=== PATIENT | female | born 1945 | race Caucasian/White ===

== ENCOUNTER 2018-03-04 04:03 | Inpatient (IN) | payer OTHER ==
[~2018-03-04] VITALS: Ht 162.6 cm; Wt 100.2 kg
[2018-03-04] VITALS (7 sets, daily range): BP systolic 113–151; BP diastolic 50–78
--- NOTE | ~2018-03-04 | PROC ---
[facility] [address] [place] [address] PROCEDURE REPORT Name: CACHORRO CROSS Room: [address]R.#: [id number] Admission: 03/04/18 Attend Phys: Ricky Coronel Discharge: 03/11/18 Date of : 49 Report #: [id number] THIS REPORT FOR: //name// For GI report, please see Provation report in Perceptive 7 content. By: 0911Medical Records Staff VERONA /OG
--- NOTE | ~2018-03-04 | PROC ---
[facility] [address] [place] [address] PROCEDURE REPORT Name: CACHORRO CROSS Room: [address]R.#: [id number] Admission: 03/04/18 Attend Phys: Ricky Coronel Discharge: 03/11/18 Date of : 49 Report #: [id number] THIS REPORT FOR: //name// For GI report, please see Provation report in Perceptive 7 content. By: 0910Medical Records Staff VERONA /OG
[~2018-03-04 04:03] MED LIST: ADVAIR 250-501 EACH INH; ALAVERT10 MG PO; ASPIRIN81 M2 PO; CLOPIDOGREL75 MG PO; DUONEB 2.5-0.5 M3 ML INH; FISH OIL 1,0001 EAC8 PO; IMDUR 30 MG TAB30 M1 PO; LANTUSSOLASTAR SQ; LEVOTHYROXIN0.137 M1 PO; LISINOPRIL40 MG PO; METOPROLOL SUCC25 M1 PO; NOVOLOG100 UNIT/1 SQ; SIMVASTATIN40 MG PO; SPIRIVA INH; VENTOLIN HFA INH8 GM INH
[2018-03-04 04:13] LABS: BE -2.8 mmol/L (-2 to +3); HCO3 22.1 mmol/L (22.0-26.0); PCO2 38.8 mmHg (35.0-45.0); PO2 88.2 mmHg (75.0-100.0); pH 7.374 (7.340-7.450)
--- NOTE | 2018-03-04 04:24 | NUR ---
PT REFUSED RUIZ
[2018-03-04 04:48] LABS: ABSOLUTE BASOPHILS 0.1 thou/uL (0.0-0.2); ABSOLUTE EOSINOPHILS 0.3 thou/uL (0.0-0.7); ABSOLUTE LYMPHOCYTES 2.1 thou/uL (0.8-5.3); ABSOLUTE MONOCYTES 0.9 thou/uL (0.0-1.2); ABSOLUTE NEUTROPHILS 12.6 thou/uL (1.6-8.1); BASOPHILS 0.5 %; EOSINOPHILS 1.9 %; HEMATOCRIT 28.6 % (37.0-47.0); HEMOGLOBIN 8.5 gm/dL (12.0-15.0); LYMPHOCYTES 13.4 %; MCH 21.4 pg (26.0-34.0); MCHC 29.8 g/dL (28.0-37.0); MONOCYTES 5.3 %; MPV 7.7 fl. (7.2-11.1); NUCLEATED RBCS 0 /100WBC; PLATELET COUNT* 443 thou/uL (150-400); POLYS 78.9 %; RBC 3.98 mil/uL (4.20-5.00); RDW-CV 23.1 % (10.5-14.5)
[2018-03-04] MEDS ORDERED: NORVASC5 MG PO (04:48)
[2018-03-04] MEDS ORDERED: [UNRECOGNIZED DRUG - OTHER] (04:49)
[2018-03-04] MEDS ORDERED: PROTONIX40 M1 PO (04:50)
[2018-03-04] MEDS ORDERED: BINOSTO70 MG PO (04:50)
[2018-03-04] MEDS ORDERED: FISH OIL 1,001000 M2 PO (04:50)
[2018-03-04] MEDS ORDERED: ASPIR 8181 MG PO (04:50)
[2018-03-04] MEDS ORDERED: PRINIVIL40 MG PO (04:51)
[2018-03-04] MEDS ORDERED: FUROSEMIDE 20 M20 MG PO (04:51)
[2018-03-04] MEDS ORDERED: ZOCOR40 MG PO (04:51)
[2018-03-04] MEDS ORDERED: PLAVIX 75 MG TA75 M1 PO (04:51)
[2018-03-04] MEDS ORDERED: ZANTAC 150MG T150 MG PO (04:52)
[2018-03-04] MEDS ORDERED: IMDUR 30 MG TAB30 M1 PO (04:52)
[2018-03-04] MEDS ORDERED: AMARYL4 MG PO (04:52)
[2018-03-04] MEDS ORDERED: SYNTHROID175 MCG PO (04:52)
[2018-03-04] MEDS ORDERED: AZITHROMYCIN 2250 MG PO (04:53)
[2018-03-04] MEDS ORDERED: TRELEGY ELLIPT1 EACH INH (04:53)
[2018-03-04 05:01] LABS: ANION GAP 11 mmol/L (7-16); BUN 22 mg/dL (7-18); CALCIUM 7.5 mg/dL (8.5-10.1); CHLORIDE 103 mmol/L (98-107); CO2 26 mmol/L (21-32); CREATININE 1.7 mg/dL (0.6-1.3); GLUCOSE 219 mg/dL (70-99); POTASSIUM 3.7 mmol/L (3.5-5.1); SODIUM 140 mmol/L (136-145)
[2018-03-04 05:04] LABS: APTT 27.7 Seconds (25.0-31.3); INR 0.9; PROTIME 9.4 Seconds (9.20-11.50)
[2018-03-04 05:13] LABS: ALBUMIN 2.7 g/dL (3.4-5.0); ALKALINE PHOSPHATASE 52 U/L (46-116); NT-PRO BRAIN NAT PEPTIDE 1530 pg/mL (<300); SGOT 12 U/L (15-37); SGPT 15 U/L (30-65); TOTAL BILIRUBIN 0.2 mg/dL (<0.1-1.0); TOTAL PROTEIN 8.3 g/dL (6.4-8.2); TROPONIN-I LEVEL <0.06 ng/mL (<0.06)
[2018-03-04 08:26] LABS: ANISOCYTOSIS 2+; HYPOCHROMASIA 2+; MICROCYTES 1+; PLATELET ESTIMATE INCREASED; POLYCHROMASIA 1+; TARGET CELLS Occasional
--- NOTE | 2018-03-04 08:30 | NUR ---
RADIOLOGY CALLED IN [facility] FOR VQ SCAN.
[2018-03-04 10:00] LABS: BE -1.7 mmol/L (-2 to +3); HCO3 22.5 mmol/L (22.0-26.0); PCO2 35.6 mmHg (35.0-45.0); PO2 93.9 mmHg (75.0-100.0); pH 7.419 (7.340-7.450)
--- NOTE | 2018-03-04 10:39 | NUR ---
PT COMPLETE VQ SCAN.
--- NOTE | 2018-03-04 11:50 | NUR ---
PT OFF BIPAP AND ON 3L NC. PT CAN EAT PER DR. LUNA.
[2018-03-05] VITALS (7 sets, daily range): BP systolic 117–153; BP diastolic 44–73
[2018-03-05 05:04] LABS: HEMATOCRIT 22.4 % (37.0-47.0); MCH 22.2 pg (26.0-34.0); MCHC 30.8 g/dL (28.0-37.0); MCV 72.2 fL (80.0-100.0); MPV 7.9 fl. (7.2-11.1); NUCLEATED RBCS 0 /100WBC; RBC 3.11 mil/uL (4.20-5.00); RDW-CV 23.2 % (10.5-14.5); WBC 19.2 thou/uL (4.0-11.0)
[2018-03-05 05:23] LABS: ALBUMIN 2.2 g/dL (3.4-5.0); CALCIUM 6.7 mg/dL (8.5-10.1); CREATININE 2.1 mg/dL (0.6-1.3); POTASSIUM 3.6 mmol/L (3.5-5.1); TOTAL BILIRUBIN 0.1 mg/dL (<0.1-1.0)
[2018-03-05 05:32] LABS: PLATELET COUNT* 364 thou/uL (150-400)
[2018-03-05 05:34] LABS: HEMOGLOBIN 6.9 gm/dL (12.0-15.0)
--- NOTE | 2018-03-05 05:55 | NUR ---
RECEIVED REPORT AND ASSUMED CARE AT 1900. VSS. CARDIAC MONITORING IN PLACE. PT DENIES ANY COMPLIANTS OF PAIN. ASSESSMENT COMPLETED CHARTED. PT UP WITH ASSIST OF ONE TO BSC, ON 3L HF NC. BED LOCKED IN LOWEST POSITION, CALL LIGHT WITHIN REACH, BED ALARM ON. HOURLY ROUNDING COMPLETED AND ALL NEEDS MET. WILL CONTINUE TO MONITOR
[2018-03-05 05:59] LABS: HEMATOCRIT 22.2 % (37.0-47.0)
[2018-03-05 06:03] LABS: HEMOGLOBIN 6.8 gm/dL (12.0-15.0)
--- NOTE | 2018-03-05 07:39 | CON ---
[address] [address] CONSULTATION Name: AMERICACACHORRO Aileen Room: [address] ADM IN M.R.#: [id number] Admission: 03/04/18 Attend Phys: Ricky Coronel Discharge: Date of : 49 Report #: [id number] THIS REPORT FOR: //name// CC: Omer Storm REQUESTING PHYSICIAN: Tanner Storm DO REASON FOR CONSULTATION: Acute respiratory failure, COPD exacerbation. DISCUSSION: The patient is a 72-year-old woman who is very remote smoker. She does carry diagnosis of COPD. She is O2, though has not been, steroid dependent. She was hospitalized recently at [facility]. She was discharged about a week and a half ago. However, when she was home, began having more trouble with her breathing. Was seen in the emergency department there about 2 days ago. They wanted to keep her and admit her, but she declined. She was sent out with a Z-KY that she had pneumonia based on their testing. No steroids. However, when she got up during the night going to the restroom and she has hoped to shower in anticipation of other activities for today. [place] extremely short of breath. Took additional nebulizer treatments, as well as her rescue inhaler. However, did not help. Asked her to call for help. The ambulance brought her here. She has not been at [facility] before. We had none of her other records. Was recently at [facility] is noted. She is a very remote smoker. She has not had any PFTs or pulmonary evaluation done in the past. She has been told, however, that she does have COPD and is on medications for that. Her current medication list; however, is not accurate. She is actually doing Advair twice a day and has her nebulizer, which she can do up to 4 times a day. She knows it is albuterol, but it is unknown if it is mixed with ipratropium bromide. She also has a rescue inhaler. She is on O2 continuously. She has been coughing. Her secretions are white. She denies hemoptysis. Is not having actual chest pain or has been very short of breath. She has never had a sleep study. She sleeps with oxygen. Has never been on a BiPAP or noninvasive ventilator. She does have a history of coronary artery disease. Has a stent placed in the past, which was done at [facility]. Has not been back in the last couple of years to follow up with cardiology there. PAST MEDICAL HISTORY: Besides the coronary artery disease and COPD, is remarkable for prior thyroidectomy, prior hysterectomy, dyslipidemia, TIAs. SOCIAL HISTORY: She is . Very remote smoker. [place] [address] CONSULTATION Name: CACHORRO CROSS Room: [address] IN [facility].#: [id number] Admission: 03/04/18 Attend Phys: Ricky Coronel Discharge: Date of : 49 Report #: [id number] worked in a long time and held a variety of jobs over the years. We discussed some, did not appear she had any significant occupational exposures. FAMILY HISTORY: Unremarkable. REVIEW OF SYSTEMS: A 12-point ROS was done. No positives as above. She does deny any recent chest pain or palpitations. Is very short of breath. No fevers at home. She does not like steroids, as when she does take them, she will have significant edema, particularly in her lower extremities. Lot of issues with fluid retention. Denies any recent GI symptoms. However, when she does not eat, she does get a burning in her stomach. Quite concerned that she has not had any of her medications. PHYSICAL EXAMINATION: GENERAL APPEARANCE: An obese woman. She is in bed with O2 via nasal cannula at this time. She is alert, conversant, and able to speak in full sentences. Her is at the bedside. She is a large woman. HEENT: Head is normocephalic. Sclerae are nonicteric. NECK: Large. No definite JVD is appreciated. HEART: Regular rate. Tones are distant. LUNGS: Show breath sounds to be diminished. She has prolonged expiratory phase with scattered expiratory wheezes. Excursion is equal. ABDOMEN: Obese, but soft, appreciable hepatosplenomegaly. No guarding or rebound tenderness. EXTREMITIES: She has no clubbing. Radial pulses are present. Lower extremities: She has some trace pretibial edema. SKIN: Warm and dry. Pulses are present, but diminished. LABORATORY AND X-RAY FINDINGS: X-ray done today shows some mild cardiomegaly. She does have some atelectatic changes with some infiltrates in left lower lung field. May have some right mid lung field as well. Ventilation perfusion lung scan was low probability for PE. Arterial blood gases done initially in the ED after she was placed on BiPAP. She had a pH 7.37, pCO2 of 39, pO2 of 88, bicarbonate of 22, saturation 96%. That was on 75% oxygen on BiPAP. Follow up gases this morning: pH 7.42, pCO2 of 36, pO2 94, saturation 96% with FiO2 down to 40%. She is currently on 3 L at the time that I saw [place] [address], hemoglobin 8.5, hematocrit of 28.2, MCV 72. Platelets are normal at 443 (actually high). Her proBNP was 1530. Albumin 2.7. Total protein was 8.3. IMPRESSION: 1. Chronic obstructive pulmonary disease exacerbation. She is actively bronchospastic. Some changes on her x-ray, probably pneumonia, cannot rule out a component of heart failure as well. Actual left ventricular status is unknown at this time. 2. Diabetes mellitus type 2. [place] [address] CONSULTATION Name: AMERICACACHORRO Room: [address] IN ..#: [id number] Admission: 03/04/18 Attend Phys: Ricky Coronel Discharge: Date of : 49 Report #: [id number] 3. Known coronary artery disease status post stent placement. 4. History of cerebrovascular disease, prior history of transient ischemic attacks. 5. Morbid obesity. 6. Anemia. Appears microcytic. RECOMMENDATIONS: 1. We will change the neb treatments from q.i.d. up to q. 4 hours. 2. We will also start budesonide and arformoterol to replace the Advair. 3. IV antibiotics. 4. I will also complete her course of azithromycin. Rocephin has also been started. <ELECTRONICALLY SIGNED> By: Sapna Nash MD 03/05/18 0739 [id number] nora Galdamez
[2018-03-05 08:17] LABS: ABSOLUTE LYMPHOCYTES 1.7 thou/uL (0.8-5.3); ABSOLUTE MONOCYTES 0.4 thou/uL (0.0-1.2); ABSOLUTE NEUTROPHILS 17.1 thou/uL (1.6-8.1); ANISOCYTOSIS 2+; ATYPICAL LYMPHS 5 %; HYPOCHROMASIA 2+; PLATELET ESTIMATE ADEQUATE; POLYCHROMASIA 1+
[2018-03-05 12:58] LABS: HEMATOCRIT 27.4 % (37.0-47.0); HEMOGLOBIN 8.3 gm/dL (12.0-15.0)
--- NOTE | 2018-03-05 13:00 | NUR ---
ASSUMED PT CARE AT 0700 PT IS ALERT AND ORIENTED X 4 PT HGB BELOW 7 AT START OF SHIFT ORDERS FOR BLOOD OBTAINED BY PREVIOUS NURSE BLOOD BANK CALLED BLOOD READY VERIFIED WITH ANOTHER NURSE AND HUNG BLOOD WAITED WITH PT FOR 15 MINUTES NO REACTION NOTED INCREASED RATE AND ASSED PT HOURLY UNTIL BLOOD COMPLETE ALL VITAL SIGNS STABLE PT TOLERATED BLOOD TRANSFUSION WELL, PT BLOOD SUGAR IS ELEVATED GAVE SCHEDULED INSULIN AND NOTIFIED PHYSICIAN AWAITING CALL BACK, PT IS SR ON THE MONITOR, PT IS UP WITH SBA PT DENIES PAIN OR SOA ON 3L/NC, BIPAP DISCONTINUED, WILL CONTINUE TO MONITOR
--- NOTE | 2018-03-05 14:56 | EKG ---
[place] [address] ELECTROCARDIOGRAM REPORT Name: CACHORRO CROSS Room: [address] ADM IN .R.#: [id number] Admission: 03/04/18 Attend Phys: Ricky Coronel Discharge: Date of : 49 Report #: [id number] THIS REPORT FOR: //name// [facility] ED Test Date: 2018-03-04 Test Time: 04:11:12 Pat Name: CACHORRO CROSS Department: Room: [facility] Gender: F Pewter Finisher: [birth year] : 1945 Requested By: Sandeep Hawley Order Number: [id number] MD: Alexsander Burger Measurements Intervals [place] Rate: 98 P: 41 DE: 176 QRS: 58 QRSD: 92 T: 97 QT: 351 QTc: 449 Interpretive Statements Sinus rhythm Borderline repolarization abnormality No previous ECG available for comparison Electronically Signed On 03-05-2018 14:56:18 CDT by Alexsander Burger [email or web address] <ELECTRONICALLY SIGNED> By: Alexsander Burger MD, [facility] 03/05/18 1456 0411 0411 Alexsander Burger MD, FACC /EPI
--- NOTE | 2018-03-05 22:26 | NUR ---
RECEIVED REPORT AND ASSUMED CARE OF PATIENT AT 1930. AIRPLANE RENTAL CLERK IN PLACE TRACING SR. ASSESSMENT AND VITALS COMPLETED CHARTED VSS. PATIENT DENIES PAIN AND DISCOMFORT. PATIENT IS ON 1.5L O2 NC O2 SAT WNL. LUNGS COARSE W/ WHEEZES. PATIENT REPORTS THE MUCINEX IS WORKING AND SHE COUGHED UP SPUTUM EARLIER TODAY. GOAL IS TO MAINTAIN O2 SATS >90% AND EXCRETE MUCUS. CALL LIGHT WITHIN REACH
[2018-03-06 03:47] VITALS: BP 141/59
--- NOTE | 2018-03-06 06:52 | NUR ---
PATIENT PROGRESSING TOWARDS GOALS: O2 SATS MAINTAINED >90%. PATIENT CONTINUES TO HAVE PRODUCTIVE COUGH. PATIENT CONTINUES TO DENY PAIN AND DISCOMFORT. HOURLY ROUNDING OBSERVED. CALL LIGHT WITHIN REACH
[2018-03-06 08:10] VITALS: BP 143/58
[2018-03-06 10:48] LABS: HEMATOCRIT 25.4 % (37.0-47.0); HEMOGLOBIN 7.7 gm/dL (12.0-15.0)
[2018-03-06 10:59] LABS: ALBUMIN 2.2 g/dL (3.4-5.0); CALCIUM 6.8 mg/dL (8.5-10.1); CREATININE 2.3 mg/dL (0.6-1.3); TOTAL BILIRUBIN 0.1 mg/dL (<0.1-1.0); TOTAL PROTEIN 7.1 g/dL (6.4-8.2)
--- NOTE | 2018-03-06 11:00 | NUR ---
REC'D REPORT FROM NOC RN, ASSUMED CARE OF PT APPROX 0730. PT A&O X4, ABLE TO COMMUNICATE NEEDS TO STAFF. MALT SPECIFICATIONS CONTROL ASSISTANT IN PLACE, SR. O2 SAT >92% ON 3L/MIN NC. ASSESSMENT COMPLETE, DOCUMENTED. MEDS PER JUL. BARRIER CREAM TO R BUTTOCK FOR 2 CM ROUND STAGE 2 PRESSURE ULCER. CALL LIGHT IN REACH. APPROPRIATE USE OF CALL LIGHT TO ASK FOR ASSISTANCE WITH TRANSFERS TO BSC AND CHAIR. HOURLY ROUNDING.
--- NOTE | 2018-03-06 12:15 | NUR ---
Pt is A&O. Resides at home with her . Pt has been independent with ADLs, continues to cook and clean. Pt stated that she hasn't been able to drive recently, stated that she has been receiving injections in her eyes re: macular degeneration. Pt has a walker, 2 canes, a wc and a scooter at home. Pt stated that she only uses the wc for longer distances. Pt is current [facility]. Hx of [facility], but stated "they are horrible, I won't ever use them again." Pt has home o2 through [facility]. No hx of skilled. Goal is to return home at dc, with family support. CM to update [facility] palliative care when Pt discharges, Pt declines HH. Following.
[2018-03-06 13:28] VITALS: BP 131/65
[2018-03-06 13:33] LABS: HCO3 18.3 mmol/L (22.0-26.0); PCO2 35.5 mmHg (35.0-45.0); PO2 85.3 mmHg (75.0-100.0); pH 7.329 (7.340-7.450)
[2018-03-06 13:51] VITALS: BP 131/65
--- NOTE | 2018-03-06 14:48 | NUR ---
Nutrition: Pt admitted with COPD exac. Steroid RX elevating BG levels. H/o COPD, DM. on insulin, lasix, solumedrol. Labs: BG 300s, alb 2.2, prealb 19.4, Hgb 7.7, BUN 54, cr 2.3. Wt is stable, 208#. Diet order is now CHO controlled. Low to Mild nutrition risk.
[2018-03-06 16:00] VITALS: BP 137/70
--- NOTE | 2018-03-06 16:37 | 2DMMODE ---
[place] [address] 2 D/M-MODE ECHOCARDIOGRAM Name: AMERICACACHORRO L Room: [address] IN [facility]#: [id number] Admission: 03/04/18 Attend Phys: Tanner Storm Discharge: Date of : 49 Date of Service: 03/06/18 1444 Report #: [id number] THIS REPORT FOR: //name// APPROVED REPORT Study performed: 03/06/2018 10:45:52 EXAM: Comprehensive 2D, Doppler, and color-flow Echocardiogram Patient Location: In-Patient Room #: [facility] Status: routine BSA: 1.99 HR: 77 bpm BP: 143/58 mmHg Rhythm: NSR Other Information Study Quality: Good Indications COPD Dyspnea 2D Dimensions IVSd: 16.63 (7-11mm) LVOT Diam: 21.89 (18-24mm) LVDd: 53.22 mm PWd: 12.55 (7-11mm) Ascending Ao: 31.45 (22-36mm) LVDs: 31.21 (25-40mm) Aortic Root: 36.48 mm Volumes Left Atrial Volume (Systole) LA ESV Index: 56.10 mL/m2 Aortic Valve AoV Peak Alexandre.: 1.73 m/s AO Peak Gr.: 11.96 mmHg LVOT Max P.72 mmHg AO Mean Gr.: 6.53 mmHg LVOT Mean P.25 mmHg LVOT Max V: 1.20 m/s AO V2 VTI: 37.56 cm LVOT Mean V: 0.85 m/s MARIE (VTI): 2.72 cm2 LVOT V1 VTI: 27.16 cm Mitral Valve E/A Ratio: 0.87 MV Decel. Time: 277.64 [place] [address] 2 D/M-MODE ECHOCARDIOGRAM Name: CACHORRO CROSS Room: [address]#: [id number] Admission: 03/04/18 Attend Phys: Tanner Storm Discharge: Date of : 49 Date of Service: 03/06/18 1444 Report #: [id number] MV E Max Alexandre.: 2.65 m/s MV PHT: 80.52 ms MVA (PHT): 2.73 cm2 TDI E/Lateral E': 17.67 E/Medial E': 33.13 Medial E' Alexandre.: 0.08 m/s Lateral E' Alexandre.: 0.15 m/s Pulmonary Valve PV Peak Alexandre.: 1.11 m/s PV Peak Gr.: 4.92 mmHg Tricuspid Valve RAP Estimate: 15.00 mmHg TR Peak Gr.: 31.06 mmHg RVSP: 46.00 mmHg PA Pressure: 46.00 mmHg Left Ventricle The left ventricle is normal size. There is normal LV segmental wall motion. Mild concentric left ventricular hypertrophy. Left ventricular systolic function is normal. The left ventricular ejection fraction is within the normal range. LVEF is 55-60%. Grade I - abnormal relaxation pattern. Right Ventricle The right ventricle is normal size. The right ventricular systolic function is normal. Atria Left atrium is mildly dilated. The right atrium size is normal. Aortic Valve Mild aortic valve sclerosis. No aortic regurgitation is present. There is no aortic valvular stenosis. Mitral Valve There is mitral annular calcification. There is no mitral valve regurgitation noted. No evidence of mitral valve stenosis. Tricuspid Valve The tricuspid valve is normal in structure. Trace tricuspid regurgitation. Moderate pulmonary hypertension. Pulmonic Valve The pulmonary valve is normal in structure. [place] [address] 2 D/M-MODE ECHOCARDIOGRAM Name: CACHORRO CROSS Room: [address]#: [id number] Admission: 03/04/18 Attend Phys: Tanner Storm Discharge: Date of : 49 Date of Service: 03/06/18 1444 Report #: [id number] valvular regurgitation. Great Vessels The aortic root is normal in size. IVC is dilated and collapses <50% with inspiration. Pericardium There is no pericardial effusion. <Conclusion> The left ventricle is normal size. Mild concentric left ventricular hypertrophy. Left ventricular systolic function is normal. The left ventricular ejection fraction is within the normal range. LVEF is 55-60%. Grade I - abnormal relaxation pattern. The right ventricle is normal size. Left atrium is mildly dilated. Mild aortic valve sclerosis. No aortic regurgitation is present. There is no aortic valvular stenosis. There is mitral annular calcification. There is no mitral valve regurgitation noted. No evidence of mitral valve stenosis. The tricuspid valve is normal in structure. IVC is dilated and collapses <50% with inspiration. There is no pericardial effusion. There is normal LV segmental wall motion. <ELECTRONICALLY SIGNED> By: Leonel Cavazos MD, FACC 03/06/18 1444 1444 1444 Leonel Cavazos MD, FACC /INF
[2018-03-06 20:00] VITALS: BP 143/67
[2018-03-07 01:02] VITALS: BP 120/47
--- NOTE | 2018-03-07 04:38 | NUR ---
PATIENT PROGRESSING TOWARDS GOALS: PATIENT'S O2 SATS MAINTAINED >90% ON 2-3L O2 NC WITHOUT RESPIRATORY DISTRESS OR DISCOMFORT. PATIENT STATES SHE HAS BEEN ABLE TO "COUGH UP SOME JUNK AND FEELS BETTER." LUNG SOUNDS IMPROVED. PATIENT DENIES PAIN. BARRIER CREAM APPLIED TO RIGHT BUTTOCK WOUND AND PATIENT REMINDED TO REPOSITION FREQUENTLY. HOURLY ROUNDING OBSERVED. CALL LIGHT WITHIN REACH.
[2018-03-07 05:16] VITALS: BP 119/51
[2018-03-07 08:00] VITALS: BP 146/68
[2018-03-07 09:16] LABS: ABSOLUTE MONOCYTES 0.6 thou/uL (0.0-1.2); ABSOLUTE NEUTROPHILS 17.4 thou/uL (1.6-8.1); BASOPHILS 0.2 %; HEMATOCRIT 27.1 % (37.0-47.0); HEMOGLOBIN 8.2 gm/dL (12.0-15.0); LYMPHOCYTES 5.3 %; MCH 22.5 pg (26.0-34.0); MCHC 30.3 g/dL (28.0-37.0); MCV 74.4 fL (80.0-100.0); MONOCYTES 2.9 %; MPV 7.8 fl. (7.2-11.1); NUCLEATED RBCS 0 /100WBC; PLATELET COUNT* 404 thou/uL (150-400); POLYS 91.6 %; RBC 3.64 mil/uL (4.20-5.00); RDW-CV 23.9 % (10.5-14.5)
[2018-03-07 09:21] LABS: CALCIUM 6.9 mg/dL (8.5-10.1); CREATININE 1.9 mg/dL (0.6-1.3); POTASSIUM 4.7 mmol/L (3.5-5.1)
--- NOTE | 2018-03-07 09:52 | NUR ---
ASSUMED CARE PF PT THIS AM AROUND 07- SALT WASHER HARVESTING STATION IN PLACE ORDERED, TRACING SR- UPON ASSESSMENT PT NOTED TO BE RESTING IN BED, WATCHING TV- PT A&O X4, TALKATIVE AND TEARFUL AT TIMES- CONTINENT OF BOWEL AND BLADDER- SBA WITH TRANSFERS FOR SAFETY- EXPIRATORY WHEEZING NOTED- RESP EVEN AND UN-LABORED AT REST- DYSPNEA NOTED ON EXERTION- VSS, O2 SAT 98% ON 2L VIA NC-PRODUSTIVE WET COUGH NOTED- ABDOMEN SOFT/ROUND/NON-TENDER, BS X4 QUADS-LAST BM X2 DAYS AGO, PT DENIES NEED FOR STOOL SOFTNER AT THIS TIME- SKIN DRY AND FLAKEY- IV NOTED TO LEFT FA INTACT AND SL; IV ABT GIVEN THIS AM PRESCRIBED-GOOD PO INTAKE NOTED WITH MEALS- BS MONITORED WITH PRESCRIBED INSULIN GIVEN PRESCRIBED- PT DENIES ANY C/O PAIN/DISCOMFORT AT THIS TIME- CALL LIGHT AND PERSONAL BELONGINGS WITH IN REACH- HOURLY ROUNDS IN PLACE R.T SAFETY/NEEDS- ALL NEEDS MET AT THIS TIME-WCTM
[2018-03-07 12:41] VITALS: BP 125/74
[2018-03-07 16:25] VITALS: BP 129/59
--- NOTE | 2018-03-07 17:05 | NUR ---
PT SAI RESTING IN BED, AT SIDE VISITING- REAL ESTATE LOAN OFFICER IN PLACE ORDERED, TRACING SR- IV TO LEFT FA INTACT AND SL- IV SOLU-MED GIVEN PRESCIBED- BREATHING TX PER RT THIS SHIFT- SPUTUM COLLECTED AND SENT TO LAB FOR TESTING THIS SHIFT ORDERED- IS AT BEDSIDE AND ENCOURAGED INDICATED- PT DENIES ANY C/O PAIN/DISCOMFORT AT THIS TIME- CALL LIGHT AND PERSONAL BELONGINGS WITH IN REACH- PT MAKES NEEDS KNOWN- ALL NEEDS MET AT THIS TIME-WCTM
[2018-03-07 20:00] VITALS: BP 132/49
[2018-03-08] VITALS: BP 124/59
[2018-03-08 04:00] VITALS: BP 153/72
--- NOTE | 2018-03-08 04:42 | NUR ---
ASSUMED CARE OF PT AFTER REPORT AT 1930. PT A&OX4. VSS. PHYSICAL ASSESSMENT COMPLETED AND CHARTED. PT ON O2 AT 2L WITH 96% O2 SAT. PT TRACING SR ON TELE. PT UP STANDBY TO BEDSIDE COMMODE. DENIES ANY PAIN OR DISCOMFORT. PT RESTED WELL ON BED. HOURLY ROUNDING OBSERVED. HS REST & SAFETY GOALS ACHIEVED. CALL LIGHT WITHIN REACH. BED IN LOW POSITION. BED ALARM ON.
[2018-03-08 05:09] LABS: HEMATOCRIT 31.4 % (37.0-47.0); HEMOGLOBIN 9.4 gm/dL (12.0-15.0); MCH 22.4 pg (26.0-34.0); MCHC 30.1 g/dL (28.0-37.0); MCV 74.5 fL (80.0-100.0); MPV 7.5 fl. (7.2-11.1); NUCLEATED RBCS 0 /100WBC; PLATELET COUNT* 456 thou/uL (150-400); RBC 4.21 mil/uL (4.20-5.00); RDW-CV 23.9 % (10.5-14.5)
[2018-03-08 05:32] LABS: CALCIUM 6.8 mg/dL (8.5-10.1); CREATININE 1.6 mg/dL (0.6-1.3); POTASSIUM 3.9 mmol/L (3.5-5.1)
[2018-03-08 06:16] LABS: ABSOLUTE LYMPHOCYTES 2.4 thou/uL (0.8-5.3); ABSOLUTE MONOCYTES 0.3 thou/uL (0.0-1.2); ABSOLUTE NEUTROPHILS 14.3 thou/uL (1.6-8.1); HYPOCHROMASIA 2+; PLATELET ESTIMATE INCREASED; TARGET CELLS 1+
[2018-03-08 06:18] LABS: ANISOCYTOSIS 1+; MICROCYTES 1+; POIKILOCYTOSIS 1+
[2018-03-08 07:53] VITALS: BP 150/56
--- NOTE | 2018-03-08 09:32 | NUR ---
ASSUMED CARE OF PT THIS AM AROUND 0715- RIBBON WINDER IN PLACE ORDERED, TRACING SR- UPON ASSESSMENT PT NOTED TO BE RESTING IN BED, WATCHING TV- PT A&O X4- CONTINENT OF BOWEL AND BLADDER- SBA WITH TRANSFERS FOR SAFETY- EXPIRATORY WHEEZING NOTED WITH COUGH- RESP EVEN AND UN-LABORED AT REST- DYSPNEA NOTED ON EXERTION- VSS,O2 SAT 99% ON 2L-ABDOMEN SOFT/OBESE/NON-TENDER, BS X4 QUADS- PT REPORTS TO HAVE HAD BM THIS AM- SKIN DRY AND FLAKEY- IV NOTED TO LEFT FA INTACT AND SL- IV ABT GIVEN THIS AM PRESCIBED, NO ADVERSE REACTIONS TO NOTE- GOOD PO INTAKE NOTED WITH BREAKFAST THIS AM, BS MONITORED ORDERED, SCHEDULED AND SSI GIVEN PRESCIBED- PT DENIES ANY C/O PAIN/DISCOMFORT AT THIS TIME- CALL LIGHT AND PERSONAL BELONGINGS WITH IN REACH- HOURLY ROUNDS IN PLACE R/T SAFETY/NEEDS- ALL NEEDS MET AT THIS TIME-WCTM
[2018-03-08 12:00] VITALS: BP 136/68
--- NOTE | 2018-03-08 14:16 | NUR ---
Therapies ordered. Rehab consult placed.
[2018-03-08 16:00] VITALS: BP 142/72
--- NOTE | 2018-03-08 16:40 | NUR ---
PT RODRICKENLTY RESTING IN BED, EYES CLOSED- GENERAL CARGO CLERK IN PLACE ORDERED, TRACING SR- IV TO LEFT FA INTACT AND SL- GOOD PO INTAKE NOTED WITH MEALS, BS MONITORED ORDERED, SCHEDULED INSULIN PRESCIBED- HERE TO ASSESS THIS SHIFT AND STATES PT DOING BETTER- ENCOURAGEMENT GIVEN TO INCREASE ACTIVITY WITH LONGER O2 TUBING PROVIDED TO ENCOURAGE AMBULATION- PT UP AND SHOWERED THIS SHIFT, AND REPORTS TO BE FEELING BETTER- GI CONSULTED PER THIS SHIFT R/T ANEMIA- GI HERE TO ASSESS WITH PLANS COMMUNICATED FOR UPPER AND LOWER WORK UP PER GI PLANNED FOR TUESDAY PER PT REQUEST FOR DAUGHTER TO BE ABLE TO BE HERE- PT NOTED TO REFUSE PO GI PREP, BUT CONCENTED TO BOWEL PREP PER GASTRIC TUBE- NG TUBE TO BE PLACED ON 03/09/18 FOR BOWEL PREP ADMINISTRATION- PT/OT CONSULTED FOR EVAL AND TX THIS SHIFT- REHAD CONSULT INITIATED- PT DENIES ANY C/O PAIN/DISCOMFORT AT THIS TIME-CALL LIGHT AND PERSONAL BELONGINGS WITH IN REACH- PT MAKES NEEDS KNOWN- ALL NEEDS MET AT THIS TIME-WCTM
[2018-03-08 20:00] VITALS: BP 155/70
[2018-03-09] VITALS: BP 140/58
[2018-03-09 04:00] VITALS: BP 129/55
[2018-03-09 04:43] LABS: HEMOGLOBIN 8.2 gm/dL (12.0-15.0); MCH 22.5 pg (26.0-34.0); MCHC 30.5 g/dL (28.0-37.0); MCV 73.6 fL (80.0-100.0); MPV 7.3 fl. (7.2-11.1); RBC 3.66 mil/uL (4.20-5.00); RDW-CV 24.1 % (10.5-14.5); WBC 15.4 thou/uL (4.0-11.0)
--- NOTE | 2018-03-09 04:56 | NUR ---
ASSUMED CARE OF PT AFTER REPORT AT 1930. PT A&OX4. VSS. PHYSICAL ASSESSMENT COMPLETED AND CHARTED. PT ON O2 AT 2L NC WITH O2 SAT OF 95%. PT TRACING SR ON TELE. PT UP STANDBY ASSIST TO RESTROOM. DENIES ANY PAIN OR DISCOMFORT. PT RESTED WELL ON BED. HOURLY ROUNDING OBSERVED. HS REST & SAFETY GOALS ACHIEVED. CALL LIGHT WITHIN REACH. BED IN LOW POSITION. BED ALARM ON.
[2018-03-09 05:23] LABS: CALCIUM 6.7 mg/dL (8.5-10.1); CREATININE 1.5 mg/dL (0.6-1.3); MAGNESIUM 2.1 mg/dL (1.8-2.4); POTASSIUM 4.5 mmol/L (3.5-5.1)
[2018-03-09 08:00] VITALS: BP 138/82
--- NOTE | 2018-03-09 15:07 | NUR ---
REPORT CALLED TO DONATO ON JSSI. PT TAKEN TO ROOM 112 VIA BED
[2018-03-09 15:15] VITALS: BP 148/74
--- NOTE | 2018-03-09 15:47 | NUR ---
PATIENT ARRIVED TO UNIT FROM TELE AT 1515. ALERT AND ORIENTED X 4. VITAL SIGNS STABLE ON 2L O2 NASAL CANULA. AFEBRILE. UP WITH STAND BY ASSIST. AGREE WITH PREVIOUS ASSESSMENT AND CHARTING. ORIENTED TO ROOM. CALL LIGHT WITHIN REACH. NURSNIG WILL CONTINUE TO MONITOR.
--- NOTE | 2018-03-09 15:50 | NUR ---
Pt does not qualify for acute rehab
--- NOTE | 2018-03-09 18:20 | NUR ---
PATIENT ALERT AND ORIENTED X 4. VITAL SIGNS STABLE ON 2L O2 NASAL CANULA. AFEBRILE. UP WITH ASSISTANCE IN ROOM. DENIES PAIN AND NAUSEA. RESTING COMFORTABLY. IV PATENT AND SALINE LOCKED. HOURLY ROUNDS MAINTAINED THROUGHOUT THE SHIFT. CALL LIGHT WITHIN REACH. NURSING WILL CONTINUE TO MONITOR.
[2018-03-09 19:55] VITALS: BP 120/58
--- NOTE | 2018-03-09 21:36 | NUR ---
ASSUMED PATIENT CARE AT 1899. ASSESSMENT ROUNDS DISCUSSED WITH PATIENT GI PROCEDURES TOMORROW. PATIENT STATES SHE WAS TOLD THE TUBE IN HER NOSE FOR HER PREP WOULD BE WHILE SHE WAS ASLEEP. PATIENT STATES SHE REFUSES TO DRINK THE PREP SHE WILL VOMIT IT BACK UP AND ALSO REFUSES TO HAVE AN NGT. SHE HAS A HISTORY WITH ENT THAT SHE HAS VERY NARROW NASAL PASSAGES WELL. OF NOTE, THERE IS MENTION OF NGT PLACEMENT IN GI NOTE FROM 03/08/18 BUT NO ORDERS. CALL WAS MADE TO [facility] IN THE DAY TO UPDATE GI BUT NO RETURN CALL OF 1899. SECOND PAGE TO GI AT 2044. RETURN CALL AT [address] HYDE. ALL OF ABOVE INFORMATION RELAYED TO HIM. DR. HYDE STATES THEY CAN MAKE FURTHER PLANS FOR EGD (WHICH PATIENT IS AGREEABLE TO) IN THE MORNING AND FOLLOW NPO AT MIDNIGHT ORDER.
--- NOTE | 2018-03-09 21:48 | NUR ---
HS BLOOD SUGAR 498. DR. BERGMAN NOTIFIED WITH NEW ORDER FOR AN ADDITIONAL 10 UNITS OF LISPRO BE GIVEN NOW. DR. BERGMAN ALSO UPDATED AT THIS TIME OF ISSUES WITH GI PREP/PROCEDURES.
[2018-03-10 03:19] VITALS: BP 130/56
--- NOTE | 2018-03-10 04:46 | NUR ---
PATIENT HAS REMAINED ALERT AND ORIENTED X 4 THROUGHOUT THE SHIFT AND RESTING AT INTERVALS ON HOURLY ROUNDS. UP SBA TO BR. ADEQUATE VOIDS. SOME SHORTNESS OF AIR WITH ACTIVITY. PATIENT STATES OVERALL CONTINUES TO HAVE IMPROVEMENT. NO LE EDEMA. NO CRACKLES OR WHEEZING. O2 SATS >95% SPOT CHECKS ON 2L/MIN. NOTED LOOSE COUGH AT TIMES. RT TREATMENTS. MED PER ORDERS. VITAL SIGNS STABLE. NPO AT MIDNIGHT FOR POSSIBLE GI PROCEDURE TODAY. CONTINUE TO MONITOR.
[2018-03-10 04:53] LABS: HEMATOCRIT 28.2 % (37.0-47.0); HEMOGLOBIN 8.8 gm/dL (12.0-15.0); MCH 22.8 pg (26.0-34.0); MCHC 31.2 g/dL (28.0-37.0); MCV 73.2 fL (80.0-100.0); MPV 7.5 fl. (7.2-11.1); RBC 3.85 mil/uL (4.20-5.00); RDW-CV 24.2 % (10.5-14.5); WBC 15.7 thou/uL (4.0-11.0)
[2018-03-10 05:28] LABS: ALBUMIN 2.5 g/dL (3.4-5.0); CREATININE 1.7 mg/dL (0.6-1.3); MAGNESIUM 2.1 mg/dL (1.8-2.4); POTASSIUM 4.4 mmol/L (3.5-5.1); TOTAL BILIRUBIN 0.2 mg/dL (<0.1-1.0); TOTAL PROTEIN 6.2 g/dL (6.4-8.2)
[2018-03-10 06:28] VITALS: BP 130/56
[2018-03-10 07:40] VITALS: BP 127/69
[2018-03-10 08:20] VITALS: BP 130/56
[2018-03-10 09:14] VITALS: BP 130/56
--- NOTE | 2018-03-10 11:39 | CON ---
[address] [address] CONSULTATION Name: CACHORRO CROSS Room: [address] IN .R.#: [id number] Admission: 03/04/18 Attend Phys: Ricky Coronel Discharge: Date of : 49 Report #: [id number] THIS REPORT FOR: //name// CC: Omer Storm TYPE OF REPORT: Cardiology consultation. INDICATION: Acute respiratory failure likely secondary to COPD exacerbation and acute diastolic heart failure. HISTORY OF PRESENT ILLNESS: The patient is a very pleasant 72-year-old white female who was admitted to the hospital with acute respiratory failure. She has a long history of oxygen requiring COPD. She has been having a cough that is now productive of clear to yellow sputum. She had a fever on arrival. Chest x-ray suggests left lower lobe pneumonia. The patient also had an elevated BNP and mildly elevated troponins. She was hospitalized at [facility] last week at which time she apparently had an echocardiogram. She was told that her heart was stiff. I suspect she has diastolic heart failure. She denies chest pain. She is having orthopnea. She has profound dyspnea on exertion. PAST MEDICAL HISTORY: 1. Oxygen requiring COPD. 2. Coronary artery disease with percutaneous coronary intervention 10 years ago. 3. Hypertension. 4. Thyromegaly status post surgery. 5. She reports 2 TIAs. 6. Hysterectomy. 7. Type 2 diabetes mellitus. 8. Hyperlipidemia. PAST SURGICAL HISTORY: Cholecystectomy. FAMILY HISTORY: Noncontributory. SOCIAL HISTORY: The patient is . She does not smoke. She quit smoking years ago. She does not drink alcohol. ALLERGIES: CONTRAST, SULFA, CODEINE, PROPOXYPHENE, CEFRADINE, PROPRANOLOL and DULOXETINE. HOME MEDICATIONS: Lantus 30 units at bedtime, Norvasc 5 mg daily, fish oil 1000 mg b.i.d., Protonix 40 mg daily, aspirin 81 mg daily, alendronate 70 mg weekly, furosemide 20 mg daily, lisinopril 40 mg daily, Plavix 75 mg daily, simvastatin 40 mg every evening, levothyroxine 175 mcg daily, Imdur 30 mg daily, [place] [address] CONSULTATION Name: CACHORRO CROSS Room: [address]#: [id number] Admission: 03/04/18 Attend Phys: Ricky Coronel Discharge: Date of : 49 Report #: [id number] 4 mg daily, Zantac 150 mg b.i.d., Ellipta 100/62.5/25 one inhaler each day and Zithromax 250 mg daily. REVIEW OF SYSTEMS: A 14-point review of systems is positive for cough productive of sputum, pneumonia, COPD, dyspnea, orthopnea, PND, lower extremity edema, type 2 diabetes mellitus and contrast allergy as well as medical allergies as outlined above. PHYSICAL EXAMINATION: VITAL SIGNS: Blood pressure 143/61 and pulse 80 and regular. GENERAL: This is a morbidly obese white female, in no distress. Mood and affect appropriate. HEENT: Extraocular muscles intact. O2 nasal cannula in place. Mucous membranes are moist. NECK: Reveals a thick neck without obvious jugular venous distention. I do not appreciate bruit. CHEST: Reveals diffusely decreased breath sounds throughout with expiratory wheezes. CARDIOVASCULAR: Reveals a distant S1 and S2 without gallop or murmur. ABDOMEN: Reveals a protuberant abdomen, soft and nontender. EXTREMITIES: Shows woody edema 1-2+ to the knees bilaterally. SKIN: Dry. RADIOLOGICAL DATA: A 12-lead EKG shows sinus rhythm without acute ST or T-wave abnormality. LABORATORY DATA: Labs are reviewed. BUN 22 and creatinine 1.7. Electrolytes within normal limits. Troponin less than 0.06. NT-pro-BNP 1530. Hemoglobin 8.5. MCV 72. IMPRESSION AND RECOMMENDATIONS: 1. Cnops-go-ekgclfn diastolic heart failure. Continue IV diuresis and blood pressure control. 2. Chronic obstructive pulmonary disease exacerbation per Pulmonology. 3. Iron-deficiency anemia. 4. Hypertension. 5. Hyperlipidemia. The patient was recently evaluated at [facility]. I have requested those outside records as I believe they include an echocardiogram. If this has not been done recently, we will repeat study. <ELECTRONICALLY SIGNED> By: Alexsander Burger MD, FACC 03/10/18 1139 1502 [id number] Burger MD, FACC /nt
--- NOTE | 2018-03-10 11:42 | NUR ---
PT RETURNED FROM PACU AT THIS TIME. PT IS ALERT AND ORIENTED. PT LUNGS ARE CLEAR. PULSES 2+ ALL EXTREMITIES. NO NEW SKIN CHANGES NOTED. NEW IV IN LEFT HAND. PT IS ON 2 LITERS O2 BY NASAL CANNULA. PT UP TO BATHROOM WITH STANDY BY ASSIST. PT DENIED FEELING DIZZY OR NUMB. CALL LIGHT IN REACH. PT INSTRUCTED TO HIT CALL LIGHT BEFORE GOING TO BATHROOM. PT GIVEN MORNING MEDS ORDERED. WILL CONTINUE TO MONITOR.
--- NOTE | 2018-03-10 12:00 | NUR ---
SPOKE WITH PT. SHE WAS TIRED BUT ALERT AND ORIENTED. TALKATIVE. SHE WOULD LIKE HOME HEALTH WHEN SHE GOES HOME FROM THE HOSPITAL. SHE CHOSE [facility] AFTER DISCUSSION. SHE WILL NEED NURSING,PT,OT. FAXED REFERRAL TO [facility]. TOLD PT. HOME HEALTH WILL CALL HER THE DAY AFTER SHE GOES HOME TO SET UP APPT. AT DISCHARGE CALL [phone] AND FAX FINAL ORDERS TO [phone].
--- NOTE | 2018-03-10 17:11 | NUR ---
PT REMAINED ALERT AND ORIENTED. PT HAD EGD COMPLETED, FOUND 3 CM HIETAL HERNIA, WILL DO COLONOSCOPY TOMORROW. PT HAS DULCOLAX FOR THE BOWEL PREP AND PT IS ON CLR LIQUIDS. NPO AFTER MIDNIGHT. PT IS ON 2 LITERS O2. DENIES ANY PAIN AT THIS TIME. PT IS UP AD [place], WITH BEDSIDE COMMODE NEXT TO BED DUE TO BOWEL PREP. CALL LIGHT IN REACH. PT NOTIFIED TO CALL US IF NEEDING ASSISTANCE. WILL CONTINUE TO MONITOR.
--- NOTE | 2018-03-10 18:47 | NUR ---
CHARTING COMPLETED BY MARIAMA Brooks RN. REVIEWED AND AGREE WITH ALL CHARTING AND ASSESSMENTS.
[2018-03-10 19:52] VITALS: BP 139/81
[2018-03-11 02:14] VITALS: BP 130/56
--- NOTE | 2018-03-11 04:56 | NUR ---
PATIENT ALERT AND ORIENTED. UP TO BEDSIDE COMMODE WITHOUT DIFFICULTY. DOING PREP FOR COLONOSCOPY. STOOL CURRENTLY LIQUID BROWN. NO C/O PAIN OR NAUSEA. UNABLE TO SEE ANY BLOOD IN STOOLS. NPO AT THIS TIME. REMAINS ON O2 AT 2L/NC WITH O2 SATS IN MID 90'S. CALL LIGHT WITHIN REACH.
[2018-03-11 07:39] VITALS: BP 143/67
[2018-03-11 08:44] VITALS: BP 130/56
--- NOTE | 2018-03-11 09:18 | NUR ---
PT LEFT UNIT WITH PACU FOR COLONSCOPY. IV ANTIBIOTIC GIVEN WELL CHART. CONSENT SIGNED. WILL CONTINUE TO MONITOR.
[2018-03-11 11:29] LABS: ABSOLUTE BASOPHILS 0.1 thou/uL (0.0-0.2); ABSOLUTE LYMPHOCYTES 2.5 thou/uL (0.8-5.3); ABSOLUTE MONOCYTES 0.8 thou/uL (0.0-1.2); ABSOLUTE NEUTROPHILS 14.9 thou/uL (1.6-8.1); BASOPHILS 0.3 %; EOSINOPHILS 0.1 %; HEMOGLOBIN 9.1 gm/dL (12.0-15.0); LYMPHOCYTES 13.5 %; MCH 22.2 pg (26.0-34.0); MCHC 30.4 g/dL (28.0-37.0); MCV 73.1 fL (80.0-100.0); MONOCYTES 4.4 %; MPV 7.3 fl. (7.2-11.1); NUCLEATED RBCS 0 /100WBC; PLATELET COUNT* 468 thou/uL (150-400); POLYS 81.7 %; RBC 4.11 mil/uL (4.20-5.00); WBC 18.3 thou/uL (4.0-11.0)
[2018-03-11 11:42] LABS: ALBUMIN 2.5 g/dL (3.4-5.0); CALCIUM 6.6 mg/dL (8.5-10.1); CREATININE 1.4 mg/dL (0.6-1.3); POTASSIUM 3.4 mmol/L (3.5-5.1); TOTAL BILIRUBIN 0.2 mg/dL (<0.1-1.0); TOTAL PROTEIN 6.8 g/dL (6.4-8.2)
[2018-03-11] MEDS ORDERED: PREDNISONE 20 M20 MG PO (11:58)
[2018-03-11] MEDS ORDERED: CEFDINIR300 MG PO (11:59)
[2018-03-11 12:16] LABS: PREALBUMIN 49.3 mg/dL (18.0-35.7)
[2018-03-11] MEDS ORDERED: IRON325 PO (12:55)
[2018-03-11 13:14] LABS: ESR (SEDRATE) 57 mm/hr (0-30)
--- NOTE | 2018-03-11 13:31 | NUR ---
Pt to dc home today with services to follow. AARON faxed final dc orders and med list to [facility]. AARON called [facility] Pall[facility] care and informed agency of pt dc from hospital to home today. [facility] and [place] to follow up and provide services to pt.
--- NOTE | 2018-03-11 14:03 | NUR ---
PT GIVEN DISHCRAGE INFORMATION. PRESCRIPTIONS CALLED INTO PT HOME PHARMACY. IV REMOVED AT THIS TIME. HOURLY ROUNDING COMPLETED. PT LEFT WITH SPOUSE TO HOME WITH HOME HEALTH.
--- NOTE | 2018-03-18 10:06 | PATH ---
[address] [address] PATHOLOGY RPT PROCEDURE Name: VIRGINIE CROSS Room: [address] IN ..#: [id number] Admission: 03/04/18 Date of : 49 Discharge: 03/11/18 Report #: [id number] Path Case #: [id number] [facility] Accession Number: [id number] . 01 Material submitted: . BIOPSY CECAL POLYP . 01 Clinical history: . Cecal polyp, colon polyp, diverticulosis . 02 Diagnosis: Biopsy cecal polyp: - Tubular adenoma, negative for high grade dysplasia. . (VIVI:vjm;03/15/2018) AGA/03/15/2018 . 02 Electronically signed: . Chip Jason MD, Pathologist NPI- [id number] . 01 Gross description: . Received in formalin labeled "Allan, Virginie, cecal polyp biopsy," is a segment of flores soft tissue measuring 0.4 x 0.3 x 0.2 cm in greatest dimensions. The specimen is submitted entirely in cassette A1. ([facility]; 03/14/2018) XDC/XDC . 02 Pathologist provided ICD-10: D12.0 . 02 CPT . 538772 Specimen Comment: A courtesy copy of this report has been sent to Specimen Comment: [phone], , . Specimen Comment: Report sent to ,DR LUNA / DR COLLADO Performed at: [address], [place], [place] [id number] MD Nico Berger MD Phone: [phone] Performed at: [facility] [address], [place], [place] [id number] MD Chip Jason MD Phone: [phone]
--- NOTE | 2018-03-29 12:52 | CON ---
[address] [address] CONSULTATION Name: CACHORRO CROSS Aileen Room: [address] IN .R.#: [id number] Admission: 03/04/18 Attend Phys: Ricky Coronel Discharge: 03/11/18 Date of : 47 Report #: [id number] THIS REPORT FOR: //name// CC: Omer Storm HISTORY OF PRESENT ILLNESS: This is a pleasant 72-year-old female with past medical history significant for COPD, iron-deficiency anemia, hyperlipidemia and hypertension, who is presenting for evaluation of shortness of breath. The patient presented to the hospital 4 days back with acute-onset shortness of breath and was diagnosed with COPD exacerbation and treated appropriately. GI service has been consulted for evaluation of iron-deficiency anemia. The patient reports that she has had reflux symptoms for several years and underwent an EGD 10 years back. This was unremarkable. The patient reports dark-colored stools on a daily basis, but denies having any hematemesis or hematochezia. The patient, however, does take Pepto-Bismol, so this may be a contributing factor. She denies any abdominal pain, nausea, vomiting, diarrhea, fevers, chills or weight loss. The patient rather never had a colonoscopy in the past and is currently reluctant to do so. PAST MEDICAL HISTORY: As mentioned above, the patient has history of hypertension, hyperlipidemia and COPD and is on home oxygen at 2 liters. PAST SURGICAL HISTORY: The patient had a cholecystectomy in the remote past, had a hysterectomy in 1972. SOCIAL HISTORY: The patient quit smoking. Denies alcohol or recreational drug use. REVIEW OF SYSTEMS: Positive for shortness of breath. Otherwise, comprehensive 10-point review of systems is negative. PHYSICAL EXAMINATION: VITAL SIGNS: Pulse rate 91, temperature 36.4, respirations 20 and blood pressure 132/68. GENERAL: The patient is alert, awake and oriented x 3. HEENT: Pupils are equal, round and reactive to light and accommodation. Mucous membranes are moist. There is no congestion. CHEST: Bilateral wheezing detected on pulmonary exam. CARDIOVASCULAR: Rate and rhythm regular. S1, S2 present. ABDOMEN: Soft. There is no distention, no guarding, no tenderness. EXTREMITIES: Warm and well perfused. There is no edema. SKIN: Warm and dry. LABORATORY DATA: Hemoglobin 9.4, hematocrit 31.4, platelet count 456,000, MCV 74.5 and WBC count 17. Sodium 142, potassium 3.9, chloride 104, bicarbonate 25, [place] [address] CONSULTATION Name: CACHORRO CROSS Room: [address]#: [id number] Admission: 03/04/18 Attend Phys: Ricky Coronel Discharge: 03/11/18 Date of : 49 Report #: [id number] BUN 57 and creatinine 1.6. ASSESSMENT AND PLAN: This is a very pleasant 72-year-old female with past medical history significant for hypertension, hyperlipidemia and chronic obstructive pulmonary disease, on home oxygen, presenting with acute chronic obstructive pulmonary disease exacerbation. The GI service has been consulted for evaluation of iron-deficiency anemia. We would like to proceed with EGD and colonoscopy for iron-deficiency anemia, especially as the patient never had a colonoscopy performed before. However, the patient is reluctant to undertake this procedure because she is afraid she may not be able to tolerate the prep for that. She wants her daughter to be present for the procedure and she will be only available on Tuesday. I, therefore, recommend placing an NG tube tomorrow to assist with consumption of the colonoscopy preparation and the patient can be given Zofran on an as-needed basis for treatment of her nausea. EGD and colonoscopy will be scheduled on Tuesday. <ELECTRONICALLY SIGNED> By: Christian Dunlap MD 03/29/18 1252 1528 [id number] Dunlap MD /nt
[2018-03-30] MEDS ORDERED: LOPRESSOR50 PO (11:23)
[2018-03-30] MEDS ORDERED: ADVAIR HFA 230M12 GM INH (11:23)
[2018-03-30] MEDS ORDERED: PRAVACHOL40 MG PO (11:24)
== END 2018-03-11 14:05 | disposition home health service (06) | DRG 871 ==
LOC: M.ERS 04:03 → M.TBA-ER 05:07 → M.2W 05:07 → M.ORTHSURG 03-09 14:58
PROVIDERS: Family Medicine; Internal Medicine; Internal Medicine Pulmonary Disease; ADMIT Internal Medicine
PROC: 30233N1 Transfusion of Nonautologous Red Blood Cells into Peripheral Vein, Percutaneous Approach (ICD-10-PCS; principal; 2018-03-05)
PROC: 0DJ08ZZ Inspection of Upper Intestinal Tract, Via Natural or Artificial Opening Endoscopic (ICD-10-PCS; 2018-03-10)
PROC: 0DBH8ZX Excision of Cecum, Via Natural or Artificial Opening Endoscopic, Diagnostic (ICD-10-PCS; 2018-03-11)
DX: A41.9 Sepsis, unspecified organism (principal); I50.33 Acute on chronic diastolic (congestive) heart failure; J69.0 Pneumonitis due to inhalation of food and vomit; J96.21 Acute and chronic respiratory failure with hypoxia; J44.1 Chronic obstructive pulmonary disease with (acute) exacerbation; J44.0 Chronic obstructive pulmonary disease with (acute) lower respiratory infection; E78.5 Hyperlipidemia, unspecified; M19.90 Unspecified osteoarthritis, unspecified site; E11.9 Type 2 diabetes mellitus without complications; D50.9 Iron deficiency anemia, unspecified; E89.0 Postprocedural hypothyroidism; E66.01 Morbid (severe) obesity due to excess calories; D72.829 Elevated white blood cell count, unspecified; K21.9 Gastro-esophageal reflux disease without esophagitis; K44.9 Diaphragmatic hernia without obstruction or gangrene; K64.9 Unspecified hemorrhoids; I11.0 Hypertensive heart disease with heart failure; K57.30 Diverticulosis of large intestine without perforation or abscess without bleeding; J20.9 Acute bronchitis, unspecified; I25.10 Atherosclerotic heart disease of native coronary artery without angina pectoris; I25.2 Old myocardial infarction; Z86.73 Personal history of transient ischemic attack (TIA), and cerebral infarction without residual deficits; Z90.710 Acquired absence of both cervix and uterus; Z88.2 Allergy status to sulfonamides; Z88.8 Allergy status to other drugs, medicaments and biological substances; Z88.6 Allergy status to analgesic agent; Z91.041 Radiographic dye allergy status; Z95.5 Presence of coronary angioplasty implant and graft; Z87.891 Personal history of nicotine dependence; Z68.37 Body mass index [BMI] 37.0-37.9, adult; Z90.49 Acquired absence of other specified parts of digestive tract; Z79.82 Long term (current) use of aspirin; Z79.899 Other long term (current) drug therapy; Z80.0 Family history of malignant neoplasm of digestive organs

== ENCOUNTER → 2018-04-04 | Day surgery (SDC) | payer OTHER ==
[~2018-04-04] MED LIST changes: +ADVAIR HFA 230M12 GM INH; +AMARYL4 MG PO; +ASPIR 8181 MG PO; +AZITHROMYCIN 2250 MG PO; +BINOSTO70 MG PO; +CEFDINIR300 MG PO; +FISH OIL 1,001000 M2 PO; +FUROSEMIDE 20 M20 MG PO; +IRON325 PO; +LOPRESSOR50 PO; +NORVASC5 MG PO; +PLAVIX 75 MG TA75 M1 PO; +PRAVACHOL40 MG PO; +PREDNISONE 20 M20 MG PO; +PRINIVIL40 MG PO; +PROTONIX40 M1 PO; +SYNTHROID175 MCG PO; +TRELEGY ELLIPT1 EACH INH; +ZANTAC 150MG T150 MG PO; +ZOCOR40 MG PO; +[UNRECOGNIZED DRUG - OTHER]
[2018-04-04 06:30] LABS: HEMATOCRIT 35.3 % (37.0-47.0); HEMOGLOBIN 11.1 gm/dL (12.0-15.0); MCH 23.8 pg (26.0-34.0); MCHC 31.3 g/dL (28.0-37.0); MCV 75.9 fL (80.0-100.0); MPV 7.5 fl. (7.2-11.1); RBC 4.65 mil/uL (4.20-5.00); RDW-CV 26.8 % (10.5-14.5); WBC 7.3 thou/uL (4.0-11.0)
[2018-04-04 06:35] LABS: CALCIUM 8.2 mg/dL (8.5-10.1); CREATININE 1.5 mg/dL (0.6-1.3); POTASSIUM 3.7 mmol/L (3.5-5.1)
[2018-04-04 06:39] LABS: ALBUMIN 2.8 g/dL (3.4-5.0); TOTAL BILIRUBIN 0.3 mg/dL (<0.1-1.0); TOTAL PROTEIN 7.4 g/dL (6.4-8.2)
== END | disposition home or self-care (01) ==
LOC: M.SUR 05:52
PROVIDERS: Internal Medicine Gastroenterology
DX: K44.9 Diaphragmatic hernia without obstruction or gangrene (principal); I10 Essential (primary) hypertension; E11.9 Type 2 diabetes mellitus without complications; I25.10 Atherosclerotic heart disease of native coronary artery without angina pectoris; E78.5 Hyperlipidemia, unspecified; E66.09 Other obesity due to excess calories; J44.1 Chronic obstructive pulmonary disease with (acute) exacerbation; F32.9 Major depressive disorder, single episode, unspecified; Z90.49 Acquired absence of other specified parts of digestive tract; Z90.710 Acquired absence of both cervix and uterus; Z79.02 Long term (current) use of antithrombotics/antiplatelets; Z79.82 Long term (current) use of aspirin; Z79.899 Other long term (current) drug therapy; Z98.890 Other specified postprocedural states; Z88.2 Allergy status to sulfonamides; Z91.041 Radiographic dye allergy status; Z88.8 Allergy status to other drugs, medicaments and biological substances; Z87.891 Personal history of nicotine dependence; Z79.4 Long term (current) use of insulin

== ENCOUNTER 2018-05-01 04:39 | Inpatient (IN) | payer OTHER ==
[~2018-05-01] VITALS: Ht 152.4 cm; Wt 96.2 kg
--- NOTE | ~2018-05-01 | CON ---
[address] [address] CONSULTATION Name: AMERICACACHORRO Aileen Room: [address] IN M.R.#: [id number] Admission: 05/01/18 Attend Phys: Lorna Darby MD Discharge: Date of : 49 Report #: [id number] THIS REPORT FOR: //name// CC: Omer Darby DATE OF SERVICE: 05/01/2018 HISTORY OF PRESENT ILLNESS: This is a 72-year-old female patient who was evaluated by me for numbness on the left side. She gives a poorly defined history. She said to some extent she has this problem for several months. She talked to the nurse practitioner who said if it does not become better, come to the Emergency Room. She has numbness in the left arm, left side of the face and left leg. She indicates she was admitted with stroke-like symptom in a different hospital some time ago. She does not know exactly when she was admitted. They thought she may have had a mini stroke, but her MRI was unremarkable. REVIEW OF SYSTEMS: Positive for multiple problems. She has a history of diabetes. She has a history of hypertension, hyperlipidemia, coronary artery disease, enlarged thyroid, mini strokes for history is not very clear and complete hysterectomy. She is a diabetic. She does have a history of congestive heart failure. She does have a prior history of anemia and hypokalemia. Her 14-point review of system was carried out. She denies any new eye symptom. She does get injection for macular degeneration. She denies any ENT, cardiac, GI, , musculoskeletal, constitutional, dermatological, hematological, psychiatric, throat, allergic symptom associated with the present symptomatology. PAST MEDICAL HISTORY: Positive for stroke, but I am not sure about her history. FAMILY HISTORY: Negative for early age stroke. SOCIAL HISTORY: She has a prior history of smoking, but she does not smoke now. She does not drink any alcohol. PHYSICAL EXAMINATION: The patient's examination indicate she is alert, responsive, oriented, able to follow simple and complex command. Cranial nerve examination 2-12 looks unremarkable. Her speech, concentration, fund of knowledge and memory is at her baseline. Cranial nerve examination 2-12 is unremarkable. She is somewhat weak in all 4 extremities, but I do not think there is any pronounced asymmetrical weakness. Reflexes are diminished in the lower extremities and the position sense may also be diminished. Tone looks symmetrical. There is no cerebellar sign. I could not have a very good look at the patient's fundus. There is no meningeal sign. Pulses are difficult to feel. Presently, she has no edema, cyanosis or jaundice. [place] [address] CONSULTATION Name: CACHORRO CROSS Aileen Room: [address] IN .R.#: [id number] Admission: 05/01/18 Attend Phys: Lorna Darby MD Discharge: Date of : 49 Report #: [id number] have some edema. She is a morbidly obese individual who does not have any dysmorphic features of eyes, ears and face. Her vision and hearing looks adequate. She has no thyroid mass. Her blood pressure is 146/71, respirations 16, pulse is 73 and temperature is 97.7. She does not appear to have any atrial fibrillation. Cardiac examination is unremarkable. She does have scattered rhonchi and moderate amount of respiratory difficulty, which is her baseline. LABORATORY DATA: Her white count is 8.2. Her sed rate is 45, which is somewhat high, but she is a diabetic. Her vitamin B12 is unremarkable in February. She underwent multiple imaging studies. Her cervical spine MRI films were reviewed and it does show significant stenosis. MRI of the brain does not show any acute changes. She also had a CTA, which did not show any definite abnormality. IMPRESSION: It is possible this patient had a transient ischemic attack involving the left side of the body. It is also possible the spine problem is contributing to her symptoms. Spinal stenosis typically does not cause any symptoms on the face and that would be unusual. Similarly diabetic neuropathy is possible, but this patient symptoms are asymmetrical, which is unlikely. RECOMMENDATIONS: 1. As far as the CVA is concerned, she is already on Plavix. Statin can be considered in this patient if not contraindicated. 2. She already has a lipid profile ordered. 3. I will order immunofixation electrophoresis to complete the workup. 4. Since the question of TIA has been raised, I will do an echocardiogram. All of it was discussed with the patient in detail and I do not think neurological perspective, we can do anything else in this patient especially as the symptoms appear to be chronic. Thank you very much for this referral. By: [id number] [id number] Conti MD /troy
[2018-05-01 04:47] VITALS: BP 149/74
[2018-05-01] MEDS ORDERED: FISH OIL 1,001000 M2 PO (05:00)
[2018-05-01] MEDS ORDERED: LANTUS100 UNIT/M SUBQ (05:01)
[2018-05-01] MEDS ORDERED: TYLENOL EXTRA500 MG PO (05:02)
[2018-05-01] MEDS ORDERED: IRON325 PO (05:03)
[2018-05-01] MEDS ORDERED: NORVASC2.5 MG PO (05:05)
[2018-05-01] MEDS ORDERED: MUCINEX600 MG PO (05:05)
[2018-05-01 05:06] LABS: ABSOLUTE BASOPHILS 0.1 thou/uL (0.0-0.2); ABSOLUTE EOSINOPHILS 0.3 thou/uL (0.0-0.7); ABSOLUTE LYMPHOCYTES 2.2 thou/uL (0.8-5.3); ABSOLUTE MONOCYTES 0.5 thou/uL (0.0-1.2); ABSOLUTE NEUTROPHILS 5.1 thou/uL (1.6-8.1); BASOPHILS 1.2 %; EOSINOPHILS 3.5 %; HEMATOCRIT 35.6 % (37.0-47.0); HEMOGLOBIN 11.6 gm/dL (12.0-15.0); LYMPHOCYTES 26.9 %; MCH 25.4 pg (26.0-34.0); MCHC 32.5 g/dL (28.0-37.0); MCV 78.2 fL (80.0-100.0); MONOCYTES 5.5 %; MPV 7.8 fl. (7.2-11.1); NUCLEATED RBCS 0 /100WBC; PLATELET COUNT* 307 thou/uL (150-400); POLYS 62.9 %; RBC 4.55 mil/uL (4.20-5.00); RDW-CV 24.1 % (10.5-14.5); WBC 8.2 thou/uL (4.0-11.0)
[2018-05-01] MEDS ORDERED: ADVAIR HFA 230M12 GM INH (05:06)
[2018-05-01 05:18] LABS: ANION GAP 11 mmol/L (7-16); BUN 15 mg/dL (7-18); CALCIUM 8.1 mg/dL (8.5-10.1); CHLORIDE 105 mmol/L (98-107); CO2 26 mmol/L (21-32); CREATININE 1.4 mg/dL (0.6-1.3); GLUCOSE 135 mg/dL (70-99); POTASSIUM 3.1 mmol/L (3.5-5.1); SODIUM 142 mmol/L (136-145)
[2018-05-01 05:18] LABS: POC CA IONIZED 4.1 mg/dL (4.5-5.3); POC CREATININE 1.2 mg/dL (0.6-1.3); POC HEMOGLOBIN 12.9 g/dL (12.0-17.0); POC POTASSIUM 3.2 mmol/L (3.5-4.9)
[2018-05-01 05:26] LABS: PROTIME 9.9 Seconds (9.20-11.50)
[2018-05-01 05:29] LABS: ALBUMIN 2.6 g/dL (3.4-5.0); ALKALINE PHOSPHATASE 38 U/L (46-116); NT-PRO BRAIN NAT PEPTIDE 1426 pg/mL (<300); SGOT 9 U/L (15-37); SGPT 16 U/L (30-65); TOTAL BILIRUBIN 0.2 mg/dL (<0.1-1.0); TOTAL PROTEIN 7.1 g/dL (6.4-8.2); TROPONIN-I LEVEL <0.06 ng/mL (<0.06)
[2018-05-01 05:56] LABS: PLATELET ESTIMATE ADEQUATE
[2018-05-01 05:57] LABS: HYPOCHROMASIA 1+
[2018-05-01 05:58] LABS: ANISOCYTOSIS 1+; POIKILOCYTOSIS 1+
[2018-05-01 09:01] VITALS: BP 139/92
[2018-05-01 10:20] VITALS: BP 167/81
[2018-05-01 10:41] LABS: CALCIUM 8.3 mg/dL (8.5-10.1); CREATININE 1.5 mg/dL (0.6-1.3); POTASSIUM 3.6 mmol/L (3.5-5.1)
[2018-05-01 11:33] LABS: ALBUMIN 2.9 g/dL (3.4-5.0); CALCIUM 8.4 mg/dL (8.5-10.1); CREATININE 1.5 mg/dL (0.6-1.3); POTASSIUM 3.9 mmol/L (3.5-5.1); TOTAL BILIRUBIN 0.1 mg/dL (<0.1-1.0); TOTAL PROTEIN 7.1 g/dL (6.4-8.2)
[2018-05-01 11:49] VITALS: BP 162/76
--- NOTE | 2018-05-01 13:23 | EKG ---
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: : 1945 Requested By: Kelley Nix Order Number: [id number] MD: Yan Galarza Measurements Intervals [place] Rate: 65 P: 34 SD: 159 QRS: 40 QRSD: 90 T: 86 QT: 419 QTc: 436 Interpretive Statements Sinus rhythm Borderline repolarization abnormality Baseline wander in lead(s) V6 Compared to ECG 03/04/2018 04:11:12 No significant changes Electronically Signed On 05-01-2018 13:22:55 LEGAL SUMMER INTERN by Yan Galarza [email or web address] <ELECTRONICALLY SIGNED> By: Yan Galarza MD, FACCherelle 05/01/18 1322 0451 0451 Yan Galarza MD, [facility] /EPI
[2018-05-01 15:38] VITALS: BP 146/71
[2018-05-01 19:40] VITALS: BP 178/80
[2018-05-02] VITALS: BP 152/68
[2018-05-02 02:06] LABS: GLYCOHEMOGLOBIN (HGB A1C) 9.7 % (4.8-5.6)
[2018-05-02 04:00] VITALS: BP 160/70
[2018-05-02 05:19] LABS: CHOLESTEROL 278 mg/dL (<200); HDL CHOLESTEROL 56 mg/dL (>40); TRIGLYCERIDE 417 mg/dL (<150); VLDL 83 mg/dL (<40)
[2018-05-02 05:36] LABS: LDL CHOLESTEROL ND mg/dL (<100); SERUM ASSESSMENT Moderate Lipemia
[2018-05-02 10:11] LABS: IgA 255 mg/dL (87-352); IgG 776 mg/dL (700-1600); IgM 89 mg/dL (26-217)
[2018-05-02] MEDS ORDERED: ATORVASTATIN CA40 MG PO (11:01)
[2018-05-02 12:00] VITALS: BP 119/26
[2018-05-02 13:16] VITALS: BP 119/26
--- NOTE | 2018-05-02 13:49 | 2DMMODE ---
[place] [address] 2 D/M-MODE ECHOCARDIOGRAM Name: AMERICACACHORRO L Room: [address] IN [facility]#: [id number] Admission: 05/01/18 Attend Phys: Lorna Darby, Discharge: 05/02/18 Date of : 49 Date of Service: 05/02/18 1349 Report #: [id number] THIS REPORT FOR: //name// APPROVED REPORT Study performed: 05/02/2018 10:54:51 EXAM: Comprehensive 2D, Doppler, and color-flow Echocardiogram Patient Location: In-Patient Room #: [facility] Status: routine BSA: 1.86 HR: 72 bpm BP: 160/70 mmHg Rhythm: NSR Other Information Study Quality: Good Indications CVA/TIA Echo Enhancing Agent Comments: No bubble study was done. Patient had no IV and refused to have another one placed. 2D Dimensions IVSd: 16.36 (7-11mm) LVOT Diam: 21.75 (18-24mm) LVDd: 49.06 mm PWd: 13.57 (7-11mm) Ascending Ao: 32.89 (22-36mm) LVDs: 28.54 (25-40mm) Aortic Root: 33.85 mm Volumes Left Atrial Volume (Systole) LA ESV Index: 43.10 mL/m2 Aortic Valve AoV Peak Alexandre.: 1.65 m/s AO Peak Gr.: 10.89 mmHg LVOT Max P.38 mmHg AO Mean Gr.: 6.22 mmHg LVOT Mean P.29 mmHg LVOT Max V: 1.05 m/s AO V2 VTI: 36.28 cm LVOT Mean V: 0.70 m/s MARIE (VTI): 2.41 cm2 LVOT V1 VTI: 23.55 [place] [address] 2 D/M-MODE ECHOCARDIOGRAM Name: CACHORRO CROSS Room: [address] IN [facility].#: [id number] Admission: 05/01/18 Attend Phys: Lorna Darby, Discharge: 05/02/18 Date of : 49 Date of Service: 05/02/18 1349 Report #: [id number] Mitral Valve E/A Ratio: 0.73 MV Decel. Time: 319.08 ms MV E Max Alexandre.: 1.00 m/s MV PHT: 92.53 ms MVA (PHT): 2.38 cm2 TDI E/Lateral E': 16.67 E/Medial E': 10.00 Medial E' Alexandre.: 0.10 m/s Lateral E' Alexandre.: 0.06 m/s Pulmonary Valve PV Peak Alexandre.: 1.12 m/s PV Peak Gr.: 5.00 mmHg Left Ventricle The left ventricle is normal size. There is normal LV segmental wall motion. Moderate concentric left ventricular hypertrophy. Left ventricular systolic function is normal. The left ventricular ejection fraction is within the normal range. LVEF is 55-60%. Grade I - abnormal relaxation pattern. Right Ventricle The right ventricle is normal size. The right ventricular systolic function is normal. Atria Left atrium is moderately dilated. The right atrium size is normal. Aortic Valve The aortic valve is normal in structure. Aortic valve leaflets are mildly thickened. No aortic regurgitation is present. There is no aortic valvular stenosis. Mitral Valve There is mitral annular calcification. There is no mitral valve regurgitation noted. No evidence of mitral valve stenosis. Tricuspid Valve The tricuspid valve is normal in structure. Unable to assess PA pressure. Trace tricuspid regurgitation. Pulmonic Valve The pulmonary valve is normal in structure. There is no [place]mon[place] [address] 2 D/M-MODE ECHOCARDIOGRAM Name: CACHORRO CROSS Room: [address]#: [id number] Admission: 05/01/18 Attend Phys: Lorna Darby, Discharge: 05/02/18 Date of : 49 Date of Service: 05/02/18 1349 Report #: [id number] Great Vessels The aortic root is normal in size. IVC is normal in size and collapses >50% with inspiration. Pericardium There is no pericardial effusion. <Conclusion> The left ventricle is normal size. LVEF is 55-60%. There is normal LV segmental wall motion. Grade I - abnormal relaxation pattern. Moderate concentric left ventricular hypertrophy. There is no aortic valvular stenosis. No aortic regurgitation is present. There is no mitral valve regurgitation noted. No evidence of mitral valve stenosis. <ELECTRONICALLY SIGNED> By: Sanjay Nelson MD, FACC 05/02/18 1349 1349 1349 Sanjay Nelson MD, FACC /INF
== END 2018-05-02 13:45 | disposition home or self-care (01) | DRG 682 ==
LOC: M.ERS 04:39 → M.2W 06:38 → M.TBA-ER 06:38 → M.2W 10:12
PROVIDERS: Emergency Medicine; Internal Medicine; Psychiatry & Neurology Neuromuscular Medicine; ADMIT Internal Medicine
DX: N17.9 Acute kidney failure, unspecified (principal); E43 Unspecified severe protein-calorie malnutrition; G45.9 Transient cerebral ischemic attack, unspecified; J98.11 Atelectasis; Z68.41 Body mass index [BMI] 40.0-44.9, adult; R20.2 Paresthesia of skin; I25.2 Old myocardial infarction; E87.6 Hypokalemia; E78.5 Hyperlipidemia, unspecified; E11.22 Type 2 diabetes mellitus with diabetic chronic kidney disease; I12.9 Hypertensive chronic kidney disease with stage 1 through stage 4 chronic kidney disease, or unspecified chronic kidney disease; N18.3 Chronic kidney disease, stage 3 (moderate); J44.9 Chronic obstructive pulmonary disease, unspecified; I25.10 Atherosclerotic heart disease of native coronary artery without angina pectoris; M19.90 Unspecified osteoarthritis, unspecified site; E89.0 Postprocedural hypothyroidism; Z79.2 Long term (current) use of antibiotics; Z79.82 Long term (current) use of aspirin; Z79.899 Other long term (current) drug therapy; Z90.710 Acquired absence of both cervix and uterus; Z88.2 Allergy status to sulfonamides; Z88.8 Allergy status to other drugs, medicaments and biological substances; Z88.6 Allergy status to analgesic agent; Z91.041 Radiographic dye allergy status; Z87.891 Personal history of nicotine dependence; Z79.4 Long term (current) use of insulin; Z80.9 Family history of malignant neoplasm, unspecified

== ENCOUNTER 2018-06-27 16:07 | Emergency (ER) | payer OTHER ==
[~2018-06-27] VITALS: Ht 154.9 cm; Wt 88.0 kg
[~2018-06-27 16:07] MED LIST changes: +ATORVASTATIN CA40 MG PO; +LANTUS100 UNIT/M SUBQ; +MUCINEX600 MG PO; +NORVASC2.5 MG PO; +TYLENOL EXTRA500 MG PO
[2018-06-27] MEDS ORDERED: PRAVACHOL40 MG PO (16:31)
[2018-06-27 16:39] LABS: ABSOLUTE BASOPHILS 0.2 thou/uL (0.0-0.2); ABSOLUTE EOSINOPHILS 0.2 thou/uL (0.0-0.7); ABSOLUTE LYMPHOCYTES 1.9 thou/uL (0.8-5.3); ABSOLUTE MONOCYTES 0.4 thou/uL (0.0-1.2); ABSOLUTE NEUTROPHILS 5.2 thou/uL (1.6-8.1); EOSINOPHILS 2.6 %; HEMATOCRIT 36.2 % (37.0-47.0); HEMOGLOBIN 11.8 gm/dL (12.0-15.0); LYMPHOCYTES 24.5 %; MCHC 32.7 g/dL (28.0-37.0); MCV 82.7 fL (80.0-100.0); MONOCYTES 4.7 %; MPV 7.9 fl. (7.2-11.1); NUCLEATED RBCS 0 /100WBC; PLATELET COUNT* 265 thou/uL (150-400); POLYS 66.2 %; RBC 4.38 mil/uL (4.20-5.00); WBC 7.8 thou/uL (4.0-11.0)
[2018-06-27 16:49] LABS: ANION GAP 7 mmol/L (7-16); BUN 20 mg/dL (7-18); CALCIUM 7.5 mg/dL (8.5-10.1); CHLORIDE 102 mmol/L (98-107); CO2 27 mmol/L (21-32); CREATININE 1.8 mg/dL (0.6-1.3); GLUCOSE 374 mg/dL (70-99); POTASSIUM 3.6 mmol/L (3.5-5.1); SODIUM 136 mmol/L (136-145)
[2018-06-27 16:52] LABS: APTT 24.4 Seconds (25.0-31.3); INR 0.9; PROTIME 9.4 Seconds (9.20-11.50)
[2018-06-27 16:59] LABS: TROPONIN-I LEVEL <0.06 ng/mL (<0.06)
[2018-06-27 17:09] LABS: ALBUMIN 2.6 g/dL (3.4-5.0); ALKALINE PHOSPHATASE 43 U/L (46-116); CK-MB MASS 3.1 ng/mL (<0.5-3.6); LIPASE 144 U/L (73-393); MAGNESIUM 1.7 mg/dL (1.8-2.4); NT-PRO BRAIN NAT PEPTIDE 796 pg/mL (<300); SGOT 15 U/L (15-37); SGPT 19 U/L (30-65); TOTAL BILIRUBIN 0.1 mg/dL (<0.1-1.0); TOTAL PROTEIN 6.6 g/dL (6.4-8.2)
[2018-06-27 18:19] VITALS: BP 165/76
--- NOTE | 2018-06-28 15:53 | EKG ---
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 : 1945 Requested By: Sandeep Hawley Order Number: [id number] MD: Leonel Cavazos Measurements Intervals [place] Rate: 74 P: 53 IN: 185 QRS: 38 QRSD: 88 T: 127 QT: 400 QTc: 444 Interpretive Statements Sinus rhythm Borderline repolarization abnormality Compared to ECG 05/01/2018 04:51:00 No significant changes Electronically Signed On 06-28-2018 15:53:05 DIRECTOR OF ENROLLMENT by Leonel Cavazos [email or web address] <ELECTRONICALLY SIGNED> By: Leonel Cavazos MD, [facility] 06/28/18 1553 1613 12 Leonel Cavazos MD, FACC /EPI
== END 2018-06-27 18:21 | disposition home or self-care (01) ==
LOC: M.ERS 16:07
PROVIDERS: Family Medicine
DX: R07.89 Other chest pain (principal); I10 Essential (primary) hypertension; E78.5 Hyperlipidemia, unspecified; J44.9 Chronic obstructive pulmonary disease, unspecified; M19.90 Unspecified osteoarthritis, unspecified site; I25.10 Atherosclerotic heart disease of native coronary artery without angina pectoris; I25.2 Old myocardial infarction; E11.9 Type 2 diabetes mellitus without complications; Z90.710 Acquired absence of both cervix and uterus; Z88.2 Allergy status to sulfonamides; Z88.5 Allergy status to narcotic agent; Z91.041 Radiographic dye allergy status; Z88.8 Allergy status to other drugs, medicaments and biological substances

== ENCOUNTER 2018-07-14 05:08 | Inpatient (IN) | payer OTHER ==
[~2018-07-14] VITALS: Ht 154.9 cm; Wt 88.9 kg
[2018-07-14 05:15] VITALS: BP 171/75
[2018-07-14] MEDS ORDERED: XANAX 0.25 MG0.25 MG PO (05:27)
[2018-07-14 05:51] LABS: ABSOLUTE BASOPHILS 0.1 thou/uL (0.0-0.2); ABSOLUTE EOSINOPHILS 0.2 thou/uL (0.0-0.7); ABSOLUTE LYMPHOCYTES 1.8 thou/uL (0.8-5.3); ABSOLUTE MONOCYTES 0.4 thou/uL (0.0-1.2); ABSOLUTE NEUTROPHILS 5.1 thou/uL (1.6-8.1); BASOPHILS 0.7 %; EOSINOPHILS 2.8 %; HEMATOCRIT 36.3 % (37.0-47.0); HEMOGLOBIN 11.8 gm/dL (12.0-15.0); LYMPHOCYTES 23.3 %; MCH 26.5 pg (26.0-34.0); MCHC 32.4 g/dL (28.0-37.0); MCV 81.8 fL (80.0-100.0); MONOCYTES 5.3 %; NUCLEATED RBCS 0 /100WBC; PLATELET COUNT* 276 thou/uL (150-400); POLYS 67.9 %; RBC 4.44 mil/uL (4.20-5.00); RDW-CV 15.9 % (10.5-14.5); WBC 7.6 thou/uL (4.0-11.0)
[2018-07-14 06:07] LABS: ANION GAP 8 mmol/L (7-16); BUN 23 mg/dL (7-18); CALCIUM 7.9 mg/dL (8.5-10.1); CHLORIDE 105 mmol/L (98-107); CO2 28 mmol/L (21-32); CREATININE 1.5 mg/dL (0.6-1.3); GLUCOSE 139 mg/dL (70-99); POTASSIUM 3.7 mmol/L (3.5-5.1); SODIUM 141 mmol/L (136-145)
[2018-07-14 06:18] LABS: ALBUMIN 2.4 g/dL (3.4-5.0); ALKALINE PHOSPHATASE 37 U/L (46-116); LIPASE 99 U/L (73-393); NT-PRO BRAIN NAT PEPTIDE 762 pg/mL (<300); SGOT 12 U/L (15-37); SGPT 17 U/L (30-65); TOTAL BILIRUBIN 0.1 mg/dL (<0.1-1.0); TOTAL PROTEIN 6.6 g/dL (6.4-8.2); TROPONIN-I LEVEL <0.06 ng/mL (<0.06)
[2018-07-14 06:42] LABS: URINE BILIRUBIN NEGATIVE (Negative); URINE BLOOD 1+ (Negative); URINE CLARITY CLEAR; URINE COLOR YELLOW; URINE GLUCOSE-RANDOM NEGATIVE (Negative); URINE KETONES NEGATIVE (Negative); URINE LEUKOCYTES-REFLEX NEGATIVE (Negative); URINE NITRITE-REFLEX NEGATIVE (Negative); URINE PROTEIN 2+ (Negative); URINE UROBILINOGEN 0.2 E.U./dl (0.2-1.0)
[2018-07-14 06:59] LABS: BE -0.1 mmol/L (-2 to +3); PCO2 VENOUS 48.6 mmHg (41.0-51.0); PO2 VENOUS 50.3 mmHg (35.0-45.0)
[2018-07-14 07:07] LABS: BACTERIA-REFLEX 1-9 Few /HPF (None Seen); CASTS None Seen /LPF (None Seen); CRYSTALS None Seen /LPF (None Seen); MUCUS None Seen strn/LPF (None Seen); SQUAMOUS >10 Many /LPF (0-3); URINE RBC 3-10 Few /HPF (0-2); URINE WBC-REFLEX 0-5 Rare /HPF (0-5)
[2018-07-14 12:40] VITALS: BP 161/68
[2018-07-14 12:47] VITALS: BP 167/97
--- NOTE | 2018-07-14 15:18 | 2DMMODE ---
[place] [address] 2 D/M-MODE ECHOCARDIOGRAM Name: CACHORRO CROSS Room: [address] IN [facility]#: [id number] Admission: 07/14/18 Attend Phys: Marcos Villa, Discharge: Date of : 49 Date of Service: 07/14/18 1517 Report #: [id number] THIS REPORT FOR: //name// APPROVED REPORT Study performed: 07/14/2018 10:50:27 EXAM: Comprehensive 2D, Doppler, and color-flow Echocardiogram Patient Location: In-Patient Room #: er Status: routine BSA: 1.87 HR: 53 bpm BP: 148/75 mmHg Rhythm: NSR Other Information Study Quality: Good Indications CVA/TIA Echo Enhancing Agent Indication: Rule out Shunt Agent(s) / Amount(s) Used: Agitated Saline 10 cc 2D Dimensions IVSd: 12.01 (7-11mm) LVOT Diam: 21.67 (18-24mm) LVDd: 54.11 mm PWd: 12.66 (7-11mm) Ascending Ao: 34.24 (22-36mm) LVDs: 29.68 (25-40mm) Aortic Root: 36.98 mm Volumes Left Atrial Volume (Systole) LA ESV Index: 33.50 mL/m2 Aortic Valve AoV Peak Alexandre.: 1.31 m/s AO Peak Gr.: 6.84 mmHg LVOT Max P.90 mmHg AO Mean Gr.: 4.00 mmHg LVOT Mean P.94 mmHg LVOT Max V: 0.69 m/s AO V2 VTI: 30.07 cm LVOT Mean V: 0.45 m/s MARIE (VTI): 2.03 cm2 LVOT V1 VTI: 16.52 [place] [address] 2 D/M-MODE ECHOCARDIOGRAM Name: CACHORRO CROSS Room: [address] IN ..#: [id number] Admission: 07/14/18 Attend Phys: Marcos Villa, Discharge: Date of : 49 Date of Service: 07/14/18 1517 Report #: [id number] Mitral Valve E/A Ratio: 0.69 MV Decel. Time: 399.88 ms MV E Max Alexandre.: 0.82 m/s MV PHT: 115.97 ms MVA (PHT): 1.90 cm2 TDI E/Lateral E': 20.50 E/Medial E': 16.40 Medial E' Alexandre.: 0.05 m/s Lateral E' Alexandre.: 0.04 m/s Pulmonary Valve PV Peak Alexandre.: 0.91 m/s PV Peak Gr.: 3.34 mmHg Left Ventricle The left ventricle is normal size. There is normal LV segmental wall motion. There is normal left ventricular wall thickness. Left ventricular systolic function is normal. The left ventricular ejection fraction is within the normal range. LVEF is 55-60%. Grade I - abnormal relaxation pattern. Right Ventricle The right ventricle is normal size. The right ventricular systolic function is normal. Atria Left atrium is mildly dilated. Interatrial septum is intact without evidence of ASD or PFO. The right atrium size is normal. Aortic Valve Mild aortic valve sclerosis. No aortic regurgitation is present. There is no aortic valvular stenosis. Mitral Valve Moderate mitral annular calcification. There is no mitral valve regurgitation noted. No evidence of mitral valve stenosis. Tricuspid Valve The tricuspid valve is normal in structure. There is no tricuspid valve regurgitation noted. Pulmonic Valve The pulmonary valve is normal in structure. There is no pulmonic [place] [address] 2 D/M-MODE ECHOCARDIOGRAM Name: CACHORRO CROSS Room: [address]#: [id number] Admission: 07/14/18 Attend Phys: Marcos Villa, Discharge: Date of : 49 Date of Service: 07/14/18 1517 Report #: [id number] Great Vessels The aortic root is normal in size. IVC is not well visualized. Pericardium There is no pericardial effusion. <Conclusion> The left ventricle is normal size. There is normal left ventricular wall thickness. Left ventricular systolic function is normal. The left ventricular ejection fraction is within the normal range. LVEF is 55-60%. Grade I - abnormal relaxation pattern. The right ventricle is normal size. Left atrium is mildly dilated. The right atrium size is normal. Mild aortic valve sclerosis. No aortic regurgitation is present. There is no aortic valvular stenosis. Moderate mitral annular calcification. There is no mitral valve regurgitation noted. No evidence of mitral valve stenosis. The tricuspid valve is normal in structure. There is no pericardial effusion. There is normal LV segmental wall motion. Interatrial septum is intact without evidence of ASD or PFO. <ELECTRONICALLY SIGNED> By: Leonel Cavazos MD, FACC 07/14/18 1517 16 16 Leonel Cavazos MD, FACC /INF
--- NOTE | 2018-07-14 15:33 | EKG ---
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 Supervisor: APOORVA : 1945 Requested By: Silvano Gomez Order Number: [id number] MD: Leonel Cavazos Measurements Intervals [place] Rate: 56 P: 47 NC: 197 QRS: 25 QRSD: 90 T: 150 QT: 463 QTc: 447 Interpretive Statements Sinus rhythm Abnormal T, consider ischemia, lateral leads Compared to ECG 06/27/2018 16:13:52 T-wave abnormality now present Possible ischemia now present Electronically Signed On 07-14-2018 15:33:11 SR COMMUNITY MANAGER by Leonel Cavazos [email or web address] <ELECTRONICALLY SIGNED> By: Leonel Cavazos MD, FACC 07/14/18 1533 0544 0544 Leonel Cavazos MD, [facility] /EPI
[2018-07-14 16:04] VITALS: BP 156/74
[2018-07-14 20:05] VITALS: BP 111/78
[2018-07-14 23:07] LABS: GLYCOHEMOGLOBIN (HGB A1C) 11.2 % (4.8-5.6)
[2018-07-15] VITALS (7 sets, daily range): BP systolic 136–169; BP diastolic 57–83
[2018-07-15 06:20] LABS: HEMATOCRIT 37.4 % (37.0-47.0); HEMOGLOBIN 12.1 gm/dL (12.0-15.0); MCH 26.7 pg (26.0-34.0); MCHC 32.4 g/dL (28.0-37.0); MCV 82.4 fL (80.0-100.0); MPV 8.3 fl. (7.2-11.1); NUCLEATED RBCS 0 /100WBC; PLATELET COUNT* 263 thou/uL (150-400); RBC 4.54 mil/uL (4.20-5.00); RDW-CV 16.1 % (10.5-14.5); WBC 7.1 thou/uL (4.0-11.0)
[2018-07-15 06:52] LABS: ABSOLUTE BASOPHILS 0.1 thou/uL (0.0-0.2); ABSOLUTE LYMPHOCYTES 0.9 thou/uL (0.8-5.3); ABSOLUTE NEUTROPHILS 6.1 thou/uL (1.6-8.1); ANISOCYTOSIS 1+; PLATELET ESTIMATE ADEQUATE; POIKILOCYTOSIS 1+
[2018-07-15 06:54] LABS: ANION GAP 11 mmol/L (7-16); BUN 25 mg/dL (7-18); CALCIUM 8.1 mg/dL (8.5-10.1); CHLORIDE 105 mmol/L (98-107); CHOLESTEROL 308 mg/dL (<200); CO2 24 mmol/L (21-32); CREATININE 1.5 mg/dL (0.6-1.3); GLUCOSE 287 mg/dL (70-99); HDL CHOLESTEROL 44 mg/dL (>40); POTASSIUM 3.9 mmol/L (3.5-5.1); SODIUM 140 mmol/L (136-145); TRIGLYCERIDE 608 mg/dL (<150); VLDL 122 mg/dL (<40)
[2018-07-15 07:08] LABS: SERUM ASSESSMENT Clear
[2018-07-16] VITALS: BP 137/46
[2018-07-16 05:21] VITALS: BP 160/70
[2018-07-16 08:27] VITALS: BP 159/65
[2018-07-16 11:56] VITALS: BP 156/67
[2018-07-16] MEDS ORDERED: PULMICORT0.5 MG/2 M INH (12:53)
[2018-07-16] MEDS ORDERED: IPRAT-ALBUT 0.5-3 ML INH (12:53)
[2018-07-16] MEDS ORDERED: DOXYCYCLINE 10100 MG PO (12:53)
[2018-07-16] MEDS ORDERED: HYDRALAZINE 2525 MG PO (12:53)
[2018-07-16] MEDS ORDERED: NEBULIZER MISCELL (12:53)
[2018-07-16 14:39] VITALS: BP 156/67
--- NOTE | 2018-07-17 13:52 | CON ---
[address] [address] CONSULTATION Name: AMERICACACHORRO Aileen Room: [address] IN M.R.#: [id number] Admission: 07/14/18 Attend Phys: Marcos Villa MD Discharge: 07/16/18 Date of : 49 Report #: [id number] THIS REPORT FOR: //name// CC: Marcos Tello Lillian DATE OF SERVICE: 07/14/2018 HISTORY OF PRESENT ILLNESS: This is a 72-year-old female patient who was evaluated by me for dizziness. I had seen this patient last time and I reviewed that workup. Today, she gives a history that she was bloating up. She said it felt like somebody pushed a lot of air in her body and it was bloating up. She also had some pain between her shoulders. She did have some hypertension when she came in and she continued to have those symptoms of dizziness. Symptoms were moderately severe. There is nothing which makes them better or worse. REVIEW OF SYSTEMS: Positive for hypertension in her pretty extensive workup recently. Cardiology has seen this patient and they have found that the patient was bradycardic. She does have a history of hypertension. She does have a history of diastolic heart failure. I carried out 14-point review of systems. She had thyroid problem in the past. Last MRI did not show any acute stroke. She had complete hysterectomy. She is already on Plavix. She does take Xanax for anxiety. She was not having any eye, ENT symptoms. She was having cardiac symptom and respiratory symptom. She was not having any GI, , musculoskeletal, constitutional, dermatological, hematological, psychiatric, throat or allergic symptom associated with present symptomatology. PAST MEDICAL HISTORY: As described above. The patient has a history of TIA, I had seen her last time, it had not shown any stroke. FAMILY HISTORY: Negative for early age stroke. SOCIAL HISTORY: Unremarkable. She does not abuse alcohol. PHYSICAL EXAMINATION: This patient is alert, responsive, able to follow simple and complex command. Her speech, concentration, fund of knowledge and memory is at her baseline. Cranial nerve examination 2-12 looks unremarkable. Strength, sensation, reflexes and tone is unchanged. There is no cerebellar sign. She did have some bradycardia. Pulses are difficult to feel. She has no edema, cyanosis or jaundice. Respiratory examination indicate that she feels that she is having some breathing difficulty. Blood pressure is 167/97, respiration 20, pulse is 48, temperature is 97.7. LABORATORY DATA: White count is 7.6, GFR is only 34. She did have a carotid Doppler and CT of the [place] [address] CONSULTATION Name: CACHORRO CROSS Room: [address] IN ..#: [id number] Admission: 07/14/18 Attend Phys: Marcos Villa MD Discharge: 07/16/18 Date of : 49 Report #: [id number] IMPRESSION: This patient's symptoms are most likely because of her bradycardia and hypertension. We will see how she does with correction of those symptoms to see if any further workup is indicated. I discussed that aspect with her, this is because the patient just had a recent workup done and she is agreeable with this plan. RECOMMENDATIONS: We will see what the cardiac management does in this patient. We will follow this patient with you and we will decide about further workup after that. Thank you very much for this referral. <ELECTRONICALLY SIGNED> By: Jean Paul Conti MD 07/17/18 1352 1440 [id number] Paul Conti MD /nt
== END 2018-07-16 15:35 | disposition home health service (06) | DRG 309 ==
LOC: M.ERS 05:08 → M.TBA-ER 08:49 → M.2W 12:38
PROVIDERS: Emergency Medicine; ADMIT Internal Medicine
DX: R00.1 Bradycardia, unspecified (principal); J44.1 Chronic obstructive pulmonary disease with (acute) exacerbation; J44.0 Chronic obstructive pulmonary disease with (acute) lower respiratory infection; I50.32 Chronic diastolic (congestive) heart failure; N39.0 Urinary tract infection, site not specified; M19.90 Unspecified osteoarthritis, unspecified site; E11.9 Type 2 diabetes mellitus without complications; J20.9 Acute bronchitis, unspecified; I25.10 Atherosclerotic heart disease of native coronary artery without angina pectoris; I11.0 Hypertensive heart disease with heart failure; E78.5 Hyperlipidemia, unspecified; I25.2 Old myocardial infarction; Z86.73 Personal history of transient ischemic attack (TIA), and cerebral infarction without residual deficits; Z90.710 Acquired absence of both cervix and uterus; Z88.2 Allergy status to sulfonamides; Z88.8 Allergy status to other drugs, medicaments and biological substances; Z88.6 Allergy status to analgesic agent; Z91.041 Radiographic dye allergy status; Z87.891 Personal history of nicotine dependence; Z80.9 Family history of malignant neoplasm, unspecified; Z79.82 Long term (current) use of aspirin; Z79.899 Other long term (current) drug therapy; Z90.49 Acquired absence of other specified parts of digestive tract

== ENCOUNTER 2018-07-28 07:46 | Emergency (ER) | payer OTHER ==
[~2018-07-28] VITALS: Ht 152.4 cm; Wt 88.9 kg
[~2018-07-28 07:46] MED LIST changes: +DOXYCYCLINE 10100 MG PO; +HYDRALAZINE 2525 MG PO; +IPRAT-ALBUT 0.5-3 ML INH; +NEBULIZER MISCELL; +PULMICORT0.5 MG/2 M INH; +XANAX 0.25 MG0.25 MG PO
[2018-07-28 08:40] LABS: ANION GAP 10 mmol/L (7-16); BUN 20 mg/dL (7-18); CALCIUM 8.3 mg/dL (8.5-10.1); CHLORIDE 104 mmol/L (98-107); CO2 27 mmol/L (21-32); CREATININE 1.6 mg/dL (0.6-1.3); GLUCOSE 187 mg/dL (70-99); POTASSIUM 3.2 mmol/L (3.5-5.1); SODIUM 141 mmol/L (136-145); TROPONIN-I LEVEL <0.06 ng/mL (<0.06)
[2018-07-28 08:43] LABS: ALBUMIN 2.7 g/dL (3.4-5.0); ALKALINE PHOSPHATASE 43 U/L (46-116); SGOT 18 U/L (15-37); SGPT 21 U/L (30-65); TOTAL BILIRUBIN 0.2 mg/dL (<0.1-1.0); TOTAL PROTEIN 7.1 g/dL (6.4-8.2)
[2018-07-28 08:49] LABS: HEMATOCRIT 37.3 % (37.0-47.0); HEMOGLOBIN 12.1 gm/dL (12.0-15.0); MCH 26.8 pg (26.0-34.0); MCHC 32.3 g/dL (28.0-37.0); MCV 82.8 fL (80.0-100.0); MPV 8.4 fl. (7.2-11.1); RBC 4.51 mil/uL (4.20-5.00); RDW-CV 16.7 % (10.5-14.5); WBC 10.2 thou/uL (4.0-11.0)
[2018-07-28 10:37] VITALS: BP 133/73
--- NOTE | 2018-07-30 14:56 | EKG ---
[place] [address] ELECTROCARDIOGRAM REPORT Name: CACHORRO CROSS Room: [facility]#: [id number] Admission: 07/28/18 Attend Phys: Discharge: 07/28/18 Date of : 49 Report #: [id number] THIS REPORT FOR: //name// [facility] ED Test Date: 2018-07-28 Test Time: 08:00:39 Pat Name: CACHORRO CROSS Department: Room: Gender: F Ux Interaction Designer: Jayro HART : 1945 Requested By: oJhn Paniagua Order Number: [id number] MD: Alexsander Burger Measurements Intervals [place] Rate: 75 P: 53 CT: 177 QRS: 25 QRSD: 90 T: 150 QT: 431 QTc: 482 Interpretive Statements Sinus rhythm Abnormal T, consider ischemia, lateral leads Baseline wander in lead(s) V1,V2 Compared to ECG 07/14/2018 05:44:58 No significant changes Electronically Signed On 07-30-2018 14:55:57 CDT by Alexsander Burger [email or web address] <ELECTRONICALLY SIGNED> By: Alexsander Burger MD, [facility] 07/30/18 1455 08 08 Alexsander Burger MD, [facility] /EPI
== END 2018-07-28 10:40 | disposition home or self-care (01) ==
LOC: M.ERS 07:46
PROVIDERS: Emergency Medicine Emergency Medical Services
DX: I10 Essential (primary) hypertension (principal); R51 Headache; E78.5 Hyperlipidemia, unspecified; J44.9 Chronic obstructive pulmonary disease, unspecified; I25.10 Atherosclerotic heart disease of native coronary artery without angina pectoris; M19.90 Unspecified osteoarthritis, unspecified site; E11.9 Type 2 diabetes mellitus without complications; Z90.710 Acquired absence of both cervix and uterus; E89.0 Postprocedural hypothyroidism; Z88.2 Allergy status to sulfonamides; Z88.5 Allergy status to narcotic agent; Z88.8 Allergy status to other drugs, medicaments and biological substances; Z91.041 Radiographic dye allergy status

== ENCOUNTER 2018-12-13 17:57 | Inpatient (IN) | payer OTHER ==
[~2018-12-13] VITALS: Ht 152.4 cm; Wt 86.1 kg
[2018-12-13 18:06] VITALS: BP 152/60
[2018-12-13 18:25] LABS: ABSOLUTE EOSINOPHILS 0.2 thou/uL (0.0-0.7); ABSOLUTE LYMPHOCYTES 2.1 thou/uL (0.8-5.3); ABSOLUTE MONOCYTES 0.4 thou/uL (0.0-1.2); ABSOLUTE NEUTROPHILS 5.6 thou/uL (1.6-8.1); BASOPHILS 0.5 %; HEMATOCRIT 31.4 % (37.0-47.0); HEMOGLOBIN 10.2 gm/dL (12.0-15.0); MCHC 32.6 g/dL (28.0-37.0); MCV 85.8 fL (80.0-100.0); MONOCYTES 5.4 %; MPV 8.2 fl. (7.2-11.1); NUCLEATED RBCS 0 /100WBC; PLATELET COUNT* 371 thou/uL (150-400); POLYS 67.1 %; RBC 3.66 mil/uL (4.20-5.00); RDW-CV 15.4 % (10.5-14.5); WBC 8.4 thou/uL (4.0-11.0)
[2018-12-13 18:30] LABS: CALCIUM 8.4 mg/dL (8.5-10.1); CREATININE 1.8 mg/dL (0.6-1.3)
[2018-12-13 18:42] LABS: TOTAL BILIRUBIN 0.1 mg/dL (<0.1-1.0); TOTAL PROTEIN 7.5 g/dL (6.4-8.2)
[2018-12-13 18:44] LABS: TROPONIN-I LEVEL 1.25 ng/mL (<0.06)
[2018-12-13 18:50] LABS: INR 0.9; PROTIME 9.6 Seconds (9.20-11.50)
--- NOTE | 2018-12-13 19:00 | NUR ---
REPORT GIVEN TO LEYLA TRAVIS WHO IS TO ASSUME PT CARE AT THIS TIME.
[2018-12-13 20:21] VITALS: BP 145/70
[2018-12-13 21:00] VITALS: BP 133/61
[2018-12-14] VITALS (17 sets, daily range): BP systolic 35–171; BP diastolic 44–72
--- NOTE | 2018-12-14 06:27 | NUR ---
RECEIVED REPORT FROM EDRN. PT TRANSFERRED TO 209. PT A&OX4. VSS. ADMISSION HISTORY & PHYISCAL ASSESSMENT COMPLETED. PT ON O2 AT 2L NC. PT TRACING SR 1ST DEG ON TELE. PT UPADLIB TO RESTROOM. DENIES ANY PAIN OR SOA. ORIENTED TO ROOM & CALL LIGHT. INSTRUCTED ON NPO POST MIDNIGHT FOR CARDIO CONDULT. COMMUNICATES UNDERSTANDING. CALL LIGHT WITHIN REACH.
[2018-12-14 10:07] LABS: CHOLESTEROL 162 mg/dL (<200); HDL CHOLESTEROL 45 mg/dL (>40); LDL CHOLESTEROL 61 mg/dL (<100); TC:HDL 3.6 Ratio (Not establshd); TRIGLYCERIDE 280 mg/dL (<150); VLDL 56 mg/dL (<40)
[2018-12-14 10:08] LABS: SERUM ASSESSMENT Clear
--- NOTE | 2018-12-14 13:18 | NUR ---
Pt is A&O. Resides at home with her . Independent. Pt has a walker, cane and wc at home. Pt has home o2 through [facility]. Hx of [facility]. No hx of SNF. Pt current with [facility] palliative care. Pt scheduled to have a cath today. Spoke with , anticipate dc to home tomorrow. Following.
--- NOTE | 2018-12-14 13:57 | CON ---
[address] [address] CONSULTATION Name: CACHORRO CROSS Room: [address] IN .R.#: [id number] Admission: 12/13/18 Attend Phys: Lorna Darby MD Discharge: Date of : 49 Report #: [id number] THIS REPORT FOR: //name// CC: Omer Darby CARDIOLOGY CONSULTATION INDICATION: Non-ST elevation myocardial infarction. HISTORY OF PRESENT ILLNESS: The patient is a very pleasant 73-year-old white female who is well known to myself. She has a history of coronary artery disease with percutaneous coronary intervention approximately 10-15 years ago. She presented to the hospital yesterday with midsternal chest discomfort radiating to the left neck and jaw. The pain was intermittent. She had associated diaphoresis and shortness of breath. Her troponin did elevate to approximately 1.2 thus far consistent with a non-ST elevation myocardial infarction. EKG showed subtle ST-segment depression diffusely. There was no ST elevation. At the time of my interview, she is stable. PAST MEDICAL HISTORY: 1. Coronary artery disease as outlined above. 2. Chronic diastolic heart failure. 3. COPD. 4. Hypertension. 5. Hyperlipidemia. 6. Stroke remotely. 7. Type 2 diabetes mellitus. 8. History of bradycardia, medication induced. PAST SURGICAL HISTORY: 1. Adenoidectomy. 2. Percutaneous coronary intervention. 3. Cholecystectomy. 4. Hysterectomy. 5. Thyroidectomy. ALLERGIES: CONTRAST DYE, SULFA, CODEINE, CYMBALTA, DARVON, INDERAL-LA, AND VELOSEF. HOME MEDICATIONS: Tylenol p.r.n., Combivent inhaler q.i.d., alendronate 70 mg weekly, Xanax 0.25 mg p.r.n., aspirin 81 mg daily, Pulmicort inhaler b.i.d., Plavix 75 mg daily, fish oil 1000 mg daily, iron sulfate 325 mg daily, furosemide 40 mg daily, glimepiride 4 mg b.i.d., guaifenesin 600 mg b.i.d., hydralazine 25 mg t.i.d., Lantus 50 units at bedtime, Imdur 30 mg daily, Synthroid 175 mcg daily, lisinopril 40 mg daily, Protonix 40 mg daily, [place] [address] CONSULTATION Name: CACHORRO CROSS Room: [address]#: [id number] Admission: 12/13/18 Attend Phys: Lorna Darby MD Discharge: Date of : 49 Report #: [id number] pravastatin 80 mg daily, Zantac 150 mg b.i.d. FAMILY HISTORY: Noncontributory. SOCIAL HISTORY: The patient does not smoke. She does not drink alcohol. REVIEW OF SYSTEMS: Positive for shortness of breath and dyspnea without orthopnea, diaphoresis, chest discomfort as outlined above, intermittent numbness and tingling of her left arm. Positive for cough, that is nonproductive. Positive for joint pain. Positive for dizziness and lightheadedness on occasion, mild anxiety. Otherwise, 14-point review of systems unremarkable. PHYSICAL EXAMINATION: VITAL SIGNS: Blood pressure 171/54, pulse 71 and regular. GENERAL: This is a moderately obese, pleasant white female in no distress. Mood and affect appropriate. HEENT: Extraocular muscles intact. Mucous membranes are moist. NECK: Shows no obvious jugular venous distention. There are no carotid bruits. CHEST: Reveals diffuse inspiratory and expiratory wheezes. NECK: Reveals regular rhythm with normal S1 and S2. I do not appreciate gallop or murmur. ABDOMEN: Reveals normal bowel sounds. The abdomen is soft and nontender. EXTREMITIES: Shows no significant edema. SKIN: Warm and dry. LABORATORY DATA: A 12-lead EKG shows sinus rhythm with diffuse ST-segment depression. IMPRESSION AND RECOMMENDATIONS: 1. Non-ST elevation myocardial infarction. We will proceed with coronary angiography. Further intervention pending the results of that study. 2. Chronic diastolic heart failure, presently appears relatively well compensated. 3. Hypertension. We will adjust medications during hospitalization for improved blood pressure control. 4. Hyperlipidemia. The patient has been on pravastatin. Fasting lipid profile pending. 5. Diabetes per hospitalist. 6. Chronic obstructive pulmonary disease. Continue breathing treatments scheduled. <ELECTRONICALLY SIGNED> By: Alexsander Burger MD, FACC 12/14/18 1357 [id number] Burger MD, FACC /nt
--- NOTE | 2018-12-14 16:12 | EKG ---
[place] [address] ELECTROCARDIOGRAM REPORT Name: CACHORRO CROSS Room: [address] ADM IN .R.#: [id number] Admission: 12/13/18 Attend Phys: Lorna Darby MD Discharge: Date of : 49 Report #: [id number] THIS REPORT FOR: //name// [facility] ED Test Date: 2018-12-13 Test Time: 18:03:20 Pat Name: CACHORRO CROSS Department: Room: [facility] Gender: F Lodging Manager: [facility] : 1945 Requested By: Silvano Gomez Order Number: [id number] MD: Yan Galarza Measurements Intervals [place] Rate: 87 P: 32 [place]: 216 QRS: 58 QRSD: 105 T: 129 QT: 326 QTc: 392 Interpretive Statements Sinus rhythm Borderline prolonged [place] interval Repol abnrm suggests ischemia, lateral leads Minimal ST elevation, inferior leads Compared to ECG 07/28/2018 08:00:39 Early repolarization now present ST (T wave) deviation now present Possible ischemia still present Electronically Signed On 12-14-2018 16:12:10 CDT by Yan Galarza [email or web address] <ELECTRONICALLY SIGNED> By: Yan Galarza MD, [facility] 12/14/18 1612 1803 1803 Yan Galarza MD, [facility] /EPI
--- NOTE | 2018-12-14 16:39 | EKG ---
[place] [address] ELECTROCARDIOGRAM REPORT Name: CACHORRO CROSS Room: [address] ADM IN .R.#: [id number] Admission: 12/13/18 Attend Phys: Lorna Darby MD Discharge: Date of : 49 Report #: [id number] THIS REPORT FOR: //name// [facility] Test Date: 2018-12-14 Test Time: 16:22:44 Pat Name: CACHORRO CROSS Department: Room: [address] Gender: F Automatic I Threading Machine Feeder: : 1945 Requested By: Yan Galarza Order Number: [id number] Reading MD: Alexsander Burger Measurements Intervals [place] Rate: 62 P: 62 [place]: 203 QRS: 45 QRSD: 97 T: 120 QT: 386 QTc: 392 Interpretive Statements Sinus rhythm Nonspecific T-wave abnormality Compared to ECG 12/13/2018 18:03:20 Early repolarization no longer present ST (T wave) deviation no longer present Possible ischemia still present Electronically Signed On 12-14-2018 16:39:22 CDT by Alexsander Burger [email or web address] <ELECTRONICALLY SIGNED> By: Alexsander Burger MD, FACC 12/14/18 1639 1622 1622 Alexsander Burger MD, [facility] /EPI
--- NOTE | 2018-12-14 18:02 | CARD ---
[address] [address] CARDIAC CATH REPORT Name: CACHORRO CROSS Aileen Room: [address] IN [facility]#: [id number] Admission: 12/13/18 Attend Phys: Lorna Darby MD Discharge: Date of : 49 Report #: [id number] THIS REPORT FOR: //name// APPROVED REPORT Study performed: 12/14/2018 14:05:31 Patient Details Patient Status: In-Patient Room #: The patient is a 73 year-old female Event Personnel Alexsander Burger Assessor, Sheron Odonnell RN Business Objects Consultant, Cheikh Enrique CHILD WELFARE CONSULTANT Scrub, Gabrielle Garcia RTR Scrub, Omer Dan (R) Monitor, Becki Ledesma RTR Monitor, Yan Galarza Deputy Manager Procedures Performed Left Heart Catheterization with coronary stenting Indication Non-STEMI , Chest pain Risk Factors Hypercholesterolemia, Coronary Artery DiseaseHypertension Previous Procedures/Diagnoses Previous PCI Admission/Lab Medications/Medications given during procedure Glycoprotein IllbIlla Inhibitors, Heparin Low Molecular Weight Procedure Narrative The patient was brought electively to the Cardiac Catheterization Laboratory and was prepped and draped in a sterile manner. The right wrist was infiltrated with 1% Lidocaine subcutaneous anesthesia. A Slender Glidesheath sheath was inserted into the Right Radial Artery. Coronary angiography was performed using coronary diagnostic catheters. The right coronary system was accessed and visualized with a DCR: Calamus 4.0 5fr catheter. The left coronary system was accessed and visualized with a DCR: Calamus 4.0 5fr catheter. The left ventricle was accessed and visualized with [place] [address] CARDIAC CATH REPORT Name: CACHORRO CROSS Aileen Room: [address] IN [facility]#: [id number] Admission: 12/13/18 Attend Phys: Lorna Darby MD Discharge: Date of : 49 Report #: [id number] ventricular/Aortic Valve gradient assessed via catheter pullback. Closure device was deployed with a 6 Fr vascband. The patient tolerated the procedure well and there were no complications associated with the procedure. There was no hematoma. Intraoperative Conscious Sedation Sedation start time: 1458 Case end Time: 1545 Fentanyl 50 mcg Versed 2 mg Fluoro Time: 7.1 minutes Dose: DAP [id number] cGycm2 1875 mGy Contrast Type and Amount: Visipaque 160 ml Coronary Angiography The patient's coronary anatomy is left dominant. Diagnostic Cath Left Main There is a common os off of which branches the left anterior descending, intermediate ramus and circumflex coronary arteries. LAD The left anterior descending coronary artery is 20% plaque proximally and 30% plaque in the midportion. Diagonal 1 The diagonal branch is large and branching and free of significant disease. Circumflex The circumflex coronary artery is a dominant vessel. The proximal circumflex is minimally plaqued. There is a proximal 95% narrowing in the midportion of the vessel. OM1 The first obtuse marginal branch is mildly plaqued without hemodynamically significant stenoses. L PDA The circumflex PDA is diffusely plaqued up to 50%. L DADA The circumflex posterior lateral branch is mildly plaqued. Right Coronary A small nondominant right coronary artery is totally occluded proximally and the acute marginal branch fills by right to right collaterals. Ramus An intermediate ramus branch with marginal distribution is minimally cracked proximally. Left Ventriculography Left Ventriculography was not performed. Hemodynamics The aortic pressure is 117/62 mmHg with a mean of 83 mmHg. The left ventricular pressure is 128/11 mmHg with a mean of mmHg. The left ventricular end diastolic pressure is 22 mmHg. [place] [address] CARDIAC CATH REPORT Name: AMERICACACHORRO Room: [address]#: [id number] Admission: 12/13/18 Attend Phys: Lorna Darby MD Discharge: Date of : 49 Report #: [id number] across the aortic valve upon pullback. Pullback from the left ventricle to the aorta revealed no gradient across the aortic valve. PCI Technique Lesion Anticoagulation was achieved with Heparin. bolus of iv aggrastat given Patient was preloaded with Plavix. Percutaneous coronary intervention was performed on the mid circumflex artery segment. The lesion stenosis prior to intervention was 95% with YINKA 2 flow. A 6FR XB 3.5 100CM Guide Catheter was used to engage the left ostium. A IG: BMW 190cm Interventional Guidewire was used to cross the lesion. BALLOON DILATION A Balloon catheter Trek RX 3.0 X 12 was inserted and inflated up to 8.00atm for 3seconds. Repeat angiography revealed the following post-dilatation results: 50% stenosis. Additional Inflation: 16.00atm for 12seconds. STENT DEPLOYMENT A drug-eluting stent Jordan RX Stent 4.5X15mm was inserted and inflated up to 10.00atm for 11seconds. Repeat angiography revealed the following post-stent deployment results: 0% stenosis. Additional Inflation: 12.00atm for 17seconds. Additional Inflation: 12.00atm for 7seconds. Final angiography reveals 0 % stenosis with YINKA 3 flow. Conclusion 1. Significant 95% narrowing in the midportion of a large dominant circumflex. 2. Occluded nondominant right coronary artery that filled by right to right collaterals. 3. Moderately elevated left ventricular end-diastolic pressure consistent with acute on chronic diastolic heart failure. 4. Left ventricular gram not performed. 5. successful placement of a drug eluting stent in the mid circumflex artery. Recommendations 1. Continue aggressive [place] [address] CARDIAC CATH REPORT Name: CACHORRO CROSS Room: [address]#: [id number] Admission: 12/13/18 Attend Phys: Lorna Darby MD Discharge: Date of : 49 Report #: [id number] 2. Continue aggressive treatment of underlying diastolic heart failure. <ELECTRONICALLY SIGNED> By: Yan Galarza MD, [facility] 12/14/18 1802 180 1802Dgavin Galarza MD, FACCherelle /INF
--- NOTE | 2018-12-14 19:46 | NUR ---
PT RECEIVED FROM CATH AT 1615, POST CARDIAC STENT X1 VIA RT WRIST. PRESSURE RELEASED COMPLETELY AT 1830, NO SIGNS OF BLEEDING OR HEMATOMA. VSS. 02 SUPPPORT NC 2L/MIN. SHE IS IN CARB CONTROL DIET. UP AD [place]. DENIES ANY PAIN.
[2018-12-15] VITALS: BP 98/65
[2018-12-15 04:00] VITALS: BP 114/56
[2018-12-15 04:43] LABS: HEMOGLOBIN 8.8 gm/dL (12.0-15.0); MCH 27.1 pg (26.0-34.0); MCHC 31.4 g/dL (28.0-37.0); MCV 86.4 fL (80.0-100.0); MPV 8.4 fl. (7.2-11.1); RBC 3.24 mil/uL (4.20-5.00); RDW-CV 15.5 % (10.5-14.5); WBC 10.3 thou/uL (4.0-11.0)
[2018-12-15 05:23] LABS: ALBUMIN 2.5 g/dL (3.4-5.0); CALCIUM 8.1 mg/dL (8.5-10.1); MAGNESIUM 2.2 mg/dL (1.8-2.4); POTASSIUM 5.9 mmol/L (3.5-5.1); TOTAL BILIRUBIN 0.2 mg/dL (<0.1-1.0); TOTAL PROTEIN 6.6 g/dL (6.4-8.2)
[2018-12-15 05:27] LABS: TROPONIN-I LEVEL 2.76 ng/mL (<0.06)
--- NOTE | 2018-12-15 06:16 | NUR ---
ASSUMED CARE OF PT AFTER REPORT AT 1930. PT A&OX4. VSS. PHYSICAL ASSESSMENT COMPLETED AND CHARTED. PT ON O2 AT 2L NC. PT TRACING SR 1ST DEG ON TELE. PT UP ADLIB TO RESTROOM. REMOVED RADSTAT TO RIGHT RADIAL AND PLACED 4X4 GAUZE FOLLOWED BY TRANSPARENT DRESSING. DRESSING CLEAN, DRY & INTACT. NO HEMATOMA OR BLEEDING NOTED. DENIES ANY CHEST PAIN OR SOA. IV LINE WAS INFILTRATED AND PT IS REQUESTING TO LEAVE IV OUT. NO DUE IV MEDS AND PT IS POSSIBLE FOR DISCHARGE. CALL LIGHT WITHIN REACH.
--- NOTE | 2018-12-15 08:00 | NUR ---
ASSUMED PT CARE AT 0700, PT A&O X4, UP WITH STANDBY, VSS, REMAINS ON O2 AT 2LPM, VALUE ADVISOR TRACING SINUS RHYTHM WITH 1ST DEGREE AV BLOCK, FULL ASSESSMENT CHARTED. PTS IV INFILTRATED LAST NIGHT, PT REQUESTED NO NEW IV BE PLACED SHE FELT SHE WOULD BE DISCHARGED TODAY. WILL CONT POC.
[2018-12-15 08:46] VITALS: BP 106/44
--- NOTE | 2018-12-15 10:44 | EKG ---
[place] [address] ELECTROCARDIOGRAM REPORT Name: CACHORRO CROSS Room: [address] ADM IN .R.#: [id number] Admission: 12/13/18 Attend Phys: Lorna Darby MD Discharge: Date of : 49 Report #: [id number] THIS REPORT FOR: //name// [facility] Test Date: 2018-12-15 Test Time: 08:16:49 Pat Name: CACHORRO CROSS Department: Room: [address] Gender: F Quarter Trimmer: : 1945 Requested By: Yan Galarza Order Number: [id number] Armin MD: Yan Galarza Measurements Intervals [place] Rate: 73 P: 52 ND: 220 QRS: 38 QRSD: 103 T: 127 QT: 405 QTc: 447 Interpretive Statements Sinus rhythm Prolonged ND interval Abnormal T, consider ischemia, lateral leads Compared to ECG 12/14/2018 16:22:44 First degree AV block now present T-wave abnormality still present Electronically Signed On 12-15-2018 10:44:26 CDT by Yan Galarza [email or web address] <ELECTRONICALLY SIGNED> By: Yan Galarza MD, [facility] 12/15/18 1044 0816 5 Yan Galarza MD, [facility] /EPI
[2018-12-15 10:46] VITALS: BP 106/44
[2018-12-15 12:05] VITALS: BP 130/57
[2018-12-15] MEDS ORDERED: PREDNISONE 20 M20 MG PO (12:22)
[2018-12-15] MEDS ORDERED: LEVAQUIN 500 M500 M1 PO (12:22)
--- NOTE | 2018-12-15 14:51 | 2DMMODE ---
[place] [address] 2 D/M-MODE ECHOCARDIOGRAM Name: AMERICACACHORRO Room: [address] IN [facility]#: [id number] Admission: 12/13/18 Attend Phys: Lorna Darby, Discharge: Date of : 49 Date of Service: 12/15/18 1450 Report #: [id number] THIS REPORT FOR: //name// APPROVED REPORT Study performed: 12/15/2018 13:39:38 EXAM: Comprehensive 2D, Doppler, and color-flow Echocardiogram Patient Location: In-Patient Room #: [facility] Status: routine BSA: 1.82 HR: 80 bpm BP: 106/44 mmHg Rhythm: NSR Other Information Study Quality: Fair Indications Acute MN 2D Dimensions IVSd: 10.72 (7-11mm) LVOT Diam: 21.94 (18-24mm) LVDd: 57.37 mm PWd: 11.92 (7-11mm) Ascending Ao: 31.57 (22-36mm) LVDs: 32.17 (25-40mm) Aortic Root: 34.00 mm Volumes Left Atrial Volume (Systole) LA ESV Index: 42.60 mL/m2 Aortic Valve AoV Peak Alexandre.: 1.78 m/s AO Peak Gr.: 12.74 mmHg LVOT Max P.64 mmHg AO Mean Gr.: 6.77 mmHg LVOT Mean P.91 mmHg LVOT Max V: 1.08 m/s AO V2 VTI: 36.70 cm LVOT Mean V: 0.61 m/s MARIE (VTI): 2.19 cm2 LVOT V1 VTI: 21.23 cm Mitral Valve E/A Ratio: 0.92 MV Decel. Time: 211.88 ms MV E Max Alexandre.: 1.37 m/[place] [address] 2 D/M-MODE ECHOCARDIOGRAM Name: CACHORRO CROSS Room: [address] IN [facility].#: [id number] Admission: 12/13/18 Attend Phys: Lorna Darby, Discharge: Date of : 49 Date of Service: 12/15/18 1450 Report #: [id number] MV PHT: 61.44 ms MVA (PHT): 3.58 cm2 TDI E/Lateral E': 15.22 E/Medial E': 22.83 Medial E' Alexandre.: 0.06 m/s Lateral E' Alexandre.: 0.09 m/s Pulmonary Valve PV Peak Alexandre.: 1.04 m/s PV Peak Gr.: 4.34 mmHg Left Ventricle The left ventricle is normal size. akinesis base of inferior wall There is normal left ventricular wall thickness. Left ventricular systolic function is borderline. LVEF is 45-50%. Grade I - abnormal relaxation pattern. Right Ventricle The right ventricle is normal size. The right ventricular systolic function is normal. Atria Left atrium is moderate dilated. The right atrium size is normal. Aortic Valve Mild aortic valve sclerosis. No aortic regurgitation is present. There is no aortic valvular stenosis. Mitral Valve There is mitral annular calcification. Mild mitral regurgitation. No evidence of mitral valve stenosis. Tricuspid Valve The tricuspid valve is normal in structure. Unable to assess PA pressure. Trace tricuspid regurgitation. Pulmonic Valve Pulmonic valve is not well visualized. There is no pulmonic valvular regurgitation. Great Vessels The aortic root is normal in size. Pericardium There is no peric[place] [address] 2 D/M-MODE ECHOCARDIOGRAM Name: CACHORRO CROSS Aileen Room: [address] IN [facility]#: [id number] Admission: 12/13/18 Attend Phys: Lorna Darby, Discharge: Date of : 49 Date of Service: 12/15/18 149 Report #: [id number] <Conclusion> LVEF is 45-50%. akinesis base of inferior wall Mild aortic valve sclerosis. Left atrium is moderate dilated. Mild mitral regurgitation. <ELECTRONICALLY SIGNED> By: Yan Galarza MD, [facility] 12/15/181449 49 49 Yan Galarza MD, FACC /INF
[2018-12-15 14:54] LABS: CALCIUM 8.6 mg/dL (8.5-10.1); CREATININE 1.9 mg/dL (0.6-1.3)
[2018-12-15 15:38] VITALS: BP 133/60
--- NOTE | 2018-12-15 17:00 | NUR ---
PT DISCHARGED HOME WITH SPOUSE AT APPROX 1645, EDUCATED ON ALL DISCHARGE INSTRUCTIONS INCLUDING MEDICATIONS AND FOLLOW UP APPTS. IV AND CCNA REMOVED, HOURLY ROUNDING COMPLETED.
== END 2018-12-15 16:45 | disposition home or self-care (01) | DRG 246 ==
LOC: M.ERS 17:57 → M.TBA-ER 19:13 → M.2W 19:13
PROVIDERS: Emergency Medicine; Internal Medicine Cardiovascular Disease; ADMIT Internal Medicine
PROC: 027034Z Dilation of Coronary Artery, One Artery with Drug-eluting Intraluminal Device, Percutaneous Approach (ICD-10-PCS; principal; 2018-12-14)
PROC: B211YZZ Fluoroscopy of Multiple Coronary Arteries using Other Contrast (ICD-10-PCS; principal; 2018-12-14)
PROC: 4A023N7 Measurement of Cardiac Sampling and Pressure, Left Heart, Percutaneous Approach (ICD-10-PCS; principal; 2018-12-14)
DX: I21.4 Non-ST elevation (NSTEMI) myocardial infarction (principal); J96.21 Acute and chronic respiratory failure with hypoxia; I50.33 Acute on chronic diastolic (congestive) heart failure; J44.1 Chronic obstructive pulmonary disease with (acute) exacerbation; N17.9 Acute kidney failure, unspecified; E78.5 Hyperlipidemia, unspecified; I25.10 Atherosclerotic heart disease of native coronary artery without angina pectoris; M19.90 Unspecified osteoarthritis, unspecified site; E11.9 Type 2 diabetes mellitus without complications; I11.0 Hypertensive heart disease with heart failure; E89.0 Postprocedural hypothyroidism; E66.01 Morbid (severe) obesity due to excess calories; Z68.37 Body mass index [BMI] 37.0-37.9, adult; I25.2 Old myocardial infarction; Z90.710 Acquired absence of both cervix and uterus; Z88.6 Allergy status to analgesic agent; Z88.2 Allergy status to sulfonamides; Z88.8 Allergy status to other drugs, medicaments and biological substances; Z86.73 Personal history of transient ischemic attack (TIA), and cerebral infarction without residual deficits; Z87.891 Personal history of nicotine dependence; Z79.82 Long term (current) use of aspirin; Z79.899 Other long term (current) drug therapy; Z95.5 Presence of coronary angioplasty implant and graft; Z91.041 Radiographic dye allergy status

== ENCOUNTER → 2019-01-29 | Outpatient (CLI) | payer OTHER ==
[~2019-01-29] MED LIST changes: +LEVAQUIN 500 M500 M1 PO
[2019-01-29 11:11] LABS: CREATININE 2.1 mg/dL (0.6-1.3)
== END ==
LOC: M.LAB 10:30 → M.CT 11:30
PROVIDERS: Surgery Vascular Surgery
DX: K55.1 Chronic vascular disorders of intestine (principal); E11.9 Type 2 diabetes mellitus without complications

== ENCOUNTER 2019-03-29 19:43 | Inpatient (IN) | payer OTHER ==
[~2019-03-29] VITALS: Ht 152.4 cm; Wt 88.5 kg
--- NOTE | ~2019-03-29 | CON ---
[address] [address] CONSULTATION Name: AMERICACACHORRO Aileen Room: [address] IN .R.#: [id number] Admission: 03/29/19 Attend Phys: Ricky Coronel Discharge: Date of : 49 Report #: [id number] THIS REPORT FOR: //name// CC: Omer Storm DATE OF SERVICE: 03/31/2019 REASON FOR CONSULT: Diarrhea and postprandial abdominal pain and bloating. HISTORY OF PRESENT ILLNESS: This is a 73-year-old female with history of chronic diarrhea and abdominal pain, gas, and bloating, who also reports decreased appetite due to the same. She presented to hospital with high levels of potassium above 7. She also has had renal failure, which she did not know if she ever had renal disease. Subsequently, the patient was started on a bicarb drip since she was acidotic and her hyperkalemia was addressed with Kayexalate. She is currently doing better and will be going up to the regular floor. PAST MEDICAL HISTORY: Significant for history of colon polyps back in 2018, chronic abdominal pain, diarrhea, gas and bloating, COPD requiring O2 at home, hypertension, hypothyroidism, diabetes, dyslipidemia, anticoagulation therapy, anxiety, diabetic neuropathy, CHF, and kidney disease. ALLERGIES: Significant to CODEINE, CONTRAST DYE, DULOXETINE, DARVON, PROPRANOLOL, SULFA, and VELOSEF. MEDICATIONS: Please refer to MAR. SOCIAL HISTORY: The patient is and lives at home. She has a history of tobaccoism, but has quit. She does not drink alcohol. She wears 2 liters of O2 at home. FAMILY HISTORY: Negative for GI malignancy. PHYSICAL EXAMINATION: VITAL SIGNS: Reveals blood pressure of 113/41, respiration 18, pulse 64, and temperature 98.1. LUNGS: Clear. CARDIOVASCULAR: Regular. ABDOMEN: Soft, large, nontender, nondistended. Bowel sounds are positive. NEUROLOGIC: The patient is alert and oriented x 3. LABORATORY DATA: Reveal sodium of 145, potassium 4.7 down from 7.6, BUN is 31, creatinine is 1.7, down from 2.1, glucose 54, lipase is 146, total bilirubin 0.2, alkaline phosphatase is 31, ALT 24. WBC is 12.3 with hemoglobin of 9.5 and platelet [place] 328[place] [address] CONSULTATION Name: CACHORRO CROSS Room: [address] IN [facility]#: [id number] Admission: 03/29/19 Attend Phys: Ricky Coronel Discharge: Date of : 49 Report #: [id number] IMAGING DATA: CT of abdomen and pelvis has been ordered, but pending. ASSESSMENT AND PLAN: The patient with a history of endoscopic evaluation in 02/2018, which was significant for tubular adenoma in the cecum. She complains of postprandial bloating, abdominal pain, and diarrhea. In reference to her anemia, she also has had a capsule endoscopy, which she believes was negative. If she has persistent gas, bloating, and diarrhea, which worsens after meals, she may have small intestinal bacterial overgrowth. I will recommend a hydrogen breath test. In this setting, people may have B12 deficiency. Therefore, we will check her B12 as she appears to be anemic. We will continue to monitor her and make further recommendation based on her progress in the hospital. By: [id number] Valles MD /nt
[2019-03-29 19:48] VITALS: BP 149/62
[2019-03-29 20:34] LABS: BE -9.5 mmol/L (-2 to +3); PCO2 33.7 mmHg (35.0-45.0); PO2 107.1 mmHg (75.0-100.0)
[2019-03-29 20:36] LABS: pH 7.295 (7.340-7.450)
[2019-03-29 21:08] LABS: ABSOLUTE BASOPHILS 0.1 thou/uL (0.0-0.2); ABSOLUTE EOSINOPHILS 0.2 thou/uL (0.0-0.7); ABSOLUTE LYMPHOCYTES 2.2 thou/uL (0.8-5.3); ABSOLUTE MONOCYTES 0.6 thou/uL (0.0-1.2); ABSOLUTE NEUTROPHILS 7.6 thou/uL (1.6-8.1); BASOPHILS 0.7 %; EOSINOPHILS 1.7 %; HEMATOCRIT 31.7 % (37.0-47.0); LYMPHOCYTES 20.6 %; MCH 27.7 pg (26.0-34.0); MCHC 31.7 g/dL (28.0-37.0); MCV 87.3 fL (80.0-100.0); MPV 7.7 fl. (7.2-11.1); NUCLEATED RBCS 0 /100WBC; PLATELET COUNT* 335 thou/uL (150-400); RBC 3.63 mil/uL (4.20-5.00); WBC 10.7 thou/uL (4.0-11.0)
[2019-03-29 21:22] LABS: APTT 21.9 Seconds (25.0-31.3); PROTIME 9.9 Seconds (9.20-11.50)
[2019-03-29 21:36] LABS: ALBUMIN 3.2 g/dL (3.4-5.0); CALCIUM 7.8 mg/dL (8.5-10.1); CREATININE 2.1 mg/dL (0.6-1.3); MAGNESIUM 2.2 mg/dL (1.8-2.4); TOTAL BILIRUBIN 0.2 mg/dL (<0.1-1.0); TOTAL PROTEIN 7.4 g/dL (6.4-8.2)
[2019-03-29 21:42] LABS: POTASSIUM 7.6 mmol/L (3.5-5.1)
[2019-03-29 22:35] LABS: URINE BILIRUBIN NEGATIVE (Negative); URINE BLOOD TRACE (Negative); URINE CLARITY CLEAR; URINE COLOR YELLOW; URINE GLUCOSE-RANDOM NEGATIVE (Negative); URINE KETONES NEGATIVE (Negative); URINE LEUKOCYTES-REFLEX NEGATIVE (Negative); URINE NITRITE-REFLEX NEGATIVE (Negative); URINE PROTEIN 2+ (Negative); URINE SPECIFIC GRAVITY 1.025 (1.005-1.030); URINE UROBILINOGEN 0.2 E.U./dl (0.2-1.0)
[2019-03-29 22:43] LABS: FINE GRANULAR CASTS 0-3 Few /LPF (None Seen); HYALINE CASTS 0-3 Few /LPF (None Seen); MUCUS >6 Heavy strn/LPF (None Seen); SQUAMOUS 0-3 Few /LPF (0-3); URINE RBC 3-10 Few /HPF (0-2); URINE WBC-REFLEX 0-5 Rare /HPF (0-5)
[2019-03-29 22:44] LABS: AMORPHOUS URATES Many /LPF (None Seen)
[2019-03-30] VITALS (16 sets, daily range): BP systolic 96–154; BP diastolic 39–92
[2019-03-30 02:03] LABS: HEMATOCRIT 32.4 % (37.0-47.0); HEMOGLOBIN 10.5 gm/dL (12.0-15.0); MCH 28.1 pg (26.0-34.0); MCHC 32.5 g/dL (28.0-37.0); MCV 86.5 fL (80.0-100.0); MPV 7.8 fl. (7.2-11.1); RBC 3.74 mil/uL (4.20-5.00); WBC 10.2 thou/uL (4.0-11.0)
[2019-03-30 02:12] LABS: ALBUMIN 3.1 g/dL (3.4-5.0); CALCIUM 8.4 mg/dL (8.5-10.1); CREATININE 2.1 mg/dL (0.6-1.3); MAGNESIUM 2.2 mg/dL (1.8-2.4); TOTAL BILIRUBIN 0.2 mg/dL (<0.1-1.0); TOTAL PROTEIN 7.1 g/dL (6.4-8.2)
[2019-03-30 02:13] LABS: POTASSIUM 6.9 mmol/L (3.5-5.1)
--- NOTE | 2019-03-30 07:40 | NUR ---
Pt admitted from ED for hyperkalemia. K+ was 6.9 at 0230; then up to 7.2, but IV carrying D10 w/ NaHCO3 had infiltrated. New IV started and repeat K drawn, which resulted at 6.8. Pt c/o generalized discomfort and lack of sleep along with intermittent cold/chills. BG in low 100s, unable to start insulin gtt which was communicated to Dr. Lacey. VSS. SB-SR per monitor. Will continue to monitor.
[2019-03-30 09:25] LABS: BE -8.9 mmol/L (-2 to +3); PCO2 VENOUS 44.8 mmHg (41.0-51.0); PO2 VENOUS 51.5 mmHg (35.0-45.0)
[2019-03-30 09:32] LABS: URINE POTASSIUM-RANDOM 28.8 mmol/L
--- NOTE | 2019-03-30 11:13 | NUR ---
ICU rounds: Pt received call from PCP informing that her K was high. K trending down, currently at 6.4. Pt eating well. Recheck K later today. Pt resides at home with her . Independent and active. Pt has a walker, wc, scooter and 2 canes. Pt is current with [facility]. Hx of [facility]. No hx of SNF. Pt has home o2 through [facility]. Goal is home at [place]. Following.
[2019-03-30 12:23] LABS: CALCIUM 8.2 mg/dL (8.5-10.1); CREATININE 1.8 mg/dL (0.6-1.3)
--- NOTE | 2019-03-30 15:48 | EKG ---
[place] [address] ELECTROCARDIOGRAM REPORT Name: CACHORRO CROSS Room: [address] ADM IN .R.#: [id number] Admission: 03/29/19 Attend Phys: Ricky Coronel Discharge: Date of : 49 Report #: [id number] THIS REPORT FOR: //name// [facility] ED Test Date: 2019-03-29 Test Time: 19:54:30 Pat Name: CACHORRO CROSS Department: Room: [facility] Gender: F Masking Machine Operator: : 1945 Requested By: Lelia Fair Order Number: [id number] MD: Leonel Cavazos Measurements Intervals [place] Rate: 75 P: 47 ND: 187 QRS: 44 QRSD: 82 T: 104 QT: 360 QTc: 402 Interpretive Statements Sinus rhythm Borderline repolarization abnormality Compared to ECG 12/15/2018 08:16:49 First degree AV block no longer present T-wave abnormality no longer present Possible ischemia no longer present Electronically Signed On 03-30-2019 15:48:48 COMMUNITY SERVICE PATROL OFFICER by Leonel Cavazos [email or web address] <ELECTRONICALLY SIGNED> By: Leonel Cavazos MD, FAC 03/30/19 1548 53 53 Leonel Cavazos MD, [facility] /EPI
--- NOTE | 2019-03-30 18:28 | NUR ---
PATIENT K+ TO 5.2 MORE STEADY GAIT. DENIES SOA BUT HAS OCCASIONAL COUGH. DENIES PAIN. HAD VISIT FROM HER TIPPLE MECHANIC. REMAINS ALERT. RUIZ DCD AT PT REQUEST MAKING URINE UP TO COMMODE TIMES 4. PROGRESSING.
[2019-03-31] VITALS (9 sets, daily range): BP systolic 107–148; BP diastolic 32–59
[2019-03-31 02:09] LABS: GLYCOHEMOGLOBIN (HGB A1C) 8.7 % (4.8-5.6)
[2019-03-31 04:37] LABS: HEMATOCRIT 29.6 % (37.0-47.0); HEMOGLOBIN 9.5 gm/dL (12.0-15.0); MCH 27.2 pg (26.0-34.0); MCHC 32.3 g/dL (28.0-37.0); MCV 84.4 fL (80.0-100.0); MPV 7.5 fl. (7.2-11.1); RBC 3.5 mil/uL (4.20-5.00); RDW-CV 16.9 % (10.5-14.5); WBC 12.3 thou/uL (4.0-11.0)
[2019-03-31 05:01] LABS: CALCIUM 7.6 mg/dL (8.5-10.1); CREATININE 1.7 mg/dL (0.6-1.3); MAGNESIUM 1.7 mg/dL (1.8-2.4); POTASSIUM 4.7 mmol/L (3.5-5.1)
--- NOTE | 2019-03-31 10:52 | NUR ---
PATIENT UP AD LIBDENIES PAIN OR SOA. CO NOT FEELING RIGHT. BS 84 TOLERATED PO THIS AM AWAITING CTSCAN.
--- NOTE | 2019-03-31 12:40 | NUR ---
PATIENT TO TRANSFER TO [facility] ALERT AND ORIENTED UP IN ROOM. REPORTR GIVEN TO CAMRYN.
--- NOTE | 2019-03-31 19:39 | NUR ---
ASSUSSMED CARE OF PT APPROX 1230. CHARTING REVIEWED FROM ICU NURSE I AGREE WITH CHARTING. SAFTEY PRECAUTIONS IN PLACE, CALL LIGHT WITHIN REACH. PT STATES HAS ETOH ABUSE HX, PTS CAME TO HOSPITAL THIS EVENING. PT AND HAD VERBAL DISAGREEMENT IN HALLWAY NEAR NURSES STATION, PT STATED "WHERE ARE YOUR KEYS YOU CANT DRIVE DRUNK!", PTS LEFT THE UNIT AND DID NOT COME BACK THIS EVENING.
[2019-04-01 00:04] VITALS: BP 144/51
[2019-04-01 04:01] VITALS: BP 100/40
[2019-04-01 04:17] LABS: HEMATOCRIT 27.2 % (37.0-47.0); HEMOGLOBIN 8.7 gm/dL (12.0-15.0); MCH 27.2 pg (26.0-34.0); MCHC 31.8 g/dL (28.0-37.0); MCV 85.5 fL (80.0-100.0); MPV 7.8 fl. (7.2-11.1); RBC 3.19 mil/uL (4.20-5.00); RDW-CV 16.4 % (10.5-14.5); WBC 7.5 thou/uL (4.0-11.0)
[2019-04-01 04:37] LABS: CALCIUM 7.6 mg/dL (8.5-10.1); CREATININE 1.7 mg/dL (0.6-1.3); MAGNESIUM 1.8 mg/dL (1.8-2.4)
--- NOTE | 2019-04-01 06:58 | NUR ---
VSS. SEE MAR. SEE CHART. FALL PRECAUITONS IN PLACE. PROGRESSING TOWARDS GOALS. HOURLY ROUNDING FOR SAFEY.
[2019-04-01 08:15] VITALS: BP 116/45
[2019-04-01 12:00] VITALS: BP 155/45
[2019-04-01 16:00] VITALS: BP 131/41
[2019-04-01 20:00] VITALS: BP 150/51
--- NOTE | 2019-04-01 20:16 | NUR ---
ASSUSSMED CARE OF PT APPROX 0730. REASSESSMENT COMPLETED CHARTED. MEDICATIONS GIVEN CHARTED. PT A&O X4. SAFTEY PRECAUTIONS UTILIZED, HOURLY ROUNDED. PT NEEDS MET. FAMILY AT BEDSIDE THIS EVENING
[2019-04-02] VITALS (7 sets, daily range): BP systolic 139–177; BP diastolic 43–69
[2019-04-02 04:40] LABS: HEMATOCRIT 28.7 % (37.0-47.0); HEMOGLOBIN 9.3 gm/dL (12.0-15.0); MCH 27.6 pg (26.0-34.0); MCHC 32.6 g/dL (28.0-37.0); MCV 84.8 fL (80.0-100.0); MPV 7.8 fl. (7.2-11.1); RBC 3.38 mil/uL (4.20-5.00); RDW-CV 16.7 % (10.5-14.5); WBC 7.5 thou/uL (4.0-11.0)
[2019-04-02 04:51] LABS: ALBUMIN 2.6 g/dL (3.4-5.0); CALCIUM 7.9 mg/dL (8.5-10.1); CREATININE 1.7 mg/dL (0.6-1.3); POTASSIUM 4.6 mmol/L (3.5-5.1); TOTAL BILIRUBIN 0.2 mg/dL (<0.1-1.0); TOTAL PROTEIN 6.6 g/dL (6.4-8.2)
--- NOTE | 2019-04-02 05:05 | NUR ---
A&O X4, MAINTAINING O2 SATS ON 2L NC. NO C/O PAIN OR DISCOMFORT NOTED. ORDER PLACED FOR CM TO SPEAK WITH PT ABOUT HOMELIFE. PT ABLE TO SLEEP MAJORITY OF NIGHT. NO OTHER CONCERNS NOTED, CURRENTLY ASLEEP WITH CALL LIGHT WITHIN REACH.
--- NOTE | 2019-04-02 08:35 | CON ---
[address] [address] CONSULTATION Name: AMERICACACHORRO Aileen Room: [address] IN .R.#: [id number] Admission: 03/29/19 Attend Phys: Ricky Coronel Discharge: Date of : 49 Report #: [id number] THIS REPORT FOR: //name// CC: Omer Storm DATE OF SERVICE: 03/30/2019 NEPHROLOGY CONSULTATION CONSULTING PHYSICIAN: Dr. Styles REASON FOR NEPHROLOGY CONSULTATION: Hyperkalemia, acute kidney injury on chronic kidney disease. CHIEF COMPLAINT: Weakness in legs and very shaky and abdominal pain and her potassium was high at the doctor's office. HISTORY OF PRESENT ILLNESS: This is a 73-year-old female who has past medical history of diabetes type 2, also has a history of diabetic retinopathy, hypertension, looks like has chronic kidney disease stage 3, baseline creatinine of 1.5-1.8, has been having decreased appetite, diarrhea for quite a long time and abdominal pain which has been going on for months. She was also recently treated for an ear infection with amoxicillin and for bronchitis and she is not sure which antibiotic she got for that. She had some labs done at her doctor's office where she was found to have high potassium, she was asked to come to the hospital. Her potassium was found to be 7.6 when she came in yesterday to the ER and a creatinine was 2.1. She was also marginally hypotensive. She was started on IV fluids and Parks catheter was placed. She has had about 400 mL of urine output overnight and she is still urinating. She is feeling a little bit better, but still has abdominal pain. Her blood glucose also has been running low lately at home, also she has been hardly eating and still taking all her medications. She does not take any NSAIDs. No history of kidney stones. She takes lisinopril as well as Lasix at home and has been taking that consistently. Nephrology has been consulted for acute kidney injury on chronic kidney disease and hyperkalemia. REVIEW OF SYSTEMS: As mentioned in history of present illness, otherwise 10-point review of systems done, negative. ALLERGIES: TO CODEINE, CONTRAST DYE, DULOXETINE, PROPOXYPHENE, PROPRANOLOL, SULFA AND CEFRADINE. HOME MEDICATIONS: Which include alprazolam, lisinopril 40 mg a day, levothyroxine, furosemide 40 mg a day, Plavix, Imdur, fish oil, ferrous sulfate, Mucinex, aspirin 81 mg, alendronate, glimepiride, ranitidine, insulin glargine, [place] [address] CONSULTATION Name: AMERICACACHORRO Room: [address] IN M.R.#: [id number] Admission: 03/29/19 Attend Phys: Ricky Coronel Discharge: Date of : 49 Report #: [id number] acetaminophen and pravastatin. PAST MEDICAL AND SURGICAL HISTORY: Which includes chronic kidney disease stage 3, likely because of diabetic nephropathy. She also has a history of hypertension, diabetes type 2, enlarged thyroid, hyperlipidemia, COPD, coronary artery disease, arthritis, two mini strokes, hysterectomy and chronic diastolic congestive heart failure. FAMILY HISTORY: No history of any kidney disease in the family. SOCIAL HISTORY: She does not smoke or drink alcohol or use illicit drugs. She lives at home. PHYSICAL EXAMINATION: VITAL SIGNS: Her blood pressure is 105/43, pulse rate is 61, respiratory rate monitored as 16, pulse ox 99% on 2 liters of oxygen by nasal cannula and temperature was 36.6. GENERAL: She is awake, alert and oriented x 3. She looks very weak. HEAD AND EYES: Atraumatic, normocephalic. Normal conjunctivae. EARS, NOSE AND THROAT: Mucous membranes are dry. NECK: No JVD. CHEST: Bilaterally clear to auscultation anteriorly except for mild wheezing at the bases. CARDIOVASCULAR: S1, S2 normal. No murmurs. ABDOMEN: Soft, currently nontender, nondistended. Bowel sounds are decreased. EXTREMITIES: Lower extremities, there is no lower extremity edema. NEUROLOGICAL FUNCTION: Gross neurological function is intact. PSYCHIATRIC: Mood seems to be normal. LABORATORY DATA: Hemoglobin is 10.5. Potassium 6.8 this morning, was 7.6 yesterday when she came in, CO2 of 19, creatinine 2.1 and other labs are reviewed. IMAGING: Chest x-ray was reviewed. ASSESSMENT: 1. Acute kidney injury on chronic kidney disease stage 3 due to intravascular volume depletion, hypotension, use of Lasix and lisinopril, diarrhea. Baseline creatinine is 1.5-1.8 and creatinine 2.1 on admission. Urinalysis shows evidence of 2+ protein, 3-10 rbc's per high power field, 10-30 bacteria per high power field. She did not report having any symptoms of UTI and renal imaging is pending. 2. Hyperkalemia, which is in the setting of decreased distal sodium delivery, dehydration, use of lisinopril and Lasix with acute kidney injury [place] [address] CONSULTATION Name: CACHORRO CROSS Room: [address] IN [facility]#: [id number] Admission: 03/29/19 Attend Phys: Ricky Coronel Discharge: Date of : 49 Report #: [id number] 3. Anion gap metabolic acidosis, hyperchloremic metabolic acidosis in the setting of dehydration, acute renal insufficiency. 4. Abdominal pain, reason is not clear. 5. History of diabetes type 2 with diabetic retinopathy and blood glucose has been running low. 6. Chronic obstructive pulmonary disease. 7. Hypothyroidism. 8. Coronary artery disease. PLAN: 1. Currently, she is looking dehydrated and she is nonoliguric, potassium is slowly getting better, there is no acute need for dialysis. 2. Agree with D5 half normal with 75 mEq of sodium bicarbonate at 150 mL an hour and other medical management for hyperkalemia. 3. Potassium seems to be repeated as a stat lab. 4. We will check renal ultrasound. 5. Keep her MAP around 65-70. 6. Keep Lasix, lisinopril on hold. 7. Strict I's and O's. Thank you for this consultation. Critical care time of 35 minutes spent in placing orders, chart review and care coordination, discussion with the patient's nurse as well as the patient, we will continue to follow along with you. <ELECTRONICALLY SIGNED> By: Ernestina Chiu MD 04/02/19 0835 0852 [id number] nora Molina
[2019-04-02] MEDS ORDERED: LANTUS SUBQ (11:57)
[2019-04-02] MEDS ORDERED: ANTACID650 MG PO (11:57)
--- NOTE | 2019-04-02 13:37 | NUR ---
Pt discharging to home today. Faxed HH orders and referral to [facility]. Family to transport. CM updated Den with [facility] palliative care.
--- NOTE | 2019-04-02 16:09 | NUR ---
PER CASE MANAGEMENT NOTE, PT DISCHARGING TODAY WITH PALLIATIVE CARE.
--- NOTE | 2019-04-02 17:45 | NUR ---
ASSUMED PT CARE AT 0730. ASSESSMENT COMPLETED CHARTED. DISCHARGE APPROVED, DISCHARGE PAPERWORK WENT OVER, NO QUESTIONS, COMMENTS, OR CONCERNS. UP WITH SBA, VERY TALKATIVE. IV AND HEART MONITOR REMOVED. NO C/O PAIN OR DISCOMFORT. PT LEFT HOSPITAL AROUND 1730 IN WHEELCHAIR TO HUSBANDS CAR. ALL BELONGINGS TAKEN WITH HER.
== END 2019-04-02 17:43 | disposition home health service (06) | DRG 683 ==
LOC: M.ERS 19:43 → M.TBA-ER 21:59 → M.ICU 22:14 → M.TBA-ER 22:14 → M.2W 22:14 → M.ICU 03-30 00:02 → M.2W 03-31 12:50
PROVIDERS: Internal Medicine; Personal Emergency Response Attendant; ADMIT Internal Medicine
DX: N17.0 Acute kidney failure with tubular necrosis (principal); I13.0 Hypertensive heart and chronic kidney disease with heart failure and stage 1 through stage 4 chronic kidney disease, or unspecified chronic kidney disease; I50.32 Chronic diastolic (congestive) heart failure; A04.9 Bacterial intestinal infection, unspecified; E87.2 Acidosis; E87.5 Hyperkalemia; E11.22 Type 2 diabetes mellitus with diabetic chronic kidney disease; N18.3 Chronic kidney disease, stage 3 (moderate); G89.29 Other chronic pain; E11.319 Type 2 diabetes mellitus with unspecified diabetic retinopathy without macular edema; E78.5 Hyperlipidemia, unspecified; J44.9 Chronic obstructive pulmonary disease, unspecified; I25.10 Atherosclerotic heart disease of native coronary artery without angina pectoris; M19.90 Unspecified osteoarthritis, unspecified site; E86.9 Volume depletion, unspecified; I95.9 Hypotension, unspecified; K21.9 Gastro-esophageal reflux disease without esophagitis; E66.9 Obesity, unspecified; K52.9 Noninfective gastroenteritis and colitis, unspecified; E87.8 Other disorders of electrolyte and fluid balance, not elsewhere classified; E86.0 Dehydration; E03.9 Hypothyroidism, unspecified; E11.40 Type 2 diabetes mellitus with diabetic neuropathy, unspecified; F41.9 Anxiety disorder, unspecified; F32.9 Major depressive disorder, single episode, unspecified; E11.649 Type 2 diabetes mellitus with hypoglycemia without coma; I95.2 Hypotension due to drugs; T50.905A Adverse effect of unspecified drugs, medicaments and biological substances, initial encounter; Y92.89 Other specified places as the place of occurrence of the external cause; Z86.73 Personal history of transient ischemic attack (TIA), and cerebral infarction without residual deficits; Z90.710 Acquired absence of both cervix and uterus; Z79.899 Other long term (current) drug therapy; Z88.6 Allergy status to analgesic agent; Z88.2 Allergy status to sulfonamides; Z87.891 Personal history of nicotine dependence; Z79.4 Long term (current) use of insulin; I25.2 Old myocardial infarction; Z88.8 Allergy status to other drugs, medicaments and biological substances; Z91.041 Radiographic dye allergy status; Z79.02 Long term (current) use of antithrombotics/antiplatelets; Z99.81 Dependence on supplemental oxygen; Z68.38 Body mass index [BMI] 38.0-38.9, adult; Z23 Encounter for immunization

== ENCOUNTER 2019-04-14 11:08 | Observation (INO) | payer OTHER ==
[~2019-04-14] VITALS: Ht 152.4 cm; Wt 83.1 kg
[~2019-04-14 11:08] MED LIST changes: +ANTACID650 MG PO; +LANTUS SUBQ
[2019-04-14 11:14] VITALS: BP 147/66
[2019-04-14 12:10] LABS: ABSOLUTE BASOPHILS 0.1 thou/uL (0.0-0.2); ABSOLUTE EOSINOPHILS 0.1 thou/uL (0.0-0.7); ABSOLUTE LYMPHOCYTES 1.6 thou/uL (0.8-5.3); ABSOLUTE MONOCYTES 0.5 thou/uL (0.0-1.2); ABSOLUTE NEUTROPHILS 9.3 thou/uL (1.6-8.1); BASOPHILS 0.7 %; EOSINOPHILS 1.3 %; HEMATOCRIT 32.4 % (37.0-47.0); HEMOGLOBIN 10.4 gm/dL (12.0-15.0); LYMPHOCYTES 13.5 %; MCH 27.2 pg (26.0-34.0); MCHC 32.1 g/dL (28.0-37.0); MCV 84.9 fL (80.0-100.0); MONOCYTES 4.5 %; MPV 7.8 fl. (7.2-11.1); NUCLEATED RBCS 0 /100WBC; PLATELET COUNT* 563 thou/uL (150-400); RBC 3.81 mil/uL (4.20-5.00); RDW-CV 16.5 % (10.5-14.5); WBC 11.7 thou/uL (4.0-11.0)
[2019-04-14 12:18] LABS: CALCIUM 9.4 mg/dL (8.5-10.1); CREATININE 2.2 mg/dL (0.6-1.3); POTASSIUM 4.5 mmol/L (3.5-5.1)
[2019-04-14 12:21] LABS: APTT 22.9 Seconds (25.0-31.3); PROTIME 10.2 Seconds (9.20-11.50)
[2019-04-14 12:29] LABS: ALBUMIN 3.2 g/dL (3.4-5.0); TOTAL BILIRUBIN 0.2 mg/dL (<0.1-1.0); TOTAL PROTEIN 7.5 g/dL (6.4-8.2)
[2019-04-14 14:15] VITALS: BP 134/80
[2019-04-14 14:25] VITALS: BP 152/73
[2019-04-14 14:27] VITALS: BP 153/66
--- NOTE | 2019-04-14 15:00 | NUR ---
REC'D REPORT FROM ED RN APPROX 1409. PATIENT ARRIVED TO UNIT VIA GURNEY AND ED STAFF APPROX 1420. ASSESSMENT COMPLETE, VS OBTAINED, WNL, O2 SATS 95% RA. ORIENTED TO ROOM, BED OPERATIONS, AND UNIT ROUTINE. BED ALARM ON FOR PATIENT WITH ADMITTED WEAKNESS AND RECENT DIZZYINESS AT HOME. CALL LIGHT IN REACH. HOURLY ROUNDING FOR SAFETY AND PATIENT NEEDS.
[2019-04-14 20:00] VITALS: BP 148/61
[2019-04-15] VITALS: BP 124/48
[2019-04-15 04:00] VITALS: BP 140/69
[2019-04-15 05:08] LABS: ABSOLUTE BASOPHILS 0.1 thou/uL (0.0-0.2); ABSOLUTE EOSINOPHILS 0.2 thou/uL (0.0-0.7); ABSOLUTE LYMPHOCYTES 2.5 thou/uL (0.8-5.3); ABSOLUTE MONOCYTES 0.5 thou/uL (0.0-1.2); ABSOLUTE NEUTROPHILS 7.6 thou/uL (1.6-8.1); BASOPHILS 0.5 %; EOSINOPHILS 2.1 %; HEMATOCRIT 31.6 % (37.0-47.0); HEMOGLOBIN 10.3 gm/dL (12.0-15.0); LYMPHOCYTES 22.9 %; MCH 27.4 pg (26.0-34.0); MCHC 32.7 g/dL (28.0-37.0); MCV 83.9 fL (80.0-100.0); MPV 7.4 fl. (7.2-11.1); NUCLEATED RBCS 0 /100WBC; PLATELET COUNT* 572 thou/uL (150-400); POLYS 69.5 %; RBC 3.77 mil/uL (4.20-5.00); RDW-CV 17.1 % (10.5-14.5)
[2019-04-15 05:19] LABS: ALKALINE PHOSPHATASE 27 U/L (46-116); ANION GAP 11 mmol/L (7-16); BUN 37 mg/dL (7-18); CALCIUM 8.9 mg/dL (8.5-10.1); CHLORIDE 107 mmol/L (98-107); CHOLESTEROL 142 mg/dL (<200); CO2 25 mmol/L (21-32); CREATININE 1.9 mg/dL (0.6-1.3); GLUCOSE 72 mg/dL (70-99); HDL CHOLESTEROL 35 mg/dL (>40); LDL CHOLESTEROL 45 mg/dL (<100); POTASSIUM 4.3 mmol/L (3.5-5.1); SGOT 11 U/L (15-37); SGPT 19 U/L (30-65); SODIUM 143 mmol/L (136-145); TC:HDL 4.1 Ratio (Not establshd); TOTAL BILIRUBIN 0.1 mg/dL (<0.1-1.0); TRIGLYCERIDE 310 mg/dL (<150); VLDL 62 mg/dL (<40)
[2019-04-15 05:24] LABS: SERUM ASSESSMENT Slight Lipemia
[2019-04-15 10:43] VITALS: BP 140/69
[2019-04-15 11:59] VITALS: BP 114/47
[2019-04-16 02:10] LABS: GLYCOHEMOGLOBIN (HGB A1C) 8.4 % (4.8-5.6)
--- NOTE | 2019-04-16 11:25 | EKG ---
[place] [address] ELECTROCARDIOGRAM REPORT Name: AMERICACACHORRO Room: [address]#: [id number] Admission: 04/14/19 Attend Phys: Marcos Villa MD Discharge: 04/15/19 Date of : 49 Report #: [id number] THIS REPORT FOR: //name// [facility] ED Test Date: 2019-04-14 Test Time: 11:28:50 Pat Name: CACHORRO CROSS Department: Room: [facility] Gender: F Logistics Planner: CCD : 1945 Requested By: John Paniagua Order Number: [id number] : Yan Galarza Measurements Intervals [place] Rate: 78 P: 54 [place]: 182 QRS: 32 QRSD: 82 T: 94 QT: 389 QTc: 444 Interpretive Statements Sinus rhythm Borderline T abnormalities, lateral leads Compared to ECG 03/29/2019 19:54:30 no change Electronically Signed On 04-16-2019 11:25:20 FIELD ORGANIZER by Yan Galarza [email or web address] <ELECTRONICALLY SIGNED> By: Yan Galarza MD, FAC 04/16/19 1125 1128 1128 Yan Galarza MD, [facility] /EPI
== END 2019-04-15 12:30 | disposition home or self-care (01) ==
LOC: M.ERS 11:08 → M.TBA-ER 13:16 → M.2W 13:16
PROVIDERS: Emergency Medicine Emergency Medical Services; ADMIT Internal Medicine
DX: R42 Dizziness and giddiness (principal); E86.0 Dehydration; N17.9 Acute kidney failure, unspecified; I13.0 Hypertensive heart and chronic kidney disease with heart failure and stage 1 through stage 4 chronic kidney disease, or unspecified chronic kidney disease; E11.22 Type 2 diabetes mellitus with diabetic chronic kidney disease; N18.9 Chronic kidney disease, unspecified; E11.319 Type 2 diabetes mellitus with unspecified diabetic retinopathy without macular edema; I50.9 Heart failure, unspecified; Z79.82 Long term (current) use of aspirin; Z79.899 Other long term (current) drug therapy; Z87.891 Personal history of nicotine dependence; Z77.22 Contact with and (suspected) exposure to environmental tobacco smoke (acute) (chronic)

== ENCOUNTER 2019-05-07 04:01 | Emergency (ER) | payer OTHER ==
[~2019-05-07] VITALS: Ht 152.4 cm; Wt 31.3 kg
[2019-05-07] MEDS ORDERED: LISINOPRIL2.5 MG PO (04:12)
[2019-05-07 05:05] LABS: BE -5.4 mmol/L (-2 to +3); PCO2 37.2 mmHg (35.0-45.0); PO2 96.1 mmHg (75.0-100.0); pH 7.343 (7.340-7.450)
[2019-05-07 05:26] LABS: ABSOLUTE BASOPHILS 0.1 thou/uL (0.0-0.2); ABSOLUTE EOSINOPHILS 0.2 thou/uL (0.0-0.7); ABSOLUTE LYMPHOCYTES 2.3 thou/uL (0.8-5.3); ABSOLUTE MONOCYTES 0.7 thou/uL (0.0-1.2); ABSOLUTE NEUTROPHILS 8.2 thou/uL (1.6-8.1); BASOPHILS 0.9 %; EOSINOPHILS 1.8 %; HEMOGLOBIN 11.2 gm/dL (12.0-15.0); LYMPHOCYTES 20.2 %; MCH 26.8 pg (26.0-34.0); MCV 83.7 fL (80.0-100.0); MONOCYTES 5.9 %; MPV 7.6 fl. (7.2-11.1); NUCLEATED RBCS 0 /100WBC; PLATELET COUNT* 537 thou/uL (150-400); POLYS 71.2 %; RBC 4.18 mil/uL (4.20-5.00); RDW-CV 16.9 % (10.5-14.5); WBC 11.5 thou/uL (4.0-11.0)
[2019-05-07 05:34] LABS: CALCIUM 10.1 mg/dL (8.5-10.1); CREATININE 1.9 mg/dL (0.6-1.3); POTASSIUM 4.5 mmol/L (3.5-5.1)
[2019-05-07 05:45] LABS: ALBUMIN 3.2 g/dL (3.4-5.0); MAGNESIUM 1.9 mg/dL (1.8-2.4); TOTAL BILIRUBIN 0.2 mg/dL (<0.1-1.0); TOTAL PROTEIN 7.3 g/dL (6.4-8.2)
[2019-05-07 06:22] VITALS: BP 137/65
== END 2019-05-07 06:22 | disposition home or self-care (01) ==
LOC: M.ERS 04:01
PROVIDERS: Personal Emergency Response Attendant
DX: J44.1 Chronic obstructive pulmonary disease with (acute) exacerbation (principal); E11.319 Type 2 diabetes mellitus with unspecified diabetic retinopathy without macular edema; E78.5 Hyperlipidemia, unspecified; I25.10 Atherosclerotic heart disease of native coronary artery without angina pectoris; M19.90 Unspecified osteoarthritis, unspecified site; I13.0 Hypertensive heart and chronic kidney disease with heart failure and stage 1 through stage 4 chronic kidney disease, or unspecified chronic kidney disease; E11.22 Type 2 diabetes mellitus with diabetic chronic kidney disease; N18.3 Chronic kidney disease, stage 3 (moderate); I50.30 Unspecified diastolic (congestive) heart failure; Z88.5 Allergy status to narcotic agent; Z88.2 Allergy status to sulfonamides; Z86.73 Personal history of transient ischemic attack (TIA), and cerebral infarction without residual deficits; Z91.041 Radiographic dye allergy status; Z79.4 Long term (current) use of insulin; Z88.8 Allergy status to other drugs, medicaments and biological substances

== ENCOUNTER 2019-12-06 13:20 | Inpatient (IN) | payer OTHER ==
[~2019-12-06] VITALS: Ht 152.4 cm; Wt 79.5 kg
--- NOTE | 2019-12-06 10:30 | NUR ---
ADMIT TO 212 VITAL SIGNS TAKEN AND YARD DEMURRAGE CLERK PLACED PATIENT SETTLED IN BED AND ORIENTED TO AND CALL LIGHT TELEPHONE REPORT GIVEN PRIOR TO ARRIVAL
[~2019-12-06 13:20] MED LIST changes: +LISINOPRIL2.5 MG PO
[2019-12-06 13:40] VITALS: BP 155/66
[2019-12-06 14:48] LABS: HEMATOCRIT 32.4 % (37.0-47.0); HEMOGLOBIN 10.5 gm/dL (12.0-15.0); MCH 28.7 pg (26.0-34.0); MCHC 32.3 g/dL (28.0-37.0); MCV 88.9 fL (80.0-100.0); MPV 8.7 fl. (7.2-11.1); NUCLEATED RBCS 0 /100WBC; PLATELET COUNT* 307 thou/uL (150-400); RBC 3.65 mil/uL (4.20-5.00); RDW-CV 16.1 % (10.5-14.5); WBC 9.2 thou/uL (4.0-11.0)
[2019-12-06 15:16] LABS: CALCIUM 8.1 mg/dL (8.5-10.1); CREATININE 2.7 mg/dL (0.6-1.3)
[2019-12-06 15:17] LABS: URINE BILIRUBIN NEGATIVE (Negative); URINE BLOOD NEGATIVE (Negative); URINE CLARITY CLEAR; URINE COLOR YELLOW; URINE GLUCOSE-RANDOM 1+ (Negative); URINE KETONES NEGATIVE (Negative); URINE LEUKOCYTES-REFLEX NEGATIVE (Negative); URINE NITRITE-REFLEX NEGATIVE (Negative); URINE PROTEIN 1+ (Negative); URINE UROBILINOGEN 0.2 E.U./dl (0.2-1.0)
[2019-12-06 15:18] LABS: POTASSIUM 6.9 mmol/L (3.5-5.1)
[2019-12-06 15:26] LABS: ALBUMIN 3.5 g/dL (3.4-5.0); TOTAL BILIRUBIN 0.2 mg/dL (<0.1-1.0); TOTAL PROTEIN 8.1 g/dL (6.4-8.2)
[2019-12-06 15:57] LABS: ABSOLUTE EOSINOPHILS 0.1 thou/uL (0.0-0.7); ABSOLUTE LYMPHOCYTES 1.5 thou/uL (0.8-5.3); ABSOLUTE MONOCYTES 0.4 thou/uL (0.0-1.2); ABSOLUTE NEUTROPHILS 7.3 thou/uL (1.6-8.1)
[2019-12-06 15:58] LABS: ANISOCYTOSIS 1+; PLATELET ESTIMATE ADEQUATE
--- NOTE | 2019-12-06 16:56 | EKG ---
[place] [address] ELECTROCARDIOGRAM REPORT Name: SYEDA CROSSDC Gallagher Room: [place] [address] ADM IN [facility]#: [id number] Admission: 12/06/19 Attend Phys: Lorna Darby, Discharge: Date of : 49 Date of Service: 12/06/19 1401 Report #: [id number] THIS REPORT FOR: //name// [facility] ED Test Date: 2019-12-06 Test Time: 14:01:20 Pat Name: CACHORRO CROSS Department: Room: [facility] Gender: F Pulmonary Care Nurse: PRISCILLA : 1945 Requested By: Lelia Fair Order Number: [id number] MD: Yan Galarza Measurements Intervals [place] Rate: 72 P: 57 MO: 200 QRS: 41 QRSD: 91 T: 107 QT: 357 QTc: 391 Interpretive Statements Sinus rhythm Nonspecific T abnormalities, lateral leads Compared to ECG 04/14/2019 11:28:50 No significant changes Electronically Signed On 12-06-2019 16:56:15 CDT by Yan Galarza [email or web address] <ELECTRONICALLY SIGNED> By: Yan Galarza MD, [facility] 12/06/19 1656 1401 1401 Yan Galarza MD, [facility] /EPI
[2019-12-06 18:42] VITALS: BP 145/79
[2019-12-06 19:30] VITALS: BP 138/60
--- NOTE | 2019-12-06 23:36 | NUR ---
PT ADMITTED TO ROOM 212 AT 1830. PT USING CALL LIGHT PROPERLY. CRITICAL POTASSIUM LEVEL CALLED TO DR BERGMAN AT 2048. PT GIVEN IV INSULIN PER ORDERS.
[2019-12-07 00:27] VITALS: BP 155/66
[2019-12-07 04:00] VITALS: BP 139/85
[2019-12-07 05:08] LABS: HEMATOCRIT 31.7 % (37.0-47.0); HEMOGLOBIN 10.3 gm/dL (12.0-15.0); MCH 28.6 pg (26.0-34.0); MCHC 32.6 g/dL (28.0-37.0); MCV 87.9 fL (80.0-100.0); MPV 8.7 fl. (7.2-11.1); RBC 3.6 mil/uL (4.20-5.00); RDW-CV 15.6 % (10.5-14.5); WBC 10.3 thou/uL (4.0-11.0)
[2019-12-07 05:37] LABS: CREATININE 2.5 mg/dL (0.6-1.3); MAGNESIUM 1.9 mg/dL (1.8-2.4)
[2019-12-07 05:43] LABS: ALBUMIN 3.1 g/dL (3.4-5.0); CREATININE 2.5 mg/dL (0.6-1.3); PHOSPHORUS* 3.6 mg/dL (2.5-4.9); POTASSIUM 5.8 mmol/L (3.5-5.1)
[2019-12-07 05:44] LABS: POTASSIUM 5.8 mmol/L (3.5-5.1)
--- NOTE | 2019-12-07 07:20 | NUR ---
CHANGE OF SHIFT BEDSIDE REPORT GIVEN PATIENT SEEN AT BEDSIDE, IN BED RESTING ASSUMED PATIENT CARE
[2019-12-07 13:16] VITALS: BP 134/54
--- NOTE | 2019-12-07 17:21 | NUR ---
Pt is A&O. Resides at home with her . Independent. Pt states that she has been using her walker for mobility, also has a cane and wc. Pt wears home o2 at 2L, provided through [facility]. Hx of [facility]. No hx of SNF. Pt is current with [facility] palliative care. Supportive grandkids. Goal is home at dc. No needs anticipated. Neuro and therapy evals pending.
[2019-12-07 17:33] VITALS: BP 122/47
[2019-12-07 20:00] VITALS: BP 115/73
[2019-12-08] VITALS: BP 126/47
[2019-12-08 04:04] VITALS: BP 133/42
[2019-12-08 08:00] VITALS: BP 142/113; BP 142/121
--- NOTE | 2019-12-08 08:12 | NUR ---
ASSUMED CARE OF PT AFTER REPORT AT 1930. PT A&OX4. VSS. PHYSICAL ASSESSMENT COMPLETED AND CHARTED. PT ON O2 AT 2L NC. PT TRACING SR ON TELE. PT UPADLIB TO RESTROOM. PT DENIES ANY PAIN OR DISCOMFORT. CALL LIGHT WITHIN REACH.
[2019-12-08 13:32] LABS: CALCIUM 7.2 mg/dL (8.5-10.1); CREATININE 1.9 mg/dL (0.6-1.3)
[2019-12-08 13:37] VITALS: BP 141/59
[2019-12-08 15:54] VITALS: BP 141/59
--- NOTE | 2019-12-22 13:14 | CON ---
[address] [address] CONSULTATION Name: CACHORRO CROSS Room: [address] IN .R.#: [id number] Admission: 12/06/19 Attend Phys: Lorna Darby MD Discharge: 12/08/19 Date of : 49 Report #: [id number] THIS REPORT FOR: //name// cc: Omer Snyder MD, Anthony MD ~ THIS REPORT FOR: //name// CC: Omer Darby DATE OF SERVICE: 12/06/2019 NEPHROLOGY CONSULT REASON FOR CONSULTATION: Acute kidney injury. CONSULTING PHYSICIAN: Dr. Darby HISTORY OF PRESENT ILLNESS: This is a 74-year-old female with a history of chronic kidney disease, who was last seen in our office on 12/04/2019. She underwent a cataract surgery today and had some recent outpatient labs showing some hyperkalemia and worsening kidney function, creatinine was 2.5, and potassium was 6.[address] Rosas's office. She denies any excess potassium intake. Denies any nausea, vomiting, or diarrhea. No NSAID use. No potassium supplements. No new medications or antibiotics. She has had some decreased oral intake and has been taking her SHARI inhibitor as prescribed. She does have some intermittent constipation. Her last bowel movement was yesterday. On presentation in the ER, her potassium was found to be 6.9. She was treated medically for this and is to be admitted. REVIEW OF SYSTEMS: Constitutional, psych, heme, eyes, ENT, respiratory, cardiac, GI, , and endocrine are all negative except as documented above. PAST MEDICAL HISTORY: Chronic kidney disease stage 4, secondary to diabetes and hypertension; history of diastolic heart failure; COPD; depression; GERD; and coronary artery disease. MEDICATIONS: Reviewed. SOCIAL HISTORY: Former smoker. FAMILY HISTORY: No known history of kidney disease. Father had hypertension. PHYSICAL EXAMINATION: VITAL SIGNS: Blood pressure 155/66, pulse 80, respirations 18, and temperature 36.8. [place] [address] CONSULTATION Name: CACHORRO CROSS Room: [address]#: [id number] Admission: 12/06/19 Attend Phys: Lorna Darby MD Discharge: 12/08/19 Date of : 49 Report #: [id number] GENERAL: No acute distress. EYES: Open. Bandage where she had a cataract surgery. EARS: Externally normal. NECK: Supple. CARDIOVASCULAR: Regular rate. LUNGS: No crackles. ABDOMEN: Soft. MUSCULOSKELETAL: Nontender. PSYCHIATRIC: Awake and alert. LABORATORY DATA: White cell count 9.8, hemoglobin 10.5, and platelets 307. Sodium 135, potassium 6.9, chloride 105, bicarbonate 19, BUN 56, creatinine 2.7, glucose 350, calcium 8.1, and albumin 3.5. UA noted. ASSESSMENT: 1. Acute kidney injury in the setting of decreased intake and lisinopril use. On 11/22/2019, creatinine was 2.7 with potassium of 6.3, but this was a hemolyzed specimen. Baseline creatinine is typically 1.6-1.9. In 04/2019, creatinine was 1.9. UA noted. 2. Chronic kidney disease, stage 4, followed by Dr. Rosas as an outpatient. This is secondary to diabetes and hypertension for over 10 years with diabetic retinopathy, requiring injections. In 01/2019, kidney ultrasound was okay. In 01/2018, EF was 65% with mild mitral stenosis. Baseline creatinine is 1.6-1.9. 3. Hyperkalemia in the setting of decreased oral intake and lisinopril use. 4. Metabolic acidosis, on outpatient oral sodium bicarbonate. 5. Insulin-dependent diabetes. 6. Recent cataract surgery. PLAN: 1. Therapy for hyperkalemia initiated in the ED. We will start IV fluids with bicarbonate. Controlling blood sugar will help as well. Internal Medicine will be managing that. 2. We will give one dose of lactulose. Her last bowel movement was yesterday. She has active bowel sounds and a benign abdominal exam. 3. We will recheck potassium. 4. A 2-gm potassium dietary restriction. 5. Hold SHARI inhibitor. 6. Check renal ultrasound. 7. Office records were reviewed. 8. We will check labs again in the a.m. Thank you for requesting my opinion in the care and management of this patient. <ELECTRONICALLY SIGNED> By: Tiny Rosas MD 12/22/19 1314 1716 [id number] Rosas MD /nt
== END 2019-12-08 16:45 | disposition home or self-care (01) | DRG 683 ==
LOC: M.ERS 13:20 → M.TBA-ER 16:34 → M.2W 16:34
PROVIDERS: Internal Medicine; Internal Medicine Nephrology; Personal Emergency Response Attendant; ADMIT Internal Medicine; ATTEND Internal Medicine
DX: N17.9 Acute kidney failure, unspecified (principal); I13.0 Hypertensive heart and chronic kidney disease with heart failure and stage 1 through stage 4 chronic kidney disease, or unspecified chronic kidney disease; I50.42 Chronic combined systolic (congestive) and diastolic (congestive) heart failure; E87.2 Acidosis; E87.5 Hyperkalemia; N18.4 Chronic kidney disease, stage 4 (severe); E11.319 Type 2 diabetes mellitus with unspecified diabetic retinopathy without macular edema; E78.5 Hyperlipidemia, unspecified; J44.9 Chronic obstructive pulmonary disease, unspecified; M19.90 Unspecified osteoarthritis, unspecified site; F32.9 Major depressive disorder, single episode, unspecified; E11.65 Type 2 diabetes mellitus with hyperglycemia; T50.3X5A Adverse effect of electrolytic, caloric and water-balance agents, initial encounter; E66.01 Morbid (severe) obesity due to excess calories; K21.9 Gastro-esophageal reflux disease without esophagitis; I25.10 Atherosclerotic heart disease of native coronary artery without angina pectoris; E11.22 Type 2 diabetes mellitus with diabetic chronic kidney disease; Z96.9 Presence of functional implant, unspecified; Z79.899 Other long term (current) drug therapy; Z79.4 Long term (current) use of insulin; Z90.710 Acquired absence of both cervix and uterus; I25.2 Old myocardial infarction; Z88.6 Allergy status to analgesic agent; Z88.1 Allergy status to other antibiotic agents; Z88.5 Allergy status to narcotic agent; Z88.2 Allergy status to sulfonamides; Z88.8 Allergy status to other drugs, medicaments and biological substances; Z87.891 Personal history of nicotine dependence; Y92.89 Other specified places as the place of occurrence of the external cause; Z68.34 Body mass index [BMI] 34.0-34.9, adult; Z98.49 Cataract extraction status, unspecified eye

== ENCOUNTER 2020-11-07 22:54 | Inpatient (IN) | payer OTHER ==
[~2020-11-07] VITALS: Ht 152.4 cm; Wt 94.8 kg
[2020-11-07 23:29] LABS: ABSOLUTE BASOPHILS 0.1 thou/uL (0.0-0.2); ABSOLUTE EOSINOPHILS 0.2 thou/uL (0.0-0.7); ABSOLUTE LYMPHOCYTES 1.6 thou/uL (0.8-5.3); ABSOLUTE MONOCYTES 0.4 thou/uL (0.0-1.2); ABSOLUTE NEUTROPHILS 7.1 thou/uL (1.6-8.1); BASOPHILS 0.8 %; EOSINOPHILS 2.2 %; HEMATOCRIT 34.4 % (37.0-47.0); HEMOGLOBIN 11.2 gm/dL (12.0-15.0); LYMPHOCYTES 16.8 %; MCH 27.8 pg (26.0-34.0); MCHC 32.7 g/dL (28.0-37.0); MONOCYTES 4.2 %; MPV 7.8 fl. (7.2-11.1); NUCLEATED RBCS 0 /100WBC; PLATELET COUNT* 333 thou/uL (150-400); RBC 4.04 mil/uL (4.20-5.00); RDW-CV 17.8 % (10.5-14.5); WBC 9.4 thou/uL (4.0-11.0)
[2020-11-07 23:33] LABS: ANION GAP 4 mmol/L (7-16); BUN 30 mg/dL (7-18); CHLORIDE 104 mmol/L (98-107); CO2 26 mmol/L (21-32); CREATININE 2.1 mg/dL (0.6-1.3); GLUCOSE 309 mg/dL (70-99); POTASSIUM 4.4 mmol/L (3.5-5.1); SODIUM 134 mmol/L (136-145)
[2020-11-07 23:44] LABS: ALBUMIN 2.9 g/dL (3.4-5.0); ALKALINE PHOSPHATASE 47 U/L (46-116); MAGNESIUM 2.3 mg/dL (1.8-2.4); NT-PRO BRAIN NAT PEPTIDE 1419 pg/mL (<300); SGOT 16 U/L (15-37); SGPT 19 U/L (30-65); TOTAL BILIRUBIN < 0.1 mg/dL (<0.1-1.0); TOTAL PROTEIN 7.6 g/dL (6.4-8.2)
[2020-11-07 23:50] LABS: BE -5.2 mmol/L (-2 to +3); PCO2 33.2 mmHg (35.0-45.0); pH 7.375 (7.340-7.450)
[2020-11-08 05:11] VITALS: BP 170/59
[2020-11-08 09:42] VITALS: BP 149/66
[2020-11-08 09:55] VITALS: BP 124/52
--- NOTE | 2020-11-08 09:55 | NUR ---
ER ADMIT TO 232 PATIENT TO VIA BED TELEPHONE REPORT GIVEN PRIOR TO ARRIVAL PATIENT ORIENTED TO AND CALL LIGHT DENIES PAIN
[2020-11-08 15:37] VITALS: BP 157/50
[2020-11-08 20:00] VITALS: BP 153/60
[2020-11-09 00:14] VITALS: BP 153/54
[2020-11-09 04:10] VITALS: BP 134/56
[2020-11-09 05:15] LABS: HEMATOCRIT 35.5 % (37.0-47.0); HEMOGLOBIN 11.4 gm/dL (12.0-15.0); MCHC 32.1 g/dL (28.0-37.0); MCV 84.2 fL (80.0-100.0); MPV 7.9 fl. (7.2-11.1); RBC 4.22 mil/uL (4.20-5.00); RDW-CV 17.6 % (10.5-14.5); WBC 12.2 thou/uL (4.0-11.0)
[2020-11-09 05:30] LABS: ALBUMIN 2.9 g/dL (3.4-5.0); CALCIUM 8.5 mg/dL (8.5-10.1); CREATININE 2.1 mg/dL (0.6-1.3); MAGNESIUM 2.4 mg/dL (1.8-2.4); POTASSIUM 4.8 mmol/L (3.5-5.1); TOTAL BILIRUBIN 0.1 mg/dL (<0.1-1.0); TOTAL PROTEIN 8.1 g/dL (6.4-8.2)
--- NOTE | 2020-11-09 07:20 | NUR ---
CHANGE OF SHIFT BEDSIDE REPORT GIVEN PATIENT SEEN AT BEDSIDE, IN BED ASLEEP ASSUMED PATIENT CARE
[2020-11-09 08:00] VITALS: BP 173/75
--- NOTE | 2020-11-09 11:45 | EKG ---
[place] [address] ELECTROCARDIOGRAM REPORT Name: CACHORRO CROSS Room: [address]#: [id number] Admission: 11/08/20 Attend Phys: Tanner Storm Discharge: Date of : 49 Date of Service: 11/07/20 2303 Report #: [id number] THIS REPORT FOR: //name// [facility] ED Test Date: 2020-11-07 Test Time: 23:03:50 Pat Name: CACHORRO CROSS Department: Room: [facility] Gender: F Data Collection Associate: : 1945 Requested By: Lelia Fair Order Number: [id number] MD: Alexsander Burger Measurements Intervals [place] Rate: 80 P: 58 W[place]: 183 QRS: 43 QRSD: 93 T: 58 QT: 368 QTc: 425 Interpretive Statements Sinus rhythm Borderline T abnormalities Compared to ECG 12/06/2019 14:01:20 No significant changes Electronically Signed On 11-09-2020 11:45:45 CDT by Alexsander Burger [email or web address] <ELECTRONICALLY SIGNED> By: Alexsander Burger MD, FACC 11/09/20 1145 2303 2303 Alexsander Burger MD, [facility] /EPI
[2020-11-09 13:00] VITALS: BP 164/71
[2020-11-09 16:25] VITALS: BP 116/61
[2020-11-09 19:45] VITALS: BP 179/74
--- NOTE | 2020-11-09 20:00 | NUR ---
RECEIVED REPORT AND ASSUMED CARE OF PT, ASSESSMENT COMPLETED. PT UPTO BSC INDEPENDENTLY AND SAFE, O2 ON. BUT DOES GET SOA WITH ANY ACTIVITY. O2 ON AT 4L/NC, HOB ELEVATED. TELEMETRY ON SHOWING SR. DISCUSSION OF NEED FOR PT TO STAY IN HOSPITAL AND WHEN DISCHARGED TAKE IT EASY AT HOME AND ASK FOR ASSIST WITH PACKING. WILL CONT TO MONITOR AND ASSIST NEEDED.
[2020-11-10 00:15] VITALS: BP 125/53
[2020-11-10 04:09] VITALS: BP 151/47
[2020-11-10 04:54] LABS: HEMOGLOBIN 10.9 gm/dL (12.0-15.0); MCH 27.1 pg (26.0-34.0); MCV 84.7 fL (80.0-100.0); MPV 7.9 fl. (7.2-11.1); RBC 4.01 mil/uL (4.20-5.00); RDW-CV 17.9 % (10.5-14.5); WBC 14.8 thou/uL (4.0-11.0)
[2020-11-10 05:10] LABS: ALBUMIN 2.9 g/dL (3.4-5.0); ALKALINE PHOSPHATASE 41 U/L (46-116); ANION GAP 9 mmol/L (7-16); BUN 54 mg/dL (7-18); CALCIUM 8.4 mg/dL (8.5-10.1); CHLORIDE 102 mmol/L (98-107); CO2 25 mmol/L (21-32); CREATININE 2.5 mg/dL (0.6-1.3); GLUCOSE 289 mg/dL (70-99); MAGNESIUM 2.4 mg/dL (1.8-2.4); POTASSIUM 5.3 mmol/L (3.5-5.1); SGOT 14 U/L (15-37); SGPT 24 U/L (30-65); SODIUM 136 mmol/L (136-145); TOTAL BILIRUBIN < 0.1 mg/dL (<0.1-1.0); TOTAL PROTEIN 7.7 g/dL (6.4-8.2)
--- NOTE | 2020-11-10 06:30 | NUR ---
AWAKE FREQ TONIGHT. HAVING OCC MOIST COUGH. DYSPNEA WITH ANY ACTIVITY OR TALKING. UNABLE TO GET IV RESTARTED AFTER MULTIPLE ATTEMPTS. TELEMETRY CONT TO SHOW SR. HS GOAL OF REST AND SAFETY ACHIEVED. HOURLY ROUNDING OBSERVED.
[2020-11-10 08:00] VITALS: BP 172/83
[2020-11-10 12:00] VITALS: BP 125/72
--- NOTE | 2020-11-10 12:41 | NUR ---
CM ASSESSMENT: PT A&O, AND INDEPNDENT WITH ADL'S. PT RESIDES AT HOME WITH SPOUSE. PT OWNS A WALKER AND CANE THAT SHE ONLY OCCATIONALLY USES. PT USES HOME OXYGEN @ 2L AT HOME PROVIDED PY IAN. PT HAS PAST HX OF HH WITH [facility]. PT HAS 0 HX OF SNF. PT IS CURRENTLY ON-SERVICE WITH [facility]. PT MAY BENEFIT FROM HH AT D/C IF ORDERED. CM WILL REMAIN AVAILABLE TO ASSIST AND FOLLOW NEEDED.
[2020-11-10 16:00] VITALS: BP 173/72
--- NOTE | 2020-11-10 16:45 | 2DMMODE ---
[place] [address] 2 D/M-MODE ECHOCARDIOGRAM Name: CACHORRO CROSS Aileen Room: [address] IN [facility]#: [id number] Admission: 11/10/20 Attend Phys: Tanner Storm Discharge: Date of : 49 Date of Service: 11/10/20 1645 Report #: [id number] THIS REPORT FOR: cc: Omer Snyder MD, Anthony MD Holkins,Leonel Bui MD [facility] ~ APPROVED REPORT Study performed: 11/10/2020 15:35:17 EXAM: Comprehensive 2D, Doppler, and color-flow Echocardiogram Patient Location: In-Patient Room #: [facility] Status: routine BSA: 1.88 HR: 79 bpm BP: 125/72 mmHg Rhythm: NSR Other Information Study Quality: Good Indications Congestive Heart Failure COPD Dyspnea 2D Dimensions IVSd: 14.64 (7-11mm) LVOT Diam: 21.97 (18-24mm) LVDd: 48.04 mm PWd: 11.90 (7-11mm) Ascending Ao: 32.04 (22-36mm) LVDs: 30.31 (25-40mm) Aortic Root: 34.27 mm Volumes Left Atrial Volume (Systole) LA ESV Index: 35.20 mL/m2 Aortic Valve AoV Peak Alexandre.: 1.65 m/s AO Peak Gr.: 10.89 mmHg LVOT Max P.70 mmHg AO Mean Gr.: 5.95 mmHg LVOT Mean P.71 mmHg LVOT Max V: 0.96 m/s AO V2 VTI: 36.89 cm LVOT Mean V: 0.59 m/[place] [address] 2 D/M-MODE ECHOCARDIOGRAM Name: AMERICACACHORRO Room: [address]#: [id number] Admission: 11/10/20 Attend Phys: Tanner Storm Discharge: Date of : 49 Date of Service: 11/10/20 1645 Report #: [id number] MARIE (VTI): 2.11 cm2 LVOT V1 VTI: 20.57 cm Mitral Valve E/A Ratio: 0.84 MV Decel. Time: 288.00 ms MV E Max Alexandre.: 1.24 m/s MV PHT: 83.52 ms MVA (PHT): 2.63 cm2 TDI E/Lateral E': 20.67 Lateral E' Alexandre.: 0.06 m/s Pulmonary Valve PV Peak Alexandre.: 1.07 m/s PV Peak Gr.: 4.55 mmHg Left Ventricle The left ventricle is normal size. There is normal LV segmental wall motion. Borderline concentric left ventricular hypertrophy. Left ventricular systolic function is normal. The left ventricular ejection fraction is within the normal range. LVEF is 60-65%. Grade I - abnormal relaxation pattern. Right Ventricle The right ventricle is normal size. The right ventricular systolic function is normal. Atria Left atrium is borderline dilated. The right atrium size is normal. Aortic Valve Mild aortic valve sclerosis. No aortic regurgitation is present. There is no aortic valvular stenosis. Mitral Valve There is mitral annular calcification. There is no mitral valve regurgitation noted. No evidence of mitral valve stenosis. Tricuspid Valve The tricuspid valve is normal in structure. Unable to assess PA pressure. Trace tricuspid regurgitation. Pulmonic Valve The pulmonary valve is normal in structure. There is no pulmonic [place] [address] 2 D/M-MODE ECHOCARDIOGRAM Name: AMERICACACHORRO L Room: [address]#: [id number] Admission: 11/10/20 Attend Phys: Tanner Storm Discharge: Date of : 49 Date of Service: 11/10/20 1645 Report #: [id number] Great Vessels The aortic root is normal in size. IVC is normal in size and collapses >50% with inspiration. Pericardium There is no pericardial effusion. <Conclusion> Borderline concentric left ventricular hypertrophy. Left ventricular systolic function is normal. The left ventricular ejection fraction is within the normal range. LVEF is 60-65%. Grade I - abnormal relaxation pattern. The right ventricle is normal size. Left atrium is borderline dilated. The right atrium size is normal. Mild aortic valve sclerosis. No aortic regurgitation is present. There is no aortic valvular stenosis. There is mitral annular calcification. There is no mitral valve regurgitation noted. The tricuspid valve is normal in structure. IVC is normal in size and collapses >50% with inspiration. There is no pericardial effusion. There is normal LV segmental wall motion. <ELECTRONICALLY SIGNED> By: Leonel Cavazos MD, FACC 11/10/20 1645 1645 1645 Leonel Cavazos MD, FACC /INF
[2020-11-10 20:00] VITALS: BP 124/61
--- NOTE | 2020-11-10 20:00 | NUR ---
RECEIVED REPORT AND ASSUMED CARE OF PT, ASSESSMENT COMPLETED. PT TIRED THIS EVENING AND WANTING TO REST. O2 ON AT 2L/NC, HOB ELEVATED. DYSPNEA WITH ANY ACTIVITY. TELEMTRY ON SHOWING SR. WILL CONT TO MONITOR AND ASSIST NEEDED.
[2020-11-10 21:33] LABS: URINE BILIRUBIN NEGATIVE (Negative); URINE BLOOD 3+ (Negative); URINE CLARITY CLEAR; URINE COLOR YELLOW; URINE GLUCOSE-RANDOM 3+ (Negative); URINE KETONES NEGATIVE (Negative); URINE LEUKOCYTES-REFLEX NEGATIVE (Negative); URINE NITRITE-REFLEX NEGATIVE (Negative); URINE PROTEIN 3+ (Negative); URINE SPECIFIC GRAVITY 1.025 (1.005-1.030); URINE UROBILINOGEN 0.2 E.U./dl (0.2-1.0)
[2020-11-10 21:42] LABS: HYALINE CASTS 0-3 Few /LPF (None Seen); MUCUS None Seen strn/LPF (None Seen); SQUAMOUS >10 Many /LPF (0-3)
[2020-11-10 21:43] LABS: BACTERIA-REFLEX None Seen /HPF (None Seen); CRYSTALS None Seen /LPF (None Seen); URINE RBC 3-10 Few /HPF (0-2); URINE WBC-REFLEX 0-5 Rare /HPF (0-5)
[2020-11-11] VITALS (7 sets, daily range): BP systolic 137–182; BP diastolic 54–88
[2020-11-11 04:39] LABS: HEMATOCRIT 32.2 % (37.0-47.0); HEMOGLOBIN 10.4 gm/dL (12.0-15.0); MCH 26.8 pg (26.0-34.0); MCHC 32.4 g/dL (28.0-37.0); MCV 82.8 fL (80.0-100.0); NUCLEATED RBCS 0 /100WBC; PLATELET COUNT* 293 thou/uL (150-400); RBC 3.89 mil/uL (4.20-5.00); RDW-CV 17.6 % (10.5-14.5); WBC 13.3 thou/uL (4.0-11.0)
[2020-11-11 04:51] LABS: MAGNESIUM 2.4 mg/dL (1.8-2.4)
[2020-11-11 04:52] LABS: APTT 21.6 Seconds (25.0-31.3); INR 0.9
--- NOTE | 2020-11-11 06:29 | NUR ---
AWAKE FREQ DUE TO DIFFICULTY TOLERATING BIPAP. CONT TO BE EXTREMELY SOA WITH ACTIVITY. TELEMETRY ON SHOWING SR. NO CHANGE IN ASSESSMENT. HS GOALS OF REST AND SAFETY ACHIEVED. HOURLY ROUNDING OBSERVED.
[2020-11-11 06:44] LABS: ABSOLUTE LYMPHOCYTES 0.7 thou/uL (0.8-5.3); ABSOLUTE MONOCYTES 0.1 thou/uL (0.0-1.2); ABSOLUTE NEUTROPHILS 12.5 thou/uL (1.6-8.1); METAMYELOCYTES 1 %
[2020-11-11 06:45] LABS: PLATELET ESTIMATE ADEQUATE
--- NOTE | 2020-11-11 07:05 | NUR ---
CHANGE OF SHIFT BEDSIDE REPORT GIVEN PATIENT SEEN AT BEDSIDE, IN BED WATCHING TV ASSUMED PATIENT CARE
--- NOTE | 2020-11-11 14:10 | NUR ---
PLAN OF CARE: PHYSICIAN INFORMS OF PLAN FOR PT TO REMAIN INPT FOR AT LEAST 24 MORE HRS. PT REMAINS TELE STATUS AND ON 2L O2. PT DID NOT HAVE HOME OXYGEN PRIOR TO ADMIT AND MAY NEED IT AT D/C PENDING ABILITY TO WEAN PT'S O2 NEEDS DOWN PRIOR TO D/C. PT MAY ALSO BENEFIT FROM HH AT D/C AND HAS A HX OF HH WITH [facility]. CM WILL REMAIN AVAILABLE TO ASSIST AND FOLLOW NEEDED.
[2020-11-12 04:00] VITALS: BP 157/75
--- NOTE | 2020-11-12 04:50 | NUR ---
ASSUMED PT CARE AT APPROX. 1915. PT IS A/OX4. PT IS TRACING SR ON THE DESIGN TECHNOLOGY TEACHER. PT O2 SAT IS 93-95% ON 2L NC. COURSE WHEEZES NOTED THROUGHOUT. MEDICATIONS ADMINISTERED PRESCRIBED. SEE EMAR. PT HAD A LARGE BOWEL MOVEMENT LAST NIGHT. PT IS UP TO BSC X1. PT USES CALL LIGHT. PT RESTED DURING THE NIGHT. NO C/O VOICED. NO ACUTE CHANGES. FALL PRECAUTIONS IN PLACE FOR SAFETY. CALL LIGHT WITHIN REACH. ASSESSMENTS COMPLETE CHARTED. HOURLY ROUNDS COMPLETED. PT CURRENTLY IN BED ASLEEP. WILL CONT. TO MONITOR.
[2020-11-12 08:00] VITALS: BP 181/88
[2020-11-12 10:06] LABS: CALCIUM 7.6 mg/dL (8.5-10.1); CREATININE 1.9 mg/dL (0.6-1.3); POTASSIUM 5.1 mmol/L (3.5-5.1)
[2020-11-12 12:10] VITALS: BP 184/87
--- NOTE | 2020-11-12 15:53 | NUR ---
PLAN OF CARE: PHYSICIAN INFORMS OF PLAN FOR PT TO BE READY TO D/C IN 1-2 DAYS HOME WITH HH AND POSSIBLY HOME OXYGEN. XIN INFORMS OF INABILITY TO ACCEPT PT D/T PT CURRENTLY HAVING PALLIATIVE CARE [facility]. CM FAXED HH REFERRAL TO [facility] TO DETERMINE ABILITY TO ACCEPT PT. CM WILL REMAIN AVAILABLE TO ASSIST AND FOLLOW NEEDED.
[2020-11-12 16:00] VITALS: BP 170/73
--- NOTE | 2020-11-12 18:18 | NUR ---
SEWING PATTERN LAYOUT TECHNICIAN TRACKING SR. ASSESSMENT UNCHANGED AT THIS TIME, LUNGS DIMINISHED WITH WHEEZES AT TIMES DURING SHIFT - SOA WITH ACTIVITY. FAMILY IN EARLIER TO VISIT. TOLERATING DIET. CALL LIGHT NAN LINO, WILL CONTINUE WITH PLAN OF CARE.
[2020-11-12 20:20] VITALS: BP 192/81
[2020-11-12 23:40] VITALS: BP 182/84
[2020-11-13 07:54] LABS: HEMATOCRIT 31.6 % (37.0-47.0); HEMOGLOBIN 10.3 gm/dL (12.0-15.0); MCH 27.4 pg (26.0-34.0); MCHC 32.8 g/dL (28.0-37.0); MCV 83.6 fL (80.0-100.0); MPV 8.1 fl. (7.2-11.1); RBC 3.78 mil/uL (4.20-5.00); RDW-CV 17.2 % (10.5-14.5); WBC 12.8 thou/uL (4.0-11.0)
[2020-11-13 08:00] VITALS: BP 172/74
[2020-11-13 08:44] LABS: POTASSIUM 4.9 mmol/L (3.5-5.1)
[2020-11-13 08:45] LABS: ALBUMIN 2.3 g/dL (3.4-5.0); CALCIUM 7.4 mg/dL (8.5-10.1); CREATININE 1.8 mg/dL (0.6-1.3); MAGNESIUM 2.3 mg/dL (1.8-2.4); TOTAL BILIRUBIN 0.2 mg/dL (<0.1-1.0); TOTAL PROTEIN 6.3 g/dL (6.4-8.2)
[2020-11-13 11:32] VITALS: BP 125/92
--- NOTE | 2020-11-13 12:55 | NUR ---
PLAN OF CARE: PHYSICIAN INFORMS OF PLAN FOR THE PT TO POSSIBLY D/C HOME TOMORROW WITH HH. CM AWAITING CALLBACK FROM [facility] TO DISCUSS ABILITY TO ACCEPT THE PT FOR HH AT D/C. PT REMAINS ON 2L O2 AND DID NOT HAVE HOME OXYGEN PRIOR TO ADMIT. CM WILL REMAIN AVAILABLE TO ASSIST AND FOLLOW NEEDED.
--- NOTE | 2020-11-13 13:37 | NUR ---
ASSUMED CARE OF PATIENT THIS AM AT 0730. PATIENT IS ALERT AND ORIENTED X 4. SHE DENIES PAIN THIS AM. TELE SHOWS SR. PATIENT HAS BEEN UP TO BSC. FSBS MONITORED. PATIENT IS RESTING AT THIS TIME. RESPIRATORY TX PER RT.
[2020-11-13 15:36] VITALS: BP 176/82
[2020-11-13 20:45] VITALS: BP 170/75
--- NOTE | 2020-11-14 05:27 | NUR ---
PT TRANSFERED FROM TELE AT SHIFT CHANGE, AO X4, 2L O2 WITH BIPAP AT HS, PT RECEIVING FLUIDS TO L FOREARM. PT HAS GENERALIZED BRUISING TO ARMS FROM LAB STICKS. PT HAS BEEN UP TO TOILET ADLIB WITH STEADY GAIT. SBP RUNNING A BIT HIGH IN THE 160-170s. LUNGS HAVE FINE CRACKLES IN UPPER LOBES WITH DIMINISHED/WHEEZE IN LOWER LOBES. CHRONIC PRODUCTIVE COUGH WITH CLEAR SPUTUM REPORTED. CALL LIGHT WITHIN REACH, PT IS ANTICIPATING DISCHARGE TODAY
[2020-11-14 07:50] VITALS: BP 188/80
[2020-11-14] MEDS ORDERED: LEVOFLOXACIN250 MG PO (09:32)
[2020-11-14] MEDS ORDERED: BROVANA15 MCG/2 M INH (09:32)
[2020-11-14] MEDS ORDERED: PULMICORT0.5 MG/2 M INH (09:32)
[2020-11-14] MEDS ORDERED: PREDNISONE 10 M10 M1 PO (09:32)
[2020-11-14 10:14] VITALS: BP 170/75
[2020-11-14 10:30] VITALS: BP 170/75
--- NOTE | 2020-11-14 10:31 | NUR ---
DC orders written. CM spoke with Pt, Pt wants to resume [facility] HH, CM to fax referral and orders. CM faxed clinicals to [facility] palliative care. to corn picker and transport, to bring a portable o2 tank. CM [facility] B[facility]. No further needs.
[2020-11-14 13:45] VITALS: BP 170/75
--- NOTE | 2020-11-14 14:34 | NUR ---
PT A&OX4 VSS. PT DRESSED INDEPENDENTLY. PT ON 2L 02 BY NASAL CANNULA, THIS IS BASELINE FROM WELL. ACCUCHECKS, WITH SLIDING SCALE INSULIN DIRECTED. PT UP AD [place]. PT REMAINS CONTINENT OF B/B. PT STATES UNDERSTANDING OF DC AND FOLLOW UP INSTRUCTIONS. PT RESTS IN ROOM WITH CALL LIGHT IN REACH. PT LEAVES UNIT IN WHEELCHAIR WITH NURSING STAFF.
[2020-11-14 14:52] VITALS: BP 170/75
[2020-11-14 16:00] VITALS: BP 152/62
== END 2020-11-14 17:00 | disposition home health service (06) | DRG 177 ==
LOC: M.ERS 22:54 → M.TBA-ER 11-08 01:44 → M.2W 11-08 09:52 → M.ORTHSURG 11-13 19:41
PROVIDERS: Internal Medicine; Internal Medicine Critical Care Medicine; Personal Emergency Response Attendant; ADMIT Internal Medicine; ATTEND Internal Medicine
PROC: 5A09357 Assistance with Respiratory Ventilation, Less than 24 Consecutive Hours, Continuous Positive Airway Pressure (ICD-10-PCS; principal; 2020-11-12)
PROC: 5A09357 Assistance with Respiratory Ventilation, Less than 24 Consecutive Hours, Continuous Positive Airway Pressure (ICD-10-PCS; 2020-11-13)
DX: J15.6 Pneumonia due to other Gram-negative bacteria (principal); J96.21 Acute and chronic respiratory failure with hypoxia; I50.31 Acute diastolic (congestive) heart failure; I13.0 Hypertensive heart and chronic kidney disease with heart failure and stage 1 through stage 4 chronic kidney disease, or unspecified chronic kidney disease; J44.1 Chronic obstructive pulmonary disease with (acute) exacerbation; J44.0 Chronic obstructive pulmonary disease with (acute) lower respiratory infection; E87.1 Hypo-osmolality and hyponatremia; N18.4 Chronic kidney disease, stage 4 (severe); I25.10 Atherosclerotic heart disease of native coronary artery without angina pectoris; E78.5 Hyperlipidemia, unspecified; E11.22 Type 2 diabetes mellitus with diabetic chronic kidney disease; M19.90 Unspecified osteoarthritis, unspecified site; E11.319 Type 2 diabetes mellitus with unspecified diabetic retinopathy without macular edema; D64.9 Anemia, unspecified; E87.6 Hypokalemia; R91.1 Solitary pulmonary nodule; Z20.822 Contact with and (suspected) exposure to COVID-19; Z95.5 Presence of coronary angioplasty implant and graft; Z90.710 Acquired absence of both cervix and uterus; I25.2 Old myocardial infarction; Z98.42 Cataract extraction status, left eye; Z79.4 Long term (current) use of insulin; Z79.82 Long term (current) use of aspirin; Z79.899 Other long term (current) drug therapy; Z88.2 Allergy status to sulfonamides; Z88.8 Allergy status to other drugs, medicaments and biological substances; Z88.1 Allergy status to other antibiotic agents; Z91.041 Radiographic dye allergy status; Z86.73 Personal history of transient ischemic attack (TIA), and cerebral infarction without residual deficits

== ENCOUNTER 2020-11-21 10:25 | Inpatient (IN) | payer OTHER ==
[~2020-11-21] VITALS: Ht 152.4 cm; Wt 86.0 kg
[2020-11-21] VITALS (11 sets, daily range): BP systolic 157–187; BP diastolic 65–80
[~2020-11-21 10:25] MED LIST changes: +BROVANA15 MCG/2 M INH; +LEVOFLOXACIN250 MG PO; +PREDNISONE 10 M10 M1 PO
[2020-11-21 11:10] LABS: ABSOLUTE BASOPHILS 0.1 thou/uL (0.0-0.2); ABSOLUTE EOSINOPHILS 0.1 thou/uL (0.0-0.7); ABSOLUTE LYMPHOCYTES 0.4 thou/uL (0.8-5.3); ABSOLUTE MONOCYTES 0.7 thou/uL (0.0-1.2); BASOPHILS 0.5 %; EOSINOPHILS 0.4 %; HEMATOCRIT 33.1 % (37.0-47.0); HEMOGLOBIN 10.8 gm/dL (12.0-15.0); LYMPHOCYTES 3.2 %; MCH 27.1 pg (26.0-34.0); MCHC 32.5 g/dL (28.0-37.0); MCV 83.5 fL (80.0-100.0); MONOCYTES 5.1 %; MPV 7.8 fl. (7.2-11.1); NUCLEATED RBCS 0 /100WBC; PLATELET COUNT* 305 thou/uL (150-400); POLYS 90.8 %; RBC 3.96 mil/uL (4.20-5.00); RDW-CV 17.4 % (10.5-14.5); WBC 13.2 thou/uL (4.0-11.0)
[2020-11-21 11:18] LABS: CALCIUM 8.1 mg/dL (8.5-10.1); POTASSIUM 4.7 mmol/L (3.5-5.1)
[2020-11-21 11:22] LABS: ALBUMIN 2.5 g/dL (3.4-5.0); TOTAL BILIRUBIN 0.2 mg/dL (<0.1-1.0); TOTAL PROTEIN 6.7 g/dL (6.4-8.2)
[2020-11-21 15:31] LABS: BE 0.3 mmol/L (-2 to +3); PCO2 46.7 mmHg (35.0-45.0); pH 7.364 (7.340-7.450)
[2020-11-21 15:32] LABS: PO2 59.1 mmHg (75.0-100.0)
--- NOTE | 2020-11-21 15:54 | EKG ---
[place] [address] ELECTROCARDIOGRAM REPORT Name: SYEDA CROSSDC Gallagher Room: [place] [address] ADM IN [facility].#: [id number] Admission: 11/21/20 Attend Phys: Marcos Villa, Discharge: Date of : 49 Date of Service: 11/21/20 1039 Report #: [id number] THIS REPORT FOR: //name// [facility] ED Test Date: 2020-11-21 Test Time: 10:39:44 Pat Name: CACHORRO CROSS Department: Room: [facility] Gender: F Oliver Filter Operator: RIMA : 1945 Requested By: John Paniagua Order Number: [id number] MD: Yan Galarza Measurements Intervals [place] Rate: 76 P: 52 HI: 160 QRS: 36 QRSD: 102 T: 71 QT: 374 QTc: 421 Interpretive Statements Sinus rhythm Compared to ECG 11/07/2020 23:03:50 T-wave abnormality no longer present Electronically Signed On 11-21-2020 15:54:35 CDT by Yan Galarza [email or web address] <ELECTRONICALLY SIGNED> By: Yan Galarza MD, [facility] 11/21/20 1554 1039 1039 Yan Galarza MD, [facility] /EPI
[2020-11-22] VITALS (25 sets, daily range): BP systolic 111–198; BP diastolic 49–92
[2020-11-22 05:17] LABS: HEMATOCRIT 32.1 % (37.0-47.0); HEMOGLOBIN 10.2 gm/dL (12.0-15.0); MCH 26.4 pg (26.0-34.0); MCHC 31.9 g/dL (28.0-37.0); MCV 82.8 fL (80.0-100.0); MPV 7.7 fl. (7.2-11.1); NUCLEATED RBCS 0 /100WBC; PLATELET COUNT* 280 thou/uL (150-400); RBC 3.88 mil/uL (4.20-5.00); RDW-CV 17.5 % (10.5-14.5); WBC 12.4 thou/uL (4.0-11.0)
[2020-11-22 05:18] LABS: CALCIUM 8.1 mg/dL (8.5-10.1); CREATININE 2.2 mg/dL (0.6-1.3); POTASSIUM 4.8 mmol/L (3.5-5.1)
[2020-11-22 06:37] LABS: ABSOLUTE LYMPHOCYTES 0.4 thou/uL (0.8-5.3); ABSOLUTE MONOCYTES 0.2 thou/uL (0.0-1.2); ABSOLUTE NEUTROPHILS 11.8 thou/uL (1.6-8.1); PLATELET ESTIMATE ADEQUATE
[2020-11-22 06:44] LABS: PCO2 44.7 mmHg (35.0-45.0); PO2 119.4 mmHg (75.0-100.0); pH 7.388 (7.340-7.450)
--- NOTE | 2020-11-22 07:20 | NUR ---
ASSESSMENTS CHARTED. PATIENT ON BIPAP FOR THE MAJORITY OF THE SHIFT. PATIENT HAD AN EPISODE OF INCREASED RESPIRATORY DISTRESS WHILE OFF THE BIPAP AROUND 0600. PLACED BACK ON BIPAP, ABG AND CXR ORDERED. PATIENT STATES SHE IS FEELING BETTER. GLUCOSE LOW THIS AM, HYPOGLYCEMIA PROTOCOL FOLLOWED AND GLUCOSE WITHIN ACCEPTABLE RANGE AT RECHECK.
--- NOTE | 2020-11-22 10:36 | NUR ---
PT. HAS INCREASED WHEEZING WITH SOME INCREASED WOB WITH AEROSOL TXS. PATIENT STATES THIS DOES NOT HAPPEN AT HOME WHEN SHE TAKES NEBULIZER TXS. SHE HAS DUONEB, PULMICORT AND BROVANA MEDICATIONS ORDERED FOR INHALATION VIA NEBULIZER.
--- NOTE | 2020-11-22 18:08 | NUR ---
PT GETS SOA WITH ACTIVITY. EDUCATION ON DEEP BREATHING, RELAXATION TECHNIQUES. TOLERATED NC 2L/MIN THROUGH OUT THE DAY. GETS UP TO BSC STB ASSIST. TOLERATING DIET. BM ONCE THIS SHIFT.
--- NOTE | 2020-11-22 22:30 | NUR ---
PT SLEEPING QUIETLY AT THIS TIME. O2 3L NC SAT 96%. TELE MONITOR ON. IV ABX INFUSING PER PUMP RAC. CALL LITE IN EASY REACH.
[2020-11-23] VITALS (18 sets, daily range): BP systolic 115–194; BP diastolic 57–134
--- NOTE | 2020-11-23 | NUR ---
PT MOVED TO ROOM 004 WITH BELONGINGS. RT HERE AND PLACED PT ON BIPAP. TELE MONITOR ON AND OPERATING. RAC SL. PT UP TO BSC TO VOID 350ML YELLOW URINE. PT DENIES NEEDS AT THIS TIME.
[2020-11-23 03:31] LABS: ABSOLUTE LYMPHOCYTES 0.2 thou/uL (0.8-5.3); ABSOLUTE MONOCYTES 0.3 thou/uL (0.0-1.2); ABSOLUTE NEUTROPHILS 14.3 thou/uL (1.6-8.1); BASOPHILS 0.2 %; HEMATOCRIT 29.7 % (37.0-47.0); HEMOGLOBIN 9.7 gm/dL (12.0-15.0); LYMPHOCYTES 1.5 %; MCHC 32.7 g/dL (28.0-37.0); MCV 82.6 fL (80.0-100.0); MONOCYTES 2.1 %; MPV 7.8 fl. (7.2-11.1); NUCLEATED RBCS 0 /100WBC; PLATELET COUNT* 267 thou/uL (150-400); POLYS 96.2 %; WBC 14.9 thou/uL (4.0-11.0)
[2020-11-23 03:42] LABS: ALBUMIN 2.2 g/dL (3.4-5.0); CALCIUM 7.8 mg/dL (8.5-10.1); CREATININE 2.4 mg/dL (0.6-1.3); POTASSIUM 4.6 mmol/L (3.5-5.1); TOTAL BILIRUBIN 0.2 mg/dL (<0.1-1.0)
--- NOTE | 2020-11-23 06:44 | NUR ---
PT SLEPT WELL OVERNIGHT, WEARING BIPAP FOR APPROX 7 HOURS. TELE MONITOR ON AND OPERATING. O2 3L NC ON THIS MORNING. DRSG CDI TO RFA. RAC SL, IV ABX AND SOLUMEDROL GIVEN ORDERED.UP WITH SBA TO BSC TO VOID OVERNIGHT. AOX4, ABLE TO USE CALL LITE AND MAKE NEEDS KNOWN. PT TURNS SELF IN BED INDEP. RT TX GIVEN ORDERED. BARR, CONGESTED COUGH. AM LABS DRAWN. PULMONARY CONSULT. HOURLY ROUNDING PERFORMED.
--- NOTE | 2020-11-23 19:25 | NUR ---
ASSUMED CARE AT 0700. CENTRAL LINE PLACED DUE TO POOR PERIPHERAL ACCESS. PT LITTLE HYPERTENSIVE, GAVE HYDROLOZINE. NO BM. AND DAUGHTER UPDATED.
[2020-11-24] VITALS (17 sets, daily range): BP systolic 142–200; BP diastolic 50–99
[2020-11-24 05:08] LABS: ABSOLUTE LYMPHOCYTES 0.3 thou/uL (0.8-5.3); ABSOLUTE MONOCYTES 0.6 thou/uL (0.0-1.2); ABSOLUTE NEUTROPHILS 14.1 thou/uL (1.6-8.1); BASOPHILS 0.3 %; HEMOGLOBIN 10.5 gm/dL (12.0-15.0); LYMPHOCYTES 1.9 %; MCH 26.8 pg (26.0-34.0); MCV 83.8 fL (80.0-100.0); MONOCYTES 3.8 %; NUCLEATED RBCS 0 /100WBC; PLATELET COUNT* 274 thou/uL (150-400); RBC 3.94 mil/uL (4.20-5.00); RDW-CV 17.6 % (10.5-14.5)
[2020-11-24 05:18] LABS: ALBUMIN 2.4 g/dL (3.4-5.0); CALCIUM 7.6 mg/dL (8.5-10.1); CREATININE 2.4 mg/dL (0.6-1.3); POTASSIUM 4.8 mmol/L (3.5-5.1); TOTAL BILIRUBIN 0.2 mg/dL (<0.1-1.0); TOTAL PROTEIN 6.4 g/dL (6.4-8.2)
--- NOTE | 2020-11-24 06:38 | NUR ---
PT AWOKE @ 0330 STATING SHE DIDN'T FEEL WELL, "MAYBE MY BLOOD SUGAR IS LOW." BG 182. BP 200/98, PRN HYDRALAZINE GIVEN ORDERED. PT REPORTED PAIN TO RT RIBS, DENIED NEED FOR INTERVENTION. ASSISTED TO CHAIR PER PT REQUEST. AT 0420, PT NOTED TO BE GRIMACING AND BRACING LT SIDE. RATED PAIN 9/10, PRN TYLENOL GIVEN ORDERED. ALSO STATED "I CAN'T BREATHE" AND EXHIBITED WORSENING ANXIETY. O2 SAT 96% ON 2L. LS CTA IN ALL LUNG YUAN. BIPAP PLACED TO EASE WORK OF BREATHING AND ANXIETY & ASSISTED PT BACK TO BED. DR ELDRIDGE PAGED TO REPORT NEED FOR PRN FOR PAIN & ANXIETY AND TO REQUEST CXR R/T RIB PAIN, ORDERS RECEIVED FOR PRN MORPHINE, XANAX, AND CXR. MORPHINE DOSE BROUGHT TO BEDSIDE, PT REFUSED STATING "IT MAKES ME SO SICK." XANAX NOT YET AVAILABLE R/T PHARMACY PROCESSING. SPOKE TO DR ELDRIDGE, ORDER RECEIVED FOR TORADOL. TORADOL GIVEN ORDERED.
--- NOTE | 2020-11-24 18:45 | NUR ---
PT GETS EXTREMELY SHORT OF BREATH WITH ACTIVITY AND GETS ANXIOUS. DR GARCIA NOTIFIED AND OBTAINED AN ORDER FOR XANAX. PT RESTING ON BIPAP POST XANAX ADMINISTRATION. ON BIPAP FOR MOST OF THE DAY. LEFT MESSAGE FOR DR LOUIS REGARDING PT'S CONDITION, NO CALL BACK. VSS THROUGHOUT THE SHFIT. DEEP BREATHING AND COUGHING EXERCISES ENCOURAGED.
[2020-11-24 21:12] LABS: ABSOLUTE LYMPHOCYTES 0.6 thou/uL (0.8-5.3); ABSOLUTE MONOCYTES 0.5 thou/uL (0.0-1.2); ABSOLUTE NEUTROPHILS 9.1 thou/uL (1.6-8.1); BASOPHILS 0.3 %; EOSINOPHILS 0.3 %; HEMATOCRIT 28.1 % (37.0-47.0); HEMOGLOBIN 9.4 gm/dL (12.0-15.0); LYMPHOCYTES 5.4 %; MCHC 33.4 g/dL (28.0-37.0); MCV 83.7 fL (80.0-100.0); MONOCYTES 4.9 %; MPV 7.6 fl. (7.2-11.1); NUCLEATED RBCS 0 /100WBC; PLATELET COUNT* 207 thou/uL (150-400); POLYS 89.1 %; RBC 3.35 mil/uL (4.20-5.00); RDW-CV 17.9 % (10.5-14.5); WBC 10.2 thou/uL (4.0-11.0)
[2020-11-24 21:25] LABS: BE 0.2 mmol/L (-2 to +3); PO2 92.3 mmHg (75.0-100.0)
[2020-11-24 21:25] LABS: TROPONIN-I LEVEL 0.07 ng/mL (<0.06)
[2020-11-24 21:28] LABS: PCO2 53.3 mmHg (35.0-45.0)
[2020-11-25] VITALS (22 sets, daily range): BP systolic 122–232; BP diastolic 50–88
[2020-11-25 05:17] LABS: HEMATOCRIT 24.7 % (37.0-47.0); HEMOGLOBIN 8.2 gm/dL (12.0-15.0); MCH 27.8 pg (26.0-34.0); MCHC 33.3 g/dL (28.0-37.0); MCV 83.4 fL (80.0-100.0); MPV 7.5 fl. (7.2-11.1); RBC 2.96 mil/uL (4.20-5.00); RDW-CV 17.5 % (10.5-14.5); WBC 7.8 thou/uL (4.0-11.0)
[2020-11-25 05:24] LABS: CREATININE 2.3 mg/dL (0.6-1.3); POTASSIUM 4.1 mmol/L (3.5-5.1)
--- NOTE | 2020-11-25 13:32 | NUR ---
Nutrition: Pt admitted with COPD exac. Seen for high BMI. RD recently saw pt and encouraged her to make outpatient DM educ appointment. Wt: 218#. H/o COPD, CKD III, PNA, CAD, DM, CHF. CHO controlled diet. Eating well. Labs: BG 77-134, alb 2.4, prealb 26.3. No further nutrition interventions needed at this time. Encourage pt to see CDE outpatient. Mild nutrition risk.
--- NOTE | 2020-11-25 16:08 | NUR ---
PT ADMITTED WITH COPD EXACERBATION. PT INDICATED SHE LIVES HOME WITH HER SPOUSE. PT HAS CPAP AND O2 AT HOME AT 2L, HOWEVER PT INDICATED SHE DOESNT KNOW WHO IS HER DME SUPPLIER. PT HAS HX WITH [facility]. PT TO CONT WITH BROCHODILATORS. PT RECEIVING DUO NEBULIZER TX. PT/OT EVALS NEEDED.
--- NOTE | 2020-11-25 16:37 | 2DMMODE ---
[place] [address] 2 D/M-MODE ECHOCARDIOGRAM Name: CACHORRO CROSS Room: [address] IN ..#: [id number] Admission: 11/21/20 Attend Phys: Marcos Villa, Discharge: Date of : 49 Date of Service: 11/25/20 1637 Report #: [id number] THIS REPORT FOR: cc: Omer Snyder MD, Anthony MD [place],Alexsander Parada MD [facility] ~ APPROVED REPORT Study performed: 11/25/2020 14:40:59 EXAM: Limited 2D Echocardiogram Patient Location: In-Patient Room #: [facility] Status: routine BSA: 1.94 HR: 78 bpm BP: 186/75 mmHg Rhythm: NSR Indications COPD Reassess PA pressure Left Ventricle The left ventricle is normal size. There is normal LV segmental wall motion. Borderline concentric left ventricular hypertrophy. The left ventricular systolic function is normal. LVEF is 60-65%. Right Ventricle The right ventricle is normal size. The right ventricular systolic function is normal. Atria Left atrium is mildly dilated. The right atrium size is normal. Aortic Valve Mild aortic valve sclerosis. Mitral Valve There is mitral annular calcification. Tricuspid Valve The tricuspid valve is normal in structure. Unable to assess PA pressure. Trace tricuspid regurgitation. [facility] [address] [place] [address] 2 D/M-MODE ECHOCARDIOGRAM Name: CACHORRO CROSS Room: [address] IN M.R.#: [id number] Admission: 11/21/20 Attend Phys: Marcos Villa, Discharge: Date of : 49 Date of Service: 11/25/20 1637 Report #: [id number] Great Vessels The aortic root is normal in size. IVC is normal in size and collapses >50% with inspiration. Pericardium There is no pericardial effusion. <Conclusion> The left ventricle is normal size. Borderline concentric left ventricular hypertrophy. LVEF is 60-65%. Left atrium is mildly dilated. Mild aortic valve sclerosis. There is mitral annular calcification. Trace tricuspid regurgitation. IVC is normal in size and collapses >50% with inspiration. <ELECTRONICALLY SIGNED> By: Alexsander Burger MD, FACC 11/25/20 1637 [id number] Alexsander Burger MD, FACC /INF
[2020-11-26] VITALS (32 sets, daily range): BP systolic 117–188; BP diastolic 54–100
[2020-11-26 05:19] LABS: HEMOGLOBIN 8.3 gm/dL (12.0-15.0); MPV 7.9 fl. (7.2-11.1); NUCLEATED RBCS 0 /100WBC; WBC 10.3 thou/uL (4.0-11.0)
[2020-11-26 05:20] LABS: HEMATOCRIT 25.3 % (37.0-47.0); MCH 27.6 pg (26.0-34.0); MCHC 32.9 g/dL (28.0-37.0); MCV 84.1 fL (80.0-100.0); PLATELET COUNT* 179 thou/uL (150-400); RBC 3.01 mil/uL (4.20-5.00); RDW-CV 17.8 % (10.5-14.5)
[2020-11-26 05:36] LABS: CALCIUM 7.2 mg/dL (8.5-10.1); CREATININE 2.2 mg/dL (0.6-1.3); MAGNESIUM 2.2 mg/dL (1.8-2.4); POTASSIUM 4.9 mmol/L (3.5-5.1)
[2020-11-26 06:02] LABS: ABSOLUTE LYMPHOCYTES 0.5 thou/uL (0.8-5.3); ABSOLUTE NEUTROPHILS 9.8 thou/uL (1.6-8.1); MYELOCYTES 1 %
[2020-11-26 06:03] LABS: ANISOCYTOSIS 1+; PLATELET ESTIMATE ADEQUATE; POIKILOCYTOSIS 1+
[2020-11-26 08:43] LABS: BE -2.3 mmol/L (-2 to +3)
[2020-11-26 08:46] LABS: PCO2 56.3 mmHg (35.0-45.0); pH 7.266 (7.340-7.450)
--- NOTE | 2020-11-26 14:33 | NUR ---
ICU rounds: CT shows soft tissue mass. Patient currently recieving steroids and O2 support. Bipap at 30% FiO2. Patient uses CPAP at home (2L). Spoke to Agustina at [facility] who stated that patient is currently on palliative care. If plan at discharge is continued palliative care then dc summary and orders to resume services will need to be faxed to [phone]. Per Agustina, if HH is needed at discharge it will need to be setup through a different company outside of [facility]. CM to continue to follow for safe dc planning
[2020-11-27] VITALS (32 sets, daily range): BP systolic 91–186; BP diastolic 50–88
[2020-11-27 04:46] LABS: ABSOLUTE LYMPHOCYTES 0.4 thou/uL (0.8-5.3); ABSOLUTE MONOCYTES 0.2 thou/uL (0.0-1.2); ABSOLUTE NEUTROPHILS 15.1 thou/uL (1.6-8.1); BASOPHILS 0.3 %; HEMATOCRIT 24.7 % (37.0-47.0); LYMPHOCYTES 2.6 %; MCH 27.4 pg (26.0-34.0); MCHC 32.5 g/dL (28.0-37.0); MCV 84.2 fL (80.0-100.0); MONOCYTES 1.4 %; MPV 7.7 fl. (7.2-11.1); NUCLEATED RBCS 0 /100WBC; PLATELET COUNT* 195 thou/uL (150-400); POLYS 95.7 %; RBC 2.93 mil/uL (4.20-5.00); RDW-CV 17.6 % (10.5-14.5); WBC 15.8 thou/uL (4.0-11.0)
[2020-11-27 05:03] LABS: CREATININE 2.1 mg/dL (0.6-1.3); MAGNESIUM 2.4 mg/dL (1.8-2.4); POTASSIUM 5.1 mmol/L (3.5-5.1)
[2020-11-27 10:39] LABS: BE -0.9 mmol/L (-2 to +3); PCO2 43.1 mmHg (35.0-45.0); PO2 87.9 mmHg (75.0-100.0)
[2020-11-27 12:55] LABS: BF LYMPHOCYTES 6 %; BF MONOCYTES 31 %; BF POLYS 62 %; BODY FLUID BANDS 1 %
[2020-11-27 13:05] LABS: SOURCE PLEURAL FLUID
[2020-11-27 13:07] LABS: TOTAL VOLUME 1100 ml
[2020-11-27 13:08] LABS: BF RBC 2808267 /mm3; CLARITY TURBID; TOTAL CELL COUNT 1833 /mm3
--- NOTE | 2020-11-27 14:32 | NUR ---
ICU Rounds: Patient currently on precedex gtt and patient has been very anxious and SOA. Bipap has been used through the day at 30% FiO2. Patient to remain ICU status while on precedex. Left vm for Tomer to discuss plans of care for discharge. Will follow up if no return call. CM to continue to follow for safe dc planning
--- NOTE | 2020-11-27 15:31 | NUR ---
THIS ASSET MANAGEMENT LEAD IS IN AGREEMENT WITH DOCUMENTED EVALUATION BY LOREN KUMARI FOR THIS DAY. BRANDON LEVIT
[2020-11-28] VITALS (25 sets, daily range): BP systolic 105–192; BP diastolic 38–81
--- NOTE | 2020-11-28 04:41 | NUR ---
ASSUMED CARE AT 1930H, ON BIPAP AT 30% AND TOLERATED. PT WAS GRUMPY, IRRITABLE, FRUSTRATED AND ANXIOUS, PRECEDEX TITRATED. PRN MEDS GIVEN FOR NAUSEA AND HTN. KEPT SAFE. CONTINUE MONITORING AND TOWARDS GOALS.
[2020-11-28 07:10] LABS: CALCIUM 6.7 mg/dL (8.5-10.1); CREATININE 1.9 mg/dL (0.6-1.3); MAGNESIUM 2.5 mg/dL (1.8-2.4); POTASSIUM 5.5 mmol/L (3.5-5.1)
[2020-11-28 11:23] LABS: PCO2 VENOUS 53.4 mmHg (41.0-51.0); PO2 VENOUS 94.9 mmHg (35.0-45.0)
--- NOTE | 2020-11-28 11:59 | NUR ---
ICU Rounds: Patient is currently bipap dependent at 30% FiO2. Continue steroids and abx. Patient to stay through the weekend. CM to continue to follow for safe dc planning
[2020-11-28 16:25] LABS: HEMOGLOBIN 7.1 gm/dL (12.0-15.0); MCH 27.1 pg (26.0-34.0); MCHC 32.3 g/dL (28.0-37.0); MCV 83.8 fL (80.0-100.0); MPV 7.8 fl. (7.2-11.1); RBC 2.62 mil/uL (4.20-5.00); RDW-CV 17.4 % (10.5-14.5); WBC 14.2 thou/uL (4.0-11.0)
[2020-11-28 16:25] LABS: BE -2.7 mmol/L (-2 to +3); PCO2 VENOUS 54.1 mmHg (41.0-51.0); PO2 VENOUS 96.8 mmHg (35.0-45.0)
--- NOTE | 2020-11-28 18:49 | NUR ---
RESUMED CARE AT 0700. ALL ASSESSEMENTS COMPLETED CHARTED. FALL RISK PRECAUTIONS IN PLACE. PT TOLORATED IN THE CHAIR FOR 4 HOURS. NO BM.
[2020-11-29] VITALS (24 sets, daily range): BP systolic 140–167; BP diastolic 53–102
[2020-11-29 05:09] LABS: INR 0.9; PROTIME 10.1 Seconds (9.20-11.50)
[2020-11-29 05:10] LABS: ALBUMIN 2.5 g/dL (3.4-5.0); CALCIUM 6.7 mg/dL (8.5-10.1); CREATININE 1.8 mg/dL (0.6-1.3); MAGNESIUM 2.5 mg/dL (1.8-2.4); POTASSIUM 5.9 mmol/L (3.5-5.1); TOTAL BILIRUBIN 0.2 mg/dL (<0.1-1.0); TOTAL PROTEIN 5.8 g/dL (6.4-8.2)
[2020-11-29 05:51] LABS: ABSOLUTE LYMPHOCYTES 0.4 thou/uL (0.8-5.3); ABSOLUTE MONOCYTES 0.3 thou/uL (0.0-1.2); ABSOLUTE NEUTROPHILS 11.7 thou/uL (1.6-8.1); BASOPHILS 0.2 %; HEMATOCRIT 21.1 % (37.0-47.0); MCH 26.9 pg (26.0-34.0); MCHC 32.4 g/dL (28.0-37.0); MCV 83.1 fL (80.0-100.0); MONOCYTES 2.2 %; MPV 7.9 fl. (7.2-11.1); NUCLEATED RBCS 0 /100WBC; PLATELET COUNT* 157 thou/uL (150-400); POLYS 94.6 %; RBC 2.54 mil/uL (4.20-5.00); RDW-CV 17.7 % (10.5-14.5); WBC 12.4 thou/uL (4.0-11.0)
[2020-11-29 06:10] LABS: HEMOGLOBIN 6.8 gm/dL (12.0-15.0)
[2020-11-29 08:37] LABS: BE -3.2 mmol/L (-2 to +3); PCO2 45.4 mmHg (35.0-45.0); pH 7.319 (7.340-7.450)
[2020-11-29 17:01] LABS: HEMATOCRIT 24.9 % (37.0-47.0); HEMOGLOBIN 8.2 gm/dL (12.0-15.0); MCH 27.8 pg (26.0-34.0); MCHC 32.9 g/dL (28.0-37.0); MCV 84.5 fL (80.0-100.0); MPV 7.7 fl. (7.2-11.1); RBC 2.94 mil/uL (4.20-5.00); RDW-CV 17.2 % (10.5-14.5); WBC 12.1 thou/uL (4.0-11.0)
[2020-11-30] VITALS (26 sets, daily range): BP systolic 165–256; BP diastolic 61–125
[2020-11-30 05:52] LABS: HEMATOCRIT 25.6 % (37.0-47.0); HEMOGLOBIN 8.5 gm/dL (12.0-15.0); MCH 28.4 pg (26.0-34.0); MCHC 33.4 g/dL (28.0-37.0); RBC 3.01 mil/uL (4.20-5.00)
[2020-11-30 06:09] LABS: CALCIUM 6.8 mg/dL (8.5-10.1); CREATININE 1.7 mg/dL (0.6-1.3); MAGNESIUM 2.4 mg/dL (1.8-2.4); TOTAL BILIRUBIN 0.3 mg/dL (<0.1-1.0); TOTAL PROTEIN 6.3 g/dL (6.4-8.2)
[2020-11-30 06:22] LABS: POTASSIUM 6.1 mmol/L (3.5-5.1)
[2020-11-30 08:48] LABS: BE -3.3 mmol/L (-2 to +3); PO2 99.4 mmHg (75.0-100.0)
[2020-11-30 08:50] LABS: PCO2 54.5 mmHg (35.0-45.0); pH 7.261 (7.340-7.450)
[2020-11-30 11:11] LABS: CALCIUM 6.6 mg/dL (8.5-10.1); CREATININE 1.6 mg/dL (0.6-1.3); POTASSIUM 5.9 mmol/L (3.5-5.1)
[2020-12-01] VITALS (27 sets, daily range): BP systolic 145–207; BP diastolic 37–151
[2020-12-01 06:12] LABS: HEMATOCRIT 25.6 % (37.0-47.0); HEMOGLOBIN 8.4 gm/dL (12.0-15.0); MCH 28.1 pg (26.0-34.0); MCHC 32.9 g/dL (28.0-37.0); MCV 85.3 fL (80.0-100.0); MPV 7.8 fl. (7.2-11.1); RDW-CV 17.3 % (10.5-14.5); WBC 12.3 thou/uL (4.0-11.0)
[2020-12-01 06:27] LABS: ALBUMIN 2.7 g/dL (3.4-5.0); CALCIUM 6.8 mg/dL (8.5-10.1); MAGNESIUM 2.3 mg/dL (1.8-2.4); POTASSIUM 5.7 mmol/L (3.5-5.1); TOTAL BILIRUBIN 0.4 mg/dL (<0.1-1.0)
--- NOTE | 2020-12-01 10:18 | NUR ---
ICU Rounds: Patient remains on bipap (50% FiO2). Continued steroids. Continued precedex gtt. PT/OT evals ongoing at this time. CM to continue to follow
[2020-12-01 11:55] LABS: BE -1.1 mmol/L (-2 to +3); PCO2 49.9 mmHg (35.0-45.0); pH 7.323 (7.340-7.450)
[2020-12-01 11:57] LABS: PO2 172.9 mmHg (75.0-100.0)
--- NOTE | 2020-12-01 19:27 | NUR ---
ASSUMED CARE AT 0700. PT IN CHAIR FOR ABOUT 4 HOURS TODAY, ON NC. STARTED LAXIX DRIP. PT NO LONGER ON PRESIDEX. NO BM. ALL ASSESSMENTS COMPLETED CHARTED.
--- NOTE | 2020-12-01 22:51 | NUR ---
AT 2150 PT AWOKE YELLING FOR HELP STATING SHE COULD NOT BREATH. PT GIVEN SCHEDULED XANAX. DR GONZALEZ PAGERicky, REPORTED PT'S SEVERE ANXIETY. REPORTED PT PULLING OFF BIPAP AND FEARING FOR HER LIFE. RECIEVED ORDER FOR IV PRESEDEX. NURSING OFFICE SUPPORT CLERK PAGED TO MIX DRIP. PT CONTINUED TO YELL LOUDLY, PT ATTEMPTED TO CLIMB OUT OF BED. ATTEMPTS TO CALM PT UNSUCCESFUL. DR GONZALEZ PAGED AND INFORMED THAT ANXIETY WAS WAS WORSE. NO ORDERS RECIEVED. NUMEROUS ATTEMPTS MADE TO CALM PT WITHOUT SUCCESS. DRJOSE ARRIVED AT [address] GONZALEZ PAGED AGAIN. NO RETURN CALL
[2020-12-02] VITALS (21 sets, daily range): BP systolic 138–199; BP diastolic 55–87
[2020-12-02 04:53] LABS: HEMATOCRIT 21.9 % (37.0-47.0); HEMOGLOBIN 7.4 gm/dL (12.0-15.0); MCH 28.7 pg (26.0-34.0); MCV 84.5 fL (80.0-100.0); MPV 7.8 fl. (7.2-11.1); RBC 2.59 mil/uL (4.20-5.00); RDW-CV 17.4 % (10.5-14.5); WBC 9.2 thou/uL (4.0-11.0)
[2020-12-02 05:17] LABS: ALBUMIN 2.8 g/dL (3.4-5.0); CALCIUM 6.5 mg/dL (8.5-10.1); CREATININE 2.2 mg/dL (0.6-1.3); MAGNESIUM 2.3 mg/dL (1.8-2.4); POTASSIUM 5.8 mmol/L (3.5-5.1); TOTAL BILIRUBIN 0.5 mg/dL (<0.1-1.0); TOTAL PROTEIN 5.7 g/dL (6.4-8.2)
--- NOTE | 2020-12-02 15:19 | NUR ---
PLAN OF CARE IS TO CONT ON BRONCHIOLDIALATORS AND BIPAP TO SUPPLEMENT O2. CONT STEROIDS. PT/OT ASSESSMENT ONGOING.
[2020-12-02 15:40] LABS: BE 0 mmol/L (-2 to +3); PCO2 VENOUS 56.2 mmHg (41.0-51.0); PO2 VENOUS 83.4 mmHg (35.0-45.0)
--- NOTE | 2020-12-02 16:10 | PATH ---
[address] [address] PATHOLOGY RPT PROCEDURE Name: CACHORRO CROSS Room: [address] IN [facility]#: [id number] Admission: 11/21/20 Date of : 49 Discharge: Report #: [id number] Path Case #: [id number] Note [facility] Accession Number: [id number] TESTS RESULT FLAG UNITS REF RANGE LAB Clinician Provided Cytology Information No. of containers..01 Other (Miscellaneous) Source: 01 LEFT PLEURAL FLUID DIAGNOSIS: 02 LEFT PLEURAL EFFUSION FEW ATYPICAL MESOTHELIAL CELLS WITH BACKGROUND OF REACTIVE MESOTHELIAL CELLS, MODERATE ACUTE AND CHRONIC INFLAMMATORY CELLS AND ABUNDANT RED BLOOD CELLS. SEE COMMENT. COMMENT: A FEW SMALL GROUPS AND INDIVIDUAL ATYPICAL MESOTHELIAL CELLS ARE PRESENT AND IDENTIFIED BY PROPERLY CONTROLLED IMMUNOHISTOCHEMICAL STAINS PERFORMED ON THE CELL BLOCK WITH RESULTS FOLLOWS: ESTROGEN RECEPTOR: NEGATIVE CALRETININ: POSITIVE CK5/6: POSITIVE BerEP4: NEGATIVE TTF-1: NEGATIVE THE ATYPICAL MESOTHELIAL CELLS ARE MOST LIKELY REACTIVE; HOWEVER, NEOPLASIA CANNOT BE ENTIRELY EXCLUDED. (VIVI:lyndon; 12/01/2020) Signed out by: 02 Chip Jason MD, Pathologist NPI- [id number] Performed by: 01 Pascale Joiner, Lead Quality Control Technician (ASCP) Gross description: 01 5ML, BLOODY RED, 1 TP 1CB /LCS 12/01/2020 1154 Local FLAG LEGEND: L-Low Normal,H-High Normal,LL-Alert Low,HH-Alert High <-Panic Low,>-Panic High,A-Abnormal,AA-Critical Abnormal Performed at: 01 [facility] [address] [place] [address] [address] [place] [address] Carroll Almazan MD, 02 [facility] [address] Chip Jason MD, Specimen Comment: A courtesy copy of this report has been sent to [phone], [address] [address] PATHOLOGY RPT PROCEDURE Name: CACHORRO CROSS Room: [address] IN [facility]#: [id number] Admission: 11/21/20 Date of : 49 Discharge: Report #: [id number] Path Case #: [id number] Specimen Comment: [id number] Specimen Comment: Report sent to / DR COLLADO Performed at: 01 [facility] [place] [address] [place] [address] [address], [place], [place] [id number] MD Carroll Almazan MD Phone: [phone]
[2020-12-02 16:39] LABS: CALCIUM 6.5 mg/dL (8.5-10.1); CREATININE 2.3 mg/dL (0.6-1.3); POTASSIUM 4.9 mmol/L (3.5-5.1)
[2020-12-03] VITALS (23 sets, daily range): BP systolic 146–204; BP diastolic 59–91
[2020-12-03 06:05] LABS: HEMATOCRIT 22.9 % (37.0-47.0); HEMOGLOBIN 8.3 gm/dL (12.0-15.0); MCH 30.5 pg (26.0-34.0); MCHC 36.3 g/dL (28.0-37.0); MCV 83.9 fL (80.0-100.0); MPV 7.7 fl. (7.2-11.1); NUCLEATED RBCS 0 /100WBC; PLATELET COUNT* 225 thou/uL (150-400); RBC 2.73 mil/uL (4.20-5.00); RDW-CV 17.5 % (10.5-14.5); WBC 10.6 thou/uL (4.0-11.0)
[2020-12-03 06:28] LABS: ALBUMIN 2.6 g/dL (3.4-5.0); CALCIUM 6.4 mg/dL (8.5-10.1); MAGNESIUM 2.3 mg/dL (1.8-2.4); TOTAL BILIRUBIN 0.4 mg/dL (<0.1-1.0); TOTAL PROTEIN 5.7 g/dL (6.4-8.2)
[2020-12-03 06:37] LABS: POTASSIUM 3.6 mmol/L (3.5-5.1)
[2020-12-03 08:08] LABS: ABSOLUTE LYMPHOCYTES 0.5 thou/uL (0.8-5.3); ABSOLUTE NEUTROPHILS 10.1 thou/uL (1.6-8.1); PLATELET ESTIMATE ADEQUATE
--- NOTE | 2020-12-03 13:53 | NUR ---
ICU Rounds: Patient currently needing intermittent bipap support (Fi02 30%) and 3L NC. Plan to continue precedex and steroids. Covid testing is negative. CM to continue to follow
--- NOTE | 2020-12-03 18:17 | NUR ---
1815 - TELEMETRY ROOM AVAILABLE FOR PT, ATTEMPTED TO CALL REPORT AND RN STATING UNABLE TO TAKE AT THIS TIME AND WILL CALL BACK.
[2020-12-04] VITALS (16 sets, daily range): BP systolic 150–205; BP diastolic 57–94
[2020-12-04 05:51] LABS: ABSOLUTE LYMPHOCYTES 0.3 thou/uL (0.8-5.3); ABSOLUTE MONOCYTES 0.4 thou/uL (0.0-1.2); ABSOLUTE NEUTROPHILS 13.4 thou/uL (1.6-8.1); BASOPHILS 0.2 %; HEMATOCRIT 24.8 % (37.0-47.0); HEMOGLOBIN 8.1 gm/dL (12.0-15.0); MCH 27.8 pg (26.0-34.0); MCHC 32.8 g/dL (28.0-37.0); MCV 84.6 fL (80.0-100.0); MONOCYTES 2.7 %; MPV 7.5 fl. (7.2-11.1); NUCLEATED RBCS 0 /100WBC; PLATELET COUNT* 303 thou/uL (150-400); POLYS 95.1 %; RBC 2.93 mil/uL (4.20-5.00); RDW-CV 17.8 % (10.5-14.5)
[2020-12-04 06:09] LABS: ALBUMIN 2.6 g/dL (3.4-5.0); CALCIUM 6.2 mg/dL (8.5-10.1); CREATININE 1.8 mg/dL (0.6-1.3); MAGNESIUM 2.3 mg/dL (1.8-2.4); POTASSIUM 4.4 mmol/L (3.5-5.1); TOTAL BILIRUBIN 0.5 mg/dL (<0.1-1.0)
--- NOTE | 2020-12-04 15:27 | NUR ---
ICU Rounds: Precedex off. Patient on 3L NC. Bipap support if needed. Patient is to downgrade to tele today. Pallative through [facility] will need to be resumed at discharge. If HH is needed, HH cannot be setup through [facility] and will need to be arrange through another company. Patient will benefit from HH. Patient updated on plan of care. CM to continue to follow
[2020-12-05] VITALS (10 sets, daily range): BP systolic 159–199; BP diastolic 51–71
[2020-12-05 04:26] LABS: ABSOLUTE LYMPHOCYTES 0.1 thou/uL (0.8-5.3); ABSOLUTE MONOCYTES 0.5 thou/uL (0.0-1.2); ABSOLUTE NEUTROPHILS 12.1 thou/uL (1.6-8.1); BASOPHILS 0.1 %; HEMATOCRIT 24.5 % (37.0-47.0); HEMOGLOBIN 8.1 gm/dL (12.0-15.0); LYMPHOCYTES 1.1 %; MCH 28.1 pg (26.0-34.0); MCHC 33.1 g/dL (28.0-37.0); MCV 84.9 fL (80.0-100.0); MPV 7.6 fl. (7.2-11.1); NUCLEATED RBCS 0 /100WBC; PLATELET COUNT* 301 thou/uL (150-400); POLYS 94.8 %; RBC 2.89 mil/uL (4.20-5.00); RDW-CV 17.6 % (10.5-14.5); WBC 12.8 thou/uL (4.0-11.0)
[2020-12-05 04:55] LABS: ALBUMIN 2.6 g/dL (3.4-5.0); CALCIUM 6.2 mg/dL (8.5-10.1); CREATININE 2.3 mg/dL (0.6-1.3); MAGNESIUM 2.2 mg/dL (1.8-2.4); POTASSIUM 4.7 mmol/L (3.5-5.1); TOTAL BILIRUBIN 0.4 mg/dL (<0.1-1.0); TOTAL PROTEIN 6.1 g/dL (6.4-8.2)
--- NOTE | 2020-12-05 10:45 | NUR ---
RECIEVED REPORT FROM ELMO IN ICU OF EXPECTED TRANSFER AT 0715- PT ARRIVED TO ROOM 213 VIA BED AT 0744- SIDE TO BED X4- FOOD WRITER PLACED, TRACING SR- PT A&O X4- CONT OF BOWEL, RUIZ IN PLACE D/D CLEAR YELLOW URINE- VSS, O2 SAT 92% ON 4L VIA NC-COURSE/WHEEZES/RHONCHI NOTED-LABORED BREATHING NOTED- BIPAP NEEDED- REPORTED NON-PRODUCTIVE COUGH- ABD SOFT/OBESE/NON-TENDER, BS X4 QUADS- LAST BM REPORTED X2 DAYS AGO- RIGHT SUB CLAV PICC NOTED C/D/I AND SL; IV ABT GIVEN THIS SHIFT PRESCRIBED- SCATTERED BRUISING NOTED- 2+ UE EDEMA NOTED- 2/1 PULSES- PT DENIES ANY C/O PAIN- CALL LIGHT AND PERSONAL BELONGINGS WITH IN REACH- HOURLY ROUNDS IN PLACE R/T SAFETY/NEEDS- ALL NEEDS MET AT THIS TIME
[2020-12-06] VITALS (7 sets, daily range): BP systolic 158–204; BP diastolic 62–76
[2020-12-06 06:06] LABS: HEMATOCRIT 23.9 % (37.0-47.0); HEMOGLOBIN 7.9 gm/dL (12.0-15.0); MCH 28.2 pg (26.0-34.0); MCV 85.4 fL (80.0-100.0); MPV 7.7 fl. (7.2-11.1); RBC 2.8 mil/uL (4.20-5.00); RDW-CV 18.1 % (10.5-14.5); WBC 13.4 thou/uL (4.0-11.0)
[2020-12-06 06:13] LABS: CALCIUM 6.3 mg/dL (8.5-10.1); CREATININE 1.9 mg/dL (0.6-1.3); MAGNESIUM 2.5 mg/dL (1.8-2.4); POTASSIUM 4.4 mmol/L (3.5-5.1)
--- NOTE | 2020-12-06 06:25 | NUR ---
PT HAS ANXIETY WITHOUT BIPAP ON. SHE WAS TAKEN DOWN FOR CT OF CHEST. BIPAP ON THIS AM WHILE SLEEPING, SHE TOOK ALL HER MEDS SCHEDULED. SHE IS MAX ASSIST, CANNOT MOVE ON HER OWN AT ALL IN BED. ALERT AND ORIENTED BUT SOMEWHAT ANXIOUS AND FORGETFUL. WILL CONTINUE TO MONITOR.
[2020-12-06 18:13] LABS: URINE BILIRUBIN NEGATIVE (Negative); URINE BLOOD TRACE (Negative); URINE CLARITY CLEAR; URINE COLOR YELLOW; URINE GLUCOSE-RANDOM 1+ (Negative); URINE KETONES NEGATIVE (Negative); URINE LEUKOCYTES-REFLEX NEGATIVE (Negative); URINE NITRITE-REFLEX NEGATIVE (Negative); URINE PROTEIN 3+ (Negative); URINE SPECIFIC GRAVITY 1.025 (1.005-1.030); URINE UROBILINOGEN 0.2 E.U./dl (0.2-1.0)
[2020-12-06 18:34] LABS: CRYSTALS None Seen /LPF (None Seen); HYALINE CASTS 0-3 Few /LPF (None Seen); MUCUS 0-3 Light strn/LPF (None Seen); SQUAMOUS 0-3 Few /LPF (0-3)
[2020-12-06 18:35] LABS: BACTERIA-REFLEX None Seen /HPF (None Seen); FINE GRANULAR CASTS 0-3 Few /LPF (None Seen); URINE RBC 0-2 Rare /HPF (0-2); URINE WBC-REFLEX 0-5 Rare /HPF (0-5)
[2020-12-07 00:19] VITALS: BP 128/78
[2020-12-07 04:38] VITALS: BP 130/74
[2020-12-07 06:05] LABS: HEMATOCRIT 22.4 % (37.0-47.0); HEMOGLOBIN 7.4 gm/dL (12.0-15.0); MCH 27.9 pg (26.0-34.0); MCHC 32.9 g/dL (28.0-37.0); MCV 84.8 fL (80.0-100.0); MPV 7.6 fl. (7.2-11.1); RBC 2.64 mil/uL (4.20-5.00); RDW-CV 17.8 % (10.5-14.5); WBC 12.6 thou/uL (4.0-11.0)
[2020-12-07 06:27] LABS: ALBUMIN 2.3 g/dL (3.4-5.0); CALCIUM 6.1 mg/dL (8.5-10.1); CREATININE 1.9 mg/dL (0.6-1.3); MAGNESIUM 2.4 mg/dL (1.8-2.4); POTASSIUM 4.7 mmol/L (3.5-5.1); TOTAL BILIRUBIN 0.5 mg/dL (<0.1-1.0); TOTAL PROTEIN 5.5 g/dL (6.4-8.2)
--- NOTE | 2020-12-07 06:48 | NUR ---
PT SLEPT WELL OVERNIGHT ON BIPAP. HS ACCUCHECK 341, INSULIN GIVEN ORDERED. TELE SR. BIPAP SATS 94-98%. RUIZ DRAINING YELLOW URINE. RSUB TL PICC IVF INFUSING, LABS DRAWN THIS MORNING. TAKING PILLS WHOLE WITH NECTAR THICK LIQUID WITHOUT DIFFICULTY. PT TURNED AND REPOSITIONED EVERY 2 HOURS AND PRN PT WOULD ALLOW FOR SKIN CARE AND COMFORT. IV ABX AND SOLUMEDROL GIVEN ORDERED. ABLE TO USE CALL LITE AND MAKE NEEDS KNOWN. BED ALARM ON FOR SAFETY.
[2020-12-07 08:01] VITALS: BP 158/79
[2020-12-07 12:13] VITALS: BP 171/67
[2020-12-07 17:27] VITALS: BP 182/84
[2020-12-07 20:00] VITALS: BP 202/73
--- NOTE | 2020-12-07 20:00 | NUR ---
RECEIVED REPORT AND ASSUMED CARE OF PT, ASSESSMENT COMPLETED. HOB ELEVATED, PT ON BIPAP, DYSPNIC. HAVING OCC MOIST NON-PROD COUGH. GRABIEL ARMS WITH BRUISING AND EDEMATOUS. PT ANXIOUS CONCERNING MOVEMENT OR OXYGEN. TOLERATING NECTAR THICK LIQUIDS WITHOUT COUGHING OR CHOKING. TELEMETRY ON SHOWING SR. WILL CONT TO MONITOR AND ASSIST NEEDED.
[2020-12-08 00:33] VITALS: BP 168/77
[2020-12-08 04:56] VITALS: BP 165/81
[2020-12-08 05:35] LABS: HEMATOCRIT 23.9 % (37.0-47.0); HEMOGLOBIN 7.9 gm/dL (12.0-15.0); MCH 28.3 pg (26.0-34.0); MCHC 33.2 g/dL (28.0-37.0); MCV 85.1 fL (80.0-100.0); MPV 7.7 fl. (7.2-11.1); RBC 2.81 mil/uL (4.20-5.00); RDW-CV 17.9 % (10.5-14.5); WBC 14.7 thou/uL (4.0-11.0)
[2020-12-08 05:53] LABS: ALBUMIN 2.5 g/dL (3.4-5.0); CALCIUM 6.4 mg/dL (8.5-10.1); MAGNESIUM 2.5 mg/dL (1.8-2.4); TOTAL BILIRUBIN 0.6 mg/dL (<0.1-1.0); TOTAL PROTEIN 6.2 g/dL (6.4-8.2)
--- NOTE | 2020-12-08 06:30 | NUR ---
AWAKE OCC. HOB ELEVATED. PT ANXIOUS AND VERY SOA. BIPAP REMAINS ON AT 30% FIO2. TAKING PO MEDS WITHOUT DIFFICULT. NO CHANGE IN ASSESSMENT. HS GOALS OF REST AND SAFETY ACHIEVED. HOURLY ROUNDING OBSERVED.
[2020-12-08 08:00] VITALS: BP 175/67
[2020-12-08 12:00] VITALS: BP 188/75
[2020-12-08 16:00] VITALS: BP 178/67
--- NOTE | 2020-12-08 16:53 | NUR ---
pt is scheduled to have test done today. pt to cont hospitalized as her copd has worsened. cm to cont to follow.
[2020-12-08 17:02] LABS: BF RBC 470559 /mm3; TOTAL CELL COUNT 3107 /mm3
[2020-12-08 17:08] LABS: TOTAL VOLUME 360 ml
[2020-12-08 17:09] LABS: CLARITY CLOUDY
[2020-12-08 17:13] LABS: BF LYMPHOCYTES 9 %; BF POLYS 91 %; BF TISSUE 10 /100 WBC
[2020-12-08 17:52] LABS: SOURCE PLEURAL FLUID
[2020-12-08 20:00] VITALS: BP 189/68
--- NOTE | 2020-12-08 20:00 | NUR ---
RECEIVED REPORT AND ASSUMED CARE OF PT, ASSESSMENT COMPLETED. BIPAP ON AND TOLERATING. HOB ELEVATED. MOVING SELF IN BED AND WITH ASSIST. TELEMETRY ON SHOWING SR. WILL CONT TO MONITOR AND ASSIST NEEDED.
[2020-12-09 00:55] VITALS: BP 174/65
[2020-12-09 04:00] VITALS: BP 169/63
[2020-12-09 05:18] LABS: HEMATOCRIT 23.7 % (37.0-47.0); HEMOGLOBIN 7.8 gm/dL (12.0-15.0); MCH 27.9 pg (26.0-34.0); MCHC 33.1 g/dL (28.0-37.0); MCV 84.5 fL (80.0-100.0); NUCLEATED RBCS 0 /100WBC; PLATELET COUNT* 291 thou/uL (150-400); RDW-CV 18.2 % (10.5-14.5); WBC 13.6 thou/uL (4.0-11.0)
[2020-12-09 05:58] LABS: ALBUMIN 2.5 g/dL (3.4-5.0); CALCIUM 6.5 mg/dL (8.5-10.1); CREATININE 1.8 mg/dL (0.6-1.3); MAGNESIUM 2.6 mg/dL (1.8-2.4); TOTAL BILIRUBIN 0.6 mg/dL (<0.1-1.0); TOTAL PROTEIN 6.1 g/dL (6.4-8.2)
--- NOTE | 2020-12-09 06:30 | NUR ---
SLEPT WELL, ASSIST WITH REPOSTIONING. PT DYSPNIC AND AUDIBLE WHEEZING WHEN OFF BIPAP BRIEFLY FOR MEDS OR DRINK. TELEMETRY CONT TO SHOW SR. NO CHANGES IN ASSESSMENT. HS GOALS OF REST AND SAFETY. HOURLY ROUNDING OBSERVED.
[2020-12-09 09:19] LABS: ABSOLUTE LYMPHOCYTES 1.6 thou/uL (0.8-5.3); ABSOLUTE MONOCYTES 0.1 thou/uL (0.0-1.2); ABSOLUTE NEUTROPHILS 11.8 thou/uL (1.6-8.1); PLATELET ESTIMATE ADEQUATE
[2020-12-09 12:30] VITALS: BP 154/52
--- NOTE | 2020-12-09 13:24 | NUR ---
POC IS TO ATTEMPT TO WEAN PT OFF BIPAP, PT USES 3-5l OF O2. PULMONARY FOLLOWING. CM TO CONT TO FOLLOW.
--- NOTE | 2020-12-09 15:14 | NUR ---
Encouraged patient to come off the BIPAP, she did reluctantly for approx 1hr. Spo2 95% on 4L NC. is at bedside and is also reluctant for patient to come off BIPAP. RN notified. Will continue to encourage patient off BIPAP as tolerated. Gayatri RT
[2020-12-09 16:34] VITALS: BP 116/50
--- NOTE | 2020-12-09 16:53 | NUR ---
PATIENT WORE BIPAP A MAJORITY OF THE SHIFT, 4L NC WHEN OFF BIPAP. PATIENT C/O'S SOA WHEN OFF BIPAP FOR EVEN SHORT PERIODS OF TIME. IV ABX INFUSED ORDERED, NEPHROLOGY CONSULT AND ORDERS FOR D5 AT 50MLS/HR X 1 BAG. NO COMPLAINTS OF PAIN, SCHED ANXIETY MEDS GIVEN ORDERED. RUIZ DRAINING YELLOW URINE. PATIENT WAS TOTAL LIFT TO [facility], LARGE BM NOTED. BORING MACHINE OPERATOR HORIZONTAL TRACING SR THIS SHIFT.
[2020-12-09 23:56] VITALS: BP 181/72
[2020-12-10 04:29] LABS: ABSOLUTE LYMPHOCYTES 0.3 thou/uL (0.8-5.3); ABSOLUTE MONOCYTES 0.4 thou/uL (0.0-1.2); ABSOLUTE NEUTROPHILS 13.1 thou/uL (1.6-8.1); BASOPHILS 0.1 %; EOSINOPHILS 0.1 %; HEMATOCRIT 21.8 % (37.0-47.0); HEMOGLOBIN 7.1 gm/dL (12.0-15.0); MCH 27.8 pg (26.0-34.0); MCHC 32.6 g/dL (28.0-37.0); MONOCYTES 2.7 %; MPV 8.1 fl. (7.2-11.1); NUCLEATED RBCS 0 /100WBC; PLATELET COUNT* 239 thou/uL (150-400); POLYS 95.1 %; RBC 2.56 mil/uL (4.20-5.00); WBC 13.8 thou/uL (4.0-11.0)
[2020-12-10 04:38] LABS: CALCIUM 6.4 mg/dL (8.5-10.1); POTASSIUM 4.9 mmol/L (3.5-5.1)
[2020-12-10 05:28] VITALS: BP 151/7
--- NOTE | 2020-12-10 09:17 | CON ---
[address] [address] CONSULTATION Name: CACHORRO CROSS Room: [address] IN M.R.#: [id number] Admission: 11/21/20 Attend Phys: Marcos Villa MD Discharge: Date of : 49 Report #: [id number] THIS REPORT FOR: cc: Omer Snyder MD, Anthony MD Vasudeva, Amita MD ~ DATE OF CONSULTATION: 12/09/2020 NEPHROLOGY CONSULTATION CONSULTING PHYSICIAN: Dr. Villa. REASON FOR NEPHROLOGY CONSULTATION: Fluid management, chronic kidney disease, stage IV. CHIEF COMPLAINT: Shortness of breath. HISTORY OF PRESENT ILLNESS: This is a 75-year-old lady with past medical history of chronic kidney disease, stage IV, follows with Dr. Rosas. Her baseline creatinine is 1.8-2. She also has COPD, on home oxygen 2 liters all the time, along with diabetes, hypertension and other medical problems, who came in with cough and shortness of breath. She was being treated for COPD exacerbation, but her chest x-ray kept worsening while in the hospital. She developed left pleural effusion. She had a thoracentesis on 11/26 with 1100 mL fluid off of her left hemithorax, which was actually hemothorax, and another thoracentesis as of yesterday with 300 mL fluid removal. She was initially being treated for her pneumonia by Infectious Disease with doxycycline and ceftriaxone and because of worsening infiltrates bilaterally, she was started on Zyvox and Zosyn yesterday. Her creatinine has stayed stable, it is 1.8 as of today, but her sodium is slightly creeping up in 150s. She was receiving Lasix in the form of drip and then IV Lasix and currently, she is on Lasix 20 mg p.o. once a day. She received some fluids in the form of D5 water. She was being kept n.p.o. because of worry about aspiration. Today, she will be started on a diet and she is allowed to drink fluids now. Sodium is a little bit better at 148. Her breathing is stable. She is on 4 liters of oxygen via nasal cannula. She feels like her breathing has overall improved. ALLERGIES: TO CODEINE, CONTRAST DYE, DULOXETINE, PROPOXYPHENE, PROPRANOLOL, SULFA, AND CEPHRADINE. HOME MEDICATIONS: Which include ipratropium, albuterol nebulizer, sodium bicarbonate, insulin glargine, Brovana, budesonide, Levaquin, prednisone, baby aspirin, alendronate, Plavix, levothyroxine, glimepiride, Tylenol, ferrous sulfate, guaifenesin, [place] [address] CONSULTATION Name: CACHORRO CROSS Room: [address] IN ..#: [id number] Admission: 11/21/20 Attend Phys: Marcos Villa MD Discharge: Date of : 49 Report #: [id number] PAST MEDICAL AND SURGICAL HISTORY: Which includes diabetes mellitus type 2 with retinopathy, hypertension, hyperlipidemia, COPD, CAD with DE in 2009, arthritis, enlarged thyroid removed in 2010, two mini strokes, 4 pregnancies, had stillbirth at 3rd and baby was one week overdue, complete hysterectomy, diabetes type 2, chronic kidney disease, stage IV, chronic diastolic congestive heart failure, hyperkalemia, macular degeneration, coronary artery disease with multiple stents, cataract removal. FAMILY HISTORY: Noncontributory. SOCIAL HISTORY: Positive tobacco smoke. No drug use, no alcohol use. PHYSICAL EXAMINATION: VITAL SIGNS: Her blood pressure is 169/63, temperature 36.1, her pulse was 66, her respiratory rate was 18, her pulse ox was 98%. She was on 4 liters of oxygen via nasal cannula. GENERAL: She is awake, alert and oriented x 3. HEAD AND EYES: Atraumatic, normocephalic. She does have cushingoid facies, buenrostro-shaped face. EARS, NOSE AND THROAT: Normal ears and nose. Mucous membranes are dry. CHEST: Shows bilaterally diminished breath sounds with crackles and wheezing posteriorly. CARDIOVASCULAR: S1, S2 normal. No murmurs. ABDOMEN: Soft, nondistended, nontender. EXTREMITIES: Upper extremities are swollen, more so on the right arm. Lower extremities: There is no edema. NEUROLOGIC: Function is grossly intact. PSYCHIATRIC: Mood and affect seems to be normal. LABORATORY DATA: WBC was 13.6, hemoglobin was 7.8. Sodium was 148, potassium was 5.0, BUN was 86, creatinine was 1.8 and other labs were reviewed. IMAGING: Chest x-ray, swallow study and chest CT scan were reviewed. ASSESSMENT: 1. Chronic kidney disease, because of diabetes and hypertension and creatinine is actually stable. 2. Acute on chronic combined respiratory failure, chronic obstructive pulmonary disease exacerbation as well as bilateral ____ left pleural effusion, status post thoracentesis multiple times during this admission, on antibiotics and Pulmonary and Infectious Disease following. 3. Hypernatremia, in the setting of diuresis. 4. Acute on chronic respiratory acidosis with metabolic compensation. 5. [place] [address] CONSULTATION Name: CACHORRO CROSS Room: [address] IN [facility]#: [id number] Admission: 11/21/20 Attend Phys: Marcos Villa MD Discharge: Date of : 49 Report #: [id number] 6. Hypermagnesemia. 7. Hyperphosphatemia. 8. Ejection fraction of 60-65% with diastolic dysfunction. 9. History of stroke. 10. History of coronary artery disease. 11. Diabetes type 2. Primary team is treating. 12. Hypertension. Blood pressure is uncontrolled, likely because of steroids. PLAN: 1. Agree with Pulmonary, her lung findings are predominantly related to pneumonia, she does not seem to be in pulmonary edema. 2. She is currently on p.o. Lasix 20 mg a day, which is okay to continue. Would not diurese her with IV Lasix at least today. 3. P.o. fluid intake will help with her sodium. We will give her D5 water for 1 liter only at 50 mL an hour. 4. Please provide her with incentive spirometer. 5. PhosLo added to help with her hypercalcemia as well as hyperphosphatemia, she should be on a low phosphorus diet. 6. Magnesium is towards the higher side, avoid high magnesium containing compounds. 7. Her blood pressure is running high, added hydralazine for better blood pressure control. 8. Encourage p.o. intake. Thank you for the consultation. We will continue to follow with you. Discussed with the patient and the patient's significant other as well as the patient's nurse in detail. We will follow. Check morning labs. <ELECTRONICALLY SIGNED> By: Ernestina Chiu MD 12/10/20 0917 0904 [id number] Chiu MD /nt
[2020-12-10 10:00] VITALS: BP 150/71
[2020-12-10 10:08] LABS: ANTI-DNA SCREEN <1 IU/mL (0-9); ANTI-RNP <0.2 AI (0.0-0.9); ANTI-SSA <0.2 AI (0.0-0.9); ANTIJO-I AB <0.2 AI (0.0-0.9)
[2020-12-10 12:09] VITALS: BP 151/55
--- NOTE | 2020-12-10 13:27 | NUR ---
POC UPDATED: PULMONARY FOLLOWING. BIPAP DEPENDENT. CM TO CONT TO FOLLOW.
[2020-12-10 14:32] LABS: SOURCE PLEURAL
[2020-12-10 14:33] LABS: BODY FLUID PROTEIN 3.9
[2020-12-10 14:42] LABS: SOURCE THORACENTESIS
[2020-12-10 16:00] VITALS: BP 150/59
--- NOTE | 2020-12-10 16:34 | NUR ---
POC: PT TO CONT ON CURRNET ABX FOR PNEUMONIA. PT IS ON 6L OF 02. PULMONOLY RECOMMENDING BRONCHOSCOPY. PT PRESENT "WEAK AND TIRED," EVIDENCED BY PT BEING UNABLE TO GET TO THE BEDSIDE COMMODE /PER DOCTOR'S NOTE, HOWEVER PT IS REFUSING REHAB, PER DOCTOR'S NOTE. PT IS ON BIPAP SUPPORT.
[2020-12-10 19:07] LABS: BODY FLUID LDH 1644 IU/L (()); BODY FLUID PROTEIN 1.8 g/dL (())
[2020-12-10 20:00] VITALS: BP 180/73
--- NOTE | 2020-12-10 20:00 | NUR ---
RECEIVED REPORT AND ASSUMED CARE OF PT, ASSESMENT COMPLETE. PT TIRED, RESTING WITH EYES CLOSED. O2 ON AT 4L/NC, HOB ELEVATED. HAVING OCC MOIST NON PROD COUGH. NO COMPLAINTS VOICED. TELEMETRY ON SHOWING SR. WILL CONT TO MONITOR AND ASSIST NEEDED.
[2020-12-11] VITALS: BP 167/63
[2020-12-11 00:28] VITALS: BP 171/65
[2020-12-11 04:06] VITALS: BP 158/58
--- NOTE | 2020-12-11 06:30 | NUR ---
SLEPT VERY WELL TONIGHT. INCREASED MOIST COUGH BUT UNABLE TO GET SECRETIONS OFF. GIOVANNA BIPAP WITH HOB ELEVATED. GRABIEL ARMS WITH WEEPING EDEMA, RT GREATER THEN LT. TELEMETRY CONT TO SHOW SR. NO CHANGE IN ASSESSMENT. HS GOALS OF REST AND SAFETY ACHIEVED. HOURLY ROUNDING OBSERVED.
[2020-12-11 07:45] LABS: ABSOLUTE LYMPHOCYTES 0.3 thou/uL (0.8-5.3); ABSOLUTE MONOCYTES 0.2 thou/uL (0.0-1.2); ABSOLUTE NEUTROPHILS 15.8 thou/uL (1.6-8.1); BASOPHILS 0.1 %; HEMATOCRIT 22.9 % (37.0-47.0); HEMOGLOBIN 7.6 gm/dL (12.0-15.0); LYMPHOCYTES 1.7 %; MCHC 33.1 g/dL (28.0-37.0); MCV 84.6 fL (80.0-100.0); MONOCYTES 1.4 %; MPV 8.2 fl. (7.2-11.1); NUCLEATED RBCS 0 /100WBC; PLATELET COUNT* 246 thou/uL (150-400); POLYS 96.8 %; RBC 2.71 mil/uL (4.20-5.00); RDW-CV 17.9 % (10.5-14.5); WBC 16.3 thou/uL (4.0-11.0)
[2020-12-11 08:03] LABS: CALCIUM 7.1 mg/dL (8.5-10.1); CREATININE 2.2 mg/dL (0.6-1.3); POTASSIUM 5.2 mmol/L (3.5-5.1)
--- NOTE | 2020-12-11 10:45 | NUR ---
POC UPDATE: PT HAVING BRONCHOSCOPY DONE TODAY. PT AT BEDSIDE.
[2020-12-11 16:00] VITALS: BP 172/70
--- NOTE | 2020-12-11 18:57 | NUR ---
PT HAS BEEN DYSPNIC SINCE HAVING BRONCHOSCOPY TODAY, HER LUNG SOUNDS ARE STILL COURSE BUT HAS ALOT LESS CONGESTION AND WET SOUND TO HER COUGH. PT HAS BEEN USING BIPAP FREQUENTLY SINCE TEST. SHE STILL COMPLAINS OF HAVING PAIN IN ELIZABETH AREA FROM CATHETER BUT IS NOT WANTING TO D/C THE CATH. SHE HAD A BM TODAY. PT SKIN IS STILL VERY EDEMATOUS ALL OVER HER BODY AND SKIN IS FRAGILE AND BRUISED. SHE HAS SOME WEEPING FROM HER RT FOREARM. SHE HAS MUCH FAMILY SUPPORT AND IS PLANNING ON GOING TO REHAB FOR STRENGTHENING. CALL LIGHT IN REACH, PT ON BIPAP FOR HS.
[2020-12-11 20:00] VITALS: BP 162/54
--- NOTE | 2020-12-11 23:12 | PROC ---
[address] [address] PROCEDURE REPORT Name: CACHORRO CROSS Room: [address] IN M.R.#: [id number] Admission: 11/21/20 Attend Phys: Marcos Villa MD Discharge: Date of : 49 Report #: [id number] THIS REPORT FOR: cc: Omer Snyder MD, Anthony MD Pervez, Adeel MD ~ DATE OF PROCEDURE: 12/11/2020 PROCEDURE PERFORMED: Bronchoscopy and bronchial washings. INDICATIONS FOR PROCEDURE: Pulmonary infiltrates and mucus plugging. POSTPROCEDURE DIAGNOSES: 1. There is thrush present on the vocal cords. 2. There was partial occlusion of the trachea as well as left mainstem with thick white and yellow secretions. 3. Mucosa is markedly inflamed, particularly in the left lung and is friable. CONSENT: Informed consent was obtained from the patient. SEDATION. In addition to various amounts of local anesthetic solution being administered as described below, the patient was sedated with 2 mg of Versed and 100 mcg of fentanyl. DESCRIPTION OF PROCEDURE: After obtaining informed consent, the patient was transferred to the bronchoscopy suite where the respiratory therapist proceeded to preparing the upper airway with local anesthetic solution using standard protocol. Considering that the patient's nostrils were narrow, I elected to proceed with the procedure through the patient's mouth. A tooth guard was placed after which a bronchoscope was introduced and advanced to visualize the vocal cords without any difficulty. There was obvious thrush present on the vocal cords. These were sprayed with 5 mL of 4% Xylocaine after which cough reflex tended to subside. I then proceeded to advancing the bronchoscope into the trachea. Another 3 mL of 2% Xylocaine was instilled in the trachea, the right mainstem and the left mainstem each. After going past the vocal cords, I inserted a trap as there were significant secretions noted, which were partially obstructing the trachea. These were collected into the trap. These thick secretions continued into the left lung and also partially occluded the left mainstem. The sample labelled left mainstem in fact contains secretions both from the left mainstem as well as the trachea. I collected about 25 mL of turbid fluid into a trap, after which the trap was removed and I will continued to perform suction. I estimate that we instilled around 50 mL of saline total in the right as well as left bronchial tree and that we sucked out a quantity larger than this of the patient's secretions. Significant thick secretions were present throughout the left bronchial tree, mucosa also was friable. [place] [address] PROCEDURE REPORT Name: [facility] L Room: [address] IN ..#: [id number] Admission: 11/21/20 Attend Phys: Marcos Villa MD Discharge: Date of : 49 Report #: [id number] suctioned out. There was a small amount of secretions still remaining, which I did not fully clear as I did not want to precipitate hemorrhage. There was also some inflammation noted throughout the right bronchial tree, but this was much greater than the left. Smaller amounts of thick white secretions were also seen throughout the right bronchial tree and were cleared out. There was no endobronchial lesion identified. The specimen collected has been sent to the laboratory and will be followed up. The patient remained stable throughout the procedure, did not have any desaturations during the procedure, also remained hemodynamically stable. As the patient usually sleeps on BiPAP, I elected to electively placed the patient on a BiPAP while she recovered from sedation. I subsequently also saw the patient in the evening and she was feeling much better than before the procedure. <ELECTRONICALLY SIGNED> By: Santhosh Youngblood MD 12/11/202 20 Atrena Youngblood MD /nt
[2020-12-12] VITALS (8 sets, daily range): BP systolic 156–175; BP diastolic 43–67
[2020-12-12 05:10] LABS: ABSOLUTE BASOPHILS 0.1 thou/uL (0.0-0.2); ABSOLUTE LYMPHOCYTES 0.2 thou/uL (0.8-5.3); ABSOLUTE MONOCYTES 0.4 thou/uL (0.0-1.2); ABSOLUTE NEUTROPHILS 16.5 thou/uL (1.6-8.1); BASOPHILS 0.3 %; EOSINOPHILS 0.1 %; HEMATOCRIT 22.6 % (37.0-47.0); HEMOGLOBIN 7.5 gm/dL (12.0-15.0); LYMPHOCYTES 1.2 %; MCH 27.9 pg (26.0-34.0); MCV 84.5 fL (80.0-100.0); MONOCYTES 2.4 %; MPV 7.8 fl. (7.2-11.1); NUCLEATED RBCS 0 /100WBC; PLATELET COUNT* 230 thou/uL (150-400); RBC 2.67 mil/uL (4.20-5.00); RDW-CV 17.9 % (10.5-14.5); WBC 17.1 thou/uL (4.0-11.0)
[2020-12-12 05:19] LABS: CALCIUM 6.8 mg/dL (8.5-10.1); CREATININE 2.7 mg/dL (0.6-1.3); POTASSIUM 5.6 mmol/L (3.5-5.1)
--- NOTE | 2020-12-12 10:50 | NUR ---
HOLD KAYEXALATE AND LASIX PER .
--- NOTE | 2020-12-12 16:08 | NUR ---
CM DISCUSSED SNF OPTIONS WITH PT. PT AND FAMILY DISCUSSED AND DECIDED UPON [facility]. CM SENT REFERRAL. [facility] WILL SUBMIT FOR AUTH. CM ALSO PROVIDED EDUCATION TO PT'S SPOSUE R/T PRIVATE DUTY C/G. CM TO CONT TO FOLLOW.
[2020-12-13 04:36] VITALS: BP 170/69
--- NOTE | 2020-12-13 04:49 | NUR ---
PATIENT HAS REMAINED ALERT AND ORIENTED X 4 THROUGHOUT THE SHIFT AND RESTING QUIETLY ON HOURLY ROUNDS. TURNED Q2H. PATIENT STATES IT FEELS LIKE THE EDEMA IN HER ARMS HAS IMPROVED SOMEWHAT. US WERE NEGATIVE FOR DVT'S. BIPAP AT HS. BREATH SOUNDS REMAIN COARSE AND COUGH CONGESTED. VITAL SIGNS AND O2 SATS STABLE WITH HYPERTENSION. MEDS/ANTIBIOTICS PER ORDER. FALL PRECAUTIONS IN PLACE. SR ON THE TELE MONITOR. CONTINUE TO MONITOR.
[2020-12-13 06:47] LABS: CALCIUM 7.3 mg/dL (8.5-10.1); CREATININE 2.7 mg/dL (0.6-1.3); POTASSIUM 5.3 mmol/L (3.5-5.1)
[2020-12-13 08:27] VITALS: BP 167/61
[2020-12-13 12:00] VITALS: BP 132/72
[2020-12-13 16:00] VITALS: BP 170/64
--- NOTE | 2020-12-13 16:35 | NUR ---
PT CURRENTLY SITTING UP ON SIDE OF BED VISITING WITH - OCCUPATIONAL THERAPY PROFESSOR IN PLACE ORDERED, TRACING SR- SET UP ASSIST REQIRED WITH MEALS, POOR PO INAKE NOTED- RIGHT SUB CLAV TRIPLE LUMEN PICC NOTED C/D/I-COURSE WET COUGH WITH NOTED WHEEZES-CPT VEST THERAPY ORDERED THIS SHIFT TO BE COMPLETED PER RT- O2 AT 4 L VIA NC, BIPAP PRN-RUIZ IN PLACE D/D CLEAR YELLOW URINE- 2+ UE EDEMA NOTED, RUE SHARI WRAPPED PER THIS SHIFT WITH LUE TO BE WRAPPED AT LATER TIME OF PT TOLERATES RUE- BS MONITORED THIS SHIFT ORDERED- DENIES ANY C/O PAIN- CALL LIGHT AND PERSONAL BELONGINGS WITH IN REACH- HOURLY ROUNDS IN PLACE R/T SAFETY/NEEDS- ALL NEEDS MET AT THIS TIME
[2020-12-13 20:30] VITALS: BP 173/72
[2020-12-14] VITALS (7 sets, daily range): BP systolic 126–168; BP diastolic 47–71
[2020-12-14 05:56] LABS: MCHC 32.9 g/dL (28.0-37.0); MCV 85.2 fL (80.0-100.0); MPV 8.1 fl. (7.2-11.1); NUCLEATED RBCS 0 /100WBC; PLATELET COUNT* 159 thou/uL (150-400); RBC 2.47 mil/uL (4.20-5.00); RDW-CV 18.1 % (10.5-14.5); WBC 14.7 thou/uL (4.0-11.0)
[2020-12-14 06:18] LABS: ALBUMIN 1.9 g/dL (3.4-5.0); CREATININE 2.5 mg/dL (0.6-1.3); POTASSIUM 5.2 mmol/L (3.5-5.1); TOTAL BILIRUBIN 0.5 mg/dL (<0.1-1.0); TOTAL PROTEIN 5.3 g/dL (6.4-8.2)
[2020-12-14 06:36] LABS: HEMOGLOBIN 6.9 gm/dL (12.0-15.0)
[2020-12-14 07:20] LABS: ABSOLUTE LYMPHOCYTES 0.7 thou/uL (0.8-5.3)
[2020-12-14 07:21] LABS: ANISOCYTOSIS 1+; HYPOCHROMASIA 3+; MICROCYTES 1+
--- NOTE | 2020-12-14 08:03 | NUR ---
PATIENT SLEPT MOST OF NIGHT. PATIENT WORE HER BIPAP MOST OF THE NIGHT. LUNGS REMAIN VERY COARSE AND WET SOUNDING. PATIENT SAT UP ON SIDE OF THE BED FOR A LITTLE BIT THIS MORNING. IV FLUIDS AND ANTIBIOTICS INFUSING ORDERED. PATIENT HAD A CRITICAL HBG OF 6.9. DR MUNIZ WAS NOTIFIED. RUIZ REMAINS TO DEPENDENT DRAIN. WILL CONTINUE TO MONITOR.
--- NOTE | 2020-12-14 16:18 | NUR ---
PT ORDRICKENLTGabriela UP IN BED SIDE RECLINER- GATHERING WORKER NOTED SB THIS SHIFT- RIGHT SUB CLAV PICC NOTED C/D/I, IVF INFUSSING PRESCRIBED- IV ABT GIVEN THIS SHIFT PRESCRIBED- CONTINUED DYSPNEA NOTED, COURSE, WET RHONCHI NOTED WITH WHEEZES- HGB NOTED AT 6.9- 1 UNIT RBC TO TRANSFUSE WITH 40MG IV LASIX TO BE GIVEN ORDERED PER PULM THIS SHIFT- CHEST X-RAY ORDERED- BNP NOTED TO BE ELEVATED AT 3636- 3+ BUE EDEMA NOTED- FAIR PO INTAKE NOTED THIS SHIFT WITH MEALS- BS MONITORED AT ORDERED WITH SSI PRESRCIBED-PT DENIES ANY C/O PAIN- CALL LIGHT AND PERSONAL BELONGINGS WITH IN REACH- HOURLY ROUNDS IN PLACE R/T SAFETY/NEEDS- ALL NEEDS MET AT THIS TIME
[2020-12-15] VITALS: BP 141/49
[2020-12-15 04:00] VITALS: BP 111/59
[2020-12-15 07:54] VITALS: BP 148/45
[2020-12-15 08:01] LABS: HEMATOCRIT 25.8 % (37.0-47.0); HEMOGLOBIN 8.5 gm/dL (12.0-15.0); MCH 27.3 pg (26.0-34.0); MCHC 32.9 g/dL (28.0-37.0); MCV 82.9 fL (80.0-100.0); MPV 8.1 fl. (7.2-11.1); RBC 3.11 mil/uL (4.20-5.00); RDW-CV 18.1 % (10.5-14.5); WBC 14.9 thou/uL (4.0-11.0)
--- NOTE | 2020-12-15 08:05 | NUR ---
PATIENT SLEPT MOST OF THE NIGHT. PATIENT FINISHED GETTING HER BLOOD WITH NO REACTIONS. PATIENT HAS BEEN VERY WORN OUT DID NOT WANT TO TAKE HER AM MEDS. PATIENT HAS BEEN ON BIPAP ALL NIGHT. LUNGS REMAIN VERY COARSE AND WHEEZY. WILL CONTINUE TO MONITOR.
[2020-12-15 08:20] LABS: ALBUMIN 2.2 g/dL (3.4-5.0); CALCIUM 7.7 mg/dL (8.5-10.1); CREATININE 2.6 mg/dL (0.6-1.3); MAGNESIUM 3.1 mg/dL (1.8-2.4); POTASSIUM 5.4 mmol/L (3.5-5.1); TOTAL BILIRUBIN 0.7 mg/dL (<0.1-1.0); TOTAL PROTEIN 5.7 g/dL (6.4-8.2)
--- NOTE | 2020-12-15 11:52 | NUR ---
WOUND NURSE: PATIENT PROVIDED WITH TUBIGRIPS AT DR. MUNIZ'S REQUEST. SIZE D FOR 36 CM CALFS BLE, AND SIZE E FOR 41 CM BICEPS BUE. NURSE JESSI INFORMED AND SHE CAN PLACE THEM, PATIENT CURRENTLY RECEIVING XRAY.
[2020-12-15 12:00] VITALS: BP 143/60
[2020-12-15 13:59] LABS: BE -4.2 mmol/L (-2 to +3); PCO2 37.2 mmHg (35.0-45.0); PO2 98.3 mmHg (75.0-100.0); pH 7.364 (7.340-7.450)
--- NOTE | 2020-12-15 14:45 | NUR ---
CM had long discussion with dtr, Dr able to speak with dtr and update on POC. Therapies to see. Plan dc to SNF at dc, referral sent to [facility] last week, awaiting insurance auth. Renal to see tomorrow for possible dialysis needs
[2020-12-15 16:00] VITALS: BP 154/74
--- NOTE | 2020-12-15 16:38 | NUR ---
PT CURRENTLY UP IN BED SIDE RECLINER VIA ASSIST OF JV LIFT THIS SHIFT- ARTILLERY OR [employer] GUN[employer]RE OBSERVER IN PLACE ORDERED, TRACING SR- RIGHT SUB CLAV PICC NOTED C/D/I AND SL- IVF NOTED TO BE D/C'D THIS SHIFT- IV ABT GIVEN PRESCRIBED- INCREASED ANXIETY NOTED THIS AM, PT REPORTING HAVING HARD TIME BREATHING, HOWEVER O2 SAT STABLE- AT SIDE TO ASSESS- ORDERS NOTED FOR LASIX 40MG IV X1 AND GIVEN PER ORDERS- SCHEDULED ATIVAN GIVEN AND BIPAP PLACED WITH NOTED IMPROVEMENT- CONTINUED LABORED BREATHING AT TIMES WITH COURSE LUNG SOUNDS WITH NOTED WHEEZES- DIALYSIS BEING QUESTIONED AT THIS TIME- ABG'S NOTED THIS SHIFT- CHEST X-RAY ORDERED AND NOTED WELL- GI CONSULT NOTED R/T HEPATITIS- REPORTED HIP PAIN, NOTED TOO BE IMPROVED WITH REPOSITIONING THIS SHIFT-TUB DEPUTY [place] PLACED TO UE R/T 3-4+ EDEMA THIS SHIFT- AT SIDE MOST SHIFT- CALL LIGHT AND PERSONAL BELONGINGS WITH IN REACH- HOURLY ROUNDS IN PLACE R/T SAFETY/NEEDS- ALL NEEDS MET AT THIS TIME
[2020-12-16 01:17] VITALS: BP 143/49
[2020-12-16 04:33] VITALS: BP 167/68
[2020-12-16 05:00] LABS: ALBUMIN 2.1 g/dL (3.4-5.0); CALCIUM 8.3 mg/dL (8.5-10.1); TOTAL BILIRUBIN 0.6 mg/dL (<0.1-1.0); TOTAL PROTEIN 5.4 g/dL (6.4-8.2)
[2020-12-16 05:14] LABS: POTASSIUM 6.1 mmol/L (3.5-5.1)
--- NOTE | 2020-12-16 05:45 | NUR ---
ASSUMED PT CARE AT APPROX. 1930. PT IS A/OX4 AND VERY ANXIOUS. DURING FREIGHT CLERK STATED SHE WOULD BE BACK WITH HER NIGHT TIME MEDICATIONS. PT STATED, "OH NO, I AM SICK OF TAKING MEDICATIONS." RN EDUCATED PT ABOUT MEDICATIONS TO BE ADMINISTERED. PT AGREED TO TAKE MEDICINE. RN RETURNED TO PT'S BEDSIDE TO GIVE PT HER MEDICATIONS AND PT REFUSED. RN DISCUSSED WITH PT THE IMPORTANCE OF EACH MEDICINE. PT KEPT EYES CLOSED AND SAID, "NO! LET IT BE." MEDICATIONS NOT ADMINISTERED R/T PT REFUSAL. CN NOTIFIED. ALL MEDICATIONS RETURNED TO [facility]. PT IS ON BIPAP. SEE CHARTING FOR DETAILS. PT SLEPT DURING THE NOC. FALL PRECAUTIONS IN PLACE FOR SAFETY. CALL LIGHT WITHIN REACH. HOURLY ROUNDS COMPLETE CHARTED. NO ACUTE CHANGES THIS SHIFT. WILL CONT. TO MONITOR.
[2020-12-16 08:33] VITALS: BP 167/63
[2020-12-16 10:43] LABS: CREATININE 3.3 mg/dL (0.6-1.3); POTASSIUM 5.6 mmol/L (3.5-5.1)
[2020-12-16 10:45] VITALS: BP 167/63
--- NOTE | 2020-12-16 15:08 | NUR ---
CM updated Noreen at [facility] to cancel insurance auth for skilled, Pt to start dialysis today, cath to be placed. CM to fax initial dialysis referral to [facility], Pt is now ESRD. CM to following for SNF needs once outpt dialysis arranged and Pt medically stable to [place].
--- NOTE | 2020-12-16 16:37 | CON ---
[address] [address] CONSULTATION Name: CACHORRO CROSS Room: [address] IN .R.#: [id number] Admission: 11/21/20 Attend Phys: Marcos Villa MD Discharge: Date of : 49 Report #: [id number] THIS REPORT FOR: cc: Omer Snyder MD,Jared Martinez MD, DO ~ cc: Omer Snyder MD DATE OF CONSULTATION: 12/16/2020 Please note at the time of this dictation, the patient was seen and physically examined by myself. REASON FOR CONSULTATION: Elevated LFTs. HISTORY OF PRESENT ILLNESS: This is a 75-year-old female who presented to the Emergency Room after recently being discharged on 11/14 for similar episodes of increased cough and shortness of breath. The patient is on chronic O2 at home as well with CPAP at night. The patient was last seen by us back in 2018, at which time she had a small bowel capsule that was negative and noted a 2-cm hiatal hernia. She had a colonoscopy back in 2018 that showed colon polyps, but otherwise was negative. On admission, the patient's liver enzymes were completely normal, and around 12/07-12/09, they increased. Likely suspicion, could be related to antibiotic use due to her ongoing issues with her COPD exacerbation and her pneumonitis. The patient is currently having no complaints of any GI symptoms at this time. She denies any nausea, no vomiting, no fever, chills, abdominal pain, difficulty swallowing, acid reflux. Bowels are moving daily, soft and formed with no evidence of any bright red blood or any melena. ALLERGIES: CONTRAST DYE, SULFA, CYMBALTA, DARVON, INDERAL, and ____. MEDICATIONS FROM HOME: Include: 1. Atrovent nebulizer. 2. Antacid. 3. Lantus. 4. Brovana. 5. Pulmicort. 6. Levaquin. 7. Prednisone. 8. Aspirin. 9. Plavix. 10. Levothroid. 11[place] [address] CONSULTATION Name: CACHORRO CROSS Aileen Room: [address]#: [id number] Admission: 11/21/20 Attend Phys: Marcos Villa MD Discharge: Date of : 49 Report #: [id number] 12. Tylenol. 13. Ferrous sulfate. 14. Guaifenesin. 15. Pravastatin. PAST MEDICAL HISTORY: 1. Diabetes with retinopathy. 2. Hypertension. 3. Hyperlipidemia. 4. COPD with O2 continuous. 5. Coronary artery disease with an NC in 2009. 6. Arthritis. 7. Two mini strokes within the last year. 8. Diabetic CHF with diastolic dysfunction. 9. Chronic kidney disease. 10. History of stents. 11. Hyperkalemia. 12. Macular degeneration. PAST SURGICAL HISTORY: 1. Thyroidectomy. 2. Stents. 3. Cataract. 4. Hysterectomy. FAMILY HISTORY: Negative for any GI or female cancers. SOCIAL HISTORY: Previous tobacco use. Denies any alcohol or illegal drug use. REVIEW OF SYSTEMS: Twelve-point review of systems is essentially negative except for what is mentioned in the HPI. PHYSICAL EXAMINATION: VITAL SIGNS: Temperature 35.9, pulse 73, respirations 18, blood pressure 167/68. HEART: Regular rate and rhythm. LUNGS: Clear. Diminished with some expiratory wheezes. The patient on CPAP this morning. ABDOMEN: Soft. Positive bowel sounds in all 4 quadrants with no masses or tenderness noted. LABORATORY DATA: GFR is 15. BUN is 149, creatinine is 3. Hemoglobin 8.5, white count 14.9, [place] 147[place] [address] CONSULTATION Name: AMERICACACHORRO Room: [address] IN [facility]#: [id number] Admission: 11/21/20 Attend Phys: Marcos Villa MD Discharge: Date of : 49 Report #: [id number] Total bilirubin is 0.6. Alkaline phosphatase on 12/09 was 98 and has moved up to 135. ALT was 64 on 12/07, it is now 298. AST was 104 on 12/07, it is now 74. Total protein 5.4. Albumin is 2.1. Potassium is 6.1. PT on admission 10.1, INR is 0.9. Her CT scan back in 11/2018 was completely negative. She has had a previous cholecystectomy. IMPRESSION: 1. Transaminitis, questionable drug induced. 2. Anemia, chronic. 3. Thrombocytopenia. 4. Leukocytosis. 5. Chronic obstructive pulmonary disease, oxygen dependent, with exacerbation. PLAN: 1. Ultrasound of the abdomen. 2. Check an acute hepatitis panel. 3. Watch for any overt bleeding. 4. Further recommendations to be made once the above has been noted. Thank you for allowing us to participate in this patient's care. Please do not hesitate to call with any questions regarding this consult. <ELECTRONICALLY SIGNED> By: Jared Rivera DO 12/16/20 1637 0730 [id number] Rivera DO /nt
--- NOTE | 2020-12-16 18:57 | NUR ---
PATIENT HAS SLEPT MOST OF SHIFT AND HAS DECLINED ANY PO MEDICATIONS. PATIENT EDUCTED ON MEDICATIONS AND CONTINUES TO DECLINE. PATIENT HAD TUNNELED DIALYSIS LINE PLACED TO RIGHT JUGULAR TODAY AND COMPLETED HER FIRST DIALYSIS TREATMENT. DIALYSIS NURSE CONTACTED THIS NURSE AT THE END OF TREATMENT TO REPORT ACCESS SITE IS BLEEDING. IR NURSE CAME TO UNIT TO HELP WITH STOPPING BLEEDING AND APPLIED NEW DRESSING. PATIENT CURRENTLY LYING IN BED WITH EYES CLOSED, APPEARS TO BE SLEEPING. RESPIRATIONS EVEN AND UNLABORED. CALL LIGHT AND FREQUENTLY USED ITEMS WITHIN REACH.
[2020-12-17] VITALS (7 sets, daily range): BP systolic 135–185; BP diastolic 42–76
--- NOTE | 2020-12-17 06:30 | NUR ---
ASSUMED PT CARE AT 1915. SR ON PAYROLL PROCESSOR. PT REFUSED PO MEDS AT START OF SHIFT. RESTLESS SINCE LOCAL AREA NETWORK SYSTEMS ADMINSTRATOR. COMPLIANT WITH BIPAP. PRN PAIN MEDICATION ADMINISTERED, SEE EMAR FOR DOCUMENTATION. RIGHT SUBCLAVIAN DRESSING SATURATED THIS SHIFT, REINFORCED X1 THEN DRESSING CHANGED THIS AM. HOURLY ROUNDING COMPLETED. HIGH FALL PRECAUTIONS IN PLACE. Q2H REPOSITIONING COMPLETED.
[2020-12-17 09:34] LABS: MCH 28.3 pg (26.0-34.0); MCV 83.3 fL (80.0-100.0); MPV 8.1 fl. (7.2-11.1); NUCLEATED RBCS 0 /100WBC; PLATELET COUNT* 85 thou/uL (150-400); RBC 2.38 mil/uL (4.20-5.00); RDW-CV 18.3 % (10.5-14.5); WBC 10.5 thou/uL (4.0-11.0)
[2020-12-17 09:47] LABS: CALCIUM 7.4 mg/dL (8.5-10.1); CREATININE 2.6 mg/dL (0.6-1.3); INR 0.9; POTASSIUM 5.5 mmol/L (3.5-5.1); TOTAL BILIRUBIN 0.5 mg/dL (<0.1-1.0); TOTAL PROTEIN 5.1 g/dL (6.4-8.2)
[2020-12-17 09:50] LABS: HEMOGLOBIN 6.7 gm/dL (12.0-15.0)
[2020-12-17 09:51] LABS: HEMATOCRIT 19.8 % (37.0-47.0)
[2020-12-17 10:34] LABS: ABSOLUTE LYMPHOCYTES 0.4 thou/uL (0.8-5.3); ABSOLUTE MONOCYTES 0.1 thou/uL (0.0-1.2); HYPOCHROMASIA 1+; PLATELET ESTIMATE DECREASED
[2020-12-17 10:35] LABS: ANISOCYTOSIS 1+; POIKILOCYTOSIS 1+
--- NOTE | 2020-12-17 12:07 | NUR ---
THIS DISABILITY ATTORNEY RETRIEVED THE BLOOD FROM LAB AND TRANSPORTED TO DIALYSIS NURSE AT APPROXIAMETLY 1040AM. BLOOD VERIFIED IN LAB AND AT BEDSIDE WITH THE DIALYSIS NURSE.
--- NOTE | 2020-12-17 12:29 | NUR ---
Pt had dialysis again today, anticipate dialysis tomorrow. CM faxed HD outpt referral to [facility], wait medical clearance and chair time. Pt will likely continue to need SNF [place], insurance auth will need to be reobtained.
[2020-12-17 12:46] LABS: HEMATOCRIT 24.9 % (37.0-47.0); HEMOGLOBIN 8.6 gm/dL (12.0-15.0)
--- NOTE | 2020-12-17 16:18 | NUR ---
WOUND NURSE: PATIENT SEEN TO ADDRESS LEFT BUTTOCK BLISTER. MEASURES 2 X 1 X 0.1 CM. PRESENTS WITH PARTIAL THICKNESS TISSUE LOSS AND PINK NONGRANULATING TISSUE IN THE WOUND BED. THERE IS NO ACTVE DRAINAGE NOTED. PERIWOUND TISSUE WITHOUT REDNESS, WARMTH, OR INDURATION. WOUND CARE WAS PROVIDED PRESCRIBED. PATIENT IS NOT TEACHEABLE.
--- NOTE | 2020-12-17 18:36 | NUR ---
PATIENT HAD DIALYSIS THIS MORNING AND RECEIVED 1 UNIT OF BLOOD WHILE DIALYZING. PATIENT HAS BEEN SLEEPING MOST OF SHIFT AND HAS DECLINED MOST PO MEDICATIONS AGAIN TODAY. CALL LIGHT AND FREQUENTLY USED ITEMS WITHIN REACH.
[2020-12-17 22:06] LABS: HEPATITIS B SURFACE AG Negative (Negative)
[2020-12-18 01:12] VITALS: BP 134/46
[2020-12-18 04:00] VITALS: BP 184/65
[2020-12-18 04:34] LABS: ABSOLUTE LYMPHOCYTES 0.3 thou/uL (0.8-5.3); ABSOLUTE MONOCYTES 0.4 thou/uL (0.0-1.2); ABSOLUTE NEUTROPHILS 7.3 thou/uL (1.6-8.1); BASOPHILS 0.3 %; HEMATOCRIT 20.6 % (37.0-47.0); HEMOGLOBIN 7.1 gm/dL (12.0-15.0); LYMPHOCYTES 3.7 %; MCH 28.2 pg (26.0-34.0); MCHC 34.4 g/dL (28.0-37.0); MCV 82.1 fL (80.0-100.0); MONOCYTES 4.8 %; MPV 7.9 fl. (7.2-11.1); NUCLEATED RBCS 0 /100WBC; PLATELET COUNT* 57 thou/uL (150-400); POLYS 91.2 %; RBC 2.51 mil/uL (4.20-5.00); RDW-CV 16.9 % (10.5-14.5)
[2020-12-18 05:00] LABS: CALCIUM 6.7 mg/dL (8.5-10.1); POTASSIUM 5.2 mmol/L (3.5-5.1)
--- NOTE | 2020-12-18 05:31 | NUR ---
ASSUMED PT CARE AT 1905. NURSING ASSESSMENT COMPLETED AT STAR OF SHIFT. SR ON BROADCAST PROGRAM DIRECTOR. PT REFUSED ALL MEDICATIONS THIS SHIFT EXCEPT PAIN MEDICATION AND CARVEDILOL. Q2H REPOSITIONING COMPLETED. HIGH FALL PRECAUTIONS IN PLACE. HOURLY ROUNDING COMPLETE. CALL LIGHT WITHIN REACH.
[2020-12-18 08:00] VITALS: BP 170/76
[2020-12-18 12:00] VITALS: BP 140/61
[2020-12-18 12:01] LABS: ALBUMIN 1.8 g/dL (3.4-5.0); DIRECT BILIRUBIN 0.3 mg/dL (<0.1-0.3); TOTAL BILIRUBIN 0.5 mg/dL (<0.1-1.0); TOTAL PROTEIN 4.6 g/dL (6.4-8.2)
--- NOTE | 2020-12-18 14:00 | NUR ---
Pt to have dialysis today. Await chair time and schedule from [facility]. Plan continues to be SNF [place], therapies to continue working with Pt
[2020-12-18 16:59] VITALS: BP 143/66
[2020-12-18 22:00] VITALS: BP 152/64
[2020-12-19] VITALS: BP 145/47
[2020-12-19 04:30] VITALS: BP 138/60
[2020-12-19 06:33] LABS: ABSOLUTE LYMPHOCYTES 0.6 thou/uL (0.8-5.3); ABSOLUTE MONOCYTES 0.3 thou/uL (0.0-1.2); ABSOLUTE NEUTROPHILS 6.5 thou/uL (1.6-8.1); BASOPHILS 0.2 %; EOSINOPHILS 0.2 %; LYMPHOCYTES 8.6 %; MCH 28.6 pg (26.0-34.0); MCHC 35.2 g/dL (28.0-37.0); MCV 81.2 fL (80.0-100.0); MONOCYTES 4.5 %; MPV 8.3 fl. (7.2-11.1); NUCLEATED RBCS 0 /100WBC; PLATELET COUNT* 54 thou/uL (150-400); POLYS 86.5 %; RBC 2.32 mil/uL (4.20-5.00); RDW-CV 16.2 % (10.5-14.5); WBC 7.6 thou/uL (4.0-11.0)
[2020-12-19 06:52] LABS: CALCIUM 6.7 mg/dL (8.5-10.1); CREATININE 1.6 mg/dL (0.6-1.3); POTASSIUM 4.9 mmol/L (3.5-5.1)
--- NOTE | 2020-12-19 07:01 | NUR ---
PT SLEPT WELL OVERNIGHT, TOOK SOME MEDS AT HS WITHOUT DIFFICULTY. BIPAP ON OVERNIGHT. R JOSH WITH GAUZE DRSG PER DIALYSIS. R TL SUBCLAVIAN SL, LAB DRAWN THIS MORNING. LUNGS COARSE, BARR. ARM EDEMA, BRUISING AND WEEPING. DRSG CDI TO BUTTOCKS. PT TURNED AND REPOSITIONED Q2 HOURS AND PRN FOR SKIN CARE AND COMFORT. RUIZ WITH 200ML YELLOW URINE.
[2020-12-19 07:48] LABS: HEMATOCRIT 18.8 % (37.0-47.0); HEMOGLOBIN 6.6 gm/dL (12.0-15.0)
[2020-12-19 08:00] VITALS: BP 154/60
--- NOTE | 2020-12-19 09:22 | NUR ---
CM spoke with Anneliese with [facility], anticipate a chair time for outpt dialysis either later today or Tuesday, case is pending record review. CM updated [facility] that Pt is close to being medically stable to dc once, chair time obtained. CM checking to see when they will have a SNF bed available. Faxed updates. Insurance auth will need to be obtained prior to dc to SNF. Anneliese p:[phone]
[2020-12-19 12:00] VITALS: BP 167/52
[2020-12-19 16:00] VITALS: BP 148/48
[2020-12-20 01:29] VITALS: BP 18/6
[2020-12-20 06:19] VITALS: BP 152/72
[2020-12-20 08:00] VITALS: BP 158/53
[2020-12-20 08:53] LABS: HEMATOCRIT 23.9 % (37.0-47.0); HEMOGLOBIN 8.2 gm/dL (12.0-15.0); MCH 28.5 pg (26.0-34.0); MCHC 34.5 g/dL (28.0-37.0); MCV 82.8 fL (80.0-100.0); MPV 7.8 fl. (7.2-11.1); NUCLEATED RBCS 0 /100WBC; PLATELET COUNT* 53 thou/uL (150-400); RBC 2.89 mil/uL (4.20-5.00); RDW-CV 16.8 % (10.5-14.5)
[2020-12-20 09:05] LABS: CALCIUM 6.5 mg/dL (8.5-10.1); CREATININE 1.9 mg/dL (0.6-1.3); POTASSIUM 4.7 mmol/L (3.5-5.1)
[2020-12-20 10:23] LABS: ABSOLUTE EOSINOPHILS 0.2 thou/uL (0.0-0.7); ABSOLUTE NEUTROPHILS 9.8 thou/uL (1.6-8.1); ANISOCYTOSIS 1+; PLATELET ESTIMATE DECREASED
[2020-12-20 10:24] LABS: CLUMPED PLTS RARE
[2020-12-20 14:00] LABS: ALBUMIN 1.9 g/dL (3.4-5.0); DIRECT BILIRUBIN 0.3 mg/dL (<0.1-0.3); TOTAL BILIRUBIN 0.6 mg/dL (<0.1-1.0); TOTAL PROTEIN 4.4 g/dL (6.4-8.2)
[2020-12-20 17:09] VITALS: BP 153/48
[2020-12-20 20:00] VITALS: BP 140/48
[2020-12-21 00:16] VITALS: BP 140/46
[2020-12-21 05:19] VITALS: BP 127/58
[2020-12-21 08:00] VITALS: BP 156/54
[2020-12-21 12:00] VITALS: BP 155/50
[2020-12-21 16:00] VITALS: BP 133/65
[2020-12-21 20:00] VITALS: BP 154/80
[2020-12-22] VITALS: BP 157/56
[2020-12-22 04:02] VITALS: BP 131/59
--- NOTE | 2020-12-22 04:21 | NUR ---
AWAKE OCC DURING NIGHT. BIPAP ON APPROX 2130 AND PT ASKING TO GO BACK TO NC AT 2300. 02 AT 4L/NC. PT NOT WANTING TO REPOSITION, LIKES TO STAY ONTO LT SIDE. GRABIEL ARMS EDEMATOUS WITH BLISTERS WEEPING. TOOK SOME HS MEDS WITH ENCOURAGEMENT. INSULIN GIVEN LATE AFTER SUPPER BUT BLOOD SUGAR >500. INSULIN GIVEN AND RECHECKED AT 0130 FOR 348. TELEMETRY ON SHOWING SR. HS GOALS OF REST AND SAFETY ACHIEVED. HOURLY ROUNDING OBSERVED.
[2020-12-22 04:35] LABS: POTASSIUM 4.6 mmol/L (3.5-5.1)
[2020-12-22 04:51] LABS: ALBUMIN 1.6 g/dL (3.4-5.0); CALCIUM 6.7 mg/dL (8.5-10.1); CREATININE 2.1 mg/dL (0.6-1.3); MAGNESIUM 1.9 mg/dL (1.8-2.4); TOTAL BILIRUBIN 0.4 mg/dL (<0.1-1.0); TOTAL PROTEIN 5.1 g/dL (6.4-8.2)
[2020-12-22 04:59] LABS: HEMATOCRIT 22.1 % (37.0-47.0); HEMOGLOBIN 7.5 gm/dL (12.0-15.0); MCH 28.6 pg (26.0-34.0); MPV 8.4 fl. (7.2-11.1); RBC 2.63 mil/uL (4.20-5.00); RDW-CV 16.4 % (10.5-14.5); WBC 11.8 thou/uL (4.0-11.0)
[2020-12-22 08:00] VITALS: BP 137/66
--- NOTE | 2020-12-22 14:14 | NUR ---
Pt having dialysis today. Anticipate that Pt will be medically stable to dc on Tuesday. CM updated Noreen at [facility] and faxed updated clinicals
[2020-12-22 16:00] VITALS: BP 127/47
[2020-12-22 20:00] VITALS: BP 138/41
--- NOTE | 2020-12-22 20:00 | NUR ---
RECEIVED REPORT AND ASSUMED CARE OF PT, ASSESSMENT COMPLETED. PT SLEEPING, AWAKENS BUT DOES NOT WANT TO BE BOTHERED. REPOSITIONED BUT DOES NOT LIKE MOVING AND WANTING TO LAY ON LT SIDE ALWAYS. TURNED ONTO RT SIDE AT THIS TIME. GRABIEL ARMS DECREASED IN SIZE, VERY WEEPY, LG AMT OF BRUISING NOTED. HOB ELEVATED, LUNG SOUNDS MOIST ENCOURAGED TO COUGH BUT SAYS SHE CAN'T. TELEMETRY ON SHOWING SR. WILL CONT TO MONITOR AND ASSIST NEEDED.
[2020-12-23 00:48] VITALS: BP 112/50
[2020-12-23 04:44] LABS: HEMATOCRIT 21.7 % (37.0-47.0); HEMOGLOBIN 7.3 gm/dL (12.0-15.0); MCH 28.5 pg (26.0-34.0); MCHC 33.7 g/dL (28.0-37.0); MCV 84.4 fL (80.0-100.0); MPV 8.6 fl. (7.2-11.1); RBC 2.57 mil/uL (4.20-5.00); RDW-CV 16.7 % (10.5-14.5); WBC 11.2 thou/uL (4.0-11.0)
[2020-12-23 04:53] LABS: ALBUMIN 1.4 g/dL (3.4-5.0); CALCIUM 6.8 mg/dL (8.5-10.1); CREATININE 1.2 mg/dL (0.6-1.3); MAGNESIUM 1.8 mg/dL (1.8-2.4); TOTAL BILIRUBIN 0.4 mg/dL (<0.1-1.0); TOTAL PROTEIN 4.9 g/dL (6.4-8.2)
[2020-12-23 04:55] VITALS: BP 124/46
--- NOTE | 2020-12-23 06:52 | NUR ---
ASLEEP ALL NIGHT, WHEN WOKE TO REPOSITION REFUSED. WEARING BIPAP. GRABIEL ARMS CONT TO WEEP. AM MEDS NOT GIVEN PER PT REQUEST. NO CHANGE IN ASSESSMENT. PT MIGUEL ANGEL INTO 50'S WHEN SLEEPING. HS GOALS OF REST AND SAFETY ACHIEVED. HOURLY ROUNDING OBSERVED.
[2020-12-23 09:15] LABS: % SATURATION 13 % (20-39); IRON 20 ug/dL (50-175)
--- NOTE | 2020-12-23 09:43 | NUR ---
THIS CONFLICT RESOLUTION PROFESSIONAL AGREES WITH DOCUMENTED TREATMENT NOTE BY LOREN KUMARI FOR THIS DAY. BRANDON LEVIT
[2020-12-23 11:51] VITALS: BP 141/41
--- NOTE | 2020-12-23 15:43 | NUR ---
CM contacted Rachel with [facility]), plan is for Pt to have a MWF schedule at the [place] location until a chair opens closer to [place]. Pt's chair time will be 1210, will need to arrive 30 mins early, anticipate Pt to start on 12/26. CM updated admissions at [facility], they will be able to provide transportation. Pt now on ivabx.
[2020-12-23 16:33] VITALS: BP 150/54
[2020-12-23 20:00] VITALS: BP 131/71
[2020-12-24 00:36] VITALS: BP 143/60
[2020-12-24 04:52] LABS: HEMATOCRIT 20.9 % (37.0-47.0); HEMOGLOBIN 7.1 gm/dL (12.0-15.0); MCH 28.8 pg (26.0-34.0); MCV 84.6 fL (80.0-100.0); NUCLEATED RBCS 0 /100WBC; PLATELET COUNT* 88 thou/uL (150-400); RBC 2.47 mil/uL (4.20-5.00); RDW-CV 16.5 % (10.5-14.5)
--- NOTE | 2020-12-24 04:56 | NUR ---
ASSUMED PT CARE AT 1910. NURSING ASSESSMENT COMPLETED AT START OF SHIFT. PT VOICED NO CONCERNS. HOURLY ROUNDING COMPLETED. Q2H REPOSITIONING COMPLETED. HIGH FALL PRECAUTIONS IN PLACE. PT COMPLIANT WITH MEDS AND BIPAP THIS SHIFT.
[2020-12-24 05:04] LABS: ALBUMIN 1.5 g/dL (3.4-5.0); CALCIUM 7.3 mg/dL (8.5-10.1); CREATININE 1.6 mg/dL (0.6-1.3); POTASSIUM 4.8 mmol/L (3.5-5.1); TOTAL BILIRUBIN 0.4 mg/dL (<0.1-1.0); TOTAL PROTEIN 5.1 g/dL (6.4-8.2)
[2020-12-24 05:58] VITALS: BP 150/68
[2020-12-24 07:05] LABS: ABSOLUTE LYMPHOCYTES 0.3 thou/uL (0.8-5.3); ABSOLUTE MONOCYTES 0.3 thou/uL (0.0-1.2); ABSOLUTE NEUTROPHILS 10.3 thou/uL (1.6-8.1); ANISOCYTOSIS 1+; METAMYELOCYTES 1 %; PLATELET ESTIMATE DECREASED
[2020-12-24 08:00] VITALS: BP 181/69
[2020-12-24 12:25] VITALS: BP 169/65
--- NOTE | 2020-12-24 14:20 | NUR ---
Repeat cxr today. Dialysis today. Pulm following, continue ivabx. Anticipate dc in a day or two. Outpt dialysis schedule letter received.
[2020-12-24 15:40] VITALS: BP 142/64
[2020-12-24 20:04] VITALS: BP 148/64
[2020-12-25 00:23] VITALS: BP 144/42
[2020-12-25 04:00] VITALS: BP 132/59
--- NOTE | 2020-12-25 05:18 | NUR ---
PT IS ABLE TO COMMUNICATE HER NEEDS TO STAFF EFFECTIVELY. SHE HAS REPORTED PAIN, BUT HAS REFUSED TAKING PAIN MEDS UP TO THIS TIME. RUIZ HAS BEEN PATENT UP TO THIS TIME. PT HAS REFUSED MANY ORAL AND IV MEDS DURING THIS SHIFT; SHE HAS ALLOWED US TO REPOSITION HER THROUGHOUT THE SHIFT THUS FAR. SHE IS A DIALYSIS PT; OUTPATIENT SCHEDULE IS BEING ESTABLISHED.
[2020-12-25 05:53] LABS: HEMATOCRIT 23.1 % (37.0-47.0); HEMOGLOBIN 7.7 gm/dL (12.0-15.0); MCH 28.3 pg (26.0-34.0); MCHC 33.2 g/dL (28.0-37.0); MCV 85.4 fL (80.0-100.0); MPV 8.3 fl. (7.2-11.1); RBC 2.71 mil/uL (4.20-5.00); RDW-CV 17.4 % (10.5-14.5); WBC 10.1 thou/uL (4.0-11.0)
[2020-12-25 06:09] LABS: ALBUMIN 1.6 g/dL (3.4-5.0); CALCIUM 7.3 mg/dL (8.5-10.1); CREATININE 1.3 mg/dL (0.6-1.3); MAGNESIUM 1.9 mg/dL (1.8-2.4); POTASSIUM 4.6 mmol/L (3.5-5.1); TOTAL BILIRUBIN 0.4 mg/dL (<0.1-1.0); TOTAL PROTEIN 5.3 g/dL (6.4-8.2)
[2020-12-25 08:00] VITALS: BP 162/66
--- NOTE | 2020-12-25 10:27 | NUR ---
THIS PACKAGING ASSOCIATE IS IN AGREEMENT WITH DOCUMENTED NOTE BY LOREN KUMARI FOR THIS DAY. BRANDON LEVIT
[2020-12-25 11:49] VITALS: BP 140/70
--- NOTE | 2020-12-25 12:45 | NUR ---
No dc today. CM updated Raquel at [facility] that Pt will not start outpt dialysis tomorrow, CM to update Raquel tomorrow on dc. CM updated Noreen at [facility], faxed updates. Therapies to continue to work with Pt. Pt on 4L.
[2020-12-25 17:12] VITALS: BP 171/69
--- NOTE | 2020-12-25 18:59 | NUR ---
ASSUMED PT CARE AT 0730, PT AOX4, C/O PAIN IN LEGS TREATED W/ PRN PAIN MEDS. PT WORKED W/ PT AND OT TODAY AND GOT UP TO CHAIR W/ JV LIFT FOR A FEW HOURS, BACK IN BED NOW. PT REFUSES MOST MEDS, ENCOURAGED PT TO TAKE AT LEAST SOME OF THE MORE IMPORTANT ONES, FAMILY WAS IN ROOM AND HELPED W/ ENCOURAGEMENT. PT RELUCTANTLY AGREED TO TAKE SOME MEDS. GOAL IS TO CONTINUE TO TAKE MEDS AND WORK W/ NURSING STAFF
[2020-12-26] VITALS: BP 140/50
[2020-12-26 04:00] VITALS: BP 150/48
[2020-12-26 04:50] LABS: ABSOLUTE LYMPHOCYTES 0.2 thou/uL (0.8-5.3); ABSOLUTE MONOCYTES 0.2 thou/uL (0.0-1.2); ABSOLUTE NEUTROPHILS 8.4 thou/uL (1.6-8.1); BASOPHILS 0.2 %; HEMATOCRIT 23.6 % (37.0-47.0); HEMOGLOBIN 7.7 gm/dL (12.0-15.0); LYMPHOCYTES 2.8 %; MCH 28.6 pg (26.0-34.0); MCHC 32.7 g/dL (28.0-37.0); MCV 87.4 fL (80.0-100.0); MONOCYTES 1.7 %; MPV 8.5 fl. (7.2-11.1); NUCLEATED RBCS 0 /100WBC; PLATELET COUNT* 114 thou/uL (150-400); POLYS 95.3 %; RDW-CV 17.6 % (10.5-14.5); WBC 8.8 thou/uL (4.0-11.0)
[2020-12-26 06:45] LABS: CREATININE 1.7 mg/dL (0.6-1.3); PHOSPHORUS* 4.6 mg/dL (2.5-4.9); POTASSIUM 4.9 mmol/L (3.5-5.1)
[2020-12-26 08:00] VITALS: BP 109/73
[2020-12-26 12:29] VITALS: BP 144/56
--- NOTE | 2020-12-26 14:24 | NUR ---
No weekend dc planned. CM updated Raquel at [facility], CM to updated Raquel on Tuesday with POC. Per Dr, Pt refusing meds today and lacks motivation. Pt to have dialysis today. Updated [facility], per SNF, insurance auth good through 12/28
[2020-12-26 16:00] VITALS: BP 149/68
[2020-12-26 20:00] VITALS: BP 148/55
[2020-12-27] VITALS (7 sets, daily range): BP systolic 140–187; BP diastolic 43–77
[2020-12-27 06:12] LABS: ABSOLUTE LYMPHOCYTES 0.5 thou/uL (0.8-5.3); ABSOLUTE MONOCYTES 0.3 thou/uL (0.0-1.2); ABSOLUTE NEUTROPHILS 6.1 thou/uL (1.6-8.1); BASOPHILS 0.2 %; EOSINOPHILS 0.1 %; HEMATOCRIT 21.1 % (37.0-47.0); LYMPHOCYTES 6.8 %; MCH 27.9 pg (26.0-34.0); MCHC 32.6 g/dL (28.0-37.0); MCV 85.5 fL (80.0-100.0); MONOCYTES 4.6 %; NUCLEATED RBCS 0 /100WBC; PLATELET COUNT* 120 thou/uL (150-400); POLYS 88.3 %; RBC 2.47 mil/uL (4.20-5.00); WBC 6.9 thou/uL (4.0-11.0)
[2020-12-27 06:36] LABS: ALBUMIN 1.6 g/dL (3.4-5.0); CALCIUM 7.2 mg/dL (8.5-10.1); CREATININE 1.6 mg/dL (0.6-1.3); POTASSIUM 4.6 mmol/L (3.5-5.1); TOTAL BILIRUBIN 0.3 mg/dL (<0.1-1.0); TOTAL PROTEIN 4.9 g/dL (6.4-8.2)
[2020-12-27 06:55] LABS: HEMOGLOBIN 6.9 gm/dL (12.0-15.0)
[2020-12-27 07:06] LABS: HEMATOCRIT 21.1 % (37.0-47.0); MCH 27.9 pg (26.0-34.0); MCHC 32.4 g/dL (28.0-37.0); MPV 7.9 fl. (7.2-11.1); RBC 2.46 mil/uL (4.20-5.00); RDW-CV 17.7 % (10.5-14.5); WBC 6.7 thou/uL (4.0-11.0)
[2020-12-27 07:08] LABS: HEMOGLOBIN 6.9 gm/dL (12.0-15.0)
[2020-12-27 18:15] LABS: HEMATOCRIT 27.7 % (37.0-47.0)
[2020-12-27 18:16] LABS: HEMOGLOBIN 9.2 gm/dL (12.0-15.0)
[2020-12-28 00:42] VITALS: BP 165/63
[2020-12-28 04:22] VITALS: BP 175/64
[2020-12-28 05:54] LABS: ABSOLUTE LYMPHOCYTES 0.6 thou/uL (0.8-5.3); ABSOLUTE MONOCYTES 0.4 thou/uL (0.0-1.2); ABSOLUTE NEUTROPHILS 5.1 thou/uL (1.6-8.1); BASOPHILS 0.2 %; HEMOGLOBIN 8.3 gm/dL (12.0-15.0); LYMPHOCYTES 9.5 %; MCH 29.9 pg (26.0-34.0); MCHC 34.6 g/dL (28.0-37.0); MCV 86.3 fL (80.0-100.0); MONOCYTES 6.7 %; MPV 8.3 fl. (7.2-11.1); NUCLEATED RBCS 0 /100WBC; PLATELET COUNT* 140 thou/uL (150-400); POLYS 83.6 %; RBC 2.78 mil/uL (4.20-5.00); RDW-CV 17.3 % (10.5-14.5)
[2020-12-28 06:00] LABS: CALCIUM 7.5 mg/dL (8.5-10.1); CREATININE 1.7 mg/dL (0.6-1.3); MAGNESIUM 1.9 mg/dL (1.8-2.4); POTASSIUM 4.4 mmol/L (3.5-5.1)
[2020-12-28 08:00] VITALS: BP 168/70
--- NOTE | 2020-12-28 08:28 | NUR ---
PT IS ABLE TO COMMUNICATE HER NEEDS TO STAFF EFFECTIVELY. SHE HAS DENIED THE NEED FOR PAIN MEDICATION UP TO 0700 TODAY. RUIZ HAS BEEN PATENT UP TO 0700 THIS MORNING. PT REFUSED MANY MEDS AT HS, BUT DID TAKE SOME PO MEDS THIS AM. SHE IS CURRENTLY A DIALYSIS PT AND HAS BEEN FOLLOWING A M/W/F SCHEDULE WHILE HERE.
[2020-12-28 10:15] LABS: URINE BILIRUBIN NEGATIVE (Negative); URINE BLOOD 2+ (Negative); URINE CLARITY CLEAR; URINE COLOR YELLOW; URINE GLUCOSE-RANDOM NEGATIVE (Negative); URINE KETONES NEGATIVE (Negative); URINE LEUKOCYTES 1+ (Negative); URINE NITRITE NEGATIVE (Negative); URINE PROTEIN 2+ (Negative); URINE UROBILINOGEN 0.2 E.U./dl (0.2-1.0)
[2020-12-28 10:29] LABS: BACTERIA 1-9 Few /HPF (None Seen); COARSE GRANULAR CASTS 4-10 Moderate /LPF (None Seen); CRYSTALS None Seen /LPF (None Seen); MUCUS 0-3 Light strn/LPF (None Seen); SQUAMOUS 0-3 Few /LPF (0-3); URINE RBC 3-10 Few /HPF (0-2); URINE WBC 6-15 Few /HPF (0-5); YEAST Present (None Seen)
[2020-12-28 12:00] VITALS: BP 174/84
[2020-12-28 16:00] VITALS: BP 136/65
[2020-12-28 20:00] VITALS: BP 156/69
[2020-12-29] VITALS (7 sets, daily range): BP systolic 137–166; BP diastolic 51–79
[2020-12-29 07:06] LABS: CALCIUM 8.1 mg/dL (8.5-10.1); CREATININE 1.8 mg/dL (0.6-1.3); HEMATOCRIT 26.4 % (37.0-47.0); HEMOGLOBIN 8.5 gm/dL (12.0-15.0); MCH 28.4 pg (26.0-34.0); MCHC 32.3 g/dL (28.0-37.0); MCV 87.8 fL (80.0-100.0); MPV 8.1 fl. (7.2-11.1); POTASSIUM 4.2 mmol/L (3.5-5.1); RDW-CV 17.8 % (10.5-14.5); WBC 5.5 thou/uL (4.0-11.0)
--- NOTE | 2020-12-29 07:44 | NUR ---
PATIENT SLEPT MOST OF THE NIGHT. PATIENT HAD NO COMPLAINTS OF PAIN. RUIZ REMAINS TO DEPEDNENT DRAIN. PATIENT REFUSED HER MORNING MEDS THIS MORNING. PATIENT REMAINS ON OXYGEN AT 4L AND DID WEAR BIPAP FOR A COUPLE HOURS LAST NIGHT. WILL CONTINUE TO MONITOR.
[2020-12-29 11:03] LABS: ALBUMIN 1.8 g/dL (3.4-5.0); MAGNESIUM 1.7 mg/dL (1.8-2.4); PHOSPHORUS* 4.3 mg/dL (2.5-4.9)
--- NOTE | 2020-12-29 12:45 | NUR ---
ASSUMED CARE OF PT AT 0730. PT A&0X4, DENIES ANY PAIN OR SHORTNESS OF BREATH AT THIS TIME. TRACING SB ON THE ALUMINUM MOLDER-RATE IN THE 50'S. ON 4L NC SAT MID 90'S. COARSE LUNG SOUNDS NOTED. RUIZ TO DEPENDENT DRAINAGE. NEPHRO HERE TO SEE PT THIS AM-NO NEED FOR DIALYSIS TODAY. PT UP WITH JV LIFT. WEAKNESS NOTED. PULM HERE TO SEE PT-POSSIBLE US THORACENTESIS TODAY. CONSENT SIGNED AND PLACED IN FRONT OF CHART. PT GOAL FOR TODAY IS WORK WITH THERAPIES, INCREASE ACTIVITY AND POSSIBLE THORACENTESIS. AM ASSESSMENT CHARTED. MEDICATIONS PER JUL WHOLE WITH WATER. PT REPOSITIONED EVERY 2 HOURS FOR COMFORT. HOURLY ROUNDING OBSERVED. BED IN LOW POSITION. BED ALARM IN PLACE. FALL PRECAUTIONS IN PLACE. CALL LIGHT WITHIN REACH. WILL CONTINUE PLAN OF CARE.
--- NOTE | 2020-12-29 15:33 | NUR ---
Pt now requiring a thoracentesis, not medically stable to dc. CM updated [facility]. Pt is lacking motivation to participate in her cares. Dialysis today.
[2020-12-29 17:07] LABS: BF RBC 84392 /mm3; TOTAL CELL COUNT 461 /mm3
[2020-12-29 17:22] LABS: BF LYMPHOCYTES 52 %; BF MONOCYTES 2 %; BF POLYS 46 %
[2020-12-29 17:24] LABS: CLARITY HAZY; TOTAL VOLUME 360 ml
[2020-12-29 17:29] LABS: SOURCE PLEURAL FLUID
--- NOTE | 2020-12-29 20:00 | NUR ---
RECEIVED REPORT AND ASSUMED CARE OF PT, ASSESSMENT COMPLETED. PT SITTING UP IN BED TALKING WITH DECREASED SOA. STATES SHE DOESN'T FEEL ANY DIFFERENT SINCE THORACENTESIS. O2 ON AT 4L/HFC. GRABIEL ARMS IMPROVING, BRUISED BUT DECREASED IN SIZE, NO WEEPING NOTED. TELEMETRY ON SHOWING SR. WILL CONT TO MONITOR AND ASSIST NEEDED.
[2020-12-30 04:06] VITALS: BP 124/61; BP 147/43
[2020-12-30 04:36] LABS: HEMATOCRIT 27.2 % (37.0-47.0); HEMOGLOBIN 9.2 gm/dL (12.0-15.0); MCH 29.6 pg (26.0-34.0); MCHC 33.8 g/dL (28.0-37.0); MCV 87.4 fL (80.0-100.0); MPV 8.3 fl. (7.2-11.1); NUCLEATED RBCS 0 /100WBC; PLATELET COUNT* 185 thou/uL (150-400); RBC 3.12 mil/uL (4.20-5.00); RDW-CV 17.9 % (10.5-14.5); WBC 7.3 thou/uL (4.0-11.0)
[2020-12-30 04:47] LABS: CALCIUM 8.8 mg/dL (8.5-10.1); POTASSIUM 3.9 mmol/L (3.5-5.1); TOTAL BILIRUBIN 0.4 mg/dL (<0.1-1.0); TOTAL PROTEIN 5.5 g/dL (6.4-8.2)
[2020-12-30 06:12] LABS: ABSOLUTE LYMPHOCYTES 0.8 thou/uL (0.8-5.3); ABSOLUTE MONOCYTES 0.1 thou/uL (0.0-1.2); ABSOLUTE NEUTROPHILS 6.4 thou/uL (1.6-8.1)
[2020-12-30 06:13] LABS: ANISOCYTOSIS 1+; PLATELET ESTIMATE ADEQUATE; POIKILOCYTOSIS 1+
--- NOTE | 2020-12-30 07:20 | NUR ---
AWAKE OFF AND ON DURING NIGHT. ONLY WORE BIPAP APPROX 3 HR OTHER PEOPLES ON 4L/HFC. ASSISTED WITH REPOSITIONING. NO CHANGE IN ASSESSMENT. HS GOALS OF REST AND SAFETY ACHIEVED. HOURLY ROUNDING OBSERVED.
[2020-12-30 07:45] VITALS: BP 149/62
[2020-12-30 12:00] VITALS: BP 155/66
--- NOTE | 2020-12-30 13:50 | NUR ---
Martha yesterday. Pulm following. cxr worse today. IVabx. Updated SNF and outpt dialysis.
[2020-12-30 14:07] LABS: BODY FLUID PROTEIN 1.6 g/dL (())
[2020-12-30 16:00] VITALS: BP 162/70
--- NOTE | 2020-12-30 18:09 | NUR ---
PLAN FOR BRONCHOSCOPY TOMORROW 12/31. PT ON CLEAR LIQUIDS ONLY AFTER MIDNIGHT AND NPO AT 0700 12/31. CONSENT SIGNED AND PLACED IN FRONT OF CHART. PT DENIES ANY PAIN OR SHORTNESS OF BREATH. AM ASSESSMENT CHARTED. MEDICATIONS PER JUL. REPOSITIONED EVERY 2 HOURS FOR COMFORT. HOURLY ROUNDING OBSERVED. BED IN LOW POSITION. CALL LIGHT WITHIN REACH. WILL CONTINUE PLAN OF CARE.
[2020-12-30 22:30] VITALS: BP 164/67
[2020-12-31 04:35] VITALS: BP 150/47
--- NOTE | 2020-12-31 04:54 | NUR ---
PT AWAKE MUCH OF THE NIGHT, REPOSITIONED Q2 HOURS AND PRN FOR COMFORT PT REQUESTS. O2 4L NC, WEARING BIPAP ABOUT ONE HOUR OVERNIGHT. HAS HAD CLEAR LIQUIDS ONLY SINCE MIDNIGHT, TO BE NPO AFTER 0700 FOR BRONCHOSCOPY TODAY.HS ACCUCHECK 203,INSULIN GIVEN ORDERED. TELE SR. DRSG CDI TO BUTTOCKS.R SUBCLAVIAN IV SL. R CHEST TESSIO. RUIZ DRAINING TEA COLORED URINE. AOX4, ABLE TO USE CALL LITE AND MAKE NEEDS KNOWN.
[2020-12-31 05:09] LABS: PROTIME 10.3 Seconds (9.20-11.50)
[2020-12-31 05:12] LABS: ABSOLUTE LYMPHOCYTES 0.5 thou/uL (0.8-5.3); ABSOLUTE MONOCYTES 0.3 thou/uL (0.0-1.2); ABSOLUTE NEUTROPHILS 6.3 thou/uL (1.6-8.1); BASOPHILS 0.3 %; HEMATOCRIT 25.8 % (37.0-47.0); HEMOGLOBIN 8.8 gm/dL (12.0-15.0); LYMPHOCYTES 7.2 %; MCH 29.8 pg (26.0-34.0); MCV 87.6 fL (80.0-100.0); MONOCYTES 3.8 %; MPV 7.8 fl. (7.2-11.1); NUCLEATED RBCS 0 /100WBC; PLATELET COUNT* 187 thou/uL (150-400); POLYS 88.7 %; RBC 2.95 mil/uL (4.20-5.00); RDW-CV 18.3 % (10.5-14.5); WBC 7.1 thou/uL (4.0-11.0)
[2020-12-31 05:15] LABS: ALBUMIN 1.9 g/dL (3.4-5.0); CALCIUM 9.2 mg/dL (8.5-10.1); CREATININE 1.7 mg/dL (0.6-1.3); PHOSPHORUS* 3.7 mg/dL (2.5-4.9); POTASSIUM 4.5 mmol/L (3.5-5.1); TOTAL BILIRUBIN 0.4 mg/dL (<0.1-1.0); TOTAL PROTEIN 5.4 g/dL (6.4-8.2)
[2020-12-31 07:50] VITALS: BP 151/79
--- NOTE | 2020-12-31 13:08 | PATH ---
[address] [address] PATHOLOGY RPT PROCEDURE Name: CACHORRO CROSS Room: [address] IN [facility]#: [id number] Admission: 11/21/20 Date of : 49 Discharge: Report #: [id number] Path Case #: [id number] Note [facility] Accession Number: [id number] TESTS RESULT FLAG UNITS REF RANGE LAB Clinician Provided Cytology Information No. of containers..01 Other (Miscellaneous) Source: 01 PLERAUL FLUID DIAGNOSIS: 02 PLEURAL FLUID, SIDE NOT SPECIFIED: NEGATIVE FOR MALIGNANT CELLS. FEW REACTIVE MESOTHELIAL CELLS AND INFLAMMATORY CELLS AND ABUNDANT RBCs. THIS INTERPRETATION INCLUDES EVALUATION OF A CELL BLOCK. Signed out by: 02 Chip Jason MD, Pathologist NPI- [id number] Performed by: 01 Lea Seaman, Drug Discovery Informatics Specialist ([facility]) Gross description: 01 10ML, CLOUDY RED, 1 TP 1 CB /LAURA 12/30/2020 0244 Local FLAG LEGEND: L-Low Normal,H-High Normal,LL-Alert Low,HH-Alert High <-Panic Low,>-Panic High,A-Abnormal,AA-Critical Abnormal Performed at: [address] [place] [address] Carroll Almazan MD, [address] [address] Chip Jason MD, Specimen Comment: A courtesy copy of this report has been sent to [phone] Specimen Comment: [phone], Specimen Comment: Report sent to DR. GONZALEZ, DR RAHMAN / DR COLLADO Specimen Comment: A duplicate report has been generated due to demographic updates. Performed at: [address], [place], [place] [id number] MD Craroll Almazan MD Phone: [phone]
--- NOTE | 2020-12-31 14:58 | NUR ---
Pt no longer requiring dialysis per renal. CM updated [facility]. Plan Bronchoscopy today. Anticipate dc in a few days to SNF. Therapies to continue working with Pt.
[2020-12-31 16:00] VITALS: BP 139/38
--- NOTE | 2020-12-31 18:23 | NUR ---
PT HAD BRONCH TODAY-CURRENTLY SITTING UP IN BED EATING DINNER. DENIES ANY PAIN OR SHORTNESS OF BREATH,. AT BEDSIDE. NO NEED FOR DIALYSIS TODAY PER NEPHRO. CALL LIGHT WITHIN REACH. WILL CONTINUE PLAN OF CARE.
[2020-12-31 20:11] VITALS: BP 143/77
[2021-01-01 04:21] VITALS: BP 148/66
[2021-01-01 09:27] LABS: ABSOLUTE MONOCYTES 0.5 thou/uL (0.0-1.2); ABSOLUTE NEUTROPHILS 7.6 thou/uL (1.6-8.1); BASOPHILS 0.5 %; HEMATOCRIT 27.4 % (37.0-47.0); HEMOGLOBIN 9.2 gm/dL (12.0-15.0); LYMPHOCYTES 10.6 %; MCH 29.2 pg (26.0-34.0); MCHC 33.7 g/dL (28.0-37.0); MCV 86.7 fL (80.0-100.0); MONOCYTES 5.7 %; MPV 7.4 fl. (7.2-11.1); NUCLEATED RBCS 0 /100WBC; PLATELET COUNT* 216 thou/uL (150-400); POLYS 83.2 %; RBC 3.16 mil/uL (4.20-5.00); RDW-CV 18.3 % (10.5-14.5); WBC 9.1 thou/uL (4.0-11.0)
[2021-01-01 09:38] LABS: CALCIUM 9.1 mg/dL (8.5-10.1); CREATININE 1.5 mg/dL (0.6-1.3)
[2021-01-01 12:00] VITALS: BP 123/30
--- NOTE | 2021-01-01 12:04 | NUR ---
Anticipate that Pt will be medically stable to dc to SNF tomorrow. CM faxed SNF referral to [facility] and asked that they initiate insurance auth. CM updated in room. Taylor Shelbi p:[phone] f:[phone]
[2021-01-01 16:00] VITALS: BP 148/58
--- NOTE | 2021-01-01 19:59 | NUR ---
ASSUMED PT CARE AT 0730. PT IS A&OX4.ASSESSMENT COMPLETED, PT REPOSITIONED Q1-2 HRS FOR COMFORT AND TO PROMOTE TISSUE TOLERANCE. ASSESSMENT COMPLETED. DRESSINGS ON BUTTOCKS ARE DRY AND INTACT. SAFETY MEASURES IN PLACE.RUIZ IS PATENT AND DRAINING DARK YELLOW URINE. MEDICATIONS ADMINISTERED ORDERED.
[2021-01-01 21:53] VITALS: BP 155/51
--- NOTE | 2021-01-01 23:23 | OP ---
[address] [address] OPERATIVE REPORT Name: CACHORRO CROSS Room: [address] IN M.R.#: [id number] Admission: 11/21/20 Attend Phys: Marcos Villa MD Discharge: Date of : 49 Report #: [id number] THIS REPORT FOR: cc: Omer Snyder MD, Anthony MD Pervez, Adeel MD ~ PROCEDURE PERFORMED: Bronchoscopy with bronchial washings. INDICATIONS FOR PROCEDURE: Pulmonary infiltrates/mucus plugging/partial collapse of left lung. POSTPROCEDURE DIAGNOSES: Pulmonary infiltrates/mucus plugging/partial collapse of left lung, also copious thick secretions noted in the left lung and the trachea and were removed. CONSENT: Informed consent was obtained from the patient prior to procedure. SEDATION: The patient was sedated with 1 mg of Versed and 50 mcg of fentanyl. DESCRIPTION OF PROCEDURE: Informed consent was obtained and the patient transferred to the bronchoscopy suite, after which the respiratory therapist proceeded to repairing the upper airway with a local anesthetic solution using standard protocol. The patient was then sedated as above. A mouthguard was placed and I inserted the bronchoscope through the patient's mouth and visualized the vocal cords without difficulty. Thrush, which was seen during the previous bronchoscopy, is noted to have completely subsided. No thrush was seen now. Vocal cords were now looked normal. I instilled about 10 mL of 4% Xylocaine on the vocal cords, after which cough reflex subsided. The bronchoscope was then advanced into the trachea, instilled a total of 6 mL of 2% Xylocaine in the trachea and another 3 mL in the right mainstem as well as left mainstem and proceeded to examining the entire bronchial tree. There were significant amounts of thick white as well as some clear secretions noted in the trachea as well as throughout the left bronchial tree. Mucosa in the left bronchial tree was friable and petechial hemorrhages appear quickly when even mild suction was performed. The right lung was unremarkable. There were no endobronchial lesions identified. There are no additional findings. I collected the secretions in the left lung with predominantly from the left lower lobe, but content secretions from the rest of the left lung as well as trachea as well in a trap. We collected about 25 mL of turbid/light yellow fluid. Suction was continued to be performed after the trap was removed. I estimate that around 50 mL or more of secretions were subsequently also removed. We used ice saline for bronchial washings during this procedure as the mucosa was friable. I estimate around 30 mL of [place] [id number] OPERATIVE REPORT Name: CACHORRO CROSS Room: [address] IN M.R.#: [id number] Admission: 11/21/20 Attend Phys: Marcos Villa MD Discharge: Date of : 49 Report #: [id number] The patient remained stable throughout the procedure, did not have any complications as a result of the procedure as well as the case with the previous bronchoscopy. I electively kept her on a BiPAP. Subsequent to the procedure, while she was recovering from sedation, the specimens collected have been sent to the laboratory and will be followed up. <ELECTRONICALLY SIGNED> By: Santhosh Youngblood MD 01/01/21 2323 1715 [id number] Youngblood MD /nt
[2021-01-01 23:45] VITALS: BP 132/57
--- NOTE | 2021-01-02 01:46 | NUR ---
Patient alert.Slept most of the night. Call light within reach. Will continue to care
[2021-01-02 03:06] LABS: ABSOLUTE LYMPHOCYTES 0.6 thou/uL (0.8-5.3); ABSOLUTE MONOCYTES 0.5 thou/uL (0.0-1.2); ABSOLUTE NEUTROPHILS 5.8 thou/uL (1.6-8.1); BASOPHILS 0.3 %; EOSINOPHILS 0.1 %; HEMATOCRIT 24.2 % (37.0-47.0); LYMPHOCYTES 8.9 %; MCH 28.9 pg (26.0-34.0); MCHC 33.2 g/dL (28.0-37.0); MCV 87.1 fL (80.0-100.0); MONOCYTES 6.6 %; MPV 7.6 fl. (7.2-11.1); NUCLEATED RBCS 0 /100WBC; PLATELET COUNT* 191 thou/uL (150-400); POLYS 84.1 %; RBC 2.78 mil/uL (4.20-5.00); RDW-CV 18.3 % (10.5-14.5); WBC 6.9 thou/uL (4.0-11.0)
[2021-01-02 03:35] LABS: ALBUMIN 2.2 g/dL (3.4-5.0); CREATININE 1.7 mg/dL (0.6-1.3); MAGNESIUM 1.8 mg/dL (1.8-2.4); TOTAL BILIRUBIN 0.4 mg/dL (<0.1-1.0)
[2021-01-02 04:20] VITALS: BP 141/40
[2021-01-02 12:07] VITALS: BP 125/50
[2021-01-02] MEDS ORDERED: FLAGYL500 M1 PO (13:37)
[2021-01-02] MEDS ORDERED: BUSPIRONE HCL5 MG PO (13:37)
[2021-01-02] MEDS ORDERED: OYSTER SHELL C500 MG PO (13:37)
[2021-01-02 16:04] VITALS: BP 159/57
--- NOTE | 2021-01-02 16:11 | NUR ---
Pt discharging to [facility] today. Faxed dc orders and bipap settings. Chart copied. Nurse report number is [phone]. Updated Pt's in room. Ambulance to turkey picker and transport, nurse to contact [facility] with time once temp dialysis cath is removed.
--- NOTE | 2021-01-02 20:28 | NUR ---
ASSUMED PT CARE AT 0730. PT IS A&OX4 PLEASANT AND OFTEN AT BEDSIDE. ASSESSMENT DONE. MEDICATIONS ADMINISTERED ORDERED. PT BS LOW MEDS HELD, INTERVENTIONS IMPLEMENTED. SAFETY MEASURES IN PLACE, PT REPOSITIONED EVERY 2 HOURS AND NEEDED TO PROMOTE COMFORT. RUIZ DRAINING LIGHT YELLOW URINE, DRESSINGS INTACT TO BOTTOM TO PREVENT BREAKDOWN. PT RESTING WELL. PT HAD DIALYSIS CATH REMOVED TODAY. NEW ORDERS RECIEVED TO DISCHARGE PT TO [facility] FOR REHAB. DISCHARGE REVIEWED WITH PT AND SPOUSE. ALL ITEMS SENT WITH PT. [facility] HERE TO TRANSPORT PT. MONITOR AND IV'S REMOVED.
== END 2021-01-02 19:15 | DRG 871 ==
LOC: M.ERS 10:25 → M.TBA-ER 11:55 → M.ICU 11:55 → M.2W 12-05 07:45
PROVIDERS: Emergency Medicine Emergency Medical Services; Family Medicine; Internal Medicine; Internal Medicine Critical Care Medicine; Internal Medicine Gastroenterology; Internal Medicine Nephrology; Nurse Practitioner Adult Health; Pediatrics; ADMIT Internal Medicine; ATTEND Internal Medicine
PROC: 5A09357 Assistance with Respiratory Ventilation, Less than 24 Consecutive Hours, Continuous Positive Airway Pressure (ICD-10-PCS; 2020-11-22)
PROC: 5A09357 Assistance with Respiratory Ventilation, Less than 24 Consecutive Hours, Continuous Positive Airway Pressure (ICD-10-PCS; 2020-11-23)
PROC: 5A09357 Assistance with Respiratory Ventilation, Less than 24 Consecutive Hours, Continuous Positive Airway Pressure (ICD-10-PCS; 2020-11-24)
PROC: 5A09357 Assistance with Respiratory Ventilation, Less than 24 Consecutive Hours, Continuous Positive Airway Pressure (ICD-10-PCS; 2020-11-25)
PROC: 5A09357 Assistance with Respiratory Ventilation, Less than 24 Consecutive Hours, Continuous Positive Airway Pressure (ICD-10-PCS; principal; 2020-11-26)
PROC: 0W9B3ZZ Drainage of Left Pleural Cavity, Percutaneous Approach (ICD-10-PCS; principal; 2020-11-26)
PROC: 5A09357 Assistance with Respiratory Ventilation, Less than 24 Consecutive Hours, Continuous Positive Airway Pressure (ICD-10-PCS; 2020-11-27)
PROC: 5A09357 Assistance with Respiratory Ventilation, Less than 24 Consecutive Hours, Continuous Positive Airway Pressure (ICD-10-PCS; 2020-11-28)
PROC: 5A09357 Assistance with Respiratory Ventilation, Less than 24 Consecutive Hours, Continuous Positive Airway Pressure (ICD-10-PCS; 2020-11-29)
PROC: 30233N1 Transfusion of Nonautologous Red Blood Cells into Peripheral Vein, Percutaneous Approach (ICD-10-PCS; 2020-11-29)
PROC: 5A09357 Assistance with Respiratory Ventilation, Less than 24 Consecutive Hours, Continuous Positive Airway Pressure (ICD-10-PCS; 2020-11-30)
PROC: 5A09357 Assistance with Respiratory Ventilation, Less than 24 Consecutive Hours, Continuous Positive Airway Pressure (ICD-10-PCS; 2020-12-01)
PROC: 5A09357 Assistance with Respiratory Ventilation, Less than 24 Consecutive Hours, Continuous Positive Airway Pressure (ICD-10-PCS; 2020-12-02)
PROC: 5A09357 Assistance with Respiratory Ventilation, Less than 24 Consecutive Hours, Continuous Positive Airway Pressure (ICD-10-PCS; 2020-12-03)
PROC: 5A09357 Assistance with Respiratory Ventilation, Less than 24 Consecutive Hours, Continuous Positive Airway Pressure (ICD-10-PCS; 2020-12-04)
PROC: 5A0935A Assistance with Respiratory Ventilation, Less than 24 Consecutive Hours, High Flow/Velocity Cannula (ICD-10-PCS; 2020-12-05)
PROC: 5A09357 Assistance with Respiratory Ventilation, Less than 24 Consecutive Hours, Continuous Positive Airway Pressure (ICD-10-PCS; 2020-12-05)
PROC: 5A09357 Assistance with Respiratory Ventilation, Less than 24 Consecutive Hours, Continuous Positive Airway Pressure (ICD-10-PCS; 2020-12-06)
PROC: 0W9B3ZZ Drainage of Left Pleural Cavity, Percutaneous Approach (ICD-10-PCS; 2020-12-06)
PROC: 5A09357 Assistance with Respiratory Ventilation, Less than 24 Consecutive Hours, Continuous Positive Airway Pressure (ICD-10-PCS; 2020-12-07)
PROC: 5A09357 Assistance with Respiratory Ventilation, Less than 24 Consecutive Hours, Continuous Positive Airway Pressure (ICD-10-PCS; 2020-12-08)
PROC: 5A0935A Assistance with Respiratory Ventilation, Less than 24 Consecutive Hours, High Flow/Velocity Cannula (ICD-10-PCS; 2020-12-08)
PROC: 5A09357 Assistance with Respiratory Ventilation, Less than 24 Consecutive Hours, Continuous Positive Airway Pressure (ICD-10-PCS; 2020-12-09)
PROC: 5A0935A Assistance with Respiratory Ventilation, Less than 24 Consecutive Hours, High Flow/Velocity Cannula (ICD-10-PCS; 2020-12-10)
PROC: 5A09357 Assistance with Respiratory Ventilation, Less than 24 Consecutive Hours, Continuous Positive Airway Pressure (ICD-10-PCS; 2020-12-10)
PROC: 5A09357 Assistance with Respiratory Ventilation, Less than 24 Consecutive Hours, Continuous Positive Airway Pressure (ICD-10-PCS; 2020-12-11)
PROC: 0BC78ZZ Extirpation of Matter from Left Main Bronchus, Via Natural or Artificial Opening Endoscopic (ICD-10-PCS; 2020-12-11)
PROC: 5A09357 Assistance with Respiratory Ventilation, Less than 24 Consecutive Hours, Continuous Positive Airway Pressure (ICD-10-PCS; 2020-12-12)
PROC: 5A09357 Assistance with Respiratory Ventilation, Less than 24 Consecutive Hours, Continuous Positive Airway Pressure (ICD-10-PCS; 2020-12-13)
PROC: 5A09357 Assistance with Respiratory Ventilation, Less than 24 Consecutive Hours, Continuous Positive Airway Pressure (ICD-10-PCS; 2020-12-14)
PROC: 5A09357 Assistance with Respiratory Ventilation, Less than 24 Consecutive Hours, Continuous Positive Airway Pressure (ICD-10-PCS; 2020-12-15)
PROC: 5A09357 Assistance with Respiratory Ventilation, Less than 24 Consecutive Hours, Continuous Positive Airway Pressure (ICD-10-PCS; 2020-12-16)
PROC: 0JH63XZ Insertion of Tunneled Vascular Access Device into Chest Subcutaneous Tissue and Fascia, Percutaneous Approach (ICD-10-PCS; 2020-12-16)
PROC: B548ZZA Ultrasonography of Superior Vena Cava, Guidance (ICD-10-PCS; 2020-12-16)
PROC: 02HV33Z Insertion of Infusion Device into Superior Vena Cava, Percutaneous Approach (ICD-10-PCS; 2020-12-16)
PROC: B5181ZA Fluoroscopy of Superior Vena Cava using Low Osmolar Contrast, Guidance (ICD-10-PCS; 2020-12-16)
PROC: 5A09357 Assistance with Respiratory Ventilation, Less than 24 Consecutive Hours, Continuous Positive Airway Pressure (ICD-10-PCS; 2020-12-17)
PROC: 5A0935A Assistance with Respiratory Ventilation, Less than 24 Consecutive Hours, High Flow/Velocity Cannula (ICD-10-PCS; 2020-12-18)
PROC: 5A09357 Assistance with Respiratory Ventilation, Less than 24 Consecutive Hours, Continuous Positive Airway Pressure (ICD-10-PCS; 2020-12-18)
PROC: 5A0935A Assistance with Respiratory Ventilation, Less than 24 Consecutive Hours, High Flow/Velocity Cannula (ICD-10-PCS; 2020-12-19)
PROC: 5A09357 Assistance with Respiratory Ventilation, Less than 24 Consecutive Hours, Continuous Positive Airway Pressure (ICD-10-PCS; 2020-12-19)
PROC: 5A09357 Assistance with Respiratory Ventilation, Less than 24 Consecutive Hours, Continuous Positive Airway Pressure (ICD-10-PCS; 2020-12-20)
PROC: 5A09357 Assistance with Respiratory Ventilation, Less than 24 Consecutive Hours, Continuous Positive Airway Pressure (ICD-10-PCS; 2020-12-21)
PROC: 5A0935A Assistance with Respiratory Ventilation, Less than 24 Consecutive Hours, High Flow/Velocity Cannula (ICD-10-PCS; 2020-12-22)
PROC: 5A09357 Assistance with Respiratory Ventilation, Less than 24 Consecutive Hours, Continuous Positive Airway Pressure (ICD-10-PCS; 2020-12-22)
PROC: 5A09357 Assistance with Respiratory Ventilation, Less than 24 Consecutive Hours, Continuous Positive Airway Pressure (ICD-10-PCS; 2020-12-23)
PROC: 5A0935A Assistance with Respiratory Ventilation, Less than 24 Consecutive Hours, High Flow/Velocity Cannula (ICD-10-PCS; 2020-12-23)
PROC: 5A09357 Assistance with Respiratory Ventilation, Less than 24 Consecutive Hours, Continuous Positive Airway Pressure (ICD-10-PCS; 2020-12-24)
PROC: 5A09357 Assistance with Respiratory Ventilation, Less than 24 Consecutive Hours, Continuous Positive Airway Pressure (ICD-10-PCS; 2020-12-25)
PROC: 5A09357 Assistance with Respiratory Ventilation, Less than 24 Consecutive Hours, Continuous Positive Airway Pressure (ICD-10-PCS; 2020-12-26)
PROC: 5A0935A Assistance with Respiratory Ventilation, Less than 24 Consecutive Hours, High Flow/Velocity Cannula (ICD-10-PCS; 2020-12-26)
PROC: 5A09357 Assistance with Respiratory Ventilation, Less than 24 Consecutive Hours, Continuous Positive Airway Pressure (ICD-10-PCS; 2020-12-27)
PROC: 5A09357 Assistance with Respiratory Ventilation, Less than 24 Consecutive Hours, Continuous Positive Airway Pressure (ICD-10-PCS; 2020-12-28)
PROC: 5A0935A Assistance with Respiratory Ventilation, Less than 24 Consecutive Hours, High Flow/Velocity Cannula (ICD-10-PCS; 2020-12-29)
PROC: 5A09357 Assistance with Respiratory Ventilation, Less than 24 Consecutive Hours, Continuous Positive Airway Pressure (ICD-10-PCS; 2020-12-29)
PROC: 0W9B3ZZ Drainage of Left Pleural Cavity, Percutaneous Approach (ICD-10-PCS; 2020-12-29)
PROC: 5A09357 Assistance with Respiratory Ventilation, Less than 24 Consecutive Hours, Continuous Positive Airway Pressure (ICD-10-PCS; 2020-12-30)
PROC: 5A09357 Assistance with Respiratory Ventilation, Less than 24 Consecutive Hours, Continuous Positive Airway Pressure (ICD-10-PCS; 2020-12-31)
PROC: 0BC78ZZ Extirpation of Matter from Left Main Bronchus, Via Natural or Artificial Opening Endoscopic (ICD-10-PCS; 2021-01-01)
DX: A41.9 Sepsis, unspecified organism (principal); J15.6 Pneumonia due to other Gram-negative bacteria; J96.21 Acute and chronic respiratory failure with hypoxia; I50.33 Acute on chronic diastolic (congestive) heart failure; N17.0 Acute kidney failure with tubular necrosis; J96.22 Acute and chronic respiratory failure with hypercapnia; N18.6 End stage renal disease; J44.1 Chronic obstructive pulmonary disease with (acute) exacerbation; J94.2 Hemothorax; E87.1 Hypo-osmolality and hyponatremia; E44.0 Moderate protein-calorie malnutrition; E87.2 Acidosis; E87.0 Hyperosmolality and hypernatremia; T17.890A Other foreign object in other parts of respiratory tract causing asphyxiation, initial encounter; I13.2 Hypertensive heart and chronic kidney disease with heart failure and with stage 5 chronic kidney disease, or end stage renal disease; J91.8 Pleural effusion in other conditions classified elsewhere; J44.0 Chronic obstructive pulmonary disease with (acute) lower respiratory infection; B37.89 Other sites of candidiasis; J20.9 Acute bronchitis, unspecified; R91.1 Solitary pulmonary nodule; E87.6 Hypokalemia; E83.51 Hypocalcemia; E83.39 Other disorders of phosphorus metabolism; E11.319 Type 2 diabetes mellitus with unspecified diabetic retinopathy without macular edema; E78.5 Hyperlipidemia, unspecified; E11.22 Type 2 diabetes mellitus with diabetic chronic kidney disease; E83.41 Hypermagnesemia; E89.0 Postprocedural hypothyroidism; R74.01 Elevation of levels of liver transaminase levels; Z77.22 Contact with and (suspected) exposure to environmental tobacco smoke (acute) (chronic); B37.9 Candidiasis, unspecified; E66.9 Obesity, unspecified; M19.90 Unspecified osteoarthritis, unspecified site; D63.8 Anemia in other chronic diseases classified elsewhere; I25.10 Atherosclerotic heart disease of native coronary artery without angina pectoris; I25.2 Old myocardial infarction; Z95.5 Presence of coronary angioplasty implant and graft; Z98.42 Cataract extraction status, left eye; Z90.710 Acquired absence of both cervix and uterus; Z88.2 Allergy status to sulfonamides; Z88.8 Allergy status to other drugs, medicaments and biological substances; Z88.6 Allergy status to analgesic agent; Z91.041 Radiographic dye allergy status; Z86.73 Personal history of transient ischemic attack (TIA), and cerebral infarction without residual deficits; Z99.81 Dependence on supplemental oxygen; Z79.82 Long term (current) use of aspirin; Z79.899 Other long term (current) drug therapy; Z68.37 Body mass index [BMI] 37.0-37.9, adult; X58.XXXA Exposure to other specified factors, initial encounter; Y93.89 Activity, other specified; Y92.89 Other specified places as the place of occurrence of the external cause; Y99.8 Other external cause status; Z20.822 Contact with and (suspected) exposure to COVID-19

== ENCOUNTER 2021-07-01 19:55 | Inpatient (IN) | payer OTHER ==
[~2021-07-01] VITALS: Ht 165.1 cm; Wt 79.8 kg
--- NOTE | ~2021-07-01 | EMS ---
[facility] [address] [place] [address] EMS Patient Care Report Name: FERNANDO MONTOYA Room: [address] IN [facility]#: [id number] Admission: 07/01/21 Attend Phys: Marcos Villa MD Discharge: Date of : 49 Report #: [id number] THIS REPORT FOR: //name// Report Transmitted: 07/02/2021 04:35 EMS Care Summary [facility] [place] Incident [id number] @ 07/01/2021 19:04 Incident Location [id number] [place] [address] Patient fernando montoya Female, 75 Years 1945 Patient Address [address] [id number] Patient History Cerebral infarction, unspecified,Congestive Heart Failure (CHF),Chronic Kidney Disease, Patient Allergies , Patient Medications Aspirin, Metoprolol, Atorvastatin, Buspirone, Cozaar, Docusate Sodium, Glucagon, Fexofenadine, Furosemide, Divide, Sertraline, Chief Complaint Lethargy Disposition Transported No Lights/What Cheer Dispatch Reason Sick Person Transported To [facility] Narrative EMS DISPATCHED TO [facility] FOR A PATIENT FOR A SICK PATIENT. PATIENT COMPLAINS OF FEELING TIRED FOR THE LAST 3 WEEKS. PATIENT IS LAYING IN BED ON HER LEFT SIDE. [facility] [address] [place] [address] EMS Patient Care Report Name: FERNANDO MONTOYA Room: [address] IN [facility]#: [id number] Admission: 07/01/21 Attend Phys: Marcos Villa MD Discharge: Date of : 49 Report #: [id number] PATIENT IS ALERT AND RESPONDS TO EMS WE ENTER THE ROOM. PATIENT HAS NO OBVIOUS LIFE THREATENING BLEEDING AND IS IN NO OBVIOUS RESPIRATORY DISTRESS. NURSING STAFF REPORTS THAT THE PATIENT HAS NOT BEEN OUT OF BED FOR THE LAST 3 WEEKS. PATIENT REPORTS THAT SHE HAS BEEN TIRED FOR ABOUT THE SAME AMOUNT OF TIME. NURSING STAFF REPORTS NO CHANGE IN MEDICATIONS. PATIENT THINKS THAT SINCE SHE HAS BEEN ON NARCOTICS THAT SHE HAS BEEN SLEEPING MORE. PATIENT ALSO FEELS LIKE SHE MAY BE DEPRESSED. NURSING STAFF HAVE DRAWN LABS AND REPORT THAT THERE IS NOTHING OUT OF THE NORMAL FOR THE PATIENT. NURSING STAFF ALSO REPORT THAT THE PATIENT'S HEART RATE HAS BEEN BEEN AROUND THE RATE SINCE SHE ARRIVED. PATEINT HAS NO COMPLAINTS OF PAIN OR ILLNESS. NURSING FACILITY IS SENDING HER BECAUSE THEY HAVE EXHAUSTED ALL OPTIONS OF TREATMENT AT THE FACILITY FOR HER. NO TREATMENT PRIOR TO ARRIVAL. PATIENT DOES HAVE AN IV IN THE RIGHT FOREARM. ALL SAFETY STRAPS UTILIZED IN TRANSPORT. PAITENT MONITORED THROUGHOUT TRANSPORT. TRANSPORT WAS UNEVENTFUL. I WITNESSED ALL SIGNATURES ON THIS REPORT. ALL TIME APPROXIMATE. Initial Vitals @19:24Pain: 0/10, @19:45Pain: 0/10, @19:27SpO2: 93, @19:35SpO2: 95, @19:40SpO2: 95, @19:45SpO2: 97, @19:37 @19:27P: 49,R: 18,BP: 124/48, @19:46P: 47,R: 18,BP: 93/44, @19:27GCS: 15, @19:46GCS: 15, @19:24 Assessments @19:24MENTAL:SKIN:HEENT:LUNG SOUNDS:ABDOMEN:PELVIS//GI:EXTREMITIES:PULSE:NEURO: Impression Malaise Procedures @19:37 12-Lead ECG Response: UnchangedSucceeded Timeline 19:00,Call Received 19:04,Dispatch Notified 19:04,Psap Call 19:04,[place] [address] EMS Patient Care Report Name: FERNANDO MONTOYA Room: [address] IN [facility]#: [id number] Admission: 07/01/21 Attend Phys: Marcos Villa MD Discharge: Date of : 49 Report #: [id number] 19:04,En Route 19:13,On Scene 19:24,At Patient 19:24,BP: / M,PULSE: ,RR: R,SPO2: Ox,ETCO2: ,BG: ,PAIN: 0,GCS: , 19:24,BP: / M,PULSE: ,RR: R,SPO2: Ox,ETCO2: ,BG: ,PAIN: ,GCS: , 19:27,BP: / M,PULSE: ,RR: R,SPO2: 93 Ox,ETCO2: ,BG: ,PAIN: ,GCS: , 19:27,BP: 124/48 M,PULSE: 49,RR: 18 R,SPO2: Ox,ETCO2: ,BG: ,PAIN: ,GCS: , 19:27,BP: / M,PULSE: ,RR: R,SPO2: Ox,ETCO2: ,BG: ,PAIN: ,GCS: 15, 19:35,BP: / M,PULSE: ,RR: R,SPO2: 95 Ox,ETCO2: ,BG: ,PAIN: ,GCS: , 19:37,12-Lead ECG,Response: UnchangedSucceeded, 19:37,BP: / M,PULSE: ,RR: R,SPO2: Ox,ETCO2: ,BG: ,PAIN: ,GCS: , 19:40,BP: / M,PULSE: ,RR: R,SPO2: 95 Ox,ETCO2: ,BG: ,PAIN: ,GCS: , 19:45,BP: / M,PULSE: ,RR: R,SPO2: 97 Ox,ETCO2: ,BG: ,PAIN: ,GCS: , 19:45,Depart Scene 19:45,BP: / M,PULSE: ,RR: R,SPO2: Ox,ETCO2: ,BG: ,PAIN: 0,GCS: , 19:46,BP: 93/44 M,PULSE: 47,RR: 18 R,SPO2: Ox,ETCO2: ,BG: ,PAIN: ,GCS: , 19:46,BP: / M,PULSE: ,RR: R,SPO2: Ox,ETCO2: ,BG: ,PAIN: ,GCS: 15, 19:50,At Destination 20:07,Call Closed Disclaimer v1.1 Copyright 2021 [employer] This EMS Care Summary contains data elements from the applicable legal record (which may be displayed differently). It is designed to provide pertinent information for the following purposes: continuity of care, clinical quality, and state data reporting. The complete legal record is available to ED staff and administrators of the receiving hospital in [employer] Patient Tracker. All data is provided "as is."
[~2021-07-01 19:55] MED LIST changes: +BUSPIRONE HCL5 MG PO; +FLAGYL500 M1 PO; +OYSTER SHELL C500 MG PO
[2021-07-01 19:58] VITALS: BP 134/54
[2021-07-01] MEDS ORDERED: LASIX 40 MG TAB40 MG PO (20:14)
[2021-07-01] MEDS ORDERED: TOPROL XL25 MG PO (20:14)
[2021-07-01] MEDS ORDERED: LANTUS SUBQ (20:14)
[2021-07-01] MEDS ORDERED: MILK OF MA400 MG/5 M PO (20:15)
[2021-07-01] MEDS ORDERED: MIRTAZAPINE7.5 MG PO (20:15)
[2021-07-01] MEDS ORDERED: NORCO5 PO (20:16)
[2021-07-01] MEDS ORDERED: NYSTATIN1 EA10 TOP (20:17)
[2021-07-01] MEDS ORDERED: NOVOLOG100 UNIT/2 SUBQ (20:17)
[2021-07-01] MEDS ORDERED: ONDANSETRON HCL4 M2 PO (20:18)
[2021-07-01] MEDS ORDERED: CVS SENNA PLUS1 EACH PO (20:19)
[2021-07-01] MEDS ORDERED: SERTRALINE HCL100 MG PO (20:20)
[2021-07-01 20:34] LABS: HEMATOCRIT 29.7 % (37.0-47.0); HEMOGLOBIN 9.5 gm/dL (12.0-15.0); MCHC 32.1 g/dL (28.0-37.0); MCV 87.2 fL (80.0-100.0); NUCLEATED RBCS 0 /100WBC; PLATELET COUNT* 325 thou/uL (150-400); RBC 3.41 mil/uL (4.20-5.00); RDW-CV 19.1 % (10.5-14.5); WBC 9.3 thou/uL (4.0-11.0)
[2021-07-01 20:37] LABS: CALCIUM 8.9 mg/dL (8.5-10.1); CREATININE 4.3 mg/dL (0.6-1.3); POTASSIUM 4.8 mmol/L (3.5-5.1)
[2021-07-01 20:48] LABS: ALBUMIN 2.8 g/dL (3.4-5.0); MAGNESIUM 2.7 mg/dL (1.8-2.4); TOTAL BILIRUBIN 0.4 mg/dL (<0.1-1.0); TOTAL PROTEIN 7.6 g/dL (6.4-8.2)
[2021-07-01 21:13] LABS: ABSOLUTE EOSINOPHILS 0.3 thou/uL (0.0-0.7); ABSOLUTE LYMPHOCYTES 2.2 thou/uL (0.8-5.3); ABSOLUTE MONOCYTES 0.4 thou/uL (0.0-1.2); ABSOLUTE NEUTROPHILS 6.4 thou/uL (1.6-8.1); PLATELET ESTIMATE ADEQUATE
[2021-07-01 21:15] LABS: LARGE PLATELETS OCCASIONAL
[2021-07-01 21:16] LABS: MICROCYTES Occasional
[2021-07-02 00:50] VITALS: BP 114/57
[2021-07-02 01:48] LABS: BE -5.8 mmol/L (-2 to +3); PCO2 37.3 mmHg (35.0-45.0); PO2 102.5 mmHg (75.0-100.0); pH 7.336 (7.340-7.450)
[2021-07-02 03:59] VITALS: BP 140/71
[2021-07-02 08:00] VITALS: BP 113/36
--- NOTE | 2021-07-02 09:11 | EKG ---
[place] [address] ELECTROCARDIOGRAM REPORT Name: [facility] Room: [address] ADM IN ..#: [id number] Admission: 07/01/21 Attend Phys: Marcos Villa, Discharge: Date of : 49 Date of Service: 07/01/211999 Report #: [id number] THIS REPORT FOR: //name// [facility] ED Test Date: 2021-07-01 Test Time: 20:00:19 Pat Name: CACHORRO CROSS Department: Room: [facility] Gender: F Qa Auditor: as : 1945 Requested By: Kelley Nix Order Number: [id number] MD: Leonel Cavazos Measurements Intervals Ferguson Rate: 46 P: PA: QRS: 55 QRSD: 95 T: 145 QT: 520 QTc: 455 Interpretive Statements Sinus bradycardia with first-degree AV block Abnormal T, consider ischemia, lateral leads Compared to ECG 11/21/2020 10:39:44 Sinus rate has slowed T-wave abnormality now present Possible ischemia now present Electronically Signed On 07-02-2021 9:10:40 BAG END SEWER by Leonel Cavazos [email or web address] <ELECTRONICALLY SIGNED> By: Leonel Cavazos MD, FACC 07/02/2110 99 99 Leonel Cavazos MD, FACC /EPI
[2021-07-02 09:25] LABS: ABSOLUTE BASOPHILS 0.1 thou/uL (0.0-0.2); ABSOLUTE EOSINOPHILS 0.2 thou/uL (0.0-0.7); ABSOLUTE LYMPHOCYTES 1.3 thou/uL (0.8-5.3); ABSOLUTE MONOCYTES 0.4 thou/uL (0.0-1.2); ABSOLUTE NEUTROPHILS 6.1 thou/uL (1.6-8.1); EOSINOPHILS 2.4 %; HEMATOCRIT 31.4 % (37.0-47.0); HEMOGLOBIN 10.2 gm/dL (12.0-15.0); LYMPHOCYTES 15.9 %; MCH 28.5 pg (26.0-34.0); MCHC 32.3 g/dL (28.0-37.0); MCV 88.2 fL (80.0-100.0); MPV 7.8 fl. (7.2-11.1); NUCLEATED RBCS 0 /100WBC; PLATELET COUNT* 320 thou/uL (150-400); POLYS 75.7 %; RBC 3.56 mil/uL (4.20-5.00); RDW-CV 18.6 % (10.5-14.5); WBC 8.1 thou/uL (4.0-11.0)
[2021-07-02 09:43] LABS: BE -4.2 mmol/L (-2 to +3); PCO2 36.9 mmHg (35.0-45.0); pH 7.365 (7.340-7.450)
[2021-07-02 09:45] LABS: PO2 53.3 mmHg (75.0-100.0)
[2021-07-02 09:48] LABS: CALCIUM 9.2 mg/dL (8.5-10.1); CREATININE 4.3 mg/dL (0.6-1.3); POTASSIUM 4.8 mmol/L (3.5-5.1)
[2021-07-02 11:57] VITALS: BP 147/66
--- NOTE | 2021-07-02 13:38 | 2DMMODE ---
[place] [address] 2 D/M-MODE ECHOCARDIOGRAM Name: CACHORRO CROSS Aileen Room: [address] IN [facility]#: [id number] Admission: 07/01/21 Attend Phys: Marcos Villa, Discharge: Date of : 49 Date of Service: 07/02/21 1338 Report #: [id number] THIS REPORT FOR: cc: Omer Snyder MD, Anthony MD Holkins,Leonel Bui MD [facility] ~ APPROVED REPORT Study performed: 07/02/2021 09:47:03 EXAM: Comprehensive 2D, Doppler, and color-flow Echocardiogram Patient Location: In-Patient Room #: [facility] Status: routine BSA: 1.75 HR: 65 bpm BP: 140/71 mmHg Rhythm: NSR Other Information Study Quality: Good Indications Congestive Heart Failure Bradycardia 2D Dimensions IVSd: 15.24 (7-11mm) LVOT Diam: 20.53 (18-24mm) LVDd: 46.44 mm PWd: 12.60 (7-11mm) Ascending Ao: 35.29 (22-36mm) LVDs: 32.29 (25-40mm) Aortic Root: 36.81 mm Volumes Left Atrial Volume (Systole) LA ESV Index: 37.30 mL/m2 Aortic Valve AoV Peak Alexandre.: 1.36 m/s AO Peak Gr.: 7.45 mmHg LVOT Max P.47 mmHg AO Mean Gr.: 3.50 mmHg LVOT Mean P.12 mmHg LVOT Max V: 0.79 m/s AO V2 VTI: 24.40 cm LVOT Mean V: 0.49 m/s MARIE (VTI): 1.96 cm2 LVOT V1 VTI: 14.46 [place] [address] 2 D/M-MODE ECHOCARDIOGRAM Name: CACHORRO CROSS Room: [address] IN [facility]#: [id number] Admission: 07/01/21 Attend Phys: Marcos Villa, Discharge: Date of : 49 Date of Service: 07/02/21 1338 Report #: [id number] Mitral Valve MV Mean Gr.: 2.29 mmHg E/A Ratio: 0.66 MV Decel. Time: 385.08 ms MV E Max Alexandre.: 0.75 m/s MV PHT: 111.67 ms MVA (PHT): 1.97 cm2 TDI E/Lateral E': 10.71 E/Medial E': 10.71 Medial E' Alexandre.: 0.07 m/s Lateral E' Alexandre.: 0.07 m/s Pulmonary Valve PV Peak Alexandre.: 1.03 m/s PV Peak Gr.: 4.24 mmHg Left Ventricle The left ventricle is normal size. There is normal LV segmental wall motion. Mild to moderate concentric left ventricular hypertrophy. Left ventricular systolic function is normal. The left ventricular ejection fraction is within the normal range. LVEF is 60%. Grade I - abnormal relaxation pattern. Right Ventricle The right ventricle is normal size. The right ventricular systolic function is normal. Atria Left atrium is mildly dilated. The right atrium size is normal. Aortic Valve Mild aortic valve sclerosis. No aortic regurgitation is present. No hemodynamically significant valvular aortic stenosis. Mitral Valve Moderate mitral annular calcification. There is no mitral valve regurgitation noted. No evidence of mitral valve stenosis. Tricuspid Valve The tricuspid valve is normal in structure. There is no tricuspid valve regurgitation noted. Pulmonic Valve The pulmonary valve is normal in structure. There is no pulmonic [place]vular [place] [address] 2 D/M-MODE ECHOCARDIOGRAM Name: CACHORRO CROSS Room: [address]#: [id number] Admission: 07/01/21 Attend Phys: Marcos Villa, Discharge: Date of : 49 Date of Service: 07/02/21 1338 Report #: [id number] Great Vessels The aortic root is normal in size. IVC is normal in size and collapses >50% with inspiration. Pericardium There is no pericardial effusion. <Conclusion> The left ventricle is normal size. Mild to moderate concentric left ventricular hypertrophy. Left ventricular systolic function is normal. The left ventricular ejection fraction is within the normal range. LVEF is 60%. Grade I - abnormal relaxation pattern. The right ventricle is normal size. Left atrium is mildly dilated. Mild aortic valve sclerosis. No aortic regurgitation is present. No hemodynamically significant valvular aortic stenosis. Moderate mitral annular calcification. No evidence of mitral valve stenosis. The tricuspid valve is normal in structure. IVC is normal in size and collapses >50% with inspiration. There is no pericardial effusion. There is normal LV segmental wall motion. <ELECTRONICALLY SIGNED> By: Leonel Cavazos MD, FACC 07/02/21 1338 37 37 Leonel Cavazos MD, FACC /INF
[2021-07-02 16:02] VITALS: BP 117/98
[2021-07-02 20:15] VITALS: BP 96/41
[2021-07-03] VITALS: BP 132/53
[2021-07-03 04:00] VITALS: BP 145/61
[2021-07-03 05:35] LABS: ABSOLUTE BASOPHILS 0.1 thou/uL (0.0-0.2); ABSOLUTE EOSINOPHILS 0.3 thou/uL (0.0-0.7); ABSOLUTE LYMPHOCYTES 1.6 thou/uL (0.8-5.3); ABSOLUTE MONOCYTES 0.5 thou/uL (0.0-1.2); EOSINOPHILS 3.1 %; HEMATOCRIT 32.6 % (37.0-47.0); HEMOGLOBIN 10.2 gm/dL (12.0-15.0); LYMPHOCYTES 18.3 %; MCH 28.2 pg (26.0-34.0); MCHC 31.4 g/dL (28.0-37.0); MONOCYTES 6.4 %; MPV 7.5 fl. (7.2-11.1); NUCLEATED RBCS 0 /100WBC; PLATELET COUNT* 325 thou/uL (150-400); POLYS 71.2 %; RBC 3.62 mil/uL (4.20-5.00); RDW-CV 19.4 % (10.5-14.5); WBC 8.5 thou/uL (4.0-11.0)
[2021-07-03 06:07] LABS: CALCIUM 8.7 mg/dL (8.5-10.1); CREATININE 4.1 mg/dL (0.6-1.3)
[2021-07-03 07:55] VITALS: BP 114/51
[2021-07-03 08:08] LABS: HEMATOCRIT 29.7 % (37.0-47.0); HEMOGLOBIN 9.5 gm/dL (12.0-15.0); MCH 27.9 pg (26.0-34.0); MCHC 31.9 g/dL (28.0-37.0); MCV 87.5 fL (80.0-100.0); MPV 7.1 fl. (7.2-11.1); RBC 3.4 mil/uL (4.20-5.00); RDW-CV 18.8 % (10.5-14.5); WBC 7.7 thou/uL (4.0-11.0)
[2021-07-03 08:22] LABS: ALBUMIN 2.5 g/dL (3.4-5.0); CALCIUM 8.5 mg/dL (8.5-10.1); MAGNESIUM 2.5 mg/dL (1.8-2.4); POTASSIUM 4.9 mmol/L (3.5-5.1); TOTAL BILIRUBIN 0.4 mg/dL (<0.1-1.0); TOTAL PROTEIN 6.8 g/dL (6.4-8.2)
[2021-07-03 11:26] VITALS: BP 140/56
--- NOTE | 2021-07-03 13:37 | CON ---
[address] [address] CONSULTATION Name: CACHORRO CROSS Room: [address] IN .R.#: [id number] Admission: 07/01/21 Attend Phys: Marcos Villa MD Discharge: Date of : 49 Report #: [id number] THIS REPORT FOR: cc: Omer Snyder MD, Anthony MD Pervez,Santhosh TORRES ~ DATE OF CONSULTATION: 07/02/2021 REQUESTING PHYSICIAN: Dr. Darby. INDICATION FOR CONSULTATION: Respiratory failure. HISTORY OF PRESENT ILLNESS: This is a 75-year-old female with past medical history as mentioned below. She lives at a long-term care facility, has been transferred from there with progressively increasing weakness. She has had some shortness of breath as well. Essentially does not describe any other complaints at this time. She has a previous history of COPD, has been on oxygen long-term. She has been asked to use a CPAP, but she had declined. She had Stenotrophomonas maltophilia pneumonia back in 12/2020 when I had also performed a bronchoscopy. The patient was in acute renal failure at that time and required hemodialysis. It is not known to me as to whether the patient's creatinine subsequently normalized or not. Currently, the patient is on 4 liters nasal cannula and does not appear to be in any distress. She again is in acute renal failure with a creatinine of 4.3. REVIEW OF SYSTEMS: Negative for 12 questions for review of systems except as mentioned above; however, her ability to provide history is limited. PAST MEDICAL HISTORY: Acute renal failure in summer, creatinine before that was 1.2 until known to me as to whether the patient subsequently had chronic renal failure or not, Stenotrophomonas maltophilia pneumonia, status post bronchoscopy, which I had performed at about the same time, significant thrush; COPD, has been on oxygen long-term; obstructive sleep apnea, declined CPAP or BiPAP; diabetes, hypertension, TIAs x3, status post hysterectomy, status post cardiac stents, macular degeneration, cataract surgery. There is an echocardiogram performed recently shows a left ventricular ejection fraction of 60% without right heart pressure elevation. CURRENT MEDICATIONS: List in Get[employer] reviewed. HOME MEDICATIONS: List also in [place] [address] CONSULTATION Name: CACHORRO CROSS Aileen Room: [address]#: [id number] Admission: 07/01/21 Attend Phys: Marcos Villa MD Discharge: Date of : 49 Report #: [id number] ALLERGIES: List in Get[employer] reviewed, amongst others, the patient reports ALLERGY TO SULFONAMIDE ANTIBIOTICS, ____ SIDE EFFECT WAS NAUSEA. ALSO REPORTED TO BE ALLERGIC TO IV DYE, PASSED OUT. FAMILY HISTORY: No pertinent family history. SOCIAL HISTORY: Extensive history of smoking in the past. IMMUNIZATION HISTORY: The patient says that she declined COVID-19 vaccination. PHYSICAL EXAMINATION: GENERAL: She is fully alert, awake and oriented; however, does not provide a detailed history. VITAL SIGNS: In the records reviewed. HEENT: Head is normocephalic and atraumatic. Pupils are equal and reactive. There is no throat erythema. NECK: Does not show raised JVP, asymmetry, mass or lymph nodes. CHEST: Symmetrical expansion on inspection and palpation. On auscultation, breath sounds decreased at the left lung base. HEART: Regular. There is no murmur. ABDOMEN: Soft and nontender. EXTREMITIES: Lower extremities show no edema, no calf tenderness. SKIN: Dry and intact. NEUROLOGIC: Moves all extremities bilaterally equally and spontaneously with no focal deficit identified. LABORATORY DATA: The patient's lab work as well as chest x-rays in [facility] reviewed. Renal ultrasound also in [facility] reviewed. Perfusion scan report in [facility] reviewed. ASSESSMENT AND PLAN: 1. Acute on chronic hypoxemic respiratory failure. She reports that she is on long-term oxygen. She is currently saturating on 4 liters nasal cannula 98%. Therefore, her oxygen needs may not be much higher than her baseline. 2. Pulmonary infiltrates/left-sided pleural effusion/volume loss on the left side. She has acute renal failure. Therefore, I would discontinue vancomycin, started linezolid, held Zoloft while she is on linezolid. Continue cefepime. Note that she had Stenotrophomonas maltophilia pneumonia previously, it was sensitive to Levaquin. Potentially, we can start Stenotrophomonas coverage again. We will review CT and then advise further. May have mucus plugging as well. 3. Chronic obstructive pulmonary disease, not actively bronchospastic, on nebulized bronchodilators. 4. Suspected mucus plugging. Pending CT results. We will give her Mucomyst. [address] [address] CONSULTATION Name: CACHORRO CROSS Room: M.104-P ADM IN M.R.#: [id number] Admission: 07/01/21 Attend Phys: Marcos Villa MD Discharge: Date of : 49 Report #: [id number] 5. Acute renal failure. She had acute renal failure in last summer. She does have acute renal failure now. Her creatinine before the last episode was 1.2. She received hemodialysis last summer. It is not known to me as to whether the patient in fact has chronic renal failure or not. At this point, Nephrology service recommended hydration. I agree with the same and I went ahead and ordered. 6. Deep venous thrombosis prophylaxis, on subcutaneous heparin. 7. Clostridium difficile prophylaxis. We will order Lactinex. 8. Diabetes. Insulin per primary service. 9. Obstructive sleep apnea. The patient states that she does not like a BiPAP and has refused in the past. Thanks for this consultation. <ELECTRONICALLY SIGNED> By: Santhosh Youngblood MD 07/03/21 1337 1650 1953Atrena Youngblood MD /nt
[2021-07-03 15:51] VITALS: BP 114/50
[2021-07-03 15:57] LABS: URINE BILIRUBIN NEGATIVE (Negative); URINE BLOOD 2+ (Negative); URINE COLOR YELLOW; URINE GLUCOSE-RANDOM NEGATIVE (Negative); URINE KETONES NEGATIVE (Negative); URINE LEUKOCYTES 2+ (Negative); URINE NITRITE NEGATIVE (Negative); URINE PROTEIN 2+ (Negative); URINE SPECIFIC GRAVITY 1.025 (1.005-1.030); URINE UROBILINOGEN 0.2 E.U./dl (0.2-1.0)
[2021-07-03 16:02] LABS: URINE CLARITY CLOUDY
[2021-07-03 16:32] LABS: BACTERIA 1-9 Few /HPF (None Seen); CASTS None Seen /LPF (None Seen); CRYSTALS None Seen /LPF (None Seen); SQUAMOUS 4-10 Moderate /LPF (0-3); URINE RBC 3-10 Few /HPF (0-2); URINE WBC >25 Many /HPF (0-5)
[2021-07-03 20:55] VITALS: BP 131/60
[2021-07-04] VITALS (7 sets, daily range): BP systolic 108–155; BP diastolic 40–59
[2021-07-04 04:18] LABS: HEMATOCRIT 29.3 % (37.0-47.0); HEMOGLOBIN 9.6 gm/dL (12.0-15.0); MCH 28.7 pg (26.0-34.0); MCHC 32.8 g/dL (28.0-37.0); MCV 87.6 fL (80.0-100.0); MPV 7.2 fl. (7.2-11.1); RBC 3.35 mil/uL (4.20-5.00); RDW-CV 18.6 % (10.5-14.5); WBC 7.8 thou/uL (4.0-11.0)
[2021-07-04 04:42] LABS: ALBUMIN 2.4 g/dL (3.4-5.0); CALCIUM 8.4 mg/dL (8.5-10.1); CREATININE 3.6 mg/dL (0.6-1.3); MAGNESIUM 2.3 mg/dL (1.8-2.4); POTASSIUM 4.8 mmol/L (3.5-5.1); TOTAL BILIRUBIN 0.3 mg/dL (<0.1-1.0); TOTAL PROTEIN 6.6 g/dL (6.4-8.2)
[2021-07-05 07:13] LABS: HEMOGLOBIN 9.9 gm/dL (12.0-15.0); MCH 28.2 pg (26.0-34.0); MCHC 31.9 g/dL (28.0-37.0); MCV 88.6 fL (80.0-100.0); RBC 3.5 mil/uL (4.20-5.00); RDW-CV 19.2 % (10.5-14.5); WBC 8.3 thou/uL (4.0-11.0)
[2021-07-05 07:25] LABS: ALBUMIN 2.5 g/dL (3.4-5.0); CALCIUM 8.1 mg/dL (8.5-10.1); CREATININE 3.1 mg/dL (0.6-1.3); MAGNESIUM 2.2 mg/dL (1.8-2.4); POTASSIUM 4.4 mmol/L (3.5-5.1); TOTAL BILIRUBIN 0.3 mg/dL (<0.1-1.0); TOTAL PROTEIN 6.9 g/dL (6.4-8.2)
[2021-07-05 08:00] VITALS: BP 147/69
[2021-07-05 11:14] VITALS: BP 160/59
[2021-07-05 19:45] VITALS: BP 123/43
[2021-07-06 04:35] VITALS: BP 144/58
[2021-07-06 05:21] LABS: HEMATOCRIT 30.8 % (37.0-47.0); HEMOGLOBIN 10.1 gm/dL (12.0-15.0); MCH 28.7 pg (26.0-34.0); MCHC 32.9 g/dL (28.0-37.0); MCV 87.3 fL (80.0-100.0); MPV 7.1 fl. (7.2-11.1); RBC 3.53 mil/uL (4.20-5.00); RDW-CV 18.8 % (10.5-14.5); WBC 9.5 thou/uL (4.0-11.0)
[2021-07-06 05:38] LABS: CALCIUM 8.1 mg/dL (8.5-10.1); CREATININE 3.1 mg/dL (0.6-1.3); MAGNESIUM 2.1 mg/dL (1.8-2.4); POTASSIUM 4.8 mmol/L (3.5-5.1)
[2021-07-06 08:00] VITALS: BP 115/47
--- NOTE | 2021-07-06 15:58 | EKG ---
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1945 Requested By: Marcos Villa Order Number: [id number] Reading MD: Yan Galarza Measurements Intervals [place]cl[place] Rate: 59 P: PA: QRS: 55 QRSD: 94 T: 168 QT: 449 QTc: 445 Interpretive Statements Junctional rhythm Low voltage, extremity leads Abnormal T, consider ischemia, lateral leads Baseline wander in lead(s) V6 Compared to ECG 07/01/2021 20:00:19 Junctional rhythm now present Low QRS voltage now present T-wave abnormality still present Possible ischemia still present Electronically Signed On 07-06-2021 15:58:02 RIFLE CASE REPAIRER by Yan Galarza [email or web address] <ELECTRONICALLY SIGNED> By: Yan Galarza MD, [facility] 07/06/21 1558 1637 1637 Yan Galarza MD, [facility] /EPI
[2021-07-06 16:00] VITALS: BP 123/57
[2021-07-06 19:45] VITALS: BP 135/60
[2021-07-07] VITALS: BP 130/56
[2021-07-07 04:53] LABS: HEMATOCRIT 27.4 % (37.0-47.0); HEMOGLOBIN 8.9 gm/dL (12.0-15.0); MCH 28.7 pg (26.0-34.0); MCHC 32.5 g/dL (28.0-37.0); MCV 88.6 fL (80.0-100.0); MPV 7.5 fl. (7.2-11.1); NUCLEATED RBCS 0 /100WBC; PLATELET COUNT* 258 thou/uL (150-400); RBC 3.09 mil/uL (4.20-5.00)
[2021-07-07 05:29] LABS: ALBUMIN 2.4 g/dL (3.4-5.0); CALCIUM 7.7 mg/dL (8.5-10.1); CREATININE 2.8 mg/dL (0.6-1.3); PHOSPHORUS* 3.3 mg/dL (2.5-4.9); POTASSIUM 4.2 mmol/L (3.5-5.1); TOTAL BILIRUBIN 0.3 mg/dL (<0.1-1.0); TOTAL PROTEIN 6.3 g/dL (6.4-8.2)
[2021-07-07 07:18] LABS: ABSOLUTE BASOPHILS 0.1 thou/uL (0.0-0.2); ABSOLUTE EOSINOPHILS 0.1 thou/uL (0.0-0.7); ABSOLUTE LYMPHOCYTES 1.6 thou/uL (0.8-5.3); ABSOLUTE MONOCYTES 0.4 thou/uL (0.0-1.2); ABSOLUTE NEUTROPHILS 6.8 thou/uL (1.6-8.1); MYELOCYTES 1 %
[2021-07-07 07:19] LABS: ANISOCYTOSIS 1+; PLATELET ESTIMATE ADEQUATE
[2021-07-07 07:47] VITALS: BP 135/68
[2021-07-07 16:00] VITALS: BP 120/54
[2021-07-07 20:00] VITALS: BP 138/62
[2021-07-08] VITALS: BP 123/58
[2021-07-08 05:54] LABS: ABSOLUTE BASOPHILS 0.1 thou/uL (0.0-0.2); ABSOLUTE EOSINOPHILS 0.3 thou/uL (0.0-0.7); ABSOLUTE LYMPHOCYTES 1.5 thou/uL (0.8-5.3); ABSOLUTE MONOCYTES 0.4 thou/uL (0.0-1.2); ABSOLUTE NEUTROPHILS 6.1 thou/uL (1.6-8.1); BASOPHILS 0.9 %; EOSINOPHILS 3.5 %; HEMATOCRIT 27.4 % (37.0-47.0); HEMOGLOBIN 9.1 gm/dL (12.0-15.0); LYMPHOCYTES 18.2 %; MCV 87.7 fL (80.0-100.0); MPV 7.1 fl. (7.2-11.1); NUCLEATED RBCS 0 /100WBC; PLATELET COUNT* 250 thou/uL (150-400); POLYS 72.4 %; RBC 3.12 mil/uL (4.20-5.00); RDW-CV 19.1 % (10.5-14.5); WBC 8.4 thou/uL (4.0-11.0)
[2021-07-08 06:05] LABS: ALBUMIN 2.4 g/dL (3.4-5.0); CALCIUM 7.3 mg/dL (8.5-10.1); CREATININE 2.6 mg/dL (0.6-1.3); MAGNESIUM 1.9 mg/dL (1.8-2.4); POTASSIUM 4.1 mmol/L (3.5-5.1); TOTAL BILIRUBIN 0.3 mg/dL (<0.1-1.0); TOTAL PROTEIN 6.1 g/dL (6.4-8.2)
[2021-07-08] MEDS ORDERED: FOLIC ACID1 MG PO (07:32)
[2021-07-08] MEDS ORDERED: LEVOTHYROXINE50 MC1 PO (07:32)
[2021-07-08 16:00] VITALS: BP 131/50; BP 139/55
[2021-07-09] VITALS: BP 108/49
[2021-07-09 04:00] VITALS: BP 136/65
[2021-07-09 04:49] LABS: ABSOLUTE BASOPHILS 0.1 thou/uL (0.0-0.2); ABSOLUTE EOSINOPHILS 0.2 thou/uL (0.0-0.7); ABSOLUTE LYMPHOCYTES 1.7 thou/uL (0.8-5.3); ABSOLUTE MONOCYTES 0.4 thou/uL (0.0-1.2); ABSOLUTE NEUTROPHILS 4.7 thou/uL (1.6-8.1); BASOPHILS 0.9 %; EOSINOPHILS 3.4 %; HEMATOCRIT 27.8 % (37.0-47.0); HEMOGLOBIN 9.2 gm/dL (12.0-15.0); LYMPHOCYTES 23.7 %; MCH 29.8 pg (26.0-34.0); MCHC 32.9 g/dL (28.0-37.0); MCV 90.5 fL (80.0-100.0); MONOCYTES 5.6 %; MPV 7.6 fl. (7.2-11.1); NUCLEATED RBCS 0 /100WBC; PLATELET COUNT* 232 thou/uL (150-400); POLYS 66.4 %; RBC 3.08 mil/uL (4.20-5.00); WBC 7.1 thou/uL (4.0-11.0)
[2021-07-09 05:33] LABS: ALBUMIN 2.3 g/dL (3.4-5.0); CALCIUM 7.4 mg/dL (8.5-10.1); CREATININE 2.5 mg/dL (0.6-1.3); POTASSIUM 3.9 mmol/L (3.5-5.1); TOTAL BILIRUBIN 0.3 mg/dL (<0.1-1.0); TOTAL PROTEIN 6.2 g/dL (6.4-8.2)
[2021-07-09 08:00] VITALS: BP 148/67
[2021-07-09 11:55] VITALS: BP 141/59
[2021-07-09 17:12] LABS: BF RBC 58855 /mm3; TOTAL CELL COUNT 184 /mm3
[2021-07-09 17:15] LABS: TOTAL VOLUME 20 ml
[2021-07-09 17:16] LABS: CLARITY CLOUDY
[2021-07-09 18:08] LABS: BF LYMPHOCYTES 33 %; BF MONOCYTES 2 %; BF POLYS 63 %; SOURCE PLEURAL FLUID
[2021-07-09 18:09] LABS: BF EOSINOPHILS 2 %
[2021-07-09 18:20] LABS: BF TISSUE 3 /100 WBC
[2021-07-09 20:00] VITALS: BP 162/83
[2021-07-10] VITALS: BP 148/70
[2021-07-10 04:00] VITALS: BP 151/66
[2021-07-10 05:35] LABS: ABSOLUTE BASOPHILS 0.1 thou/uL (0.0-0.2); ABSOLUTE EOSINOPHILS 0.2 thou/uL (0.0-0.7); ABSOLUTE LYMPHOCYTES 1.4 thou/uL (0.8-5.3); ABSOLUTE MONOCYTES 0.4 thou/uL (0.0-1.2); ABSOLUTE NEUTROPHILS 6.1 thou/uL (1.6-8.1); BASOPHILS 1.1 %; EOSINOPHILS 2.3 %; HEMATOCRIT 28.7 % (37.0-47.0); HEMOGLOBIN 9.3 gm/dL (12.0-15.0); LYMPHOCYTES 16.7 %; MCH 29.5 pg (26.0-34.0); MCHC 32.5 g/dL (28.0-37.0); MCV 90.7 fL (80.0-100.0); MONOCYTES 4.6 %; MPV 7.5 fl. (7.2-11.1); NUCLEATED RBCS 0 /100WBC; PLATELET COUNT* 216 thou/uL (150-400); POLYS 75.3 %; RBC 3.16 mil/uL (4.20-5.00); RDW-CV 19.9 % (10.5-14.5); WBC 8.1 thou/uL (4.0-11.0)
[2021-07-10 06:14] LABS: ALBUMIN 2.5 g/dL (3.4-5.0); CALCIUM 7.6 mg/dL (8.5-10.1); CREATININE 2.4 mg/dL (0.6-1.3); TOTAL BILIRUBIN 0.3 mg/dL (<0.1-1.0); TOTAL PROTEIN 6.6 g/dL (6.4-8.2)
[2021-07-10 08:00] VITALS: BP 190/86
[2021-07-10 12:09] VITALS: BP 134/59
[2021-07-10 16:39] VITALS: BP 132/62
[2021-07-10 20:00] VITALS: BP 152/77
[2021-07-11] VITALS: BP 130/49
[2021-07-11 07:27] LABS: HEMATOCRIT 27.6 % (37.0-47.0); HEMOGLOBIN 8.8 gm/dL (12.0-15.0); MCH 28.6 pg (26.0-34.0); MCHC 31.8 g/dL (28.0-37.0); MCV 89.8 fL (80.0-100.0); MPV 7.4 fl. (7.2-11.1); NUCLEATED RBCS 0 /100WBC; PLATELET COUNT* 191 thou/uL (150-400); RBC 3.07 mil/uL (4.20-5.00); RDW-CV 20.1 % (10.5-14.5); WBC 7.3 thou/uL (4.0-11.0)
[2021-07-11 07:32] LABS: ABSOLUTE EOSINOPHILS 0.3 thou/uL (0.0-0.7); ABSOLUTE LYMPHOCYTES 1.2 thou/uL (0.8-5.3); ABSOLUTE MONOCYTES 0.4 thou/uL (0.0-1.2); ABSOLUTE NEUTROPHILS 5.5 thou/uL (1.6-8.1)
[2021-07-11 07:33] LABS: PLATELET ESTIMATE ADEQUATE
[2021-07-11 07:55] LABS: ALBUMIN 2.5 g/dL (3.4-5.0); CREATININE 2.3 mg/dL (0.6-1.3); MAGNESIUM 1.9 mg/dL (1.8-2.4); POTASSIUM 4.2 mmol/L (3.5-5.1); TOTAL BILIRUBIN 0.4 mg/dL (<0.1-1.0); TOTAL PROTEIN 6.5 g/dL (6.4-8.2)
[2021-07-11 08:00] VITALS: BP 133/56
[2021-07-11 08:17] LABS: PREALBUMIN 21.1 mg/dL (18.0-35.7)
[2021-07-11 12:00] VITALS: BP 148/67
[2021-07-11 16:00] VITALS: BP 138/82
[2021-07-11 20:00] VITALS: BP 134/59
[2021-07-12] VITALS: BP 116/49
[2021-07-12 07:14] LABS: ABSOLUTE BASOPHILS 0.1 thou/uL (0.0-0.2); ABSOLUTE EOSINOPHILS 0.4 thou/uL (0.0-0.7); ABSOLUTE LYMPHOCYTES 1.5 thou/uL (0.8-5.3); ABSOLUTE MONOCYTES 0.5 thou/uL (0.0-1.2); ABSOLUTE NEUTROPHILS 3.9 thou/uL (1.6-8.1); BASOPHILS 1.3 %; EOSINOPHILS 5.9 %; HEMATOCRIT 25.9 % (37.0-47.0); HEMOGLOBIN 8.4 gm/dL (12.0-15.0); LYMPHOCYTES 24.2 %; MCH 29.2 pg (26.0-34.0); MCHC 32.3 g/dL (28.0-37.0); MCV 90.4 fL (80.0-100.0); MPV 7.3 fl. (7.2-11.1); NUCLEATED RBCS 0 /100WBC; PLATELET COUNT* 166 thou/uL (150-400); POLYS 60.6 %; RBC 2.86 mil/uL (4.20-5.00); WBC 6.4 thou/uL (4.0-11.0)
[2021-07-12 07:27] LABS: ALBUMIN 2.2 g/dL (3.4-5.0); CALCIUM 7.8 mg/dL (8.5-10.1); CREATININE 2.3 mg/dL (0.6-1.3); POTASSIUM 4.4 mmol/L (3.5-5.1); TOTAL BILIRUBIN 0.3 mg/dL (<0.1-1.0)
[2021-07-12 08:00] VITALS: BP 147/64
[2021-07-12 11:30] VITALS: BP 123/69
[2021-07-12 14:06] LABS: BODY FLUID PROTEIN 2.7 g/dL (())
[2021-07-12 16:00] VITALS: BP 140/42
[2021-07-12 20:05] VITALS: BP 122/49
[2021-07-13 00:15] VITALS: BP 138/44
[2021-07-13 04:30] VITALS: BP 150/72
[2021-07-13 07:15] VITALS: BP 140/43
[2021-07-13 15:51] VITALS: BP 132/33
[2021-07-13 19:45] VITALS: BP 120/49
[2021-07-14] VITALS: BP 132/43
[2021-07-14 04:00] VITALS: BP 119/45
[2021-07-14 05:49] LABS: ABSOLUTE BASOPHILS 0.1 thou/uL (0.0-0.2); ABSOLUTE EOSINOPHILS 0.3 thou/uL (0.0-0.7); ABSOLUTE LYMPHOCYTES 1.8 thou/uL (0.8-5.3); ABSOLUTE MONOCYTES 0.7 thou/uL (0.0-1.2); ABSOLUTE NEUTROPHILS 4.4 thou/uL (1.6-8.1); BASOPHILS 0.9 %; EOSINOPHILS 4.6 %; HEMOGLOBIN 7.8 gm/dL (12.0-15.0); LYMPHOCYTES 24.9 %; MCH 29.5 pg (26.0-34.0); MCHC 32.7 g/dL (28.0-37.0); MCV 90.3 fL (80.0-100.0); MONOCYTES 9.3 %; MPV 7.6 fl. (7.2-11.1); NUCLEATED RBCS 0 /100WBC; PLATELET COUNT* 142 thou/uL (150-400); POLYS 60.3 %; RBC 2.65 mil/uL (4.20-5.00); WBC 7.2 thou/uL (4.0-11.0)
[2021-07-14 06:11] LABS: ALBUMIN 2.1 g/dL (3.4-5.0); CALCIUM 7.9 mg/dL (8.5-10.1); CREATININE 2.5 mg/dL (0.6-1.3); POTASSIUM 4.2 mmol/L (3.5-5.1); TOTAL BILIRUBIN 0.4 mg/dL (<0.1-1.0); TOTAL PROTEIN 5.8 g/dL (6.4-8.2)
[2021-07-14 08:00] VITALS: BP 147/58
--- NOTE | 2021-07-14 10:08 | PATH ---
[address] [address] PATHOLOGY RPT PROCEDURE Name: CACHORRO CROSS Room: [address] IN [facility]#: [id number] Admission: 07/01/21 Date of : 49 Discharge: Report #: [id number] Path Case #: [id number] Note [facility] Accession Number: [id number] TESTS RESULT FLAG UNITS REF RANGE LAB Clinician Provided Cytology Information No. of containers..01 Other (Miscellaneous) Source: PLEURAL FLUID DIAGNOSIS: 02 PLEURAL FLUID (SIDE NOT SPECIFIED): NEGATIVE FOR MALIGNANT CELLS. PAUCICELLULAR SPECIMEN WITH FEW MESOTHELIAL CELLS, INFLAMMATORY CELLS AND RBCs. THIS INTERPRETATION INCLUDES EVLUATION OF A CELL BLOCK. Signed out by: 02 Chip Jason MD, Pathologist NPI- [id number] Performed by: 01 Niyah Ratliff, Rotary Shear Cutter ([facility]) Gross description: 01 4ML, REDDISH-PINK, CLOUDY /LCS 07/10/2021 1815 Local FLAG LEGEND: L-Low Normal,H-High Normal,LL-Alert Low,HH-Alert High <-Panic Low,>-Panic High,A-Abnormal,AA-Critical Abnormal Performed at: [address] [place] [address] Carroll Almazan MD, [address] [place] [address] [address] [place] [address] Chip Jason MD, Performed at: [address] [place] [address] [address], [place], [place] [id number] MD Carroll Almazan MD Phone: [phone]
[2021-07-14 11:40] VITALS: BP 154/57
[2021-07-14 16:31] VITALS: BP 128/56
[2021-07-14 19:40] VITALS: BP 133/58
[2021-07-15 04:16] VITALS: BP 132/62
[2021-07-15 04:17] LABS: HEMATOCRIT 23.9 % (37.0-47.0); MCH 30.3 pg (26.0-34.0); MCHC 33.7 g/dL (28.0-37.0); MCV 89.9 fL (80.0-100.0); MPV 7.7 fl. (7.2-11.1); NUCLEATED RBCS 1 /100WBC; PLATELET COUNT* 144 thou/uL (150-400); RBC 2.65 mil/uL (4.20-5.00); RDW-CV 20.2 % (10.5-14.5); WBC 9.6 thou/uL (4.0-11.0)
[2021-07-15 04:52] LABS: ALBUMIN 2.2 g/dL (3.4-5.0); CALCIUM 7.7 mg/dL (8.5-10.1); CREATININE 2.5 mg/dL (0.6-1.3); POTASSIUM 4.4 mmol/L (3.5-5.1); TOTAL BILIRUBIN 0.3 mg/dL (<0.1-1.0)
[2021-07-15 08:00] VITALS: BP 141/91
[2021-07-15 09:15] LABS: ABSOLUTE EOSINOPHILS 0.3 thou/uL (0.0-0.7); ABSOLUTE LYMPHOCYTES 2.1 thou/uL (0.8-5.3); ABSOLUTE MONOCYTES 0.3 thou/uL (0.0-1.2); ABSOLUTE NEUTROPHILS 6.9 thou/uL (1.6-8.1); ANISOCYTOSIS 2+; METAMYELOCYTES 2 %; MYELOCYTES 1 %; PLATELET ESTIMATE DECREASED; PROMYELOCYTES 4 %
[2021-07-15 10:20] VITALS: BP 136/67
[2021-07-15 17:04] VITALS: BP 138/66
[2021-07-15 21:20] VITALS: BP 150/50
[2021-07-16 00:35] VITALS: BP 153/57
[2021-07-16 04:51] VITALS: BP 172/89
[2021-07-16 08:00] VITALS: BP 161/60
[2021-07-16 15:55] VITALS: BP 155/47
[2021-07-16 17:23] LABS: ABSOLUTE BASOPHILS 0.1 thou/uL (0.0-0.2); ABSOLUTE EOSINOPHILS 0.4 thou/uL (0.0-0.7); ABSOLUTE LYMPHOCYTES 2.2 thou/uL (0.8-5.3); ABSOLUTE MONOCYTES 0.9 thou/uL (0.0-1.2); ABSOLUTE NEUTROPHILS 6.6 thou/uL (1.6-8.1); BASOPHILS 0.9 %; EOSINOPHILS 3.8 %; HEMATOCRIT 23.1 % (37.0-47.0); HEMOGLOBIN 7.5 gm/dL (12.0-15.0); LYMPHOCYTES 21.4 %; MCH 29.4 pg (26.0-34.0); MCHC 32.3 g/dL (28.0-37.0); MONOCYTES 8.7 %; MPV 7.9 fl. (7.2-11.1); NUCLEATED RBCS 1 /100WBC; PLATELET COUNT* 140 thou/uL (150-400); POLYS 65.2 %; RBC 2.54 mil/uL (4.20-5.00); RDW-CV 20.5 % (10.5-14.5); WBC 10.2 thou/uL (4.0-11.0)
[2021-07-16 17:37] LABS: ALBUMIN 2.4 g/dL (3.4-5.0); CALCIUM 8.3 mg/dL (8.5-10.1); CREATININE 2.3 mg/dL (0.6-1.3); TOTAL BILIRUBIN 0.3 mg/dL (<0.1-1.0); TOTAL PROTEIN 6.5 g/dL (6.4-8.2)
[2021-07-16 20:14] VITALS: BP 144/50
[2021-07-17 01:51] VITALS: BP 157/60
[2021-07-17 06:03] VITALS: BP 156/62
[2021-07-17 07:50] VITALS: BP 161/56
[2021-07-17 11:41] LABS: BE -5.5 mmol/L (-2 to +3); PO2 VENOUS 42.5 mmHg (35.0-45.0)
[2021-07-17 12:00] VITALS: BP 151/43
[2021-07-17 22:46] VITALS: BP 151/47
[2021-07-18 00:45] VITALS: BP 184/61
[2021-07-18 04:45] VITALS: BP 165/68
[2021-07-18 05:25] LABS: ABSOLUTE BASOPHILS 0.1 thou/uL (0.0-0.2); ABSOLUTE EOSINOPHILS 0.3 thou/uL (0.0-0.7); ABSOLUTE LYMPHOCYTES 2.1 thou/uL (0.8-5.3); ABSOLUTE MONOCYTES 0.6 thou/uL (0.0-1.2); ABSOLUTE NEUTROPHILS 6.9 thou/uL (1.6-8.1); BASOPHILS 0.7 %; EOSINOPHILS 3.3 %; HEMATOCRIT 25.5 % (37.0-47.0); HEMOGLOBIN 8.3 gm/dL (12.0-15.0); LYMPHOCYTES 21.2 %; MCH 29.5 pg (26.0-34.0); MCHC 32.5 g/dL (28.0-37.0); MCV 90.7 fL (80.0-100.0); MONOCYTES 6.4 %; MPV 8.1 fl. (7.2-11.1); NUCLEATED RBCS 2 /100WBC; PLATELET COUNT* 169 thou/uL (150-400); POLYS 68.4 %; RBC 2.82 mil/uL (4.20-5.00); RDW-CV 20.8 % (10.5-14.5)
[2021-07-18 05:51] LABS: ALBUMIN 2.3 g/dL (3.4-5.0); CALCIUM 8.6 mg/dL (8.5-10.1); CREATININE 2.1 mg/dL (0.6-1.3); MAGNESIUM 2.3 mg/dL (1.8-2.4); POTASSIUM 4.2 mmol/L (3.5-5.1); TOTAL BILIRUBIN 0.3 mg/dL (<0.1-1.0); TOTAL PROTEIN 6.3 g/dL (6.4-8.2)
[2021-07-18 09:00] VITALS: BP 162/71
[2021-07-18 12:00] VITALS: BP 153/48
[2021-07-18 16:25] VITALS: BP 143/57
[2021-07-18 20:55] VITALS: BP 135/60
[2021-07-19] VITALS (7 sets, daily range): BP systolic 136–164; BP diastolic 48–84
[2021-07-19 06:57] LABS: ALBUMIN 2.4 g/dL (3.4-5.0); CALCIUM 8.3 mg/dL (8.5-10.1); CREATININE 2.1 mg/dL (0.6-1.3); POTASSIUM 3.8 mmol/L (3.5-5.1); TOTAL BILIRUBIN 0.4 mg/dL (<0.1-1.0); TOTAL PROTEIN 6.4 g/dL (6.4-8.2)
[2021-07-19 07:15] LABS: ABSOLUTE BASOPHILS 0.1 thou/uL (0.0-0.2); ABSOLUTE EOSINOPHILS 0.3 thou/uL (0.0-0.7); ABSOLUTE LYMPHOCYTES 1.7 thou/uL (0.8-5.3); ABSOLUTE MONOCYTES 0.6 thou/uL (0.0-1.2); ABSOLUTE NEUTROPHILS 5.3 thou/uL (1.6-8.1); BASOPHILS 1.8 %; EOSINOPHILS 3.3 %; HEMOGLOBIN 8.2 gm/dL (12.0-15.0); MCH 29.7 pg (26.0-34.0); MCHC 32.6 g/dL (28.0-37.0); MCV 91.1 fL (80.0-100.0); MONOCYTES 7.3 %; MPV 8.9 fl. (7.2-11.1); NUCLEATED RBCS 1 /100WBC; PLATELET COUNT* 168 thou/uL (150-400); POLYS 66.6 %; RBC 2.75 mil/uL (4.20-5.00); RDW-CV 20.8 % (10.5-14.5); WBC 7.9 thou/uL (4.0-11.0)
[2021-07-20 04:00] VITALS: BP 128/56
[2021-07-20 04:30] LABS: HEMATOCRIT 23.5 % (37.0-47.0); HEMOGLOBIN 7.8 gm/dL (12.0-15.0); MCH 30.4 pg (26.0-34.0); MCHC 33.1 g/dL (28.0-37.0); MCV 91.7 fL (80.0-100.0); MPV 8.4 fl. (7.2-11.1); RBC 2.56 mil/uL (4.20-5.00); RDW-CV 20.9 % (10.5-14.5); WBC 7.1 thou/uL (4.0-11.0)
[2021-07-20 04:38] LABS: CALCIUM 7.7 mg/dL (8.5-10.1); CREATININE 2.1 mg/dL (0.6-1.3); POTASSIUM 3.9 mmol/L (3.5-5.1)
[2021-07-20 08:00] VITALS: BP 161/66
[2021-07-20 11:00] LABS: APTT 28.3 Seconds (25.0-31.3); PROTIME 10.2 Seconds (9.20-11.50)
[2021-07-20 11:30] VITALS: BP 134/47
[2021-07-20 15:30] VITALS: BP 146/66
[2021-07-20 20:00] VITALS: BP 112/45
[2021-07-20 20:35] VITALS: BP 112/45
--- NOTE | 2021-07-22 13:22 | PROC ---
[address] [address] PROCEDURE REPORT Name: CACHORRO CROSS Aileen Room: [address] IN M.R.#: [id number] Admission: 07/01/21 Attend Phys: Marcos Villa MD Discharge: 07/21/21 Date of : 49 Report #: [id number] THIS REPORT FOR: cc: Omer Snyder MD, Anthony MD Pervez,Santhosh TORRES ~ DATE OF PROCEDURE: 07/20/2021 INDICATIONS FOR PROCEDURE: Partial left lung collapse/mucus plugging. CONSENT: Informed consent was obtained from the patient as well as . SEDATION: The patient was sedated with 1 mg of Versed in addition to 50 of fentanyl in addition to various amounts of local anesthetic solution being administered in the respiratory tract as described below. POSTPROCEDURE DIAGNOSIS. There was partial occlusion of the left mainstem as well as lingular bronchi with thick white mucus, which was suctioned out and sent for cultures. PROCEDURE IN DETAIL: Informed consent was obtained and the patient was transferred to the bronchoscopy suite. I discussed both with the patient as well as her . The respiratory therapist then proceeded to preparing the upper airway using the standard protocol. Have bronched this patient twice before and her nostrils were narrow. Therefore, I elected to proceed with the procedure through the mouth. A mouthguard was placed. The patient was sedated with Versed and fentanyl as above, after which I electively placed the patient on a 15 liters nonrebreather mask and through this mask proceeded with introducing a bronchoscope. I visualize the vocal cords without difficulty. Vocal cords were sprayed with 4% Xylocaine, 10 mL, after which cough reflex subsided. I advanced the bronchoscope into the trachea and then proceeded to examining the entire right and left bronchial tree. Another 6 mL of 2% Xylocaine was instilled below the vocal cords. There was a thick white mucus noted towards the lower end of the trachea on the left side, which was partially blocking the left mainstem. This was suctioned out and collected in a trap. There was more thick white mucus seen more distally in the bronchial tree as well. This appeared to be more prominent in the lingula. Again, suction was also performed in the lingula and a specimen collected. I collected total of around 20 mL of thick white mucus in the trap after which I removed the trap and then continued to perform suction. I would estimate that we suctioned out another 30 or 40 mL of thick mucus. We also instilled an estimated 30-40 mL of saline. At the end of the procedure, the left bronchial tree was clear. I also examined the right bronchial tree. There were small amounts of thick white mucus present, which were suctioned out and around 10 [place] [address] PROCEDURE REPORT Name: CACHORRO CROSS Room: [address] IN [facility].#: [id number] Admission: 07/01/21 Attend Phys: Marcos Villa MD Discharge: 07/21/21 Date of : 49 Report #: [id number] instilled and then suctioned out from the right bronchial tree. There were no other additional findings. There were no endobronchial lesions. The specimen collected will be sent to the laboratory and results followed up. The patient remained stable throughout the procedure. At this point, there are no known complications from this procedure. As previously already anticipated, there would be a possibility of a pneumothorax, worsening of the results of bronchoscopy and we definitely will check on this by repeating a chest x-ray, which is ordered. <ELECTRONICALLY SIGNED> By: Santhosh Youngblood MD 07/22/21 1322 1258 1923Atrena Youngblood MD /nt
== END 2021-07-21 | DRG 177 ==
LOC: M.ERS 19:55 → M.ORTHSURG 22:46 → M.TBA-ER 22:46 → M.ORTHSURG 07-02 00:40 → M.2W 07-04 20:32
PROVIDERS: Emergency Medicine; Internal Medicine; Internal Medicine Critical Care Medicine; Internal Medicine Nephrology; Nurse Practitioner Family; Surgery; ADMIT Internal Medicine; ATTEND Internal Medicine
DX: J15.6 Pneumonia due to other Gram-negative bacteria (principal); J96.21 Acute and chronic respiratory failure with hypoxia; N17.9 Acute kidney failure, unspecified; J44.1 Chronic obstructive pulmonary disease with (acute) exacerbation; I50.32 Chronic diastolic (congestive) heart failure; J93.83 Other pneumothorax; J91.8 Pleural effusion in other conditions classified elsewhere; J98.19 Other pulmonary collapse; I13.0 Hypertensive heart and chronic kidney disease with heart failure and stage 1 through stage 4 chronic kidney disease, or unspecified chronic kidney disease; E11.319 Type 2 diabetes mellitus with unspecified diabetic retinopathy without macular edema; E78.5 Hyperlipidemia, unspecified; I25.10 Atherosclerotic heart disease of native coronary artery without angina pectoris; M19.90 Unspecified osteoarthritis, unspecified site; N18.30 Chronic kidney disease, stage 3 unspecified; E03.9 Hypothyroidism, unspecified; G47.33 Obstructive sleep apnea (adult) (pediatric); Z77.22 Contact with and (suspected) exposure to environmental tobacco smoke (acute) (chronic); H35.30 Unspecified macular degeneration; D64.9 Anemia, unspecified; E66.01 Morbid (severe) obesity due to excess calories; E11.22 Type 2 diabetes mellitus with diabetic chronic kidney disease; E53.8 Deficiency of other specified B group vitamins; Z20.822 Contact with and (suspected) exposure to COVID-19; T17.990A Other foreign object in respiratory tract, part unspecified in causing asphyxiation, initial encounter; X58.XXXA Exposure to other specified factors, initial encounter; Y93.89 Activity, other specified; I25.2 Old myocardial infarction; Z90.710 Acquired absence of both cervix and uterus; Z95.5 Presence of coronary angioplasty implant and graft; Z88.2 Allergy status to sulfonamides; Z88.8 Allergy status to other drugs, medicaments and biological substances; Z91.041 Radiographic dye allergy status; Z86.73 Personal history of transient ischemic attack (TIA), and cerebral infarction without residual deficits; Z98.42 Cataract extraction status, left eye; Y92.89 Other specified places as the place of occurrence of the external cause; Y99.8 Other external cause status; Z68.29 Body mass index [BMI] 29.0-29.9, adult